=== PATIENT | female | born 1995 | race Hispanic/Latino ===

== ENCOUNTER 2018-06-13 01:36 | Emergency (ER) | payer BC, OTHER ==
[2018-06-13 02:16] LABS: Urine Blood NEGATIVE (NEG); Urine Glucose NEGATIVE (NEG); Urine Protein NEGATIVE (NEG); Urine Specific Gravity 1.015 (1.005-1.030)
[2018-06-13] MEDS ORDERED: NA CHLORIDE 0.9% 1,000 ML ONE (02:24)
[2018-06-13] MEDS ORDERED: ACETAMINOPHEN 500 MG TAB ONE (02:24)
[2018-06-13 02:32] LABS: Absolute Lymphocytes (CBC) 3.5 K/uL (0.7-4.9); Absolute Monocytes 0.6 K/uL (0.1-1.3); Absolute Neutrophil 5.5 K/uL (1.8-8.0); Basophils % 0.5 % (0-1.3); Eosinophils % 1.2 % (0-4.4); Hematocrit 38.1 % (36.0-45.0); Lymphocytes % 36.1 % (15.3-44.8); MPV 8.7 fL (7.6-11.3); Monocytes % 5.8 % (3.3-12.3); RBC Red Blood Cell Count 4.41 M/uL (3.86-4.86)
[2018-06-13 02:48] LABS: BUN Blood Urea Nitrogen 8 mg/dL (7-18); Bicarbonate 26 mmol/L (21-32); Glucose Level 86 mg/dL (74-106); Potassium 3.3 mmol/L (3.5-5.1); Sodium Level 139 mmol/L (136-145)
[2018-06-13] MEDS ORDERED: POTASSIUM CL SA 10 MEQ TAB PO ONE (03:11)
--- NOTE | 2018-06-13 03:19 | EDPHYS ---
Physician Documentation [facility] Name: Eboni Gillis Age: 23 yrs Sex: Female : 1995 Arrival Date: 06/13/2018 Time: 01:37 Bed 20 Private MD: ED Physician Armando Mitchell HPI: 06/13 02:36 This 23 yrs old Female presents to ER via Ambulatory with complaints of jr8 Abdominal Cramping - preg 8 wks. 02:36 The patient presents to the emergency department with abdominal pain, of the lower jr8 abdomen, described as crampy. The estimated gestational age is 8 weeks. course: care: private OB physician, Leakage of Fluid: none appreciated. Previous pregnancies: the patient has never been . Associated signs and symptoms: The patient has no apparent associated signs or symptoms. The patient has not experienced similar symptoms in the past. The patient has not recently seen a physician. Stated that she has had mild cramping the entire thus far. Today has been slightly more intense. Noticed that it hurt to urinate as well. Denies bleeding or spotting. Denies any other symptoms . 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 - Social history:: Smoking status: Patient/guardian denies using tobacco, Patient/guardian denies using alcohol, street drugs, IV drugs. - Ebola Screening: : No symptoms or risks identified at this time. ROS: 02:36 Eyes: Negative for injury, pain, redness, and discharge, ENT: Negative for injury, jr8 pain, and discharge, Neck: Negative for injury, pain, and swelling, Cardiovascular: Negative for chest pain, palpitations, and edema, Respiratory: Negative for shortness of breath, cough, wheezing, and pleuritic chest pain, Back: Negative for injury and pain, MS/Extremity: Negative for injury and deformity, Skin: Negative for injury, rash, and discoloration, Neuro: Negative for headache, weakness, numbness, tingling, and seizure. 02:36 Abdomen/GI: Positive for abdominal cramps, Negative for nausea, vomiting, and diarrhea, abdominal distension, anorexia, dysphagia, hematemesis, black/tarry stool, rectal pain, rectal bleeding, bowel incontinence, flatulence. 02:36 : Negative for pelvic pain, bladder incontinence, vaginal bleeding, vaginal jr8 discharge, vaginal itching. Exam: 02:36 Eyes: Pupils equal round and reactive to light, extra-ocular motions intact. Lids and jr8 lashes normal. Conjunctiva and sclera are non-icteric and not injected. Cornea within normal limits. Periorbital areas with no swelling, redness, or edema. ENT: Nares patent. No nasal discharge, no septal abnormalities noted. Tympanic membranes are normal and external auditory canals are clear. Oropharynx with no redness, swelling, or masses, exudates, or evidence of obstruction, uvula midline. Mucous membranes moist. Neck: Trachea midline, no thyromegaly or masses palpated, and no cervical lymphadenopathy. Supple, full range of motion without nuchal rigidity, or vertebral point tenderness. No Meningismus. Cardiovascular: Regular rate and rhythm with a normal S1 and S2. No gallops, murmurs, or rubs. Normal PMI, no JVD. No pulse deficits. Respiratory: Lungs have equal breath sounds bilaterally, clear to auscultation and percussion. No rales, rhonchi or wheezes noted. No increased work of breathing, no retractions or nasal flaring. Abdomen/GI: Soft, non-tender, with normal bowel sounds. No distension or tympany. No guarding or rebound. No evidence of tenderness throughout. Back: No spinal tenderness. No costovertebral tenderness. Full range of motion. Skin: Warm, dry with normal turgor. Normal color with no rashes, no lesions, and no evidence of cellulitis. MS/ Extremity: Pulses equal, no cyanosis. Neurovascular intact. Full, normal range of motion. Neuro: Awake and alert, GCS 15, oriented to person, place, time, and situation. Cranial nerves II-XII grossly intact. Motor strength 5/5 in all extremities. Sensory grossly intact. Cerebellar exam normal. Normal gait. Vital Signs: 01:46 BP 123 / 88; Pulse 94; Resp 18; Temp 99(O); Pulse Ox 100% on R/A; Weight 68.04 kg; mg2 Height 5 ft. 11 in. (180.34 cm); Pain 0/10; 02:51 BP 105 / 61; Pulse 81; Resp 16 S; Pulse Ox 100% on R/A; jd3 01:46 Body Mass Index 20.92 (68.04 kg, 180.34 cm) mg2 MDM: 02:06 Patient medically screened. [facility] 03:16 Data reviewed: vital signs, nurses notes, lab test result(s), and as a result, I will jr8 discharge patient. Data interpreted: Pulse oximetry: on room air is 100 %. Interpretation: normal. Counseling: I had a detailed discussion with the patient and/or guardian regarding: the historical points, exam findings, and any diagnostic results supporting the discharge/admit diagnosis, lab results, the need for outpatient follow up, an OB/Gyne specialist, to return to the emergency department if symptoms worsen or persist or if there are any questions or concerns that arise at home. Response to treatment: the patient's symptoms have markedly improved after treatment, patient is well hydrated. 06/13 01:57 Order name: Urine Dipstick--Ancillary (enter results); Complete Time: 02:18 2 06/13 01:57 Order name: Urine --Ancillary (enter results); Complete Time: 02:18 [facility] 06/13 02:12 Order name: CBC with Diff; Complete Time: 02:36 8 06/13 02:12 Order name: Basic Metabolic Panel; Complete Time: 02:59 8 06/13 02:12 Order name: IV; Complete Time: 02:22 [facility] Administered Medications: 02:22 Drug: NS 0.9% 1000 ml Route: IV; Rate: 1000 ml; Site: right forearm; jd3 03:04 Follow up: Response: No adverse reaction jd3 03:50 Follow up: Response: No adverse reaction; IV Status: Completed infusion jd3 02:22 Drug: Tylenol 1000 mg Route: PO; jd3 03:50 Follow up: Response: No adverse reaction jd3 03:04 Drug: Potassium Chloride 20 mEq Route: PO; jd3 03:50 Follow up: Response: No adverse reaction jd3 Disposition: 03:55 Co-signature as Attending Physician, Armando Mitchell MD. Disposition: 06/13/18 03:18 Discharged to Home. Impression: Primary inadequate contractions. - Condition is Stable. - Discharge Instructions: Abdominal Pain During . - Medication Reconciliation Form, Thank You Letter, Antibiotic Education, Prescription Opioid Use form. - Follow up: Private Physician; When: As needed; Reason: Recheck today's complaints, Continuance of care, Re-evaluation by your physician. - Problem is new. - Symptoms have improved. Signatures: Dispatcher [employer] EDMS Balaji Moe PA PA jr8 Armando Mitchell MD MD gs Davies, Jonathon, RN RN jd3 Constantino Mcdowell RN RN mg2 Corrections: (The following items were deleted from the chart) 02:01 01:47 Allergies: No Known Allergies; mg2 mg2 03:51 03:18 06/13/2018 03:18 Discharged to Home. Impression: Primary inadequate contractions. jd3 Condition is Stable. Forms are Medication Reconciliation Form, Thank You Letter, Antibiotic Education, Prescription Opioid Use. Follow up: Private Physician; When: As needed; Reason: Recheck today's complaints, Continuance of care, Re-evaluation by your physician. Problem is new. Symptoms have improved. jr8
--- NOTE | 2018-06-13 03:19 | ER ---
Nurse's Notes [facility] Name: Eboni Gillis Age: 23 yrs Sex: Female : 1995 Arrival Date: 06/13/2018 Time: 01:37 Bed 20 Private MD: Diagnosis: Primary inadequate contractions Presentation: 06/13 01:45 Presenting complaint: Patient states: burning urination and nausea today, abdominal mg2 cramping for 2 weeks. denies pv bleeding. Transition of care: patient was not received from another setting of care. Onset of symptoms was May 2018. Risk Assessment: Do you want to hurt yourself or someone else? Patient reports no desire to harm self or others. Initial Sepsis Screen: Does the patient meet any 2 criteria? No. Patient's initial sepsis screen is negative. Does the patient have a suspected source of infection? No. Patient's initial sepsis screen is negative. Care prior to arrival: None. 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 - Social history:: Smoking status: Patient/guardian denies using tobacco, Patient/guardian denies using alcohol, street drugs, IV drugs. - Ebola Screening: : No symptoms or risks identified at this time. Screenin:51 Abuse screen: Denies threats or abuse. Nutritional screening: No deficits noted. jd3 Tuberculosis screening: No symptoms or risk factors identified. Fall Risk Ambulatory Aid- None/Bed Rest/Nurse Assist (0 pts). Gait- Normal/Bed Rest/Wheelchair (0 pts) Mental Status- Oriented to own ability (0 pts). Total Guajardo Fall Scale indicates No Risk (0-24 pts). Assessment: 01:54 General: Appears in no apparent distress. uncomfortable, Behavior is calm, cooperative, jd3 appropriate for age. Pain: Complains of pain in suprapubic area Quality of pain is described as aching. Neuro: Level of Consciousness is awake, alert, obeys commands, Oriented to person, place, time, situation. Cardiovascular: Capillary refill < 3 seconds Patient's skin is warm and dry. Respiratory: Airway is patent Respiratory effort is even, unlabored, Respiratory pattern is regular, symmetrical. GI: Abdomen is round Bowel sounds present X 4 quads. Abd is soft and non tender X 4 quads. Reports constipation. : Reports pain with urination. EENT: No signs and/or symptoms were reported regarding the EENT system. Derm: Skin is intact, Skin is dry, Skin is normal, Skin temperature is warm. Musculoskeletal: Circulation, motion, and sensation intact. Range of motion: intact in all extremities. 02:51 Reassessment: Patient appears in no apparent distress at this time. Patient and/or jd3 family updated on plan of care and expected duration. Pain level reassessed. Patient is alert, oriented x 3, equal unlabored respirations, skin warm/dry/pink. 03:49 Reassessment: Patient appears in no apparent distress at this time. Patient and/or jd3 family updated on plan of care and expected duration. Pain level reassessed. Patient is alert, oriented x 3, equal unlabored respirations, skin warm/dry/pink. Vital Signs: 01:46 BP 123 / 88; Pulse 94; Resp 18; Temp 99(O); Pulse Ox 100% on R/A; Weight 68.04 kg; mg2 Height 5 ft. 11 in. (180.34 cm); Pain 0/10; 02:51 BP 105 / 61; Pulse 81; Resp 16 S; Pulse Ox 100% on R/A; jd3 01:46 Body Mass Index 20.92 (68.04 kg, 180.34 cm) mg2 ED Course: 01:37 Patient arrived in ED. am2 01:42 Constantino Mcdowell, CARLOS is Primary Nurse. mg2 01:46 Triage completed. mg2 01:50 Arm band placed on. jd3 01:51 Patient has correct armband on for positive identification. Bed in low position. Call jd3 light in reach. Side rails up X 1. Adult w/ patient. 01:54 Primary Nurse role handed off by Constantino Mcdowell, CARLOS jd3 01:54 Ulysses Levy RN is Primary Nurse. jd3 02:06 [facility] jr8 02:06 Armando Mitchell MD is Attending Physician. jr8 03:50 No provider procedures requiring assistance completed. IV discontinued, intact, jd3 bleeding controlled, No redness/swelling at site. Pressure dressing applied. Administered Medications: 02:22 Drug: NS 0.9% 1000 ml Route: IV; Rate: 1000 ml; Site: right forearm; jd3 03:04 Follow up: Response: No adverse reaction jd3 03:50 Follow up: Response: No adverse reaction; IV Status: Completed infusion jd3 02:22 Drug: Tylenol 1000 mg Route: PO; jd3 03:50 Follow up: Response: No adverse reaction jd3 03:04 Drug: Potassium Chloride 20 mEq Route: PO; jd3 03:50 Follow up: Response: No adverse reaction jd3 Outcome: 03:18 Discharge ordered by . jr8 03:50 Discharged to home ambulatory, with family. jd3 03:50 Condition: stable 03:50 Discharge instructions given to patient, family, Instructed on discharge instructions, follow up and referral plans. Demonstrated understanding of instructions, follow-up care. 03:51 Patient left the ED. jd3 Signatures: Balaji Moe PA PA jr8 Mica Francisco am2 Ulysses Levy RN RN jd3 Constantino Mcdowell RN RN mg2 Corrections: (The following items were deleted from the chart) 02:01 01:46 Temp 99F Oral; 68.04 kg; Height 5 ft. 11 in.; BMI: 20.9; mg2 mg2 02:01 01:47 Allergies: No Known Allergies; mg2 mg2
== END 2018-06-13 03:51 | disposition home or self-care (01) ==
LOC: ER 01:36
DX: O62.0 Primary inadequate contractions (principal); Z3A.08 8 weeks gestation of pregnancy; Z88.0 Allergy status to penicillin
CPT/HCPCS: 36415; 80048; 81003; 81025; 85025; 96360; 99283; J7030

== ENCOUNTER 2018-12-27 13:50 | Emergency (ER) | payer BC, SELFPAY ==
--- OUTSIDE RECORDS SUMMARY | 2018-12-27 13:53 | XMS REPORT ---
:1995 [facility] Dante Barker. [address] [place] [address] Care Team Providers Name Role Phone Unavailable Unavailable Unavailable Problems This patient has no known problems. Allergies, Adverse Reactions, Alerts This patient has no known allergies or adverse reactions. Medications This patient has no known medications.
[2018-12-27 14:33] LABS: Absolute Lymphocytes (CBC) 1.6 K/uL (0.7-4.9); Basophils % 0.7 % (0-1.3); Eosinophils % 0.7 % (0-4.4); Hematocrit 33.4 % (36.0-45.0); Lymphocytes % 21.6 % (15.3-44.8); MPV 9.8 fL (7.6-11.3); Monocytes % 4.9 % (3.3-12.3); RBC Red Blood Cell Count 3.78 M/uL (3.86-4.86)
[2018-12-27] MEDS ORDERED: MEPERIDINE HCL 25 MG/0.5 ML ONE (14:39)
[2018-12-27] MEDS ORDERED: ONDANSETRON 4 MG/2 ML VIAL ONE (14:40)
[2018-12-27 14:47] LABS: Urine Blood NEGATIVE (NEG); Urine Glucose NEGATIVE (NEG); Urine Protein 1+ (NEG); Urine Specific Gravity 1.025 (1.005-1.030)
[2018-12-27 14:51] LABS: Potassium 3.7 mmol/L (3.5-5.1)
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
== END 2018-12-27 16:17 | disposition home or self-care (01) ==
LOC: ER 13:50
DX: O26.893 Other specified pregnancy related conditions, third trimester (principal); S20.219A Contusion of unspecified front wall of thorax, initial encounter; V49.9XXA Car occupant (driver) (passenger) injured in unspecified traffic accident, initial encounter; Z3A.36 36 weeks gestation of pregnancy; Z88.0 Allergy status to penicillin; O16.3 Unspecified maternal hypertension, third trimester
CPT/HCPCS: 36415; 71045; 80048; 81003; 85025; 86850; 86900; 86901; J2175; J2405

== ENCOUNTER 2019-01-14 01:40 | Emergency (ER) | payer SELFPAY ==
[2019-01-14] MEDS ORDERED: NA CHLORIDE 0.9% 1,000 ML ONE (02:12)
[2019-01-14 02:40] LABS: Protime INR 0.9
[2019-01-14 02:42] LABS: Basophils % 0.3 % (0-1.3); Hematocrit 30.5 % (36.0-45.0); Lymphocytes % 22.9 % (15.3-44.8); RBC Red Blood Cell Count 3.56 M/uL (3.86-4.86)
[2019-01-14 03:04] LABS: ALT/SGPT 11 U/L (12-78); AST/SGOT 13 U/L (15-37); Albumin 2.7 g/dL (3.4-5.0); Alkaline Phosphatase 131 U/L (45-117); BUN Blood Urea Nitrogen 9 mg/dL (7-18); Bicarbonate 22 mmol/L (21-32); Bilirubin Direct < 0.1 mg/dL (0-0.2); Bilirubin Total 0.1 mg/dL (0.2-1.0); Glucose Level 113 mg/dL (74-106); Lipase 160 U/L (73-393); Magnesium 1.9 mg/dL (1.8-2.4); NT PRO-BNP 26 pg/mL (<125); Potassium 3.7 mmol/L (3.5-5.1); Protein, Total 6.7 g/dL (6.4-8.2); Sodium Level 141 mmol/L (136-145); Troponin (Emerg Dept Use Only) < 0.02 ng/mL (0.0-0.045)
[2019-01-14 03:27] LABS: Urine Glucose NEGATIVE (NEG); Urine Specific Gravity >1.030 (1.005-1.030)
[2019-01-14 03:28] LABS: Urine Blood NEGATIVE (NEG); Urine Protein 1+ (NEG)
[2019-01-14] MEDS ORDERED: LABETALOL HCL 100 MG TAB ONE ×2 (04:22→04:23)
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
--- NOTE | 2019-01-14 04:24 | ER ---
Nurse's Notes [facility] Name: Eboni Gillis Age: 23 yrs Sex: Female : 1995 Arrival Date: 01/14/2019 Time: 01:45 Bed 8 Private MD: Diagnosis: Headache; related conditions, unspecified, third trimester;Chest pain, unspecified-non cardiac Presentation: 01/14 01:57 Presenting complaint: Patient states: "The whole right side of my body hurts"; Patient lp1 states pain to right arm and right leg; Pain to right wrist that has been throughout , but pain, tingling to right leg that began a couple days ago; States chest pain intermittently with nausea, headache, shortness of breath; Patient states about 39 weeks . Transition of care: patient was not received from another setting of care. Onset of symptoms was January 14, 2019. Risk Assessment: Do you want to hurt yourself or someone else? Patient reports no desire to harm self or others. Initial Sepsis Screen: Does the patient meet any 2 criteria? No. Patient's initial sepsis screen is negative. Does the patient have a suspected source of infection? No. Patient's initial sepsis screen is negative. Care prior to arrival: None. 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 - Social history:: Smoking status: Patient/guardian denies using tobacco. - Ebola Screening: : No symptoms or risks identified at this time. - Family history:: not pertinent. Screenin:01 Abuse screen: Denies threats or abuse. Denies injuries from another. Nutritional lp1 screening: No deficits noted. Tuberculosis screening: No symptoms or risk factors identified. Fall Risk None identified. Assessment: 02:10 General: Appears in no apparent distress. uncomfortable, Behavior is calm, cooperative, tl2 appropriate for age. Pain: Complains of pain in right leg and right arm and right wrist and dorsal aspect of right forearm Pain does not radiate. Neuro: Level of Consciousness is awake, alert, obeys commands, Oriented to person, place, time, situation, Moves all extremities. Speech is normal, Facial symmetry appears normal, Pupils are PERRLA, Intact Denies weakness dizziness, numbness. Neuro: Reports headache. Cardiovascular: Reports chest pain, nausea, Denies diaphoresis, lightheadedness, Rhythm is sinus rhythm. Respiratory: Airway is patent Respiratory effort is even, unlabored, Respiratory pattern is regular, symmetrical. GI: No signs and/or symptoms were reported involving the gastrointestinal system. : No signs and/or symptoms were reported regarding the genitourinary system. Derm: Skin is pink, warm \\T\\ dry. 03:07 Reassessment: Patient appears in no apparent distress at this time. Patient and/or tl2 family updated on plan of care and expected duration. Pain level reassessed. Patient is alert, oriented x 3, equal unlabored respirations, skin warm/dry/pink. pt returned from CT, no questions or concerns at this time, awaiting lab results. 05:20 Reassessment: Patient appears in no apparent distress at this time. Patient and/or tl2 family updated on plan of care and expected duration. Pain level reassessed. Patient is alert, oriented x 3, equal unlabored respirations, skin warm/dry/pink. pt verbalized understanding of discharge instructions, need for follow up and prescription usage. Ambulatory out of ER with family Patient states feeling better. Vital Signs: 01:58 BP 149 / 91; Pulse 95; Resp 18; Temp 98(O); Pulse Ox 100% on R/A; Weight 94.35 kg; lp1 Height 5 ft. 0 in. (152.40 cm); Pain 5/10; 02:22 BP 140 / 83; Pulse 92; Resp 18; Pulse Ox 99% on R/A; tl2 03:07 BP 134 / 94; Pulse 92; Resp 18; Pulse Ox 97% on R/A; tl2 04:07 BP 131 / 85; Pulse 88; Resp 18; Pulse Ox 98% on R/A; tl2 04:52 BP 147 / 89; Pulse 80; Resp 18; Pulse Ox 98% on R/A; tl2 05:19 BP 140 / 94; Pulse 81; Resp 18; Pulse Ox 98% on R/A; tl2 01:58 Body Mass Index 40.62 (94.35 kg, 152.40 cm) lp1 Vitals: 02:19 Heart Tones 148. tl2 NIH Stroke Scale Scores: 04:26 NIHSS Score: 0 [facility] ED Course: 01:45 Patient arrived in ED. es 01:48 Bob Rosales MD is Attending Physician. dom 01:58 Triage completed. lp1 02:01 Arm band placed on left wrist. lp1 02:10 Patient has correct armband on for positive identification. Bed in low position. Call tl2 light in reach. Side rails up X 1. Adult w/ patient. 02:15 Inserted saline lock: 20 gauge in right antecubital area, using aseptic technique. tl2 Blood collected. placed by CARLOS Degroot. 02:15 Urine collected: clean catch specimen, clear. tl2 02:28 Sheryl Coker RN is Primary Nurse. tl2 02:33 EKG done, by ecg technician. reviewed by Bob Rosales MD. tl2 03:00 CT completed. Patient tolerated procedure well. 1 03:00 X-ray completed. Patient tolerated procedure well. 1 03:00 Patient moved back from radiology. 1 04:23 Kelley Wahl MD is Referral Physician. [facility] 04:33 XRAY Chest (1 view) In Process Unspecified. EDMS 05:20 No provider procedures requiring assistance completed. IV discontinued, intact, tl2 bleeding controlled, No redness/swelling at site. Pressure dressing applied. 07:20 CT Head Brain wo Cont: shield In Process Unspecified. EDMS Administered Medications: 02:28 Drug: NS 0.9% 500 ml Route: IV; Rate: bolus; Site: right antecubital; tl2 05:21 Follow up: IV Status: Completed infusion; IV Intake: 500ml tl2 04:21 Not Given (Duplicate Order): Methyldopa 250 mg PO once [facility] 04:51 Drug: Trandate 100 mg Route: PO; tl2 05:21 Follow up: Response: No adverse reaction; Medication administered at discharge. tl2 Intake: 05:21 IV: 500ml; Total: 500ml. tl2 Outcome: 04:23 Discharge ordered by . dom 05:20 Discharged to home ambulatory, with family. tl2 05:20 Condition: stable 05:20 Discharge instructions given to patient, family, Instructed on discharge instructions, follow up and referral plans. medication usage, Demonstrated understanding of instructions, follow-up care, medications, Prescriptions given X 2. 05:21 Patient left the ED. tl2 NIH Stroke Scale - NIH Stroke Score Date: 01/14/2019 Time: 04:26 Total Score = 0 1a. Level of Consciousness (LOC) - 0(Alert) 1b. Level of Consciousness (LOC) (Year \\T\\ Age) - 0(Both) 1c. LOC Commands (Open \\T\\ Closes Eyes/Data Management Specialist) - 0(Both) 2. Best Gaze (Lateral Gaze Paresis) - 0(Normal) 3. Visual Field Loss - 0(No visual loss) 4. Facial Palsy - 0(Normal) 5a. Left Arm: Motor (10-second hold) - 0(No drift) 5b. Right Arm: Motor (10-second hold) - 0(No drift) 6a. Left Leg: Motor (5-second hold - always test supine) - 0(No drift) 6b. Right Leg: Motor (5-second hold - always test supine) - 0(No drift) 7. Limb Ataxia (finger/nose \\T\\ heel/kaur - test with eyes open) - 0(Absent) 8. Sensory Loss (pinprick arms/legs/face) - 0(Normal) 9. Best Language: Aphasia (description/naming/reading) - 0(No aphasia) 10. Dysarthria (speech clarity - read or repeat words) - 0(Normal) 11. Extinction and Inattention (visual/tactile/auditory/spatial/personal) - 0(No abnormality) Initials: dom Signatures: Dispatcher [employer] Bob Richey MD MD cha Salyer, Luisa Ko 1 Ada Irby, RN RN lp1 Sheryl Coker RN RN tl2 Corrections: (The following items were deleted from the chart) 02:33 02:10 EKG done, by ecg technician. reviewed by Bob Rosales MD tl2 tl2
--- OUTSIDE RECORDS SUMMARY | 2019-01-14 12:46 | XMS REPORT | Summary of Care ---
:1995 Author Organization [facility] - Health Address [address] [place] [address] Care Team Providers Name Role Phone Wayne Mccarty MD Insurance [employer] Primary Care Provider Encounter Details Date Type Department Care Team Description 01/11/2019 Orders Only [facility] Doctor Unassigned, No [address] [facility] [address] [address] [place] [address] Allergies Active Allergy Reactions Severity Noted Date Comments Penicillins Unknown - See comments 11/28/2014 "made my throat tingle" documented as of this encounter (statuses as of 01/11/2019) Medications Medication Sig Dispensed Refills Start Date End Date Status norgestimate-ethinyl Take 1 tablet by 3 Package 2 05/18/2016 Active estradiol (ORTHO mouth daily. [id number]) 0.18/0.215/0.25 mg-35 mcg (28) tabletIndications: Irregular menstrual cycle documented as of this encounter (statuses as of 01/11/2019) Active Problems Problem Noted Date Nexplanon in place 05/18/2016 Irregular menstrual cycle 05/18/2016 Right ankle pain 10/28/2015 Well woman exam 07/16/2015 Depo-Provera contraceptive status 07/16/2015 Overweight 07/16/2015 Contraceptive management 07/16/2015 History of anxiety 07/16/2015 History of depression 07/16/2015 documented as of this encounter (statuses as of 01/11/2019) Immunizations Name Administration Dates Next Due Tdap 06/13/2011 documented as of this encounter Social History Tobacco Use Types Packs/Day Years Used Date Never Smoker Smokeless Tobacco: Never Used Alcohol Use Drinks/Week oz/Week Comments No 0 Standard drinks or equivalent 0.0 Sex Assigned at Date Recorded Not on file Job Start Date Occupation Industry Not on file Not on file Not on file Travel History Travel Start Travel End No recent travel history available. documented as of this encounter Last Filed Vital Signs Not on filedocumented in this encounter Plan of Treatment Health Maintenance Due Date Last Done Comments MENINGOCOCCAL B VACCINES (1 of 2 - 2007 Risk Bexsero 2-dose series) VARICELLA VACCINES (1 of 2 - 13+ 2010 2-dose series) HPV VACCINES (1 - Female 3-dose 2012 series) CHLAMYDIA SCREENING 07/14/2016 07/14/2015 PAP SMEAR 2018 INFLUENZA VACCINE 02/11/2019 DTaP,Tdap,and Td Vaccines (2 - Td) 06/13/2021 06/13/2011 MENINGOCOCCAL VACCINE Aged Out No longer eligible based on patient's age to complete this topic PNEUMOCOCCAL 0-64 YEARS COMBINED Aged Out No longer eligible based on SERIES patient's age to complete this topic documented as of this encounter Procedures Procedure Name Priority Date/Time Associated Diagnosis Comments NOTICE OF PRIVACY Routine 01/11/2019 8:58 AM CDT PRACTICES documented in this encounter Results Not on filedocumented in this encounter Insurance Payer Benefit Plan / Subscriber ID Effective Dates Phone Address Type Group [employer] MEDICAID OF xxxxxxxxx 2016-Harlan [phone] [address] [employer] [place] t [id number] [place] [id number] documented as of this encounter
--- OUTSIDE RECORDS SUMMARY | 2019-01-14 12:46 | XMS REPORT | Summary of Care ---
:1995 Author Organization [facility] Address [address] [place] [address] Care Team Providers Name Role Phone Ibeth Morse [facility] Primary Care Provider Reason for Visit Reason Comments Initial Visit Encounter Details Date Type Department Care Team Description 01/11/2019 [facility] Supervision of high-risk with insufficient care in third trimester (Primary Dx); Visit [place] Ibeth Shepherd [facility] Obesity in ; [address] History of depression; [facility] History of anxiety [phone] [address] [phone] [place] [address] Allergies Active Allergy Reactions Severity Noted Date Comments Penicillins Unknown - See comments 11/28/2014 "made my throat tingle" documented as of this encounter (statuses as of 01/11/2019) Medications Medication Sig Dispensed Refills Start Date End Date Status norgestimate-ethinyl Take 1 tablet by 3 Package 2 05/18/2016 Active estradiol (ORTHO mouth daily. [id number]) 0.18/0.215/0.25 mg-35 mcg (28) tabletIndications: Irregular menstrual cycle vit Take by mouth. 0 Active calc,iron,folic ( VITAMIN ORAL) documented as of this encounter (statuses as of 01/11/2019) Active Problems Problem Noted Date Supervision of high-risk with insufficient care 01/11/2019 Obesity in 01/11/2019 History of anxiety 07/16/2015 History of depression 07/16/2015 Estimated Date of Delivery Comments Yes 02/01/2019 Based on last menstrual period of 04/27/2018 (Approximate) documented as of this encounter (statuses as of 01/11/2019) Resolved Problems Problem Noted Date Resolved Date Nexplanon in place 05/18/2016 01/11/2019 Irregular menstrual cycle 05/18/2016 01/11/2019 Right ankle pain 10/28/2015 01/11/2019 Well woman exam 07/16/2015 01/11/2019 Depo-Provera contraceptive status 07/16/2015 01/11/2019 Overweight 07/16/2015 01/11/2019 Contraceptive management 07/16/2015 01/11/2019 documented as of this encounter (statuses as of 01/11/2019) Immunizations Name Administration Dates Next Due Tdap 06/13/2011 documented as of this encounter Social History Tobacco Use Types Packs/Day Years Used Date Never Smoker Smokeless Tobacco: Never Used Alcohol Use Drinks/Week oz/Week Comments No 0 Standard drinks or equivalent 0.0 Estimated Date of Delivery Comments Yes 02/01/2019 Based on last menstrual period of 04/27/2018 (Approximate) Sex Assigned at Date Recorded Not on file Job Start Date Occupation Industry Not on file Not on file Not on file Travel History Travel Start Travel End No recent travel history available. documented as of this encounter Last Filed Vital Signs Vital Sign Reading Time Taken Comments Blood Pressure 114/82 01/11/2019 9:23 AM CDT Pulse 99 01/11/2019 9:18 AM CDT Temperature 36.3 C (97.3 F) 01/11/2019 9:18 AM CDT Respiratory Rate 16 01/11/2019 9:18 AM CDT Oxygen Saturation - - Inhaled Oxygen Concentration - - Weight 94.4 kg (208 lb 2 oz) 01/11/2019 9:18 AM CDT Height 152.4 cm (5') 01/11/2019 9:18 AM CDT Body Mass Index 40.65 01/11/2019 9:18 AM CDT documented in this encounter Progress Notes Ibeth Morse, WHCNP - 01/11/2019 8:30 AM CDT Chief complaint: Chief Complaint Patient presents with Initial Visit HPI CC: Initial Visit Eboni Gillis is a 23 year old, , Black or female. Patient's last menstrual period was 04/27/2018 (approximate). She is 37w0d with an intrauterine . Her Estimated Date of Delivery: 02/01/19. She is being seen today for her first obstetrical visit. She has no complaints today. OB History Para Term AB Living 1 0 0 0 0 0 SAB TAB Ectopic Multiple Live Births 0 0 0 0 # Outcome Date GA Lbr Arsh/2nd Weight Sex Delivery Anes PTL Lv 1 Current Histories OB History Para Term AB Living 1 0 0 0 0 0 SAB TAB Ectopic Multiple Live Births 0 0 0 0 # Outcome Date GA Lbr Arsh/2nd Weight Sex Delivery Anes PTL Lv 1 Current Past Medical History: Diagnosis Date Anxiety resolved Depression resolved Irregular menstrual cycle 05/18/2016 Right ankle pain 10/28/2015 STD (sexually transmitted disease) 2017 chlamydia Family History Problem Relation Age of Onset Hypertension Mother Cancer Mother cervical Arthritis Mother Hypertension Maternal Grandmother Diabetes Maternal Grandmother No Significant Medical Problems Brother No Significant Medical Problems Maternal Aunt No Significant Medical Problems Maternal Uncle No Significant Medical Problems Maternal Grandfather No Significant Medical Problems Brother Asthma NoFHx defects NoFHx Breast Cancer NoFHx Colon Cancer NoFHx Ovarian Cancer NoFHx Uterine Cancer NoFHx Depression NoFHx Genetic NoFHx Heart NoFHx High cholesterol NoFHx Mental retardation NoFHx Neurological NoFHx Osteoporosis NoFHx Psychiatry NoFHx Other - see comments NoFHx Family Status Relation Name Status Mo Alive MGMo Alive Fa Other unknown history Bro Alive MAunt (Not Specified) MUnc (Not Specified) PAunt Other PUnc Other MGFa Alive PGMo Other PGFa Other Bro Alive NoFHx (Not Specified) Past Surgical History: Procedure Laterality Date ORAL SURGERY PROCEDURE wisdom teeth romoved 4 yrs ago Social History Socioeconomic History Marital status: Single Spouse name: Not on file Number of children: 0 Years of education: Not on file Highest education level: Not on file 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 Social Needs Financial resource strain: Not on file Food insecurity: Worry: Not on file Inability: Not on file Transportation needs: Medical: Not on file Non-medical: Not on file Tobacco Use Smoking status: Never Smoker Smokeless tobacco: Never Used Substance and Sexual Activity Alcohol use: No Alcohol/week: 0.0 oz Drug use: No Sexual activity: Yes Partners: Male control/protection: None Comment: last sexual intercourse 08/14/2018 Lifestyle Physical activity: Days per week: Not on file Minutes per session: Not on file Stress: Not on file Relationships Social connections: Talks on phone: Not on file Gets together: Not on file Attends alevism service: Not on file Active member of club or organization: Not on file Attends meetings of clubs or organizations: Not on file Relationship status: Not on file Intimate partner violence: Fear of current or ex partner: Not on file Emotionally abused: Not on file Physically abused: Not on file Forced sexual activity: Not on file Other Topics Concern Service Not Asked Blood Transfusions Not Asked Caffeine Concern No Occupational Exposure Not Asked Hobby Hazards Not Asked Sleep Concern Not Asked Stress Concern Not Asked Weight Concern Not Asked Special Diet Not Asked Back Care Not Asked Exercise Not Asked Bike Helmet Not Asked Seat Belt Not Asked Self-Exams Not Asked Social History Narrative Pt denies current or past physical, sexual or emotional abuse. Patient lives with grandmother. Lutheran preference: Restoration. One inside dog at home. Social History Substance and Sexual Activity Sexual Activity Yes Partners: Male control/protection: None Comment: last sexual intercourse 08/14/2018 Genetic Screen Autism / Mental Retardation: No Valentina Disease: No Congenital Heart Defect: No Cystic Fibrosis: No Down Syndrome: No Familial Dysautonomia: No Hemophilia or other Blood Disorders: No Rojelio Chorea: No Maternal Metabolic Disorder--specify (eg. Type 1 Diabetes, PKU): No Muscular Dystrophy: No Neural Tube Defect: No Recurrent Loss or a Stillbirth: No Sickle Cell Disease or Trait: No Eugene Sachs: No Teratological Substances (specify type & strength/dose) since LMP: No Thalassemia: No Other Inherited Genetic or Chromosomal Disorder (specify): No No Significant History of Genetic Disorders: No Significant History of Genetic Disorders Labs Labs are pending. and ROR requested for previous labs Radiology Radiology pending. Allergies Eboni is allergic to penicillins. Medications Eboni has a current medication list which includes the following prescription(s ): vit calc,iron,folic and norgestimate-ethinyl estradiol. Review of Systems Constitutional: Negative. HENT: Negative. Eyes: Negative. Respiratory: Negative. Breasts: Negative. Cardiovascular: Negative. Gastrointestinal: Negative. Genitourinary: Negative. Musculoskeletal: Negative. Skin: Negative. Neurological: Negative. Psychiatric/Behavioral: Negative. Endocrine: Endocrine negative BP 114/82 (BP Location: Right arm, Patient Position: Sitting, BP CUFF SIZE: Adult Large) | Pulse 99 | Temp 36.3 C (97.3 F) (Oral) | Resp 16 | Ht 5' ( 1.524 m) | Wt 208 lb 2 oz (94.4 kg) | LMP 04/27/2018 (Approximate) | BMI 40.65 kg/m Pregravid BMI: Could not be calculated Physical Exam Vitals reviewed. Constitutional: She is oriented to person, place, and time. She appears well- developed. Her body habitus is normal. Neck: No tenderness and no mass. No thyroid nodules and no thyromegaly palpated. No neck adenopathy. Cardiovascular: Regular rate and rhythm. No gallop, no friction rub and no murmur auscultated. No peripheral edema present. Pulmonary/Chest: Breath sounds clear to auscultation. Normal inspiratory effort. Abdominal: Abdomen is soft. No mass palpated. No tenderness present. There is no hepatosplenomegaly,splenomegaly or hepatomegaly. There is no rigidity. No hernia palpated or inspected. Neuro/Psychiatric: She has a normal mood and affect. She is oriented to person, place, and time. Skin: No lesion, no rash and no ulceration present. Lymphadenopathy: No neck adenopathy present. No axillary adenopathy present. No inguinal adenopathy present. Breast: Right breast exhibits no mass, no nipple discharge and no tenderness. Left breast exhibits no mass, no nipple discharge and no tenderness. Breasts are symmetrical. Normal left breast and normalright breast Rectal: Rectal exam with normal anal tone. No mass, no external hemorrhoid and no internal hemorrhoid palpated or inspected. External genitalia: Normal external genitalia appropriate for age. Normal hair distribution. No labial lesion. Urethral meatus: Normal urethral meatus size, location and no lesion. No prolapse present. Normal urethral meatus Urethra: Normal urethra. No urethral tenderness, no mass and no urethral scarring palpated. Bladder: Bladder has no fullness, no mass palpated and no tenderness. Normal bladder Vagina:Normal vagina. No lesion inspected. Normal estrogen effect. Normal support. No abnormal vaginal discharge found. Cervix: Normal cervix. No lesion. No tenderness and no discharge present. 1cm dilated, 50% effaced Uterus: Uterus is normal size, normal contour, normal position and non-tender. Normal uterus Adnexa: Right adnexa without tenderness, ovary enlargement or mass. Left adnexa without tenderness, ovary enlargement or mass. Normal left adnexa and normal right adnexa Anus/perineum: Normal perineum and normal anus. PHYSICAL: General Exam: HEENT: Normal Neurological: Normal Abdomen: Normal gravid Extremities: Normal Pelvic Exam: Vulva: Normal Vagina: Normal Cervix: Normal Membrane status: Intact Uterus: 39 Weeks Adnexa: Normal Rectum: Normal Assessment/Plan Return to clinic in 1 weeks. Denies zika virus risk, signs and symptoms such as fever,rash,joint pain, conjunctivitis (red eyes),muscle pain, headaches; outside [place] travel to areas affected by zika, and FOB exposure to zika. Educated on use of mosquito repellent. Supervision of high-risk with insufficient care in third trimester (primary encounter diagnosis) Comment: initial visit with labs and physical exam Plan: POCT TEST, POCT URINALYSIS W/O SPECIFIC GRAVITY, GROUP B STREPTOCOCCUS BY PCR, CBC WITH DIFF, GC & CHLAMYDIA AMPLIFIED ASSAY, HCV ANTIBODY, HEPATITIS B SURFACE ANTIGEN, HIV 1/2 AG-AB WITH REFLEX, POCT URINALYSIS W SPECIFIC GRAVITY, WORKUP, BLOOD BANK, RUBELLA SCREEN (JAMEE) IGG, GALV ONLY - SYPHILIS IGG/IGM, URINE CULTURE, VZV ANTIBODY SCREEN, CBC WITH DIFFERENTIA Obesity in Comment: see bmi Plan: limit weight gain and sensible diet. History of depression History of anxiety Comment: n mgmt today Plan: as needed mgmt This visit did not involve counseling and coordination that comprised more than 50% of the visit time. TERI Sanchez 01/11/2019 12:07 PM Brianda Flanagan RN - 01/11/2019 8:30 AM CDTPatient is 23 year old female here for current . Patient is . 1) Previous delivery methods Initial pregancy 2) Patient is not experiencing cramping 3) Patient is not experiencing bleeding. 4) LMP 04/27/2018 5) Last Pap was: n/a Results: N/a 6) Have you had a flu vaccine this season? No 7) PPD candidate? No 8) Patient has no complaints at this time. 9) Patient denies history of physical, emotional, or sexual abuse. Patient states she currently feels safe at home. NOB packet given and reviewed with patient. documented in this encounter Plan of Treatment Date Type Specialty Care Team Description 01/18/2019 Routine Visit [facility] [address] [place] [address] [phone] Name Type Priority Associated Diagnoses Date/Time GROUP B STREPTOCOCCUS BY LAB Routine Supervision of high-risk 01/11/2019 10 :44 AM PCR with CDT insufficient care in third trimester CBC WITH DIFF LAB Routine Supervision of high-risk 01/11/2019 10:43 AM with CDT insufficient care in third trimester GC & CHLAMYDIA AMPLIFIED LAB Routine Supervision of high-risk 01/11/2019 10 :44 AM ASSAY with CDT insufficient care in third trimester HCV ANTIBODY LAB Routine Supervision of high-risk 01/11/2019 10:43 AM with CDT insufficient care in third trimester HEPATITIS B SURFACE LAB Routine Supervision of high-risk 01/11/2019 10:43 AM ANTIGEN with CDT insufficient care in third trimester HIV 1/2 AG-AB WITH REFLEX LAB Routine Supervision of high-risk 01/11/2019 10:43 AM with CDT insufficient care in third trimester RUBELLA SCREEN (JAMEE) IGG LAB Routine Supervision of high-risk 01/11/2019 10:43 AM with CDT insufficient care in third trimester GALV ONLY - SYPHILIS LAB Routine Supervision of high-risk 01/11/2019 10:43 AM IGG/IGM with CDT insufficient care in third trimester URINE CULTURE LAB Routine Supervision of high-risk 01/11/2019 10:44 AM with CDT insufficient care in third trimester VZV ANTIBODY SCREEN LAB Routine Supervision of high-risk 01/11/2019 10:43 AM with CDT insufficient care in third trimester CBC WITH DIFFERENTIAL LAB Routine Supervision of high-risk 01/11/2019 10: 43 AM with CDT insufficient care in third trimester Name Type Priority Associated Diagnoses Order Schedule POCT URINALYSIS W LAB Routine Supervision of high-risk 20 Occurrences starting SPECIFIC GRAVITY with 01/11/2019 until insufficient 11/07/2019 care in third trimester WORKUP, BLOOD LAB Routine Supervision of high-risk Ordered: 2018 BANK with insufficient care in third trimester Health Maintenance Due Date Last Done Comments [...] Procedure Name Priority Date/Time Associated Diagnosis Comments POCT URINALYSIS W/O Routine 01/11/2019 9:21 Supervision of Results for this SPECIFIC GRAVITY AM CDT high-risk procedure are in with insufficient the results care in section. third trimester POCT TEST Routine 01/11/2019 9:20 Supervision of Results for this AM CDT high-risk procedure are in with insufficient the results care in section. third trimester documented in this encounter Results POCT URINALYSIS W/O SPECIFIC GRAVITY (01/11/2019 9:21 AM CDT) POCT PH U 5 5 - 8 mg/dl POCT U LEUK EST Trace Negative - Negative POCT U NIT Neg Negative - Negative POCT U PROT Trace Negative - Negative POCT U GLU Neg Negative - Negative POCT U KETONE None Negative - Negative POCT U BLD Neg Negative - Negative Specimen Urine - URINE, CLEAN CATCH POCT TEST (01/11/2019 9:20 AM CDT) POCT PREG Positive On board controls acceptable Yes with C Line POCT PREG LOT # POCT PREG TEST DATE Specimen Urine - URINE, CLEAN CATCH documented in this encounter Visit Diagnoses Diagnosis Supervision of high-risk with insufficient care in third trimester - Primary Obesity in Obesity complicating , childbirth, or the puerperium, unspecified as to episode of care or not applicable History of depression Personal history of other mental disorder History of anxiety Personal history of other mental disorder documented in this encounter Insurance Payer Benefit Plan / Subscriber ID Effective Phone Address Type Group Dates MEDICAID MEDICAID PENDING 2019-[address] [place] [address] documented as of this encounter Advance Directives Name Relationship Healthcare Agent Relationship Communication Trishlily Gillis Mother Primary healthcare agent
--- OUTSIDE RECORDS SUMMARY | 2019-01-14 12:46 | XMS REPORT ---
:1995 [facility] Address [address] [place] [address] [address]. [address] [place] [address] Care Team Providers Name Role Phone Unavailable Unavailable Unavailable Problems This patient has no known problems. Allergies, Adverse Reactions, Alerts This patient has no known allergies or adverse reactions. Medications This patient has no known medications.
--- OUTSIDE RECORDS SUMMARY | 2019-01-14 12:47 | XMS REPORT | Summary of Care ---
:1995 Author Organization [facility] Address [address] [place] [address] Care Team Providers Name Role Phone Ibeth Morse [facility] Primary Care Provider Reason for Visit Reason Comments Initial Visit Encounter Details Date Type Department Care Team Description [facility]/11[facility]2019 [facility] Supervision of high-risk with insufficient care in third trimester (Primary Dx); Visit [place] Ibeth Shepherd [facility] Obesity in ; [address] History of depression; [facility] History of anxiety [phone] [address] [phone] [place] [address] Allergies Active Allergy Reactions Severity Noted Date Comments Penicillins Unknown - See comments 11/28/2014 "made my throat tingle" documented as of this encounter (statuses as of 01/11/2019) Medications Medication Sig Dispensed Refills Start Date End Date Status norgestimate-ethinyl Take 1 tablet by 3 Package 2 05/18/2016 Active estradiol (ORTHO mouth daily. 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 Patient lives with grandmother. Baptism preference: Yazidism. One inside dog at home. Social History [...] 01/18/2019 Routine [facility] [address] [place] [address] [phone] Name Type Priority Associated Diagnoses Date/Time GROUP [...] Address Type Group Dates MEDICAID MEDICAID PENDING 2019-[address] [place] [address] documented as of this encounter Advance Directives Name Relationship Healthcare Agent Relationship Communication Trishlily Gillis Mother Primary healthcare agent
--- NOTE | 2019-01-14 13:38 | RAD REPORT ---
EXAM DESCRIPTION: CT - Head Brain Wo Cont - 01/14/2019 12:42 pm CLINICAL HISTORY: Headache COMPARISON: April 2014 TECHNIQUE: Axial 5 mm thick images of the head were obtained without IV contrast. All CT scans are performed using dose optimization technique as appropriate and may include automated exposure control or mA/KV adjustment according to patient size. FINDINGS: No intracranial hemorrhage, mass, edema or shift of mid-line structures. No acute infarcti on changes seen. No abnormal extra-axial fluid collections. Ventricles are normal. Mastoid air cells and visualized portions of the paranasal sinuses are clear. No acute bony findings. Due to a technical malfunction images were not available and no dictation could be generated at the t aneta of the study. A verbal report was telephoned when images became available for preliminary review. IMPRESSION: Negative non-contrast CT head examination.
--- NOTE | 2019-01-14 14:40 | RAD REPORT ---
EXAM DESCRIPTION: RAD - Chest Single View - 01/14/2019 12:42 pm CLINICAL HISTORY: Cough COMPARISON: December 27 TECHNIQUE: AP portable chest image was obtained 0252 hours. Abdominal shielding was utilized . FINDINGS: Lungs are clear. Heart and vasculature are normal. No measurable pleural effusion and no p neumothorax. No acute bony abnormality seen. No acute aortic finding. No significant change from prior imaging. Due to technical malfunction and limited image availability, final report was delayed. IMPRESSION: No acute cardiopulmonary process.
--- NOTE | 2019-01-15 07:45 | EKG ---
Test Date: 2019-01-14 Test Time: 02:29:39 Family Life Counselor: RENZO MEASUREMENT RESULTS: Intervals: Rate: 96 OH: 134 QRSD: 76 QT: 332 QTc: 419 [place]: P: 59 OH: 134 QRS: 47 T: 36 INTERPRETIVE STATEMENTS: Normal sinus rhythm Normal ECG No previous ECG available for comparison Electronically Signed On 01-15-19 07:43:46 CDT by Dave Carrillo
== END 2019-01-14 05:21 | disposition home or self-care (01) ==
LOC: ER 01:40
DX: O26.893 Other specified pregnancy related conditions, third trimester (principal); R51 Headache; R07.9 Chest pain, unspecified; O16.3 Unspecified maternal hypertension, third trimester; Z3A.39 39 weeks gestation of pregnancy
CPT/HCPCS: 36415; 70450; 71045; 80048; 80076; 81003; 83690; 83735; 83880; 84484; 85025; 85610; 87086; 87088; 93005; 96360; 96361; 99285; J7030

== ENCOUNTER 2020-03-04 00:56 | Emergency (ER) | payer OTHER ==
--- OUTSIDE RECORDS SUMMARY | 2020-03-04 00:58 | XMS REPORT | Continuity of Care Document ---
:1995 Author Organization [facility] Address [address] [place] [address] Care Team Providers Name Role Phone Chilango Teixeira MD Attending Clinician Visit, Nurse Attending Clinician Unavailable Anthony Bethea MD Attending Clinician Akinsipe WHCNP, C Attending Clinician Chilango Teixeira MD Admitting Clinician Anthony Bethea MD Admitting Clinician Problems This patient has no known problems. Allergies, Adverse Reactions, Alerts This patient has no known allergies or adverse reactions. Medications This patient has no known medications. Procedures This patient has no known procedures. Encounters Start End Encounter Admission Attending Care Care Encounter Source Date/Time Date/Time Type Type Clinicians Facility Department ID 2019-01-16 2019-01-19 [facility] NIMO Teixeira [id number] 18:12:00 14:30:00 Encounter Laurent CAGE [id number] [facility] [id number] 2019-01-16 2019-01-16 Nurse Visit [facility] [id number] 14:06:12 14:35:18 Visit MagdalenoBryant SEATING UPHOLSTERER [id number] Nurse [facility] [id number] MATERNAL [id number] & CHILD [address] [place] [address] 2019-01-15 2019-01-16 [facility] Lois Bethea [facility] [id number] 23:46:00 02:55:00 [facility] [id number] [place] [id number] [place] [id number] 2019-01-16 2019-01-16 Telephone [place] [id number] 00:00:00 00:00:00 Ibeth C SEATING [facility]PHOLSTERER [id number] [facility] [id number] MATERNAL [id number] & CHILD [address] [facility] 2019-01-15 2019-01-15 Routine [place] [facility] [id number] 16:42:55 18:07:11 Ibeth C SEATING [facility]PHOLSTERER [id number] Visit [facility] [id number] MATERNAL [id number] & CHILD [address] [facility] 2019-01-15 2019-01-15 Telephone [place] [facility] [id number] 00:00:00 00:00:00 Ibeth C SEATING UPHOLSTERER [id number] [facility] [id number] MATERNAL [id number] & CHILD 107 [facility] 2019-01-11 2019-01-11 Initial [place] [facility] [id number] 09:06:50 10:43:15 Ibeth C SEATING UPHOLSTERER [id number] Visit [facility] [id number] MATERNAL [id number] & CHILD 107 [facility] Results This patient has no known results.
--- NOTE | 2020-03-04 01:20 | ER ---
Nurse's Notes [facility] Name: Eboni Gillis Age: 24 yrs Sex: Female : 1995 Arrival Date: 03/04/2020 Time: 00:58 Bed 6 Private MD: Diagnosis: Cellulitis of left lower limb Presentation: 03/04 01:06 Chief complaint: Patient states: approx 45 mins ago she got out of her car to help bb someone and was wading in calf high water and now her right big toe is reddened and swollen with burning and itching. Coronavirus screen: At this time, the client does not indicate any symptoms associated with coronavirus-19. The client reports previous COVID testing was negative. Date of collection: February 24, 2020. Ebola Screen: No symptoms or risks identified at this time. Initial Sepsis Screen: Does the patient meet any 2 criteria? No. Patient's initial sepsis screen is negative. Does the patient have a suspected source of infection? No. Patient's initial sepsis screen is negative. Risk Assessment: Do you want to hurt yourself or someone else? Patient reports no desire to harm self or others. Onset of symptoms was March 04, 2020. 01:06 Method Of Arrival: Ambulatory bb 01:06 Acuity: KALINA 4 bb Triage Assessment: 01:25 Bite description: by unknown. bb 01:25 Bite description: animal information: vaccination(s) is not applicable. 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 - Social history:: Smoking status: Patient denies any tobacco usage or history of. Patient/guardian denies using alcohol, street drugs. Screenin:07 Abuse screen: Denies threats or abuse. Denies injuries from another. Nutritional rv screening: No deficits noted. Tuberculosis screening: No symptoms or risk factors identified. Fall Risk None identified. Assessment: 01:06 General: Appears comfortable, Behavior is calm, cooperative. Pain: Complains of pain in rv right first toe Pain currently is 5 out of 10 on a pain scale. Quality of pain is described as burning. Neuro: Level of Consciousness is awake, alert, obeys commands, Oriented to person, place, time, situation. Cardiovascular: Patient's skin is warm and dry. Respiratory: Airway is patent. Derm: Skin is intact, Skin is pink, warm \T\ dry. Musculoskeletal: Circulation, motion, and sensation intact. Swelling present in right first toe. Vital Signs: 01:06 BP 141 / 93; Pulse 88; Resp 16 S; Temp 98.7(O); Pulse Ox 100% on R/A; Weight 70.31 kg bb (R); Height 5 ft. 1 in. (154.94 cm) (R); Pain 5/10; 01:06 Body Mass Index 29.29 (70.31 kg, 154.94 cm) bb ED Course: 00:58 Patient arrived in ED. cl3 01:06 Helder Fontanez, RN is Primary Nurse. rv 01:07 No provider procedures requiring assistance completed. Patient did not have IV access rv during this emergency room visit. 01:08 Triage completed. bb 01:08 Arm band placed on Patient placed in an exam room, on a stretcher, on pulse oximetry. bb 01:10 Madi Cagle MD is Attending Physician. tw4 01:25 Patient has correct armband on for positive identification. Bed in low position. Call bb light in reach. Side rails up X 1. Pulse ox on. NIBP on. Administered Medications: 01:26 Drug: Cleocin 300 mg Route: PO; bb Outcome: 01:20 Discharge ordered by . tw4 01:26 Discharged to home ambulatory. bb 01:26 Condition: stable 01:26 Discharge instructions given to patient, Instructed on discharge instructions, follow up and referral plans. medication usage, Demonstrated understanding of instructions, follow-up care, medications, Prescriptions given X 1. 01:27 Patient left the ED. bb Signatures: Deirdre Serna RN RN bb Wadley, Terrence, MD MD tw4 Helder Fontanez, Kar Mccall RN cl3
--- NOTE | 2020-03-04 01:21 | EDPHYS ---
Physician Documentation [facility] Name: Eboni Gillis Age: 24 yrs Sex: Female : 1995 Arrival Date: 03/04/2020 Time: 00:58 Bed 6 Private MD: ED Physician Madi Cagle HPI: 03/04 06:14 This 24 yrs old Female presents to ER via Ambulatory with complaints of Foot tw4 Injury. 06:14 The patient presents with pain. The complaints affect the left foot. Context: The tw4 problem was sustained outdoors. Onset: The symptoms/episode began/occurred today. Modifying factors: The symptoms are alleviated by nothing, the symptoms are aggravated by nothing. Associated signs and symptoms: The patient has no apparent associated signs or symptoms. The patient has not experienced similar symptoms in the past. 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 - Social history:: Smoking status: Patient denies any tobacco usage or history of. Patient/guardian denies using alcohol, street drugs. ROS: 06:14 MS/extremity: Positive for pain. tw4 06:14 Constitutional: Negative for fever, chills, and weight loss, Eyes: Negative for injury, pain, redness, and discharge, Cardiovascular: Negative for chest pain, palpitations, and edema, Respiratory: Negative for shortness of breath, cough, wheezing, and pleuritic chest pain, Abdomen/GI: Negative for abdominal pain, nausea, vomiting, diarrhea, and constipation, Back: Negative for injury and pain, MS/Extremity: Negative for injury and deformity, Skin: Negative for injury, rash, and discoloration. Exam: 06:14 Constitutional: This is a well developed, well nourished patient who is awake, alert, tw4 and in no acute distress. Head/Face: Normocephalic, atraumatic. Eyes: Pupils equal round and reactive to light, extra-ocular motions intact. Lids and lashes normal. Conjunctiva and sclera are non-icteric and not injected. Cornea within normal limits. Periorbital areas with no swelling, redness, or edema. Cardiovascular: Regular rate and rhythm with a normal S1 and S2. No gallops, murmurs, or rubs. Normal PMI, no JVD. No pulse deficits. Respiratory: Lungs have equal breath sounds bilaterally, clear to auscultation and percussion. No rales, rhonchi or wheezes noted. No increased work of breathing, no retractions or nasal flaring. Abdomen/GI: Soft, non-tender, with normal bowel sounds. No distension or tympany. No guarding or rebound. No evidence of tenderness throughout. Skin: Warm, dry with normal turgor. Normal color with no rashes, no lesions, and no evidence of cellulitis. 06:14 Musculoskeletal/extremity: Extremities: noted in the : erythema, pain. Vital Signs: 01:06 BP 141 / 93; Pulse 88; Resp 16 S; Temp 98.7(O); Pulse Ox 100% on R/A; Weight 70.31 kg bb (R); Height 5 ft. 1 in. (154.94 cm) (R); Pain 5/10; 01:06 Body Mass Index 29.29 (70.31 kg, 154.94 cm) bb MDM: 01:10 Patient medically screened. tw4 06:19 Differential diagnosis: fracture, gout, cellulitis. Data reviewed: vital signs, nurses tw4 notes. Counseling: I had a detailed discussion with the patient and/or guardian regarding: the historical points, exam findings, and any diagnostic results supporting the discharge/admit diagnosis. Special discussion: I discussed with the patient/guardian in detail that at this point there is no indication for admission to the hospital. It is understood, however, that if the symptoms persist or worsen the patient needs to return immediately for re-evaluation. Administered Medications: 01:26 Drug: Cleocin 300 mg Route: PO; bb Disposition: 03/04/20 01:20 Discharged to Home. Impression: Cellulitis of left lower limb. - Condition is Stable. - Discharge Instructions: Cellulitis, Adult. - Prescriptions for Cleocin 300 mg Oral Capsule - take 1 capsule by ORAL route every 6 hours for 10 days; 40 capsule. - Medication Reconciliation Form, Thank You Letter, Antibiotic Education, Prescription Opioid Use form. - Follow up: Private Physician; When: Upon discharge from the Emergency Department; Reason: Recheck today's complaints, Continuance of care, Re-evaluation by your physician. - Problem is new. - Symptoms are unchanged. Signatures: Deirdre Serna RN RN Madi Wen MD MD tw4 Corrections: (The following items were deleted from the chart) 01:27 01:20 03/04/2020 01:20 Discharged to Home. Impression: Cellulitis of left lower limb. bb Condition is Stable. Forms are Medication Reconciliation Form, Thank You Letter, Antibiotic Education, Prescription Opioid Use. Follow up: Private Physician; When: Upon discharge from the Emergency Department; Reason: Recheck today's complaints, Continuance of care, Re-evaluation by your physician. Problem is new. Symptoms are unchanged. tw4
[2020-03-04 01:56] VITALS: BP 141/93; TEMP 98.7; O2SAT 100
== END 2020-03-04 01:27 | disposition home or self-care (01) ==
LOC: ER 00:56
DX: L03.116 Cellulitis of left lower limb (principal); I10 Essential (primary) hypertension; Z88.1 Allergy status to other antibiotic agents
CPT/HCPCS: 99283

== ENCOUNTER 2021-09-20 04:54 | Emergency (ER) | payer BC, SELFPAY ==
--- OUTSIDE RECORDS SUMMARY | 2021-09-20 04:59 | XMS REPORT | Continuity of Care Document ---
:1995 Author Organization [facility] t Address [address] [place] [address] Care Team Providers Name Role Phone Pcp, Does Not Have A Primary Care Physician Felipe JEAN Attending Clinician Ethan Green DO Attending Clinician Puneet JEAN, F Attending Clinician Visit, Nurse Attending Clinician Unavailable Lito WILLIAMSON C Attending Clinician Anthony Bethea MD Attending Clinician Doctor Unassigned, Name Attending Clinician Unavailable Puneet JEAN, F Admitting Clinician Anthony Bethea MD Admitting Clinician Payers Payer Name Policy Type Policy Number Effective Date Expiration Date [id number] 2020 OUT OF STATE 00:00:00 [facility] [id number] 2019 CHOICE MEDICAID 00:00:00 Advance Directives Directive Decision Effective Termination Comments Source Date Date Healthcare Agents on N/A [facility] FileNameRelationshipHealthcare [facility] Agent Medical RelationshipCommunicationSTrinity HealthotherHealth Care [phone] (Mobile) Problems Condition Condition Condition Status Onset Resolution Last Treating Co mments Source Name Details Category Date Date Treatment Clinician Date Disease Active Univers (spontaneo (spontaneo 8-08 [place] vaginal [place] 00 [facility] Single Single Disease Active 2019-0 Univers live live 8-08 it y of 00:00: [place] [facility] Branch Anemia, Anemia, Disease Active 2019-0 Univers 8-08 it y of 00:00: [place] 00 [facility] Gestationa Gestationa Disease Active 2019-0 U nivers l l 8-08 ity of hypertensi hypertensi 00:[place] [facility] Laceration Laceration Disease Active 2019-0 U nivers , , 8-08 ity of obstetrica obstetrica 00:[place] l, second l, second 00 [facility] degree degree Branch Disease Active 2019-0 Univers (spontaneo (spontaneo 808 it y of [place] vaginal [place] vaginal [place]: [place] delivery[place] delivery[place] 00 [facility] Anemia, Anemia, Disease Active 2019-0 Univers 8-08 it y of 00:00: [place] 00 [facility] Gestationa Gestationa Disease Active 2019-0 U nivers l l 8-08 ity of hypertensi hypertensi 00:[place]: [place] Gestationa Gestationa Disease Active 2019-0 U nivers l l 8-08 ity of hypertensi hypertensi 00:00: [place] [facility] Morbid Morbid Disease Active 2019-0 Univers obesity obesity 8-06 [place] of with body [place] body 00:[place] mass index mass index 00 Me dical of of Branch 40.0-49.9 40.0-49.9 39 weeks 39 weeks Disease Active 2019-0 Unive rs gestation gestation 8-06 ity of of of 00:00: [place] 00 [facility] Morbid Morbid Disease Active 2019-0 Univers obesity obesity 8-06 ity of with body with body 00:[place] mass index mass index 00 Me dical of of Branch 40.0-49.9 40.0-49.9 Positive Positive Disease Active 2019- Overview: Un jose armando GBS test GBS test 01-15 Address ity o f 00:00: intrapart [place] 00 [facility] Branch Cervical Cervical Disease Active 2019 Overview: Un jose armando Papanicola Papanicola 01-15 Formattin ity of ou smear ou smear 00:00: g of this [place] as negative negative 00 note Medica l within within might be Branch last 12 last 12 different months months from the original. NIL pap 07/03/18 Rubella Rubella Disease Active Overview: Univ ers non-immune non-immune 01-12 Address i ty of status, status, 00:00: pp [place] antepartum antepartum 00 Me dical Branch Susceptibl Susceptibl Disease Active Overview : Univers e e 01-12 Formattin ity of varicella varicella 00:00: g of this [place] 00 note Medical might be Branch different from the original. Address pp Supervisio Supervisio Disease Active Overview : Univers n of n of 01-11 See ity of high-risk high-risk 00:00: scanned [place] 00 records Med ical with with Branch insufficie insufficie nt nt care care Obesity in Obesity in Disease Active U nivers 01-11 ity of 00:00: [place] 00 Medical Branch Nexplanon Nexplanon Disease Active 2015-[address] in place 2 ity of 00:00: [place] [facility] Irregular Irregular Disease Active 2015-06 Uni vers menstrual menstrual 2-06 ity of cycle cycle 00:00: [place] [facility] Right Right Disease Active Univers ankle pain ankle pain 5-17 it y of 00:00: [place] [facility] Well woman Well woman Disease Active U nivers exam exam 2-03 ity of 00:00: [place] 00 Medical Branch Depo-Prove Depo-Prove Disease Active U nivers ra ra 2-03 ity of contracept contracept 00:[place] humberto status humberto status 00 Me dical Branch Overweight Overweight Disease Active U nivers 2-03 ity of 00:00: [place] 00 Medical Branch Contracept Contracept Disease Active U nivers humberto humberto 2-03 ity of management management 00:00: [place] 00 [place] History of History of Disease Active U nivers anxiety anxiety 2-03 ity of 00:00: [place] 00 Medical Branch History of History of Disease Active U nivers depression depression 2-03 it y of 00:00: [place] 00 Medical Branch Allergies, Adverse Reactions, Alerts Allergy Allergy Status Severity Reaction(s) Onset Inactive Treating Comm ents Source Name Type Date Date Clinician Penicill Katii Active Unknown - "made my U nivers ins ty to See comments 6-18 throat ity of adverse 00:00: tingle" [place] reaction 00 Medical s Branch PENICILL Drug Active Unknown-Cmnt Un jose armando INS Class 6-18 ity of 00:00: [place] 00 Medical Branch Social History Social Habit Start Date Stop Date Quantity Comments Source ASSERTION 2018-05-01 [facility] 00:00:00 [facility] Exposure to Not sure [facility] SARS-CoV-2 (event) Medica l [place] Alcohol intake 2019-03-06 2019-03-06 0 /d [facility] 00:00:00 00:00:00 [facility] Tobacco use and 2015-07-14 2015-07-14 Never used [facility] exposure 00:00:00 00:00:00 [facility] Sex Ass[birth year] At [birth year] [facility] 00:00:00 00:00:00 [facility] Smoking Status Start Date Stop Date Source Never smoker [facility] Medications Ordered Filled Start Stop Current Ordering Indication Dosage Frequency Signature Comments Components Source Medication Medication Date Date Medication? Clinician (SIG) Name Name acetaminoph 2020- No 1000mg 1,000 mg, Univers en 03-10 Oral, ity of (TYLENOL) 14:15: 13:06 ONCE, 1 [place] tablet 00 :00 dose, On Medical 1,000 mg [facility] 03/10/21 at 0915, EDOUARD ondansetron Yes [id number] 4mg Take 1 Univers 4 mg 03-10 tablet by ity of disintegrat 00:00: mouth [place] ing tablet 00 every 4 Medica l (four) Branch hours as needed for Nausea and Vomiting (N/V). HYDROcodone 2020- No [id number] 1{tbl} Take 1 U nivers -acetaminop 03-10 10-06 tablet by it y of hen (NORCO) 00:00: 04:59 [place] 7.5-325 mg 00 :00 every 8 Medica l per tablet (eight) Branch hours as needed for Pain for up to 7 days. Indication s: acute pain ondansetron 2020- No 4mg 4 mg, Slow Univers (ZOFRAN 12-16- IV Push, ity of (PF)) 13:45: 12:35 ONCE, 1 [place] injection 4 00 :00 dose, Tue Med ical mg 12/16/20 at Branch 0845, EDOUARD FENTanyl PF 2020- No 125ug 125 mcg, Univers (SUBLIMAZE 12-16 Slow IV ity o f (PF)) 13:45: 12:35 Push, [place] injection 00 :00 ONCE, 1 Medical 125 mcg dose, Tue Branch 12/16/20 at 0845, STAT ibuprofen Yes [id number] 600mg Take 1 U nivers 600 mg 7-06 tablet by ity of tablet 00:00: mouth [place] 00 every 8 Medical (eight) Branch hours as needed for Pain (scale 4-6). ondansetron Yes [id number] 4mg Take 1 Univers 4 mg 7-06 tablet by ity of disintegrat 00:00: mouth [place] ing tablet 00 every 4 Medica l (four) Branch hours as needed for Nausea and Vomiting (N/V). ibuprofen Yes [id number] 600mg Take 1 U nivers 600 mg 7-06 tablet by ity of tablet 00:00: mouth [place] 00 every 8 Medical (eight) Branch hours as needed for Pain (scale 4-6). ondansetron Yes [id number] 4mg Take 1 Univers 4 mg 7-06 tablet by ity of disintegrat 00:00: mouth [place] ing tablet 00 every 4 Medica l (four) Branch hours as needed for Nausea and Vomiting (N/V). HYDROcodone 2020- No [id number] 1{tbl} Take 1 U nivers -acetaminop 12-16 07-14 tablet by it y of hen (NORCO) 00:00: 04:59 [place] 7.5-325 mg 00 :00 every 8 Medica l per tablet (eight) Branch hours as needed for Pain for up to 7 days. Indication s: acute pain INVESTIGATI 2019- No 50mg 50 mg, Uni vers ONAL DRUG - 01-18 Oral, ity of hydrochloro 20:45: 13:59 DAILY, 14 [place] thiazide 50 00 :00 doses, Medica l mg or First dose Branch placebo on Jo capsule 01/18/19 at 1545, Last dose on Tue01/31/19 at 0900, Routine
Principal investigat or: MIKAEL TEIXEIRA ascorbic 2018-0 Yes 500mg 500 mg, Unive rs acid 01-18 Oral, BID, ity of (vitamin C) 13:00: First dose [place] (VITAMIN C) 00 on Jo Medica l tablet 500 01/18/19 at Bran ch mg 0800, Until Discontinu ed, Routine ferrous 2018-0 Yes 325mg 325 mg, Univer s sulfate 01-18 Oral, BID, ity of tablet 325 13:00: First dose [place] mg 00 on Jo Medical 01/18/19 at Branch 0800, Until Discontinu ed, Routine 2019- No Take by [facility] ers vit 01-18 mouth. ity of calc,iron,f 12:59: 00:00 [place] olic 00 :00 Medical ( Branch VITAMIN ORAL) varicella 2019- No .5mL 0.5 mL, [facility] ers virus 01-18 Subcutaneo ity of vaccine 12:56: 13:58 , [place] live 06 :00 ONCE-PRIOR Medical (VARIVAX TO Branch (PF)) DISCHARGE, injection 1 dose, 0.5 mL Starting Jo 01/18/19 at 0756, Until Discontinu ed, Routine, Give vaccine prior to discharge docusate 2019-0 Yes [id number] 240mg Take 1 Univers calcium 240 01-18 104 capsule by it y of mg capsule 00:00: mouth [place] 00 daily as Medical needed for Branch Constipati on. ferrous 2019-0 Yes [id number] 325mg Take 1 Univ ers sulfate 325 01-18 tablet by ity of mg (65 mg 00:00: mouth [place] iron) 00 daily. Medical tablet Branch ibuprofen 2019-0 Yes [id number] 600mg Take 1 Un jose armando 600 mg 01-18 tablet by ity of tablet 00:00: mouth [place] 00 every 6 Medical (six) Branch hours as needed for Pain (scale 1-3) or Pain (scale 4-6) (Pain). Take with food or milk. Iron Fum & 2019-0 Yes [id number] 1{capsu Take 1 Univers P-FA-Vit B 01-18 le} capsule by ity of & C No.9 00:00: mouth [place] (INTEGRA 00 daily. Medical PLUS) 125 Branch mg iron- 1 mg Cap acetaminoph 2019-0 Yes 650mg 650 mg, Un jose armando en 01-17 Oral, ity of (TYLENOL) 21:42: Q6HPRN, [place] tablet 650 29 Starting Medic al mg Tue01/17/19 Branch at 1642, Until Discontinu ed, Routine, Pain (scale 1-3) ibuprofen 2019-0 Yes 600mg 600 mg, Univ ers (IBU) 01-17 Oral, ity of tablet 600 21:42: Q6HPRN, [place] mg 29 Starting Medical Tue01/17/19 Branch at 1642, Until Discontinu ed, Routine, Pain (scale 4-6) diphenhydrA 2019-0 Yes 25mg 25 mg, Univ ers MINE 01-17 Oral, ity of (BENADRYL) 21:42: Q6HPRN, [place] tablet 25 29 Starting Medica l mg Tue01/17/19 Branch at 1642, Until Discontinu ed, Routine, Sleep, Itching ondansetron 2019-0 Yes 4mg 4 mg, Slow Univers (ZOFRAN 01-17 IV Push, ity of (PF)) 21:42: Q8HPRN, [place] injection 4 29 Starting Medi tonio mg Tue01/17/19 Branch at 1642, Until Discontinu ed, Routine, Nausea and Vomiting (N/V) simethicone 2019-0 Yes 160mg 160 mg, Un jose armando (GAS 01-17 Oral, ity of RELIEF) 21:42: PC+HSPRN, [place] chewable 29 Starting Medical tablet 160 Tue01/17/19 Bra nch mg at 164, Until Discontinu ed, Routine, Gas docusate 2019-0 Yes 240mg 240 mg, Unive rs calcium 01-17 Oral, ity of (SURFAK) 21:42: QDAILYPRN, [place] as capsule 240 29 Starting Medi tonio mg Tue01/17/19 Branch at 1642, Until Discontinu ed, Routine, Constipati on magnesium 2019-0 Yes 30mL 30 mL, Univer s hydroxide 01-17 Oral, ity of (MILK OF 21:42: QDAILYPRN, [place] as MAGNESIA) 29 Starting Medica l 400 mg/5 mL Tue01/17/19 Br anch suspension at 1642, 30 mL Until Discontinu ed, Routine, Constipati on benzocaine- Yes Topical, Un jose armando menthol 01-17 PRN, ity of (DERMOPLAST 21:42: Starting [place] ) 20-0.5 % 29 Tue01/17/19 Med ical topical at 1642, Branch spray Until Discontinu ed, Routine, Perineum discomfort LR 1000 mL 2019- No at 999 Univ ers + oxytocin 01-17 mL/hr, IV ity of 20 units IV 17:15: 17:45 Infusion, [place] Solution 00 :00 ONCE, 1 Medical dose, Tue Branch 01/17/19 at 1215, Routine acetaminoph 2018- No 650mg 650 mg, U nivers en 01-17 Oral, ity of (TYLENOL) 16:03: 21:42 Q6HPRN, [place] tablet 650 41 :35 Starting Medic al mg Tue01/17/19 Branch at 1103, Until Tue01/17/19 at 1642, Routine, Pain (scale 4-6) vancomycin 2019- No 20mg/kg 1,500 mg Univers (VANCOCIN) 01-17 (rounded ity of 1,500 mg in 11:30: 21:42 from 1,906 [place] NaCl 0.9% 00 :35 mg = 20 Medical (NS) 250 mL mg/kg Branch piggyback ?95.3 kg), IV Piggyback, Q8H ABX, First dose on Tue01/17/19 at 0630, Until Discontinu ed, 250 mL
Reas on for Anti-Infec tive: Empiric Non-Surgic al Prophylaxi s
Durat ion of therapy: 72 hours
S pecific indication : GBS Prophylaxi s vancomycin 2019- No 500mg 500 mg, IV Univers (VANCOCIN) 01-17 Piggyback, it y of 500 mg in 05:37: 08:25 ONCE, 1 [place] NaCl 0.9% 00 :00 dose, Tue Medic al (NS) 100 mL 01/17/19 at Bra [facility] piggyback 0045, 100 mL
Reas on for Anti-Infec tive: Documented Infection< br>Documen davin Infection Site: Pelvic
Duration of Therapy: Other (see Comments) LR 1000 mL 2018- No 2mU/min 2 Uni vers + oxytocin 01-17 sofi-unit it y of 20 units IV 05:27: 21:42 s/min (6 [place] Solution 34 :35 mL/hr), at Medic al 6 mL/hr, Branch IV Infusion, TITRATE, Starting Tue01/17/19 at 0027, Until Tue01/17/19 at 1642, EDOUARD, Oxytocin Induction / Augmentati on of Labor. vancomycin 2018- No 1000mg 1,000 mg, Univers 1 g in NS 01-17 IV ity of 200 mL RTU 02:45: 05:33 Piggyback, [place] IV 00 :08 Q12H ABX, Medical Piggyback First dose Bran ch 1,000 mg on Tue01/16/19 at 2145, Until Discontinu ed
Reas on for Anti-Infec tive: Empiric Non-Surgic al Prophylaxi s
Durat ion of therapy: 72 hours<br&g t;Specific indication : GBS Prophylaxi s D5W-LR IV 2019- No 1000mL at 125 Uni vers infusion 01-17 mL/hr, IV ity o f 1,000 mL 02:45: 21:42 Infusion, [place] as 00 :35 CONTINUOUS Medical , Starting Branch Tue01/16/19 at 2145, Until Tue01/17/19 at 1642, Routine sodium 2019- No 30mL 30 mL, Univers citrate-cit 01-17 Oral, ity of aakash acid 02:42: 04:11 PRE-PROCED [place] (BICITRA) 10 :00 URE ONCE, Medic al 500-334 1 dose, Branch mg/5 mL Starting solution 30 e 01/16/19 mL at 2142, Until Discontinu ed, Routine, Surgery/Pr ocedure lactated 2019- No 500mL at 999 Unive rs ringers IV 01-17 mL/hr, 500 it y of infusion 02:42: 21:42 mL, IV [place] 500 mL 10 :35 Infusion, Medical PRN - SEE Branch INSTRUCTIO NS, Starting Tue01/16/19 at 2142, Until Tue01/17/19 at 1642, Routine proMETHazin 2018- 2019- No 25mg 25 mg, Uni vers e 01-17 Intramuscu ity of (PHENERGAN) 00:45: 23:40 lar, ONCE, [place] injection 00 :00 1 dose, Medical 25 mg Tue01/16/19 Branch at 1945, Routine meperidine 2019- No 50mg 50 mg, Univ ers (DEMEROL) 01-17 Intramuscu ity of injection 00:45: 23:40 lar, ONCE, [place] 50 mg 00 :00 1 dose, Medical Tue01/16/19 Branch at 194, Routine Yes Take by Unive rs vit 8-06 mouth. ity of calc,iron,f 19:38: [place] [id number] Medical ( Branch VITAMIN ORAL) Yes Take by Unive rs vit 8-06 mouth. ity of calc,iron,f 08:44: [place] [address] Medical ( Branch VITAMIN ORAL) 2019 Yes Take by Unive rs vit 8-06 mouth. ity of calc,iron,f 08:44: [address] ( Branch VITAMIN ORAL) 2019- Yes Take by Unive rs vit 8-01 mouth. ity of calc,iron,f 14:45: [address] ( Branch VITAMIN ORAL) 2019- Yes Take by Unive rs vit 8-01 mouth. ity of calc,iron,f 14:45: [place] [id number] Medical ( Branch VITAMIN ORAL) 2019-0 Yes Take by Unive rs vit 8-01 mouth. ity of calc,iron,f 14:45: [place] [id number] Medical ( Branch VITAMIN ORAL) 2019-0 Yes Take by Unive rs vit 8-01 mouth. ity of calc,iron,f 14:45: [place] [id number] Medical ( Branch VITAMIN ORAL) norgestimat 2016- Yes [id number] 1{tbl} Take 1 Univers e-ethinyl 2-06 tablet by ity o f estradiol 00:00: mouth [place] (ORTHO 00 daily. Medical TRI-CYCLEN- Branch 28) 0.18/0.215/ 0.25 mg-35 mcg (28) tablet norgestimat 2015- Yes [id number] 1{tbl} Take 1 Univers e-ethinyl 2-06 tablet by ity o f estradiol 00:00: mouth [place] (ORTHO 00 daily. Medical TRI-CYCLEN- Branch 28) 0.18/0.215/ 0.25 mg-35 mcg (28) tablet norgestimat 2015- Yes [id number] 1{tbl} Take 1 Univers e-ethinyl 2-06 tablet by ity o f estradiol 00:00: mouth [place] (ORTHO 00 daily. Medical TRI-CYCLEN- Branch 28) 0.18/0.215/ 0.25 mg-35 mcg (28) tablet norgestimat 2015-06 Yes [id number] 1{tbl} Take 1 Univers e-ethinyl 2-06 tablet by ity o f estradiol 00:00: mouth [place] (ORTHO 00 daily. Medical TRI-CYCLEN- Branch 28) 0.18/0.215/ 0.25 mg-35 mcg (28) tablet norgestimat 2015-06 Yes [id number] 1{tbl} Take 1 Univers e-ethinyl 2-06 tablet by ity o f estradiol 00:00: mouth [place] (ORTHO 00 daily. Medical TRI-CYCLEN- Branch 28) 0.18/0.215/ 0.25 mg-35 mcg (28) tablet norgestimat 2015- Yes [id number] 1{tbl} Take 1 Univers e-ethinyl 2-06 tablet by ity o f estradiol 00:00: mouth [place] (ORTHO 00 daily. Medical TRI-CYCLEN- Branch 28) 0.18/0.215/ 0.25 mg-35 mcg (28) tablet norgestimat 2015- Yes [id number] 1{tbl} Take 1 Univers e-ethinyl 2-06 tablet by ity o f estradiol 00:00: mouth [place] (ORTHO 00 daily. Medical TRI-CYCLEN- Branch 28) 0.18/0.215/ 0.25 mg-35 mcg (28) tablet norgestimat 2015-06 Yes [id number] 1{tbl} Take 1 Univers e-ethinyl 2-06 tablet by ity o f estradiol 00:00: mouth [place] (ORTHO 00 daily. Medical TRI-CYCLEN- Branch 28) 0.18/0.215/ 0.25 mg-35 mcg (28) tablet norgestimat 2015-06 2019- No [id number] 1{tbl} Take 1 Univers e-ethinyl 07-19 tablet by ity of estradiol 00:00: 00:00 mouth [place] (ORTHO 00 :00 daily. Medical TRI-CYCLEN- Branch 28) 0.18/0.215/ 0.25 mg-35 mcg (28) tablet No known No Univers medications ity of [facility] Immunizations Ordered Filled Immunization Date Status Comments [facility] e Immunization Name Name Varicella 2019-03-06 Completed University of (varivax)(chicken 00:00:00 [place] M edical pox) Branch Varicella 2019-03-06 Completed University of (varivax)(chicken 00:00:00 [place] M edical pox) Branch Varicella 2019-03-06 Completed University of (varivax)(chicken 00:00:00 [place] M edical pox) Branch Varicella 2019-01-19 Completed University of (varivax)(chicken 00:00:00 [place] M edical pox) Branch Varicella 2019-01-19 Completed University of (varivax)(chicken 00:00:00 [place] M edical pox) Branch Varicella 2019-01-19 Completed University of (varivax)(chicken 00:00:00 [place] M edical pox) Branch Varicella 2019-01-19 Completed University of (varivax)(chicken 00:00:00 [place] M edical pox) Branch Tdap 2011-06-13 Completed University of 00:00:00 [facility] Tdap 2011-06-13 Completed University of 00:00:00 [facility] Tdap 2011-06-13 Completed University of 00:00:00 [facility] Tdap 2011-06-13 Completed University of 00:00:00 [facility] TDAP 2011-06-13 Completed University of 00:00:00 [facility] TDAP 2011-06-13 Completed University of 00:00:00 [facility] TDAP 2011-06-13 Completed University of 00:00:00 [facility] Tdap 2011-06-13 Completed University of 00:00:00 [facility] Tdap 2011-06-13 Completed University of 00:00:00 [facility] Tdap 2011-06-13 Completed University of 00:00:00 [place] [facility] Tdap 2011-06-13 Completed University of 00:00:00 [place] [facility] Tdap 2011-06-13 Completed University of 00:00:00 [facility] Vital Signs Vital Name Observation Time Observation Value Comments Source Systolic blood 2021-03-10 12:34:00 133 mm[Hg] Univer sity of pressure [facility] Diastolic blood 2021-03-10 12:34:00 93 mm[Hg] Unive rsity of pressure [facility] Heart rate 2021-03-10 12:34:00 80 /min Universi ty of [facility] Body temperature 2021-03-10 12:34:00 36.83 Liat Univ ersity of [place] [facility] Branch Respiratory rate 2021-03-10 12:34:00 16 /min Univ ersity of [place] [facility] Body weight 2021-03-10 12:34:00 81.647 kg Universi ty of [place] [facility] BMI 2021-03-10 12:34:00 35.15 kg/m2 Universi ty of [facility] Oxygen saturation in 2021-03-10 12:34:00 99 /min University of Arterial blood by [facility] Pulse oximetry Branch Systolic blood 2020-12-16 14:16:00 134 mm[Hg] Univer sity of pressure [facility] Diastolic blood 2020-12-16 14:16:00 86 mm[Hg] Unive rsity of pressure [facility] Heart rate 2020-12-16 14:16:00 78 /min Universi ty of [facility] Respiratory rate 2020-12-16 14:16:00 16 /min Univ ersity of [facility] Oxygen saturation in 2020-12-16 14:16:00 99 /min University of Arterial blood by [place] [email or web address] tonio Pulse oximetry Branch Body temperature 2020-12-16 13:00:00 36.94 Liat Univ ersity of [place] [facility] Body height 2020-12-16 11:44:00 152.4 cm Universi ty of [place] [facility] Body weight 2020-12-16 11:44:00 81.647 kg Universi ty of [place] [facility] BMI 2020-12-16 11:44:00 35.15 kg/m2 Universi ty of [facility] Systolic blood 2019-01-19 13:00:00 139 mm[Hg] Univer sity of pressure [place] [facility] Diastolic blood 2019-01-19 13:00:00 83 mm[Hg] Unive rsity of pressure [place] [facility] Heart rate 2019-01-19 13:00:00 73 /min Universi ty of [place] [facility] Body temperature 2019-01-19 13:00:00 36.89 Liat Univ ersity of [place] [facility] Respiratory rate 2019-01-19 13:00:00 20 /min Univ ersity of [place] [facility] Oxygen saturation in 2019-01-19 13:00:00 99 /min University of Arterial blood by [place] [email or web address] tonio Pulse oximetry Branch Body height 2019-01-16 23:19:00 152.4 cm Universi ty of [place] [facility] Body weight 2019-01-16 23:19:00 95.255 kg Universi ty of [place] [facility] BMI 2019-01-16 23:19:00 41.01 kg/m2 Universi ty of [place] [facility] Systolic blood 2019-01-19 13:00:00 139 mm[Hg] Univer sity of pressure [place] [facility] Diastolic blood 2019-01-19 13:00:00 83 mm[Hg] Unive rsity of pressure [place] [facility] Heart rate 2019-01-19 13:00:00 73 /min Universi ty of [place] [facility] Body temperature 2019-01-19 13:00:00 36.89 Liat Univ ersity of [place] [facility] Respiratory rate 2019-01-19 13:00:00 20 /min Univ ersity of [place] [facility] Oxygen saturation in 2019-01-19 13:00:00 99 /min University of Arterial blood by [employer] tonio Pulse oximetry Branch Body height 2019-01-16 23:19:00 152.4 cm Universi ty of [place] [facility] Body weight 2019-01-16 23:19:00 95.255 kg Universi ty of [place] [facility] BMI 2019-01-16 23:19:00 41.01 kg/m2 Universi ty of [place] [facility] Systolic blood 2019-01-16 19:26:00 132 mm[Hg] Univer sity of pressure [place] [facility] Diastolic blood 2019-01-16 19:26:00 84 mm[Hg] Unive rsity of pressure [place] [facility] Heart rate 2019-01-16 19:26:00 94 /min Universi ty of [place] [facility] Body temperature 2019-01-16 19:26:00 36.39 Liat Univ ersity of [place] [facility] Respiratory rate 2019-01-16 19:26:00 16 /min Univ ersity of [facility] Body height 2019-01-16 19:26:00 152.4 cm Universi ty of [place] [facility] Body weight 2019-01-16 19:26:00 95.397 kg Universi ty of [place] [facility] BMI 2019-01-16 19:26:00 41.07 kg/m2 Universi ty of [place] [facility] Systolic blood 2019-01-16 19:26:00 132 mm[Hg] Univer sity of pressure [facility] Diastolic blood 2019-01-16 19:26:00 84 mm[Hg] Unive rsity of [facility] Branch Heart rate 2019-01-16 19:26:00 94 /min Universi ty of [facility] Body temperature 2019-01-16 19:26:00 36.39 Liat [facility] Respiratory rate 2019-01-16 19:26:00 16 /min [facility] Body height 2019-01-16 19:26:00 152.4 cm [facility] Body weight 2019-01-16 19:26:00 95.397 kg [facility] BMI 2019-01-16 19:26:00 41.07 kg/m2 [facility] Heart rate 2019-01-16 07:06:00 89 /min [facility] Oxygen saturation in 2019-01-16 07:06:00 100 /min University Arterial blood by [facility] Pulse oximetry Branch Systolic blood 2019-01-16 06:30:00 115 mm[Hg] [facility]iver [facility] Diastolic blood 2019-01-16 06:30:00 67 mm[Hg] Unive rsity of [facility] Body temperature 2019-01-16 05:25:00 36.94 Liat [facility] Respiratory rate 2019-01-16 05:25:00 17 /min [facility] Body height 2019-01-16 05:25:00 152.4 cm [facility] Body weight 2019-01-16 05:25:00 96.163 kg [facility] BMI 2019-01-16 05:25:00 41.40 kg/m2 [facility] [place] Heart rate 2019-01-16 07:06:00 89 /min [facility] Oxygen saturation in 2019-01-16 07:06:00 100 /min University Arterial blood by [facility] Pulse oximetry Branch Systolic blood 2019-01-16 06:30:00 115 mm[Hg] Univer [facility]ity [facility] Diastolic blood 2019-01-16 06:30:00 67 mm[Hg] Unive rsity [facility] Body temperature 2019-01-16 05:25:00 36.94 Liat [facility] Respiratory rate 2019-01-16 05:25:00 17 /min [facility] Body height 2019-01-16 05:25:00 152.4 cm [facility] Body weight 2019-01-16 05:25:00 96.163 kg [facility] BMI 2019-01-16 05:25:00 41.40 kg/m2 [facility] Systolic blood 2019-01-15 22:44:00 120 mm[Hg] [facility] Diastolic blood 2019-01-15 22:44:00 78 mm[Hg] [facility] Heart rate 2019-01-15 22:15:00 117 /min [facility] [place] Body temperature 2019-01-15 22:15:00 36.72 Liat [facility] Respiratory rate 2019-01-15 22:15:00 16 /min [facility] Body height 2019-01-15 22:15:00 152.4 cm [facility] Body weight 2019-01-15 22:15:00 96.333 kg [facility] BMI 2019-01-15 22:15:00 41.48 kg/m2 [facility] Systolic blood 2019-01-15 22:44:00 120 mm[Hg] [facility] Diastolic blood 2019-01-15 22:44:00 78 mm[Hg] [facility] [place] Heart rate 2019-01-15 22:15:00 117 /min [facility] Body temperature 2019-01-15 22:15:00 36.72 Liat [facility] Respiratory rate 2019-01-15 22:15:00 16 /min [facility] Body height 2019-01-15 22:15:00 152.4 cm [facility] Body weight 2019-01-15 22:15:00 96.333 kg [facility] BMI 2019-01-15 22:15:00 41.48 kg/m2 [facility] Systolic blood 2019-01-11 14:23:00 114 mm[Hg] [facility] Diastolic blood 2019-01-11 14:23:00 82 mm[Hg] [facility] Heart rate 2019-01-11 14:18:00 99 /min [facility] Body temperature 2019-01-11 14:18:00 36.28 Liat [facility] Respiratory rate 2019-01-11 14:18:00 16 /min [facility] Body height 2019-01-11 14:18:00 152.4 cm [facility] Body weight 2019-01-11 14:18:00 94.405 kg [facility] BMI 2019-01-11 14:18:00 40.65 kg/m2 [facility] Systolic blood 2019-01-11 14:23:00 114 mm[Hg] [facility] Diastolic blood 2019-01-11 14:23:00 82 mm[Hg] [facility] Heart rate 2019-01-11 14:18:00 99 /min [facility] Body temperature 2019-01-11 14:18:00 36.28 Liat [facility] Respiratory rate 2019-01-11 14:18:00 16 /min [facility] Body height 2019-01-11 14:18:00 152.4 cm [facility] Body weight 2019-01-11 14:18:00 94.405 kg [facility] BMI 2019-01-11 14:18:00 40.65 kg/m2 [facility] Procedures Procedure Date / Time Performing Clinician Source Performed CT CERVICAL SPINE WO 2021-03-10 12:59:05 Bebeto Wang [facility] CONTRAST [facility] CT HEAD WO CONTRAST 2021-03-10 12:59:05 Bebeto Wang [facility] CT HEAD WO CONTRAST 2020-12-16 13:11:21 Bebeto Wang [facility] CT LUMBAR SPINE WO 2020-12-16 13:11:21 Bebeto Wang [facility] POCT TEST 2020-12-16 12:32:00 Bebeto Wang [facility] CBC WITH DIFFERENTIAL 2019-01-18 09:24:00 Mica Butler [facility] VENOUS CORD GAS 2019-01-17 16:20[facility] ([facility] AMINO 2019-01-17 04:11:00 Girma [facility] TRANSFER) Medical Branch CREATININE 2019-01-17 04:11[facility] 2019-01-17 [facility] Medical Branch LACTATE DEHYDROGENASE 2019-01-17 04:11[facility]-01-17 [facility] WITH DIFFERENTIAL 2019-01-17 04:11[facility] 2019-01-17 04:11:00 [facility] PROTEIN CREAT RATIO 2019-01-17 04:11:00 Girma [facility] URINE RANDOM [facility] Branch RUBELLA SCREEN IGG 2019-01-17 02:57:00 Eliana [facility] HEPATITIS B SURFACE 2019-01-17 02:57:00 Girma [facility] ANTIGEN [facility] GALV ONLY - SYPHILIS 2019-01-17 02:57[facility] TYPE AND SCREEN 2019-01-17 02:44[facility] ADC ONLY - FERN TEST 2019-01-16 06:07:00 Lois Bethea [facility] ASSIGNMENT OF BENEFITS 2019-01-16 04:49:39 Doctor Unassigned, No [facility] NOTICE OF PRIVACY 2019-01-16 04:48:13 Doctor Unassigned, No [facility] POCT URINALYSIS 2019-01-15 22:18:00 Ibeth Morse [facility] POCT URINALYSIS W/O 2019-01-11 14:21:00 Ibeth Morse Uni versity [facility] POCT TEST 2019-01-11 14:20:00 Ibeth Morse Uni [facility] NOTICE OF PRIVACY 2019-01-11 13:58:01 Doctor Unassigned, No [facility] Encounters Start End Encounter Admission Attending Care Care Encounter Source Date/Time Date/Time Type Type Clinicians Facility Department ID 2021-04-14 Emergency [facility] [id number] Univers 01:49:53 [facility] 2021-04-13 Emergency [facility] [id number] Univers 06:09:12 [facility] 2021-03-10 2021-03-10 [facility] [id number] Univers 07:33:00 08:50:00 Bebeto Cosby [id number] i ty of [place] 4.2.7.2.686 [facility] [id number] [address] 2020-12-16 2020-12-16 [facility] [id number] Univers 06:35:00 09:34:00 Bebeto Cosby 350.1.13.10 i ty of [place] 4.2.7.2.686 [facility] [id number] [address] 2020-09-02 2020-09-02 [facility] [id number] Univers 00:00:00 00:00:00 Outreach Brian [facility] 350.1.13.10 i ty of Ethan [facility] 4.2.7.2.686 [facility] [id number] Dc dical [address] [place] 2019-01-16 2019-01-19 [facility] NIMO Teixeira [id number] [facility] 18:12:00 14:30:00 Encounter Mikael CAGE 350.1.13.10 ity [facility] 4.2.7.2.686 Nader as [id number] [address] 2019-01-16 2019-01-19 [facility] NIMO Teixeira [id number] 18:12:00 14:30:00 Encounter Mikael CAGE 350.1.13.10 [facility] 42.7.2.686 [id number] [facility] 2019-01-16 2019-01-16 Nurse Visit, Maurice Nurse [facility] 1.2 .[id number] [facility] 14:06:12 14:35:18 Visit Ibeth Morse [employer]OUND [employer] APPROACH TECHNICIAN 350.1.13. 10 ity [facility] 4.2.7.2.686 Nader as MATERNAL [id number] Med ical & CHILD [address] [place] [address] 2019-01-16 2019-01-16 Nurse Visit, [facility] [id number] 14:06:12 14:35:18 Visit Maurice GROUND CONTROL APPROACH TECHNICIAN 350.1.13.10 Nurse [facility] 4.2.7.2.686 MATERNAL [id number] & CHILD [address] [place] [address] 2019-01-15 2019-01-16 [facility] [id number] [facility] 23:46:00 02:55:00 Encounter Anthony Cosby 350.1.13.10 ity [facility] 4.2.7.2.686 [place] [id number] [address] 2019-01-15 2019-01-16 [facility] Bethea Lois [facility] [id number] 23:46:00 02:55:00 Encounter Anthony Cosby 350.1.13.10 [place] 4.2.7.2.686 [place] [id number] [facility] 2019-01-16 2019-01-16 Telephone MALATHI Morse 1.2.840.114 [id number] Univers 00:00:00 00:00:00 Ibeth C GROUND CONTROL APPROACH TECHNICIAN 350.1.13.10 ity of REGIONAL 4.2.7.2.686 Nader as MATERNAL [id number] [facility] ical & CHILD 107 [facility] 2019-01-16 2019-01-16 Telephone Colt[place], COMB 1.2.840.114 [id number] 00:00:00 00:00:00 Ibeth C GROUND CONTROL APPROACH TECHNICIAN 350.1.13.10 REGIONAL 4.2.7.2.686 MATERNAL [id number] & CHILD 107 [facility] 2019-01-15 2019-01-15 Routine [facility], [facility] [id number] [facility] 16:42:55 18:07:11 Ibeth C GROUND CONTROL APPROACH TECHNICIAN 350.1.13.10 ity of Visit REGIONAL 4.2.7.2.686 Nader as MATERNAL [id number] [facility] ical & CHILD [address] [place] [address] 2019-01-15 2019-01-15 Routine Coltpe, [facility] [id number] 16:42:55 18:07:11 Ibeth C GROUND CONTROL APPROACH TECHNICIAN 350.1.13.10 Visit REGIONAL 4.2.7.2.686 MATERNAL [id number] & CHILD 107 [facility] 2019-01-15 2019-01-15 Telephone [facility], [facility] 1.2.840.114 [id number] [facility] 00:00:00 00:00:00 Ibeth C GROUND CONTROL APPROACH TECHNICIAN 350.1.13.10 ity of REGIONAL 4.2.7.2.686 Nader as MATERNAL [id number] [facility] ical & CHILD [address] [place] [address] 2019-01-15 2019-01-15 Telephone [facility], COMB 1.2.840.114 [id number] 00:00:00 00:00:00 Ibeth C GROUND CONTROL APPROACH TECHNICIAN 350.1.13.10 REGIONAL 4.2.7.2.686 MATERNAL [id number] & CHILD 107 [facility] 2019-01-11 2019-01-11 [facility] [id number] [facility] 09:06:50 10:43:15 Ibeth C GROUND CONTROL APPROACH TECHNICIAN 350.1.13.10 ity of Visit [facility] 4.2.7.2.686 Nader as MATERNAL [id number] Med ical & CHILD 107 [facility] 2019-01-11 2019-01-11 Initial Akinjuma, [facility] [id number] 09:06:50 10:43:15 Ibeth C GROUND CONTROL APPROACH TECHNICIAN 350.1.13.10 Visit [facility] 4.2.7.2.686 MATERNAL [id number] & CHILD 107 [facility] 2019-01-11 2019-01-11 Orders Doctor NIMO 1.2.840.114 [id number] Univers 00:00:00 00:00:00 Only Unassigned, FAUZIA 350.1.13.10 ity of [place] [facility] 4.2.7.2.686 Nader as [id number] [address] Results Test Description Test Time Test Comments Results Result [facility] e Comments CT HEAD WO No acute University of CONTRAST 6 intracranial [place] [facility] 13:51:[address] [place] [address] examination of the lumbar spine. Preliminary Report Dictated by Resident: Mony Weston MD., have reviewed this study and agree with theabove report.CT HEAD WO CONTRASTCT LUMBAR SPINE WO CONTRAST HISTORY: Head trauma, mod-severe fell down and hit back, pain to left lowerback and headache. COMPARISON: CT head without contrast 09/16/2015. TECHNIQUE: Contiguous axial imaging to the base of skull was obtained with2.5 mm slices without intravenous contrast. 5 mm axial, coronal, andsagittal reformats were obtained. ?Contiguous axial imaging of the lumbarspine was performed with 2.5 mm slices. Coronal and sagittal reformats wereobtained. FINDINGS: Head: The ventricles and cerebral sulci are normal in caliber and configuration.No hydrocephalus, midline shift or pathological extra-axial fluidcollection is present. The basal cisterns are unremarkable. There is no acute intracranial hemorrhage or significant mass effect. Noparenchymal attenuation abnormality. The downing-white matter differentiationis preserved. Mucoperiosteal thickening of the ethmoid air cells and sphenoid sinusesbilaterally. The calvarium and central skull base are unremarkable. Lumbar Spine: The normal lumbar lordosis is maintained. The vertebral bodies are normalin height and in normal alignment. No facet fracture or subluxation ispresent. [facility], Radiant Results Inft User - 12/16/2020 8:[address] HEAD WO CONTRASTCT LUMBAR SPINE WO CONTRASTHISTORY: Head trauma, mod-severe fell down and hit back, pain to left lowerback and headache.COMPARISON: CT head without contrast 09/16/2015.TECHNIQUE: Contiguous axial imaging to the base of skull was obtained with2.5 mm slices without intravenous contrast. 5 mm axial, coronal, andsagittal reformats were obtained. Contiguous axial imaging of the lumbarspine was performed with 2.5 mm slices. Coronal and sagittal reformats wereobtained.FINDINGS :Head:The ventricles and cerebral sulci are normal in caliber and configuration.No hydrocephalus, midline shift or pathological extra-axial fluidcollection is present. The basal cisterns are unremarkable.There is no acute intracranial hemorrhage or significant mass effect. Noparenchymal attenuation abnormality. The downing-white matter differentiationis preserved.Mucoperiost eal thickening of the ethmoid air cells and sphenoid sinusesbilaterally. The calvarium and central skull base are unremarkable.Lumbar Spine:The normal lumbar lordosis is maintained. The vertebral bodies are normalin height and in normal alignment. No facet fracture or subluxation ispresent. IMPRESSIONNo acute intracranial abnormality.Unremarka ble CT examination of the lumbar spine.Preliminary Report Dictated by Resident: Mony Wood MD., have reviewed this study and agree with theabove report. CT LUMBAR SPINE No acute Universit y of [place] CONTRAST 6 intracranial [place] [facility] 13:51:[address] abnormality[address] examination of the lumbar spine. Preliminary Report Dictated by Resident: Mony Weston MD., have reviewed this study and agree with theabove report.CT HEAD WO CONTRASTCT LUMBAR SPINE WO CONTRAST HISTORY: Head trauma, mod-severe fell down and hit back, pain to left lowerback and headache. COMPARISON: CT head without contrast 09/16/2015. TECHNIQUE: Contiguous axial imaging to the base of skull was obtained with2.5 mm slices without intravenous contrast. 5 mm axial, coronal, andsagittal reformats were obtained. ?Contiguous axial imaging of the lumbarspine was performed with 2.5 mm slices. Coronal and sagittal reformats wereobtained. FINDINGS: Head: The ventricles and cerebral sulci are normal in caliber and configuration.No hydrocephalus, midline shift or pathological extra-axial fluidcollection is present. The basal cisterns are unremarkable. There is no acute intracranial hemorrhage or significant mass effect. Noparenchymal attenuation abnormality. The downing-white matter differentiationis preserved. Mucoperiosteal thickening of the ethmoid air cells and sphenoid sinusesbilaterally. The calvarium and central skull base are unremarkable. Lumbar Spine: The normal lumbar lordosis is maintained. The vertebral bodies are normalin height and in normal alignment. No facet fracture or subluxation ispresent. [facility], Radiant Results Inft User - 12/16/2020 8:[address] HEAD WO CONTRASTCT LUMBAR SPINE WO CONTRASTHISTORY: Head trauma, mod-severe fell down and hit back, pain to left lowerback and headache.COMPARISON: CT head without contrast 09/16/2015.TECHNIQUE: Contiguous axial imaging to the base of skull was obtained with2.5 mm slices without intravenous contrast. 5 mm axial, coronal, andsagittal reformats were obtained. Contiguous axial imaging of the lumbarspine was performed with 2.5 mm slices. Coronal and sagittal reformats wereobtained.FINDINGS :Head:The ventricles and cerebral sulci are normal in caliber and configuration.No hydrocephalus, midline shift or pathological extra-axial fluidcollection is present. The basal cisterns are unremarkable.There is no acute intracranial hemorrhage or significant mass effect. Noparenchymal attenuation abnormality. The downing-white matter differentiationis preserved.Mucoperiost eal thickening of the ethmoid air cells and sphenoid sinusesbilaterally. The calvarium and central skull base are unremarkable.Lumbar Spine:The normal lumbar lordosis is maintained. The vertebral bodies are normalin height and in normal alignment. No facet fracture or subluxation ispresent. IMPRESSIONNo acute intracranial abnormality.Unremarka ble CT examination of the lumbar spine.Preliminary Report Dictated by Resident: Mony Wood MD., have reviewed this study and agree with theabove report. POCT TEST 2020-12-16 12:32:00 Test Item Value Reference Range Interpretation Comme nts POCT PREG (test code = 1605) negative On board controls acceptable with C Line (test code = 3574) present POCT PREG LOT # (test code = 3575) [id number] POCT PREG TEST DATE (test code = 3576) 06/12/2022 Lab Interpretation (test code = 75642-0) Normal [facility] [id number] 15:41:00 Test Item Value Reference Range Interpretation Comments Rubella screen IgG Positive Negative (test code = 8603477118) EVERETT (test code = EVEERTT) Positive - Indicates the patient was exposed to Rubella through infection or vaccination.Negative - Indicates the patient could be susceptible to Rubella infection.Equivocal - A second specimen should be sent. [facility] WITH [id number] 09:55:00 Test Item Value Reference Range Interpretation Comments WBC (test code = See_Comment H [Automated 3490-2) message] The sy stem which generated this result transmitted reference range : 4.30 - 11.10 10*3/?L. The reference range was not used to interpret this result as normal/abnormal . RBC (test code = See_Comment L [Automated 669-8) message] The sy stem which generated this result transmitted reference range : 3.93 - 5.25 10*6/?L. The reference range was not used to interpret this result as normal/abnormal . HGB (test code = 7.9 g/dL 11.6-15 L 718-7) HCT (test code = 25.0 % 35.7-45.2 L 4544-3) MCV (test code = 88.0 fL 80.6-95.5 787-2) MCH (test code = 27.8 pg 25.9-32.8 785-6) MCHC (test code = 31.6 g/dL 31.6-35.1 786-4) RDW-SD (test code = 42.6 fL 39-49.9 27834-0) RDW-CV (test code = 13.3 % 12-15.5 788-0) PLT (test code = See_Comment [Automated 777-3) message] The sy stem which generated this result transmitted reference range : 166 - 358 10*3/ ?L. The reference r siria was not used to interpret this result as normal/abnormal . MPV (test code = 11.0 fL 9.5-12.9 98295-9) NRBC/100 WBC (test See_Comment [Automat ed code = 7860138817) message] The system which generated this result transmitted reference range : 0.0 - 10.0 /100 WBCs. The refer ence range was not u sed to interpret th is result as normal/abnormal . NRBC x10^3 (test code <0.01 See_Comment [Auto mated = 2451114463) message] The s ystem which generated this result transmitted reference range : 10*3/?L. The reference range was not used to interpret this result as normal/abnormal . GRAN MAT (NEUT) % 73.4 % (test code = 770-8) IMM GRAN % (test code 0.60 % = 9622727256) LYMPH % (test code = 18.7 % 736-9) MONO % (test code = 6.1 % 5905-5) EOS % (test code = 1.0 % 713-8) BASO % (test code = 0.2 % 706-2) GRAN MAT x10^3(ANC) 9.99 10*3/uL 1.88-7.09 H (test code = 6376623817) IMM GRAN x10^3 (test 0.08 10*3/uL 0-0.06 H code = 3045381046) LYMPH x10^3 (test code 2.54 10*3/uL 1.32-3.29 = 731-0) MONO x10^3 (test code 0.83 10*3/uL 0.33-0.92 = 742-7) EOS x10^3 (test code = 0.13 10*3/uL 0.03-0.39 711-2) BASO x10^3 (test code 0.03 10*3/uL 0.01-0.07 = 704-7) Lab Interpretation Abnormal (test code = 98926-8) [facility] CORD [id number] 16:38:00 Test Item Value Reference Range Interpretation Comments VENOUS BASE EXCESS, mEq/L CORD (test code = 1310711426) VENOUS PH, CORD (test 7.25-7.45 code = 3437733283) VENOUS PC02, CORD See_Comment [Automate d message] The (test code = system which ge nerated 4655572074) this result tra nsmitted reference range : 27 - 49 mmHg. The refer ence range was not used to interpret this result as normal/abnormal . VENOUS PO2, CORD (test See_Comment [Aut omated message] The code = 6668488402) system [employer] [facility] generated this result tra nsmitted reference range : 17 - 41 mmHg. The refer ence range was not used to interpret this result as normal/abnormal . VENOUS BICARBONATE, See_Comment [Automa davin message] The CORD (test code = system [facility] ch generated 8336079650) this result tra nsmitted reference range : 12 - 29 mEq/L. The refe rence range was not used to interpret this result as normal/abnormal . [facility]ARTERIAL CORD [id number] 16:35:00 Test Item Value Reference Range Interpretation Comments BASE EXCESS, CORD (test mEq/L code = 8094637733) AC PH, CORD (BEAKER) 7.18-7.38 L (test code = 2606188757) PC02, CORD (test code = See_Comment [Au tomated message] 9909165627) The system [employer] h generated this result transmitted ref erence range: 32 - 66 mmHg. The reference r siria was not used to interpret this result as normal/abnor mal. PO2, CORD (test code = See_Comment [Aut omated message] 5626059470) The system [employer] generated this result transmitted ref erence range: 10 - 30 mmHg. The reference r siria was not used to interpret this result as normal/abnor mal. BICARBONATE, CORD (test See_Comment L [Au tomated message] code = 2250892214) The syste m which generated this result transmitted ref erence range: 17 - 27 mEq/L. The reference r siria was not used to interpret this result as normal/abnor mal. Lab Interpretation (test Abnormal code = 22682-2) [facility] ONLY - SYPHILIS [id number] 14:10:00 Test Item Value Reference Range Interpretation Comments Syphilis IgG/IgM (test Non-reactive Non-reactive code = 56218-2) EVERETT (test code = EVERETT) Non-reactive - No serologic evidence of T. pallidum infection. Cannot exclude incubating or early syphilis. Submit a second specimen in 2-4 weeks if syphilis is clinically suspected.Equivocal - Further testing to follow.Reactive - Further testing to follow. Lab Interpretation (test Normal code = 58053-5) [facility] HospitalProtein CREAT Ratio Urine [id number] 05:48:00 Test Item Value Reference Range Interpretation Comments T. PROT U (test code = 2888-6) 11 mg/dL CREAT U (test code = 6357976626) 116.3 mg/dL Protein/Creatinine Ratio Urine 0.0-2.0 (test code = 5766379608) [facility] HospitalUrinalysis2019-08-07 05:25:00 Test Item Value Reference Range Interpretation Comments APPEARANCE (test code = Clear Clear 1679434034) COLOR (test code = Yellow Yellow 3067005018) PH (test code = 4.8-8.0 6984435909) SP GRAVITY (test code = 1.003-1.030 9182602958) GLU U QUAL (test code = Normal Normal 9300526374) BLOOD (test code = Negative Negative 4232396254) KETONES (test code = 5 mg/dL Negative A 3959605777) PROTEIN (test code = Negative Negative 2887-8) UROBILIN (test code = Normal Normal 6897254735) BILIRUBIN (test code = Negative Negative 8123559140) NITRITE (test code = Negative Negative 3318681544) LEUK TONY (test code = Negative Negative 1035939910) RBC/HPF (test code = See_Comment H [Autom ated message] 5333843581) The system [employer] generated this result transmitted ref erence range: 0 - 3 HP F. The reference range was not used to int erpret this result as normal/abnormal . WBC/HPF (test code = See_Comment [Autom ated message] 9946149100) The system [employer] generated this result transmitted ref erence range: 0 - 5 HP F. The reference range was not used to int erpret this result as normal/abnormal . BACTERIA (test code = Negative Negative 5268105220) MUCOUS (test code = Slight Negative LPF A 2212705205) SQ EPITH (test code = See_Comment [Auto mated message] 1558730718) The system [employer] generated this result transmitted ref erence range: <=2 HPF. The reference range was not used to int erpret this result as normal/abnormal . HYAL CAST (test code = See_Comment [Aut omated message] 3072451757) The system [employer] generated this result transmitted ref erence range: <=2 LPF. The reference range was not used to int erpret this result as normal/abnormal . Lab Interpretation (test Abnormal code = 85336-2) [facility] HospitalUric Acid [id number] 05:00:00 Test Item Value Reference Range Interpretation Comments URIC ACID (test code = 4048535809) 4.8 mg/dL 2.9-6 Lab Interpretation (test code = Normal 99299-1) [facility] [id number] 05:00:00 Test Item Value Reference Range Interpretation Comments CREATININE (test code 0.51 mg/dL 0.5-1.04 = 4398230861) eGFR Calculation mL/min/1.73m2 (Non-) (test code = 9086320757) eGFR Calculation mL/min/1.73m2 () (test code = 8456108372) EVERETT (test code = EVERETT) Association of Glomerular Filtration Rate (GFR) and Staging of Kidney Disease*+ ---------+ --------+ +| GFR (mL/min/1.73 m2)?| With Kidney Damage?|?Without Kidney Damage+ -------+ ------+ ---------+|?>90?|?Stage one?|? Normal?+ --------+ -------+ +|?60-89?|?St age two?|? Decreased GFR? + -+ + ---+|?30-59?|?Stage three?|? Stage three? + -+ + ---+|?15-29?|?Stage four? |? Stage four?+ ------+ -----+ --------+|?<15 (or dialysis)?|?Stage five? |? Stage five?+ ------+ -----+ --------+*Each stage assumes the associated GFR level has been in effect for at least three months.?Stages 1 to 5, with or without kidney disease, indicate chronic kidney disease.Notes: Determination of stages one and two (with eGFR >59mL/min/1.73 m2) requires estimation of kidney damage for at least three months as defined by structural or functional abnormalities of the kidney, manifested by either:Pathological abnormalities or Markers of kidney damage (including abnormalities in the composition of the blood or urine or abnormalities in imaging tests). [facility] HospitalSGOT (Asparate Amino Transfer)2019-01-17 05:00:00 Test Item Value Reference Range Interpretation Comments AST(SGOT) (test code = 8806760998) 20 U/L 13-40 Lab Interpretation (test code = Normal 47713-9) [facility] HospitalAlanine Amino Transferase (SGPT)2019-01-17 05:00:00 Test Item Value Reference Range Interpretation Comments ALT(SGPT) (test code = 9396579640) 16 U/L 9-51 Lab Interpretation (test code = Normal 49383-2) [facility] HospitalLactate [id number] 05:00:00 Test Item Value Reference Range Interpretation Comments LDH (test code = 5592551494) 527 U/L 300-600 Lab Interpretation (test code = Normal 26605-5) [facility] HospitalCB WITH [id number] 04:46:00 Test Item Value Reference Range Interpretation Comments WBC (test code = See_Comment [Automated 3390-2) message] The sy stem which generated this result transmitted reference range : 4.30 - 11.10 10*3/?L. The reference range was not used to interpret this result as normal/abnormal . RBC (test code = See_Comment L [Automated 469-8) message] The sy stem which generated this result transmitted reference range : 3.93 - 5.25 10*6/?L. The reference range was not used to interpret this result as normal/abnormal . HGB (test code = 10.5 g/dL 11.6-15 L 718-7) HCT (test code = 33.5 % 35.7-45.2 L 4544-3) MCV (test code = 88.6 fL 80.6-95.5 787-2) MCH (test code = 27.8 pg 25.9-32.8 785-6) MCHC (test code = 31.3 g/dL 31.6-35.1 L 786-4) RDW-SD (test code = 42.5 fL 39-49.9 38196-8) RDW-CV (test code = 13.2 % 12-15.5 788-0) PLT (test code = See_Comment [Automated 777-3) message] The sy stem which generated this result transmitted reference range : 166 - 358 10*3/ ?L. The reference r siria was not used to interpret this result as normal/abnormal . MPV (test code = 11.9 fL 9.5-12.9 09016-6) NRBC/100 WBC (test See_Comment [Automat ed code = 1325457180) message] The system which generated this result transmitted reference range : 0.0 - 10.0 /100 WBCs. The refer ence range was not u sed to interpret th is result as normal/abnormal . NRBC x10^3 (test code <0.01 See_Comment [Auto mated = 1519073790) message] The s ystem which generated this result transmitted reference range : 10*3/?L. The reference range was not used to interpret this result as normal/abnormal . GRAN MAT (NEUT) % 75.6 % (test code = 770-8) IMM GRAN % (test code 0.70 % = 9478720729) LYMPH % (test code = 17.1 % 736-9) MONO % (test code = 6.0 % 5905-5) EOS % (test code = 0.3 % 713-8) BASO % (test code = 0.3 % 706-2) GRAN MAT x10^3(ANC) 7.92 10*3/uL 1.88-7.09 H (test code = 9814427808) IMM GRAN x10^3 (test 0.07 10*3/uL 0-0.06 H code = 2301276239) LYMPH x10^3 (test code 1.79 10*3/uL 1.32-3.29 = 731-0) MONO x10^3 (test code 0.63 10*3/uL 0.33-0.92 = 742-7) EOS x10^3 (test code = 0.03 10*3/uL 0.03-0.39 711-2) BASO x10^3 (test code 0.03 10*3/uL 0.01-0.07 = 704-7) Lab Interpretation Abnormal (test code = 78115-8) [facility] HospitalHepatitis B Surface [id number] 04:37:00 Test Item Value Reference Range Interpretation Comments HBsAg Semi-Quantitative (test code = 5195-3) [facility] HospitalType and Screen - ONCE [id number] 03:35:01 Test Item Value Reference Range Interpretation Comments ABO & RH (test code O POSITIVE Performe d at [facility] = 20) Laboratory Serv [facility]3 [address] [facility] s [address]Ipfr Free: [phone] A No. [id number] IAT (test code = Negative Performed a t [facility] 1185) Laboratory Serv [facility]3 [address] [facility] s [id number] Free: [phone] A No. [id number] [facility] C[facility] OR L[facility] ONLY - WET [id number] 06:32:00 Test Item Value Reference Range Interpretation Comments Wet Prep (test code = No Epithelial cells 7409886994) [facility] ONLY - FERN [id number] 06:30:00 Test Item Value Reference Range Interpretation Comments Fern Test (test code = 2399932858) Negative [facility] HospitalPOCT URINALYSIS W SPECIFIC [id number] 22:18:00 Test Item Value Reference Range Interpretation Comments POCT U SP GRAV (test code = 3255) . 1.005-1.025 POCT PH U (test code = 3254) . 5-8 POCT U LEUK EST (test code = 3263) . Negative - Negative POCT U NIT (test code = 3262) . Negative - Negative POCT U PROT (test code = 3259) Trace Negative - Negative POCT U GLU (test code = 3256) Neg Negative - Negative POCT U KETONE (test code = 3258) . Negative - Negative POCT U UROBILI (test code = 3260) . 0.2-1 POCT U BILI (test code = 3261) . Negative - Negative POCT U BLD (test code = 3257) . Negative - Negative POCT U COLOR (test code = 3266) POCT U APPEAR (test code = 3267) [facility] URINALYSIS W/O SPECIFIC [id number] 14:21:00 Test Item Value Reference Range Interpretation Comments POCT PH U (test code = 3254) 5 mg/dl 5-8 POCT U LEUK EST (test code = Trace Negative - Negative 3263) POCT U NIT (test code = 3262) Neg Negative - Negative POCT U PROT (test code = 3259) Trace Negative - Negative POCT U GLU (test code = 3256) Neg Negative - Negative POCT U KETONE (test code = 3258) None Negative - Negative POCT U BLD (test code = 3257) Neg Negative - Negative [facility] URINALYSIS W/O SPECIFIC [id number] 14:21:00 Test Item Value Reference Range Interpretation Comments POCT PH U (test code = 3254) 5 mg/dl 5-8 POCT U LEUK EST (test code = Trace Negative - Negative 3263) POCT U NIT (test code = 3262) Neg Negative - Negative POCT U PROT (test code = 3259) Trace Negative - Negative POCT U GLU (test code = 3256) Neg Negative - Negative POCT U KETONE (test code = 3258) None Negative - Negative POCT U BLD (test code = 3257) Neg Negative - Negative [facility] HospitalPONC [id number] 14:20:00 Test Item Value Reference Range Interpretation Comments POCT PREG (test code = 1605) Positive On board controls acceptable with C Yes Line (test code = 3574) POCT PREG LOT # (test code = 3575) POCT PREG TEST DATE (test code = 3576) [facility] HospitalPONC [id number] 14:20:00 Test Item Value Reference Range Interpretation Comments POCT PREG (test code = 1605) Positive On board controls acceptable with C Yes Line (test code = 3574) POCT PREG LOT # (test code = 3575) POCT PREG TEST DATE (test code = 3576) [facility]
[2021-09-20] MEDS ORDERED: dexAMETHasone 10 MG/ML VIAL ONE (05:50)
[2021-09-20] MEDS ORDERED: DIPHENHYDRAMINE 50 MG/ML VIAL ONE (05:50)
[2021-09-20] MEDS ORDERED: METOCLOPRAMIDE 10 MG/2mL INJ ONE (05:50)
[2021-09-20] MEDS ORDERED: KETOROLAC 30 MG/ML INJ ONE (05:51)
--- NOTE | 2021-09-20 06:35 | ER ---
Nurse's Notes [facility] Name: Eboni Gillis Age: 26 yrs Sex: Female : 1995 Arrival Date: 09/20/2021 Time: 04:59 Bed 16 Private MD: Diagnosis: Headache Presentation: 09/20 05:21 Chief complaint: Patient states: Headache and nausea x3 days; reports similar symptoms lp1 in the past; No relief with OTC Tylenol and Ibuprofen. Coronavirus screen: At this time, the client does not indicate any symptoms associated with coronavirus-19. Ebola Screen: No symptoms or risks identified at this time. Initial Sepsis Screen: Does the patient meet any 2 criteria? No. Patient's initial sepsis screen is negative. Does the patient have a suspected source of infection? No. Patient's initial sepsis screen is negative. Risk Assessment: Do you want to hurt yourself or someone else? Patient reports no desire to harm self or others. Onset of symptoms was September 20, 2021. 05:21 Method Of Arrival: Ambulatory lp1 05:21 Acuity: KALINA 3 lp1 Triage Assessment: 05:41 Headache History: The patient has had previous headaches and this one is different than ag7 previous episodes, and this one is more severe than previous episodes. General: Appears in no apparent distress. Behavior is calm, cooperative. 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 - Social history:: Smoking status: Patient denies any tobacco usage or history of. Screenin:40 Abuse screen: Denies threats or abuse. Nutritional screening: No deficits noted. ag7 Tuberculosis screening: No symptoms or risk factors identified. Fall Risk No fall in past 12 months (0 pts). No secondary diagnosis (0 pts). No IV (0 pts). Ambulatory Aid- None/Bed Rest/Nurse Assist (0 pts). Gait- Normal/Bed Rest/Wheelchair (0 pts) Mental Status- Oriented to own ability (0 pts). Total Guajardo Fall Scale indicates No Risk (0-24 pts). Assessment: 05:25 General: Appears in no apparent distress. Behavior is calm, cooperative, appropriate ag7 for age. Pain: Complains of pain in top of head and forehead Pain does not radiate. Pain currently is 10 out of 10 on a pain scale. Quality of pain is described as pressure, Pain began suddenly, Is continuous, Alleviated by nothing. Pain: Aggravated by light Also complains of nausea. 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 Cardiovascular: Heart tones S1 S2 present Capillary refill < 3 seconds in bilateral fingers Patient's skin is warm and dry. Respiratory: Airway is patent Trachea midline Respiratory effort is even, unlabored, Respiratory pattern is regular, symmetrical, Breath sounds are clear bilaterally. Vital Signs: 05:21 BP 144 / 87; Pulse 85; Resp 18; Temp 98.5(O); Pulse Ox 99% on R/A; Weight 81.65 kg (R); lp1 Height 5 ft. 0 in. (152.40 cm); Pain 10/10; 06:15 BP 120 / 85; Pulse 74; Pulse Ox 98% ; Pain 0/10; ag7 06:36 Pain 0/10; ag7 05:21 Body Mass Index 35.15 (81.65 kg, 152.40 cm) lp1 ED Course: 04:59 Patient arrived in ED. kz 05:13 Ruiz Perez DO is Attending Physician. ms3 05:23 Triage completed. lp1 05:23 Arm band placed on. lp1 05:31 Yelena Villar, CARLOS is Primary Nurse. ag7 05:40 Patient has correct armband on for positive identification. Bed in low position. Call ag7 light in reach. 05:42 No provider procedures requiring assistance completed. ag7 06:33 Chaz Pretty MD is Referral Physician. ms3 06:48 IV discontinued, intact, bleeding controlled, No redness/swelling at site. Pressure ag7 dressing applied. Administered Medications: 06:05 Drug: Reglan (metoCLOPramide) 10 mg Route: IVP; Site: left antecubital; ag7 06:37 Follow up: Response: No adverse reaction ag7 06:05 Drug: Benadryl (diphenhydrAMINE) 25 mg Route: IVP; Site: left antecubital; ag7 06:37 Follow up: Response: No adverse reaction ag7 06:05 Drug: Decadron - Dexamethasone 10 mg Route: IVP; Site: left antecubital; ag7 06:37 Follow up: Response: No adverse reaction; Pain is decreased ag7 06:05 Drug: Ketorolac 10 mg Route: IVP; Site: left antecubital; ag7 06:36 Follow up: Pain 0/10 Adult; Response: No adverse reaction; Pain is decreased ag7 Outcome: 06:34 Discharge ordered by . ms3 06:48 Discharged to home ambulatory. ag7 06:48 Condition: stable 06:48 Discharge instructions given to patient, Instructed on discharge instructions, follow up and referral plans. Demonstrated understanding of instructions, follow-up care. 06:48 Patient left the ED. ag7 Signatures: Ada Irby RN RN lp1 Ruiz Perez DO DO ms3 Ketty Hyatt Angela, RN RN ag7
--- NOTE | 2021-09-20 06:35 | EDPHYS ---
Physician Documentation [facility] Name: Eboni Gillis Age: 26 yrs Sex: Female : 1995 Arrival Date: 09/20/2021 Time: 04:59 Bed 16 Private MD: ED Physician Ruiz Perez HPI: 09/20 05:52 This 26 yrs old Female presents to ER via Ambulatory with complaints of ms3 Headache > 24hrs Old, Nausea. 05:52 The patient complains of pain to the forehead. The patient describes the headache as ms3 aching, constant. Onset: The symptoms/episode began/occurred 3 day(s) ago. Associated signs and symptoms: Pertinent positives: nausea, Pertinent negatives: Photophobia vomiting. Severity of symptoms: At its worst the pain was severe, in the emergency department the pain is unchanged. Headache History: The patient has had previous headaches and this one is similar to previous episodes. The symptoms are alleviated by nothing. the symptoms are aggravated by nothing. 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 - Social history:: Smoking status: Patient denies any tobacco usage or history of. ROS: 05:52 Constitutional: Negative for fever, and chills. ENT: Negative for injury, pain, and ms3 discharge, Neck: Negative for injury, pain, and swelling, Cardiovascular: Negative for chest pain, and palpitations. Respiratory: Negative for shortness of breath, cough, wheezing, and pleuritic chest pain, Abdomen/GI: Negative for abdominal pain, nausea, vomiting, diarrhea, and constipation, MS/Extremity: Negative for injury and deformity, Skin: Negative for injury, rash, and discoloration. 05:52 Neuro: Positive for headache. 05:52 All other systems are negative. Exam: 05:52 Constitutional: This is a well developed, well nourished patient who is awake, alert, ms3 and in no acute distress. Head/Face: Normocephalic, atraumatic. Eyes: Pupils equal round and reactive to light, extra-ocular motions intact. Lids and lashes normal. Conjunctiva and sclera are non-icteric and not injected. Periorbital areas with no swelling, redness, or edema. Neck: Trachea midline, no cervical lymphadenopathy. Supple, full range of motion without nuchal rigidity, or vertebral point tenderness. No Meningismus. Chest/axilla: Normal chest wall appearance and motion. Nontender with no deformity. Cardiovascular: Regular rate and rhythm with a normal S1 and S2. No gallops, murmurs, or rubs. Normal PMI, no JVD. No pulse deficits. Respiratory: Lungs have equal breath sounds bilaterally, clear to auscultation and percussion. No rales, rhonchi or wheezes noted. No increased work of breathing, no retractions or nasal flaring. Abdomen/GI: Soft, non-tender, with normal bowel sounds. No distension or tympany. No guarding or rebound. No evidence of tenderness throughout. Skin: Warm, dry with normal turgor. Normal color with no rashes, no lesions, and no evidence of cellulitis. Neuro: Awake and alert, GCS 15, oriented to person, place, time, and situation. Cranial nerves II-XII grossly intact. Motor strength 5/5 in all extremities. Sensory grossly intact. Cerebellar exam normal. Normal gait. Psych: Awake, alert, with orientation to person, place and time. Behavior, mood, and affect are within normal limits. Vital Signs: 05:21 BP 144 / 87; Pulse 85; Resp 18; Temp 98.5(O); Pulse Ox 99% on R/A; Weight 81.65 kg (R); lp1 Height 5 ft. 0 in. (152.40 cm); Pain 10/10; 06:15 BP 120 / 85; Pulse 74; Pulse Ox 98% ; Pain 0/10; ag7 06:36 Pain 0/10; ag7 05:21 Body Mass Index 35.15 (81.65 kg, 152.40 cm) lp1 MDM: 05:38 Patient medically screened. ms3 05:52 Differential diagnosis: migraine, sinusitis. ms3 06:34 Data reviewed: vital signs, nurses notes. Counseling: I had a detailed discussion with ms3 the patient and/or guardian regarding: the historical points, exam findings, and any diagnostic results supporting the discharge/admit diagnosis, the presence of at least one elevated blood pressure reading (>120/80) during this emergency department visit, the need for outpatient follow up, to return to the emergency department if symptoms worsen or persist or if there are any questions or concerns that arise at home. ED course: Discussed physical exam findings with patient. Patient to follow-up with Dr. Pretty in 2 to 3 days. Patient understands and agrees with plan. All questions were answered. Return precautions discussed include worsening symptoms, or any other concerns. On reevaluation patient's headache is resolved, patient is alert and oriented x4, in no apparent distress, nontoxic-appearing, neurologically intact.. Administered Medications: 06:05 Drug: Reglan (metoCLOPramide) 10 mg Route: IVP; Site: left antecubital; ag7 06:37 Follow up: Response: No adverse reaction ag7 06:05 Drug: Benadryl (diphenhydrAMINE) 25 mg Route: IVP; Site: left antecubital; ag7 06:37 Follow up: Response: No adverse reaction ag7 06:05 Drug: Decadron - Dexamethasone 10 mg Route: IVP; Site: left antecubital; ag7 06:37 Follow up: Response: No adverse reaction; Pain is decreased ag7 06:05 Drug: Ketorolac 10 mg Route: IVP; Site: left antecubital; ag7 06:36 Follow up: Pain 0/10 Adult; Response: No adverse reaction; Pain is decreased ag7 Disposition Summary: 09/20/21 06:34 Discharge Ordered Location: Home ms3 Problem: new ms3 Symptoms: are resolved ms3 Condition: Stable ms3 Diagnosis - Headache ms3 Followup: ms3 - With: Chaz Pretty MD - When: 2 - 3 days - Reason: Recheck today's complaints Discharge Instructions: - Discharge Summary Sheet ms3 - General Headache Without Cause ms3 - Form - Return To Work ag7 Forms: - Medication Reconciliation Form ms3 - Thank You Letter ms3 - Antibiotic Education ms3 - Prescription Opioid Use ms3 Signatures: Ada Irby RN RN lp1 Ruiz Perez DO DO ms3 Yelena Villar RN RN ag7
[2021-09-20 08:30] VITALS: BP 120/85; O2SAT 98
[2021-09-20 08:31] VITALS: TEMP 98.5
== END 2021-09-20 06:48 | disposition home or self-care (01) ==
LOC: ER 04:54
DX: R51.9 Headache, unspecified (principal); R11.0 Nausea; I10 Essential (primary) hypertension; Z88.1 Allergy status to other antibiotic agents
CPT/HCPCS: 96375; 96374; 99283; J2765; J1200; J1100

== ENCOUNTER 2024-01-16 19:28 | Emergency (ER) | payer BC ==
--- OUTSIDE RECORDS SUMMARY | 2024-01-16 19:34 | XMS REPORT | Continuity of Care Document ---
Author Name Unknown Address [address] [facility] [address] [place] [address] [facility] thconnect Address [address] [facility] [place] [address] Care Team Providers Care [address] Vendor Name Role Phone PCP, PATIENT DOES NOT HAVE A Primary Care Physic bharath Unavailable STELLA SUERO Attending Clinician Unavailable ANABELA MASSEY Attending Clinician Unavailab Anabela Alcantar DO Attending Clinician [phone] [id number] Attending Clinician Unavailable LAB47 Attending Clinician Unavailable KAYLEE MILNER Attending Clinician Unavailable SANDRA FLORES Attending Clinician Unavailable LEANDRO MORRELL Attending Clinician Unavailab CHRIS Patel Attending Clinician Unavailable MITALI OSEGUERA Attending Clinician UnavailMARISSA Angulo Attending Clinician Unavailable LAB90 Attending Clinician Unavailable TAO GARCIA Attending Clinician Unavailable FLORENTINO BRANTLEY Attending Clinician Unavailable IRENE WANG Attending Clinician Unavailable Irene Wang MD Attending Clinician [phone] UNKNOWN, ATTENDING Attending Clinician Unavailab Brian Pickett DO Attending Clinician [phone] Mikael Teixeira MD Attending Clinician [phone] Visit, [facility] Nurse Attending Clinician Ibeth Witt Attending Clinician + Lois Bethea MD Attending Clinician [phone] Doctor Unassigned, [place] Attending Clinician U eloisaANABELA Alex Admitting Clinician Unavailab IRENE Whitlock Admitting Clinician Unavailable Mikael Teixeira MD Admitting Clinician [phone] Lois Bethea MD Admitting Clinician [phone] Payers Payer Name Policy Type Policy Number Effective Date Expirati on Date Source [employer] [place] - OUT OF STATE [id number] 2020 00:00:00 [employer] MEDICAID [id number] 2019 00:00:00 [facility]-BCBS CAPITATED[facility] 9 [id number] 2022 00:00:00 ST OFF OF RISK [facility] [id number] 00:00:00 Problems Condition Name Condition Details Condition Category Status Onset Date Resolution Date Last Treatment Date Treating Clinician Comments Source Iron deficiency anemia secondary to inadequate dietary iron intake Iron deficiency anemia secondary to inadequate dietary iron intake Disease Active 08-09 00:00: 00 Luana Sejuanold - Externa l Seasonal allergic rhinitis due to pollen Seasonal allergic rhinitis due to pollen Disease Active 08-09 00:00: 00 Luana Seybold - Externa l Other headache syndrome Other headache syndrome Disease Active 08-09 00:00: 00 Luana Seybold - Externa l Thyromegal y Thyromegal y Disease Active 08-09 00:00: 00 Luana Seybold - Externa l (spontaneo us vaginal delivery) (spontaneo us vaginal delivery) Disease Active 01-18 00:00: 00 [facility] Single live Single live Disease Active 01-18 00:00: 00 [facility] Anemia, Anemia, Disease Active 01-18 00:00: 00 [facility] Gestationa l hypertensi on Gestationa l hypertensi on Disease Active 01-18 00:00: 00 [facility] Laceration , obstetrica l, second degree Laceration , obstetrica l, second degree Disease Active 01-18 00:00: 00 [facility] (spontaneo us vaginal delivery) (spontaneo us vaginal delivery) Disease Active 01-18 00:00: 00 [facility] Anemia, Anemia, Disease Active 01-18 00:00: 00 [facility] Gestationa l hypertensi on Gestationa l hypertensi on Disease Active 01-18 00:00: 00 [facility] Gestationa l hypertensi on Gestationa l hypertensi on Disease Active 01-18 00:00: 00 [facility] Morbid obesity with body mass index of 40.0-49.9 Morbid obesity with body mass index of 40.0-49.9 Disease Active 01-16 00:00: 00 [facility] 39 weeks gestation of 39 weeks gestation of Disease Active 01-16 00:00: 00 [facility] Morbid obesity with body mass index of 40.0-49.9 Morbid obesity with body mass index of 40.0-49.9 Disease Active 01-16 00:00: 00 [facility] Positive GBS test Positive GBS test Disease Active 01-15 00:00: 00 Overview: Address intrapart [facility] Cervical Papanicola ou smear negative within last 12 months Cervical Papanicola ou smear negative within last 12 months Disease Active 01-15 00:00: 00 Overview: Formattin g of this note might be different from the original. NIL pap 07/03/18 [facility] Rubella non-immune status, antepartum Rubella non-immune status, antepartum Disease Active 01-12 00:00: 00 Overview: Address [facility] Susceptibl e varicella Susceptibl e varicella Disease Active 01-12 00:00: 00 Overview: Formattin g of this note might be different from the original. Address [facility] Supervisio n of high-risk with insufficie nt care Supervisio n of high-risk with insufficie nt care Disease Active 01-11 00:00: 00 Overview: See scanned records [facility] Obesity in Obesity in Disease Active 01-11 00:00: 00 [facility] Nexplanon in place Nexplanon in place Disease Active 2015-06 00:00: 00 [facility] Irregular menstrual cycle Irregular menstrual cycle Disease Active 2015-06 00:00: 00 [facility] Right ankle pain Right ankle pain Disease Active 10-27 00:00: 00 [facility] Well woman exam Well woman exam Disease Active 07-16 00:00: 00 [facility] Depo-Prove ra contracept humberto status Depo-Prove ra contracept humberto status Disease Active 07-16 00:00: 00 [facility] Overweight Overweight Disease Active 07-16 00:00: 00 [facility] Contracept humberto management Contracept humberto management Disease Active 07-16 00:00: 00 [facility] History of anxiety History of anxiety Disease Active 07-16 00:00: 00 [facility] History of depression History of depression Disease Active 07-16 00:00: 00 [facility] Allergies, Adverse Reactions, Alerts Allergy Name Allergy Type Status Severity Reaction(s) Onset Date Inactive Date Treating Clinician Comments Source Amoxicil steven Propensi ty to adverse reaction s Active 08-09 00:00: 00 Luana Stillold - Externa l Penicill ins Propensi ty to adverse reaction s Active Unknown - See comments 11-28 00:00: 00 "made my throat tingle" [facility] PENICILL INS Drug Class Active Unknown-Cmnt 11-28 00:00: 00 [facility] Penicill ins Propensi ty to adverse reaction s Active Unknown - See comments 11-28 00:00: 00 "made my throat tingle" [facility] Penicill ins Propensi ty to adverse reaction s Active 11-28 00:00: 00 Other reaction( s): Unknown - See comments" made my throat tingle" Luana Fagan Externa l Social History Social Habit Start Date Stop Date Quantity Comments Source Gender identity 2020-10-15 16:16:19 Identifies as female gender (finding) Luana Huffman - External ASSERTION 2018-05-01 00:00:00 [facility] History SDOH Alcohol Binge Luana Huffman - External History SDOH Alcohol Frequency Luana almonte - External History SDOH Alcohol Std Drinks Luana berg - External Exposure to SARS-CoV-2 (event) Not sure [facility] Alcoholic beverage intake 2023-11-15 00:00:00 2023-11-15 00:00:00 0 /d [facility] Alcohol intake 2023-01-10 00:00:00 2023-01-10 00:00:00 Current drinker of alcohol (finding) Luana Huffman - External Alcohol Comment 2022-08-09 00:00:00 2022-08-09 00:00:00 socially Luana Fagan External Education - What is the highest level of school you have completed or the highest degree you have received? 2022-08-09 00:00:00 2022-08-09 00:00:00 Associate degree: academic program Luana Fagan External History of Social function 2020-01-16 00:00:00 2020-01-16 00:00:00 [facility] Tobacco use and exposure 2015-07-14 00:00:00 2015-07-14 00:00:00 Smokeless tobacco non-user [facility] Sex assigned at 1995 00:00:00 1995 00:00:00 [facility] Smoking Status Start Date Stop Date Source Never smoked tobacco [facility] Medications Ordered Medication Name Filled Medication Name Start Date Stop Date Current Medication? Ordering Clinician Indication Dosage Frequency Signature (SIG) Comments Components Source ibuprofen (IBU) tablet 600 mg 11-15 00:15: 00 11-15 00:37 :00 No 600mg 600 mg, Oral, ONCE, 1 dose, On Tue11/15/23 at 1915, [facility] Promethazin e-DM 6.25-15 MG/5ML oral Syrup - 00:00: 00 09-28 00:00 :00 No [id number] 5mL Q.25D Take 5 mL by mouth 4 times daily as needed for cough. Luana davis FLUTICASONE PROPIONATE, NASAL, 50 MCG/ACT nasal Suspension 08-21 00:00: 00 09-28 00:00 :00 No [id number] 50ug Use 1 spray (50 mcg total) in each nostril daily. Luana davis Pseudoeph-B romphen-DM 30-2-10 MG/5ML oral Syrup 06-28 00:00: 00 Yes [id number] 10mL Q.25D Take 10 mL by mouth 4 times daily as needed. Luana davis Azithromyci n 250 MG oral Tablet 06-28 00:00: 00 07-04 05:59 :00 No [id number] Take 2 tablets by mouth on day 1 then 1 tablet by mouth daily for 4 days thereafter .. Luana davis Medroxyprog esterone (DEPO-PROVE RA) [150 mg/mL] - Once Every 3 Months 8-14 05:00: 00 09-28 18:39 :54 No [id number] 150mg Luana davis Magnesium 500 MG oral Tablet 12-07 00:00: 00 01-10 00:00 :00 No One QHS Luana davis Meloxicam (Mobic) 7.5 MG oral Tablet 12-07 00:00: 00 01-10 00:00 :00 No One QD prn Chad davis Sumatriptan Succinate (Imitrex) 50 MG oral Tablet 12-07 00:00: 00 01-10 00:00 :00 No 50mg Take 1 tablet (50 mg total) by mouth every 2 hours as needed for migraine One Q 2 hours up to 2 pills per 24 hours Luana davis Ondansetron HCl (Zofran) 4 MG oral Tablet 12-07 00:00: 00 01-10 00:00 :00 No 4mg Q.[id number] 3D Take 1 tablet (4 mg total) by mouth every 8 hours as needed for nausea Luana davis naproxen 500 mg tablet 12-03 00:00: 00 12-14 04:59 :00 No [id number] 500mg Take 1 tablet by mouth in the morning and 1 tablet in the evening. Take with meals. Do all this for 10 days. [facility] acetaminoph en (TYLENOL) tablet 1,000 mg 03-10 14:15: 00 03-10 13:06 :00 No 1000mg 1,000 mg, Oral, ONCE, 1 dose, On Tue03/10/21 at 0915, [facility] ondansetron 4 mg disintegrat ing tablet 03-10 00:00: 00 Yes [id number] 4mg Take 1 tablet by mouth every 4 (four) hours as needed for Nausea and Vomiting (N/V). [facility] HYDROcodone -acetaminop hen (NORCO) 7.5-325 mg per tablet 03-10 00:00: 00 03-18 04:59 :00 No [id number] 1{tbl} Take 1 tablet by mouth every 8 (eight) hours as needed for Pain for up to 7 days. Indication s: acute pain [facility] ondansetron (ZOFRAN (PF)) injection 4 mg 12-16 13:45: 00 12-16 12:35 :00 No 4mg 4 mg, Slow IV Push, ONCE, 1 dose, Tue12/16/20 at 0845, [facility] FENTanyl PF (SUBLIMAZE (PF)) injection 125 mcg 12-16 13:45: 00 12-16 12:35 :00 No 125ug 125 mcg, Slow IV Push, ONCE, 1 dose, [facility] 12/16/20 at 0845, STAT [facility] ibuprofen 600 mg tablet 12-16 00:00: 00 Yes [id number] 600mg Take 1 tablet by mouth every 8 (eight) hours as needed for Pain (scale 4-6). [facility] ondansetron 4 mg disintegrat ing tablet 12-16 00:00: 00 Yes [id number] 4mg Take 1 tablet by mouth every 4 (four) hours as needed for Nausea and Vomiting (N/V). [facility] HYDROcodone -acetaminop hen (NORCO) 7.5-325 mg per tablet 12-16 00:00: 00 12-24 04:59 :00 No [id number] 1{tbl} Take 1 tablet by mouth every 8 (eight) hours as needed for Pain for up to 7 days. Indication s: acute pain [facility] INVESTIGATI ONAL DRUG - hydrochloro thiazide 50 mg or placebo capsule 01-18 20:45: 00 02-01 13:59 :00 No 50mg 50 mg, Oral, DAILY, 14 doses, First dose on Tue01/18/19 at 1545, Last dose on Tue01/31/19 at 0900, Routine
Principal investigat or: MIKAEL TEIXEIRA [facility] ascorbic acid (vitamin C) (VITAMIN C) tablet 500 mg 01-18 13:00: 00 Yes 500mg 500 mg, Oral, BID, First dose on Tue01/18/19 at 0800, Until Discontinu ed, Routine [facility] ferrous sulfate tablet 325 mg 01-18 13:00: 00 Yes 325mg 325 mg, Oral, BID, First dose on Tue01/18/19 at 0800, Until Discontinu ed, Routine [facility] vit calc,iron,f olic ( VITAMIN ORAL) 01-18 12:59: 00 01-18 00:00 :00 No Take by mouth. [facility] varicella virus vaccine live (VARIVAX (PF)) injection 0.5 mL 01-18 12:56: 06 01-19 13:58 :00 No .5mL 0.5 mL, Subcutaneo us, ONCE-PRIOR TO DISCHARGE, 1 dose, Starting Jo 01/18/19 at 0756, Until Discontinu ed, Routine, Give vaccine prior to discharge [facility] docusate calcium 240 mg capsule 01-18 00:00: 00 Yes [id number] 104 240mg Take 1 capsule by mouth once daily as needed for Constipati on. [facility] ferrous sulfate 325 mg (65 mg iron) tablet 01-18 00:00: 00 Yes [id number] 325mg Take 1 tablet by mouth daily. [facility] ibuprofen 600 mg tablet 01-18 00:00: 00 Yes [id number] 600mg Take 1 tablet by mouth every 6 (six) hours as needed for Pain (scale 1-3) or Pain (scale 4-6) (Pain). Take with food or milk. [facility] Iron Fum & P-FA-Vit B & C No.9 (INTEGRA PLUS) 125 mg iron- 1 mg Cap 01-18 00:00: 00 Yes [id number] 1{capsu le} Take 1 capsule by mouth daily. [facility] acetaminoph en (TYLENOL) tablet 650 mg 01-17 21:42: 29 Yes 650mg 650 mg, Oral, Q6HPRN, Starting Tue01/17/19 at 1642, Until Discontinu ed, Routine, Pain (scale 1-3) [facility] ibuprofen (IBU) tablet 600 mg 01-17 21:42: 29 Yes 600mg 600 mg, Oral, Q6HPRN, Starting Tue01/17/19 at 1642, Until Discontinu ed, Routine, Pain (scale 4-6) [facility] diphenhydrA MINE (BENADRYL) tablet 25 mg 01-17 21:42: 29 Yes 25mg 25 mg, Oral, Q6HPRN, Starting Tue01/17/19 at 1642, Until Discontinu ed, Routine, Sleep, Itching [facility] ondansetron (ZOFRAN (PF)) injection 4 mg 01-17 21:42: 29 Yes 4mg 4 mg, Slow IV Push, Q8HPRN, Starting Tue01/17/19 at 1642, Until Discontinu ed, Routine, Nausea and Vomiting (N/V) [facility] simethicone (GAS RELIEF) chewable tablet 160 mg 01-17 21:42: 29 Yes 160mg 160 mg, Oral, PC+HSPRN, Starting Tue01/17/19 at 1642, Until Discontinu ed, Routine, Gas [facility] docusate calcium (SURFAK) capsule 240 mg 01-17 21:42: 29 Yes 240mg 240 mg, Oral, QDAILYPRN, Starting Tue01/17/19 at 1642, Until Discontinu ed, Routine, Constipati on [facility] magnesium hydroxide (MILK OF MAGNESIA) 400 mg/5 mL suspension 30 mL 01-17 21:42: 29 Yes 30mL 30 mL, Oral, QDAILYPRN, Starting Tue01/17/19 at 1642, Until Discontinu ed, Routine, Constipati on [facility] benzocaine- menthol (DERMOPLAST ) 20-0.5 % topical spray 01-17 21:42: 29 Yes Topical, PRN, Starting Tue01/17/19 at 1642, Until Discontinu ed, Routine, Perineum discomfort [facility] LR 1000 mL + oxytocin 20 units IV Solution 01-17 17:15: 00 01-17 17:45 :00 No at 999 mL/hr, IV Infusion, ONCE, 1 dose, Tue01/17/19 at 1215, Routine [facility] acetaminoph en (TYLENOL) tablet 650 mg 01-17 16:03: 41 01-17 21:42 :35 No 650mg 650 mg, Oral, Q6HPRN, Starting Tue01/17/19 at 1103, Until Tue01/17/19 at 1642, Routine, Pain (scale 4-6) [facility] vancomycin (VANCOCIN) 1,500 mg in NaCl 0.9% (NS) 250 mL piggyback 01-17 11:30: 00 01-17 21:42 :35 No 20mg/kg 1,500 mg (rounded from 1,906 mg = 20 mg/kg ?95.3 kg), IV Piggyback, Q8H ABX, First dose on Tue01/17/19 at 0630, Until Discontinu ed, 250 mL
Reas on for Anti-Infec tive: Empiric Non-Surgic al Prophylaxi s
Durat ion of therapy: 72 hours
S pecific indication : GBS Prophylaxi s [facility] vancomycin (VANCOCIN) 500 mg in NaCl 0.9% (NS) 100 mL piggyback 01-17 05:37: 00 01-17 08:25 :00 No 500mg 500 mg, IV Piggyback, ONCE, 1 dose, Tue01/17/19 at 0045, 100 mL
Reas on for Anti-Infec tive: Documented Infection< br>Documen davin Infection Site: Pelvic
Duration of Therapy: Other (see Comments) [facility] LR 1000 mL + oxytocin 20 units IV Solution 01-17 05:27: 34 01-17 21:42 :35 No 2mU/min 2 sofi-unit s/min (6 mL/hr), at 6 mL/hr, IV Infusion, TITRATE, Starting Tue01/17/19 at 0027, Until Tue01/17/19 at 1642, EDOUARD, Oxytocin Induction / Augmentati on of Labor. [facility] vancomycin 1 g in NS 200 mL RTU IV Piggyback 1,000 mg 01-17 02:45: 00 01-17 05:33 :08 No 1000mg 1,000 mg, IV Piggyback, Q12H ABX, First dose on Tue01/16/19 at 2145, Until Discontinu ed
Reas on for Anti-Infec tive: Empiric Non-Surgic al Prophylaxi s
Durat ion of therapy: 72 hours
S pecific indication : GBS Prophylaxi s [facility] D5W-LR IV infusion 1,000 mL 01-17 02:45: 00 01-17 21:42 :35 No 1000mL at 125 mL/hr, IV Infusion, CONTINUOUS , Starting Tue01/16/19 at 2144, Until Tue01/17/19 at 164, Routine [facility] sodium citrate-cit aakash acid (BICITRA) 500-334 mg/5 mL solution 30 mL 01-17 02:42: 10 01-17 04:11 :00 No 30mL 30 mL, Oral, PRE-PROCED URE ONCE, 1 dose, Starting Tue01/16/19 at 2141, Until Discontinu ed, Routine, Surgery/Pr ocedure [facility] lactated ringers IV infusion 500 mL 01-17 02:42: 10 01-17 21:42 :35 No 500mL at 999 mL/hr, 500 mL, IV Infusion, PRN - SEE INSTRUCTIO NS, Starting Tue01/16/19 at 2141, Until Tue01/17/19 at 164, Routine [facility] proMETHazin e (PHENERGAN) injection 25 mg 01-17 00:45: 00 01-16 23:40 :00 No 25mg 25 mg, Intramuscu lar, ONCE, 1 dose, Tue01/16/19 at 194, Routine [facility] meperidine (DEMEROL) injection 50 mg 01-17 00:45: 00 01-16 23:40 :00 No 50mg 50 mg, Intramuscu lar, ONCE, 1 dose, Tue01/16/19 at 1945, Routine [facility] vit calc,iron,f olic ( VITAMIN ORAL) 01-16 19:38: 06 Yes Take by mouth. [facility] vit calc,iron,f olic ( VITAMIN ORAL) 01-16 08:44: 35 Yes Take by mouth. [facility] vit calc,iron,f olic ( VITAMIN ORAL) 01-11 14:45: 41 Yes Take by mouth. [facility] norgestimat e-ethinyl estradiol (ORTHO TRI-CYCLEN- 28) 0.18/0.215/ 0.25 mg-35 mcg (28) tablet 2015-0606 00:00: 00 01-18 00:00 :00 No [id number] 1{tbl} Take 1 tablet by mouth daily. [facility] No known medications No Un jose armando [facility] Immunizations Ordered Immunization Name Filled Immunization Name Date Status Comments Source Varicella Vaccine 2019-03-06 00:00:00 Completed Luana Seybold - External Varicella Vaccine 2019-03-06 00:00:00 Completed Luana Seybold - External Varicella Vaccine 2019-03-06 00:00:00 Completed Luana Seybold - External Varicella (varivax)(chicken pox) 2019-03-06 00:00:00 Completed [facility] Varicella (varivax)(chicken pox) 2019-03-06 00:00:00 Completed [facility] Varicella (varivax)(chicken pox) 2019-03-06 00:00:00 Completed [facility] Varicella (varivax)(chicken pox) 2019-03-06 00:00:00 Completed [facility] Varicella Vaccine 2019-01-19 00:00:00 Completed Luana Seybold - External Varicella Vaccine 2019-01-19 00:00:00 Completed Luana Seybold - External Varicella Vaccine 2019-01-19 00:00:00 Completed Luana Seybold - External Varicella (varivax)(chicken pox) 2019-01-19 00:00:00 Completed [facility] Varicella (varivax)(chicken pox) 2019-01-19 00:00:00 Completed [facility] Varicella (varivax)(chicken pox) 2019-01-19 00:00:00 Completed [facility] Varicella (varivax)(chicken pox) 2019-01-19 00:00:00 Completed [facility] Varicella (varivax)(chicken pox) 2019-01-19 00:00:00 Completed [facility] Tdap- (Boostrix, Adacel) 2011-06-13 00:00:00 Completed Luana Seybold - External Tdap- (Boostrix, Adacel) 2011-06-13 00:00:00 Completed Luana Seybold - External Tdap- (Boostrix, Adacel) 2011-06-13 00:00:00 Completed Luana Stillold - External Tdap 2011-06-13 00:00:00 Completed [facility] Tdap 2011-06-13 00:00:00 Completed [facility] Tdap 2011-06-13 00:00:00 Completed [facility] Tdap 2011-06-13 00:00:00 Completed [facility] TDAP 2011-06-13 00:00:00 Completed [facility] TDAP 2011-06-13 00:00:00 Completed [facility] TDAP 2011-06-13 00:00:00 Completed [facility] TDAP 2011-06-13 00:00:00 Completed [facility] Tdap 2011-06-13 00:00:00 Completed [facility] Tdap 2011-06-13 00:00:00 Completed [facility] Tdap 2011-06-13 00:00:00 Completed [facility] Tdap 2011-06-13 00:00:00 Completed [facility] Tdap 2011-06-13 00:00:00 Completed [facility] Varicella Vaccine 2010-07-16 00:00:00 Completed Luana Huffman - External HEPATITIS A- PEDI/ADOL 2010-07-16 00:00:00 Completed Luana Stillold - External Varicella Vaccine 2010-07-16 00:00:00 Completed Luana Huffman - External HEPATITIS A- PEDI/ADOL 2010-07-16 00:00:00 Completed Luana Huffman - External Varicella Vaccine 2010-07-16 00:00:00 Completed Luana Fournierybold - External HEPATITIS A- PEDI/ADOL 2010-07-16 00:00:00 Completed Luana Huffman - External Tdap- (Boostrix, Adacel) 2009-11-25 00:00:00 Completed Luana Fournierybold - External HEPATITIS A- PEDI/ADOL 2009-11-25 00:00:00 Completed Luana Huffman - External Meningococcal Vaccine Polysaccharide 2009-11-25 00:00:00 Completed Luana Huffman - External Tdap- (Boostrix, Adacel) 2009-11-25 00:00:00 Completed Luana Stillold - External HEPATITIS A- PEDI/ADOL 2009-11-25 00:00:00 Completed Luana Huffman - External Meningococcal Vaccine Polysaccharide 2009-11-25 00:00:00 Completed Luana Huffman - External Tdap- (Boostrix, Adacel) 2009-11-25 00:00:00 Completed Luana Stillold - External HEPATITIS A- PEDI/ADOL 2009-11-25 00:00:00 Completed Luana Stillold - External Meningococcal Vaccine Polysaccharide 2009-11-25 00:00:00 Completed Luana Stillold - External HPV 4 (Human Papillomavirus) 2006-11-08 00:00:00 Completed Luana Stillold - External HPV 4 (Human Papillomavirus) 2006-11-08 00:00:00 Completed Luana Fournierybold - External HPV 4 (Human Papillomavirus) 2006-11-08 00:00:00 Completed Luana Stillold - External HPV 4 (Human Papillomavirus) 2006-09-01 00:00:00 Completed Luana Stillold - External HPV 4 (Human Papillomavirus) 2006-09-01 00:00:00 Completed Luana Fournierybold - External HPV 4 (Human Papillomavirus) 2006-09-01 00:00:00 Completed Luana Fournierybold - External Varicella Vaccine 2001-11-14 00:00:00 Completed Luana Huffman - External DTaP Unspecified 2001-11-14 00:00:00 Completed Luana Huffman - External MMR- Measles, Mumps, Rubella 2001-11-14 00:00:00 Completed Luana Huffman - External IPV- Inactivated Polio Vaccine 2001-11-14 00:00:00 Completed Luana Seybold - External Varicella Vaccine 2001-11-14 00:00:00 Completed Luana Fournierybold - External DTaP Unspecified 2001-11-14 00:00:00 Completed Luana Stillold - External MMR- Measles, Mumps, Rubella 2001-11-14 00:00:00 Completed Luana Seybold - External IPV- Inactivated Polio Vaccine 2001-11-14 00:00:00 Completed Luana Seybold - External Varicella Vaccine 2001-11-14 00:00:00 Completed Luana Seybold - External DTaP Unspecified 2001-11-14 00:00:00 Completed Luana Seybold - External MMR- Measles, Mumps, Rubella 2001-11-14 00:00:00 Completed Luana Seybold - External IPV- Inactivated Polio Vaccine 2001-11-14 00:00:00 Completed Luana Seybold - External DTaP Unspecified 1998-08-19 00:00:00 Completed Luana Seybold - External HIB- Haemophilus Influenzae Type B 1998-08-19 00:00:00 Completed Luana Seybold - External DTaP Unspecified 1998-08-19 00:00:00 Completed Luana Seybold - External HIB- Haemophilus Influenzae Type B 1998-08-19 00:00:00 Completed Luana Seybold - External DTaP Unspecified 1998-08-19 00:00:00 Completed Luana Seybold - External HIB- Haemophilus Influenzae Type B 1998-08-19 00:00:00 Completed Luana Seybold - External OPV- Oral Polio Vaccine 1998-06-24 00:00:00 Completed Luana Seybold - External MMR- Measles, Mumps, Rubella 1998-06-24 00:00:00 Completed Luana Seybold - External OPV- Oral Polio Vaccine 1998-06-24 00:00:00 Completed Luana Seybold - External MMR- Measles, Mumps, Rubella 1998-06-24 00:00:00 Completed Luana Seybold - External OPV- Oral Polio Vaccine 1998-06-24 00:00:00 Completed Luana Seybold - External MMR- Measles, Mumps, Rubella 1998-06-24 00:00:00 Completed Luana Seybold - External DTaP Unspecified 1998-01-08 00:00:00 Completed Luana Seybold - External Hepatitis B, Adolescent Or Pediatric 1998-01-08 00:00:00 Completed Luana Seybold - External Hib, unspecified formulation 1998-01-08 00:00:00 Completed Luana Seybold - External DTaP Unspecified 1998-01-08 00:00:00 Completed Luana Seybold - External Hepatitis B, Adolescent Or Pediatric 1998-01-08 00:00:00 Completed Luana Seybold - External Hib, unspecified formulation 1998-01-08 00:00:00 Completed Luana Seybold - External DTaP Unspecified 1998-01-08 00:00:00 Completed Luana Seybold - External Hepatitis B, Adolescent Or Pediatric 1998-01-08 00:00:00 Completed Luana Seybold - External Hib, unspecified formulation 1998-01-08 00:00:00 Completed Luana Seybold - External OPV- Oral Polio Vaccine 1997 00:00:00 Completed Luana Seybold - External DTaP Unspecified 1997 00:00:00 Completed Luana Seybold - External Hib, unspecified formulation 1997 00:00:00 Completed Luana Seybold - External OPV- Oral Polio Vaccine 1997 00:00:00 Completed Luana Seybold - External DTaP Unspecified 1997 00:00:00 Completed Luana Seybold - External Hib, unspecified formulation 1997 00:00:00 Completed Luana Seybold - External OPV- Oral Polio Vaccine 1997 00:00:00 Completed Luana Seybold - External DTaP Unspecified 1997 00:00:00 Completed Luana Seybold - External Hib, unspecified formulation 1997 00:00:00 Completed Luana Seybold - External DTaP Unspecified 1997 00:00:00 Completed Luana Seybold - External Hepatitis B, Adolescent Or Pediatric 1997 00:00:00 Completed Luana Seybold - External Hib, unspecified formulation 1997 00:00:00 Completed Luana Seybold - External IPV- Inactivated Polio Vaccine 1997 00:00:00 Completed Luana Seybold - External DTaP Unspecified 1997 00:00:00 Completed Luana Seybold - External Hepatitis B, Adolescent Or Pediatric 1997 00:00:00 Completed Luana Seybold - External Hib, unspecified formulation 1997 00:00:00 Completed Luana Seybold - External IPV- Inactivated Polio Vaccine 1997 00:00:00 Completed Luana Seybold - External DTaP Unspecified 1997 00:00:00 Completed Luana Seybold - External Hepatitis B, Adolescent Or Pediatric 1997 00:00:00 Completed Luana Seybold - External Hib, unspecified formulation 1997 00:00:00 Completed Luana Seybold - External IPV- Inactivated Polio Vaccine 1997 00:00:00 Completed Luana Seybold - External Hepatitis B, Adolescent Or Pediatric 1997 00:00:00 Completed Luana Seybold - External Hepatitis B, Adolescent Or Pediatric 1997 00:00:00 Completed Luana Seybold - External Hepatitis B, Adolescent Or Pediatric 1997 00:00:00 Completed Luana Seybold - External DTaP Unspecified Unknown Completed Jose sey Seybold - External DTaP Unspecified Unknown Completed Jose sey Seybold - External DTaP Unspecified Unknown Completed Jose sey Seybold - External DTaP Unspecified Unknown Completed Jose sey Seybold - External DTaP Unspecified Unknown Completed Jose fourniery Seybold - External HEPATITIS A- PEDI/ADOL Unknown Completed Luana Seybold - External HEPATITIS A- PEDI/ADOL Unknown Completed Luana Seybold - External Hepatitis B, Adolescent Or Pediatric Unknown Completed Luana Seybold - External Hepatitis B, Adolescent Or Pediatric Unknown Completed Luana Seybold - External Hepatitis B, Adolescent Or Pediatric Unknown Completed Luana Seybold - External Hib, unspecified formulation Unknown Completed Luana Seybold - External Hib, unspecified formulation Unknown Completed Luana Seybold - External Hib, unspecified formulation Unknown Completed Luana Seybold - External HIB- Haemophilus Influenzae Type B Unknown Completed Luana Meneses bold - External HPV 4 (Human Papillomavirus) Unknown Completed Luana Fournierybo ld - External HPV 4 (Human Papillomavirus) Unknown Completed Luana Seybo ld - External Meningococcal Vaccine Polysaccharide Unknown Completed Luana Fournierybol d - External MMR- Measles, Mumps, Rubella Unknown Completed Luana Seybold - External MMR- Measles, Mumps, Rubella Unknown Completed Luana Seybold - External IPV- Inactivated Polio Vaccine Unknown Completed Luana Seybold - External IPV- Inactivated Polio Vaccine Unknown Completed Luana Seybold - External OPV- Oral Polio Vaccine Unknown Completed Luana Seybold - External OPV- Oral Polio Vaccine Unknown Completed Luana Seybold - External Tdap- (Boostrix, Adacel) Unknown Completed Luana Seybold - External Tdap- (Boostrix, Adacel) Unknown Completed Luana Seybold - External Varicella Vaccine Unknown Completed Hayder lsey Seybold - External Varicella Vaccine Unknown Completed Ke lsey Seybold - External Varicella Vaccine Unknown Completed Ke lsey Seybold - External Varicella Vaccine Unknown Completed Ke lsey Seybold - External DTaP Unspecified Unknown Completed Jose sey Seybold - External DTaP Unspecified Unknown Completed Jose sey Seybold - External DTaP Unspecified Unknown Completed Jose sey Seybold - External DTaP Unspecified Unknown Completed Jose sey Seybold - External DTaP Unspecified Unknown Completed Jose sey Seybold - External HEPATITIS A- PEDI/ADOL Unknown Completed Luana Seybold - External HEPATITIS A- PEDI/ADOL Unknown Completed Luana Seybold - External Hepatitis B, Adolescent Or Pediatric Unknown Completed Luana Seybold - External Hepatitis B, Adolescent Or Pediatric Unknown Completed Luana Seybold - External Hepatitis B, Adolescent Or Pediatric Unknown Completed Luana Seybold - External Hib, unspecified formulation Unknown Completed Luana Seybold - External Hib, unspecified formulation Unknown Completed Luana Seybold - External Hib, unspecified formulation Unknown Completed Luana Seybold - External HIB- Haemophilus Influenzae Type B Unknown Completed Luana Fourniery bold - External HPV 4 (Human Papillomavirus) Unknown Completed Luana Fournierybo ld - External HPV 4 (Human Papillomavirus) Unknown Completed Luana Fournierybo ld - External Meningococcal Vaccine Polysaccharide Unknown Completed Luana Fournierybol d - External MMR- Measles, Mumps, Rubella Unknown Completed Luana Seybold - External MMR- Measles, Mumps, Rubella Unknown Completed Luana Seybold - External IPV- Inactivated Polio Vaccine Unknown Completed Luana Seybold - External IPV- Inactivated Polio Vaccine Unknown Completed Luana Seybold - External OPV- Oral Polio Vaccine Unknown Completed Luana Seybold - External OPV- Oral Polio Vaccine Unknown Completed Luana Seybold - External Tdap- (Boostrix, Adacel) Unknown Completed Luana Seybold - External Tdap- (Boostrix, Adacel) Unknown Completed Luana Seybold - External Varicella Vaccine Unknown Completed Hayder lsey Seybold - External Varicella Vaccine Unknown Completed Ke lsey Seybold - External Varicella Vaccine Unknown Completed Ke lsey Seybold - External Varicella Vaccine Unknown Completed Ke lsey Seybold - External DTaP Unspecified Unknown Completed Jose sey Seybold - External DTaP Unspecified Unknown Completed Jose sey Seybold - External DTaP Unspecified Unknown Completed Jose sey Seybold - External DTaP Unspecified Unknown Completed Jose sey Seybold - External DTaP Unspecified Unknown Completed Jose meneses Seybold - External HEPATITIS A- PEDI/ADOL Unknown Completed Luana Seybold - External HEPATITIS A- PEDI/ADOL Unknown Completed Luana Seybold - External Hepatitis B, Adolescent Or Pediatric Unknown Completed Luana Seybold - External Hepatitis B, Adolescent Or Pediatric Unknown Completed Luana Seybold - External Hepatitis B, Adolescent Or Pediatric Unknown Completed Luana Seybold - External Hib, unspecified formulation Unknown Completed Luana Seybold - External Hib, unspecified formulation Unknown Completed Luana Seybold - External Hib, unspecified formulation Unknown Completed Luana Seybold - External HIB- Haemophilus Influenzae Type B Unknown Completed Luana Meneses bold - External HPV 4 (Human Papillomavirus) Unknown Completed Luana Stillo ld - External HPV 4 (Human Papillomavirus) Unknown Completed Luana Stillo ld - External Meningococcal Vaccine Polysaccharide Unknown Completed Luana Fournierybol d - External MMR- Measles, Mumps, Rubella Unknown Completed Luana Seybold - External MMR- Measles, Mumps, Rubella Unknown Completed Luana Seybold - External IPV- Inactivated Polio Vaccine Unknown Completed Luana Seybold - External IPV- Inactivated Polio Vaccine Unknown Completed Luana Seybold - External OPV- Oral Polio Vaccine Unknown Completed Luana Seybold - External OPV- Oral Polio Vaccine Unknown Completed Luana Seybold - External Tdap- (Boostrix, Adacel) Unknown Completed Luana Seybold - External Tdap- (Boostrix, Adacel) Unknown Completed Luana Seybold - External Varicella Vaccine Unknown Completed Hayder lsey Seybold - External Varicella Vaccine Unknown Completed Hayder lsey Seybold - External Varicella Vaccine Unknown Completed Hayder lsey Seybold - External Varicella Vaccine Unknown Completed Hayder lsey Seybold - External TDAP Unknown Completed [facility] Varicella (varivax)(chicken pox) Unknown Completed [facility] Varicella (varivax)(chicken pox) Unknown Completed [facility] Vital Signs Vital Name Observation Time Observation Value Comments S ource Systolic blood pressure 2023-11-16 01:33:20 131 mm[Hg] [facility] Diastolic blood pressure 2023-11-16 01:33:20 82 mm[Hg] [facility] Heart rate 2023-11-16 01:33:20 81 /min [facility] Body temperature 2023-11-16 01:33:20 36.72 Liat [facility] Respiratory rate 2023-11-16 01:33:20 16 /min [facility] Oxygen saturation in Arterial blood by Pulse oximetry 2023-11-16 01:33:20 100 /min [facility] Body height 2023-11-15 23:56:00 152.4 cm [facility] Body weight 2023-11-15 23:56:00 91.627 kg [facility] BMI 2023-11-15 23:56:00 39.45 kg/m2 [facility] Systolic blood pressure 2023-09-29 18:34:00 110 mm[Hg] Luana Seybo ld - External Diastolic blood pressure 2023-09-29 18:34:00 78 mm[Hg] Luana Seybo ld - External Heart rate 2023-09-29 18:34:00 76 /min Kelse y Seybold - External Body temperature 2023-09-29 18:34:00 36.89 Liat Luana Seybold - External Respiratory rate 2023-09-29 18:34:00 17 /min Luana Seybold - External Body height 2023-09-29 18:34:00 154.9 cm Kelly ey Seybold - External Body weight 2023-09-29 18:34:00 93.441 kg Kelly ey Seybold - External BMI 2023-09-29 18:34:00 38.92 kg/m2 Kelly ey Seybold - External BMI 2023-01-10 19:17:00 35.71 kg/m2 Kelly ey Seybold - External Oxygen saturation in Arterial blood by Pulse oximetry 2023-01-10 19:17:00 97 /min Luana Seybo ld - External Systolic blood pressure 2023-01-10 19:17:00 120 mm[Hg] Luana Seybo ld - External Diastolic blood pressure 2023-01-10 19:17:00 83 mm[Hg] Luana Seybo ld - External Heart rate 2023-01-10 19:17:00 85 /min Kelse y Seybold - External Respiratory rate 2023-01-10 19:17:00 16 /min Luana Seybold - External Body height 2023-01-10 19:17:00 154.9 cm Kelly ey Seybold - External Body weight 2023-01-10 19:17:00 85.73 kg Kelly ey Seybold - External Systolic blood pressure 2022-12-07 19:04:00 129 mm[Hg] Luana Seybo ld - External Diastolic blood pressure 2022-12-07 19:04:00 80 mm[Hg] Luana Seybo ld - External Heart rate 2022-12-07 19:04:00 85 /min Kelse y Seybold - External Body temperature 2022-12-07 19:04:00 36.56 Liat Luana Seybold - External Respiratory rate 2022-12-07 19:04:00 16 /min Luana Seybold - External Body height 2022-12-07 19:04:00 154.9 cm Kelly ey Seybold - External Body weight 2022-12-07 19:04:00 84.823 kg Kelly ey Seybold - External BMI 2022-12-07 19:04:00 35.33 kg/m2 Kelly ey Seybold - External Systolic blood pressure 2022-12-04 00:17:00 120 mm[Hg] [facility] Diastolic blood pressure 2022-12-04 00:17:00 89 mm[Hg] [facility] Heart rate 2022-12-04 00:17:00 76 /min [facility] Body temperature 2022-12-04 00:17:00 36.89 Liat [facility] Respiratory rate 2022-12-04 00:17:00 18 /min [facility] Body height 2022-12-04 00:17:00 154.9 cm [facility] Body weight 2022-12-04 00:17:00 84.823 kg [facility] BMI 2022-12-04 00:17:00 [facility] in Arterial blood by Pulse oximetry 2022-12-04 00:17:00 99 /min [facility] Systolic blood pressure 2022-08-09 19:34:00 132 mm[Hg] Luana Seybo ld - External Diastolic blood pressure 2022-08-09 19:34:00 68 mm[Hg] Luana Fournierybo ld - External Heart rate 2022-08-09 19:34:00 83 /min David y Seybold - External Body temperature 2022-08-09 19:34:00 36.5 Liat Luana Seybold - External Respiratory rate 2022-08-09 19:34:00 14 /min Luana Fournierybold - External Body height 2022-08-09 19:34:00 152.4 cm Kelly ey Seybold - External Body weight 2022-08-09 19:34:00 86.637 kg Kelly ey Seybold - External BMI 2022-08-09 19:34:00 37.30 kg/m2 Kelly devora Seybold - External Oxygen saturation in Arterial blood by Pulse oximetry 2022-08-09 19:34:00 99 /min Luana Stillo ld - External Systolic blood pressure 2021-03-10 12:34:00 133 mm[Hg] [facility] Diastolic blood pressure 2021-03-10 12:34:00 93 mm[Hg] [facility] Heart rate 2021-03-10 12:34:00 80 /[facility] 2021-03-10 12:34:00 36.83 Liat [facility] Respiratory rate 2021-03-10 12:34:00 16 /min [facility] Body weight 2021-03-10 12:34:00 81.647 kg [facility] BMI 2021-03-10 12:34:00 35.15 kg/m2 [facility] Oxygen saturation in Arterial blood by Pulse oximetry 2021-03-10 12:34:00 99 /min [facility] Systolic blood pressure 2020-12-16 14:16:00 134 mm[Hg] [facility] Diastolic blood pressure 2020-12-16 14:16:00 86 mm[Hg] [facility] Heart rate 2020-12-16 14:16:00 78 /min Unive [facility] Respiratory rate 2020-12-16 14:16:00 16 /min [facility] Oxygen saturation in Arterial blood by Pulse oximetry 2020-12-16 14:16:00 99 /min [facility] Body temperature 2020-12-16 13:00:00 36.94 Liat [facility] Body height 2020-12-16 11:44:00 152.4 cm [facility] Body weight 2020-12-16 11:44:00 81.647 kg [facility] BMI 2020-12-16 11:44:00 35.15 kg/m2 [facility] Systolic blood pressure 2019-01-19 13:00:00 139 mm[Hg] [facility] Diastolic blood pressure 2019-01-19 13:00:00 83 mm[Hg] [facility] Heart rate 2019-01-19 13:00:00 73 /min Unive [facility] Body temperature 2019-01-19 13:00:00 36.89 Liat [facility] Respiratory rate 2019-01-19 13:00:00 20 /min [facility] Oxygen saturation in Arterial blood by Pulse oximetry 2019-01-19 13:00:00 99 /min [facility] Body height 2019-01-16 23:19:00 152.4 cm [facility] Body weight 2019-01-16 23:19:00 95.255 kg [facility] BMI 2019-01-16 23:19:00 41.01 kg/m2 [facility] Systolic blood pressure 2019-01-19 13:00:00 139 mm[Hg] [facility] Diastolic blood pressure 2019-01-19 13:00:00 83 mm[Hg] [facility] Heart rate 2019-01-19 13:00:00 73 /min Unive [facility] Body temperature 2019-01-19 13:00:00 36.89 Liat [facility] Respiratory rate 2019-01-19 13:00:00 20 /min [facility] Oxygen saturation in Arterial blood by Pulse oximetry 2019-01-19 13:00:00 99 /min [place] [facility] Body height 2019-01-16 23:19:00 152.4 cm [facility] Body weight 2019-01-16 23:19:00 95.255 kg [facility] BMI 2019-01-16 23:19:00 41.01 kg/m2 [facility] Systolic blood pressure 2019-01-16 19:26:00 132 mm[Hg] [facility] Diastolic blood pressure 2019-01-16 19:26:00 84 mm[Hg] [facility] Heart rate 2019-01-16 19:26:00 94 /min [facility] Body temperature 2019-01-16 19:26:00 36.39 Liat [facility] Respiratory rate 2019-01-16 19:26:00 16 /min [facility] Body height 2019-01-16 19:26:00 152.4 cm [facility] Body weight 2019-01-16 19:26:00 95.397 kg [facility] BMI 2019-01-16 19:26:00 41.07 kg/m2 [facility] Systolic blood pressure 2019-01-16 19:26:00 132 mm[Hg] [facility] Diastolic blood pressure 2019-01-16 19:26:00 84 mm[Hg] [facility] Heart rate 2019-01-16 19:26:00 94 /min [facility] Body temperature 2019-01-16 19:26:00 36.39 Liat [facility] Respiratory rate 2019-01-16 19:26:00 16 /min [facility] Body height 2019-01-16 19:26:00 152.4 cm [facility] Body weight 2019-01-16 19:26:00 95.397 kg [facility] BMI 2019-01-16 19:26:00 41.07 kg/m2 [facility] Heart rate 2019-01-16 07:06:00 89 /min [facility] Oxygen saturation in Arterial blood by Pulse oximetry 2019-01-16 07:06:00 100 /min [facility] Systolic blood pressure 2019-01-16 06:30:00 115 mm[Hg] [facility] Diastolic blood pressure 2019-01-16 06:30:00 67 mm[Hg] [facility] Body temperature 2019-01-16 05:25:00 36.94 Liat [facility] Respiratory rate 2019-01-16 05:25:00 17 /min [facility] Body height 2019-01-16 05:25:00 152.4 cm [facility] Body weight 2019-01-16 05:25:00 96.163 kg [facility] BMI 2019-01-16 05:25:00 41.40 kg/m2 [facility] Heart rate 2019-01-16 07:06:00 89 /min [facility] Oxygen saturation in Arterial blood by Pulse oximetry 2019-01-16 07:06:00 100 /min [facility] Systolic blood pressure 2019-01-16 06:30:00 115 mm[Hg] [facility] Diastolic blood pressure 2019-01-16 06:30:00 67 mm[Hg] [facility] Body temperature 2019-01-16 05:25:00 36.94 Liat [facility] Respiratory rate 2019-01-16 05:25:00 17 /min [facility] Body height 2019-01-16 05:25:00 152.4 cm [facility] Body weight 2019-01-16 05:25:00 96.163 kg [facility] BMI 2019-01-16 05:25:00 41.40 kg/m2 [facility] Systolic blood pressure 2019-01-15 22:44:00 120 mm[Hg] [facility] Diastolic blood pressure 2019-01-15 22:44:00 78 mm[Hg] [facility] Heart rate 2019-01-15 22:15:00 117 /min [facility] Body temperature 2019-01-15 22:15:00 36.72 Liat [facility] Respiratory rate 2019-01-15 22:15:00 16 /min [facility] Body height 2019-01-15 22:15:00 [facility].4 [facility] 2019-01-15 22:15:00 96.333 kg [facility] BMI 2019-01-15 22:15:00 41.48 kg/m2 [facility] Systolic blood pressure 2019-01-15 22:44:00 120 mm[Hg] [facility] Diastolic blood pressure 2019-01-15 22:44:00 78 mm[Hg] [facility] Heart rate 2019-01-15 22:15:00 117 /min [facility] Body temperature 2019-01-15 22:15:00 36.72 Liat [facility] Respiratory rate 2019-01-15 22:15:00 16 /min [facility] Body height 2019-01-15 22:15:00 152.4 cm [facility] Body weight 2019-01-15 22:15:00 96.333 kg [facility] BMI 2019-01-15 22:15:00 41.48 kg/m2 [facility] Systolic blood pressure 2019-01-11 14:23:00 114 mm[Hg] [facility] Diastolic blood pressure 2019-01-11 14:23:00 82 mm[Hg] [facility] Heart rate 2019-01-11 14:18:00 99 /min [facility] Body temperature 2019-01-11 14:18:00 36.28 Liat [facility] Respiratory rate 2019-01-11 14:18:00 16 /min [facility] Body height 2019-01-11 14:18:00 152.4 cm [facility] Body weight 2019-01-11 14:18:00 94.405 kg [facility] BMI 2019-01-11 14:18:00 40.65 kg/m2 [facility] Systolic blood pressure 2019-01-11 14:23:00 114 mm[Hg] [facility] Diastolic blood pressure 2019-01-11 14:23:00 82 mm[Hg] [facility] Heart rate 2019-01-11 14:18:00 99 /min [facility] Body temperature 2019-01-11 14:18:00 36.28 Liat [facility] Respiratory rate 2019-01-11 14:18:00 16 /min [facility] Body height 2019-01-11 14:18:00 152.4 cm [facility] Body weight 2019-01-11 14:18:00 94.405 kg [facility] BMI 2019-01-11 14:18:00 40.65 kg/m2 [facility] Procedures Procedure Date / Time Performed Performing Clinician Source XR SHOULDER 2+ VW RIGHT 2023-11-16 00:52:02 Anabela Massey [facility] URINE TEST-BACK OFFICE TEST 2023-01-10 19:30:00 Tao Garcia - External ASSIGNMENT OF BENEFITS 2022-12-04 03:02:04 Docto r Unassigned, [place] [facility] XR HAND 3+ VW RIGHT 2022-12-04 01:51:18 Olga Wang [facility] NOTICE OF PRIVACY PRACTICES 2022-12-04 00:25:07 Doctor Unassigned, [place] [facility] CONSENT/REFUSAL FOR DIAGNOSIS AND TREATMENT 2022-12-04 00:24:50 Doctor Unassigned, [place] [facility] CT CERVICAL SPINE WO CONTRAST 2021-03-10 12:59:05 Irene Wang [facility] CT HEAD WO CONTRAST 2021-03-10 12:59:05 Olga Wang [facility] CT HEAD WO CONTRAST 2020-12-16 13:11:21 Olga Wang [facility] CT LUMBAR SPINE WO CONTRAST 2020-12-16 13:11:21 Irene Wang [facility] POCT TEST 2020-12-16 12:32:00 Olga Wang [facility] CBC WITH DIFFERENTIAL 2019-01-18 09:24:00 Mica Butler [facility] VENOUS CORD GAS 2019-01-17 16:20:00 Ania Rayo [facility] SGOT (ASPARTATE AMINO TRANSFER) 2019-01-17 04:11[facility]00 [facility] 2019-01-17 04:11:[address] [facility] ALANINE AMINO TRANSFERASE(SGPT 2019-01-17 04:11:00 Girma [facility] LACTATE DEHYDROGENASE 2019-01-17 04:11[facility] 2019-01-17 04:11:[address] [facility] CBC WITH DIFFERENTIAL 2019-01-17 [facility]11[facility] 2019-01-17 04:11:[address] [facility] PROTEIN CREAT RATIO URINE RANDOM 2019-01-17 04:11:00 Girma [facility] RUBELLA SCREEN IGG 2019-01-17 02:57:00 [facility] SURFACE ANTIGEN 2019-01-17 02:57:00 Girma [facility] GALV ONLY - SYPHILIS IGG/IGM 2019-01-17 02:57:00 Girma [facility] TYPE AND SCREEN 2019-01-17 02:44:00 Girma Ania [facility] ADC ONLY - FERN TEST 2019-01-16 06:07:00 Lois Bethea [facility] ASSIGNMENT OF BENEFITS 2019-01-16 04:49:39 Docto r Unassigned, [place] [facility] NOTICE OF PRIVACY PRACTICES 2019-01-16 04:48:13 Doctor Unassigned, [place] [facility] POCT URINALYSIS 2019-01-15 22:18:00 Ibeth Morse [facility] POCT URINALYSIS W/O SPECIFIC GRAVITY 2019-01-11 14:21:00 Ibeth Morse [facility] POCT TEST 2019-01-11 14:20:00 Martin Morse [facility] NOTICE OF PRIVACY PRACTICES 2019-01-11 13:58:01 Doctor Unassigned, [place] [facility] Encounters Start Date/Time End Date/Time Encounter Type Admission Type Attending [facility] Care Facility Care Department Encounter ID Source 2021-04-14 01:49:53 Emergency [facility] [id number] [facility] 2021-04-13 06:09:12 Emergency [facility] [id number] [facility] 2024-02-02 10:15:00 2024-02-02 10:15:00 Outpatient LUANA MEDINA [id number] [facility] 2024-01-09 12:30:00 2024-01-09 12:30:00 Outpatient LUANA MEDINA [id number] [facility] 2024-01-06 12:30:00 2024-01-06 12:30:00 Outpatient LUANA MEDINA [id number] [facility] 2023-11-17 10:00:00 2023-11-17 10:00:00 Outpatient STELLA SUERO [id number] [facility] 2023-11-15 18:57:00 2023-11-15 20:40:00 Emergency X ANABELA MASSEY [facility] ERT [id number] [facility] 2023-11-15 18:57:00 2023-11-15 20:40:00 Emergency Anabela Massey [facility] 1.2.840.114 350.1.13.10 4.2.7.2.686 [id number] [facility] 2023-11-09 15:45:00 2023-11-09 15:45:00 Outpatient LUANA MEDINA [id number] [facility] 2023-09-29 14:45:00 2023-09-29 14:45:00 Outpatient TRED47 LUANA MEDINA [id number] [facility] 2023-09-29 14:15:00 2023-09-29 14:15:00 Outpatient LAB47 LUANA MEDINA [id number] [facility] 2023-09-29 13:45:00 2023-09-29 13:45:00 Outpatient KAYLEE MILNER [id number] [facility] 2023-08-22 11:45:00 2023-08-22 11:45:00 Outpatient SANDRA FLORES [id number] [facility] 2023-08-22 00:00:00 2023-08-22 00:00:00 Outpatient SANDRA FLORES LUANA [facility] [id number] [facility] 2023-07-15 16:00:00 2023-07-15 16:00:00 Outpatient LEANDRO MORRELL LUANA [facility]INA [id number] [facility] 2023-07-05 14:00:00 2023-07-05 14:00:00 Outpatient HUNDLCHRIS LUANA MEDINA [id number] [facility] 2023-06-28 14:00:00 2023-06-28 14:00:00 Outpatient SHIMARLYUSANDRA [facility] [id number] [facility] 2023-[facility]-07 15:30:00 2023-06-07 15:30:00 Outpatient OUMAR, MITALI [facility] [id number] [facility] 2023-06-03 16:00:00 2023-06-03 16:00:00 Outpatient OUMAR, MITALI MEDINA [id number] [facility] 2023-06-02 15:45:00 2023-06-02 15:45:00 Outpatient OUMAR, MITALI [facility] [id number] [facility] 2023-06-02 00:00:00 2023-06-02 00:00:00 Outpatient PREZAS, MARISSA LUANA [facility] [id number] [facility] 2023-05-20 16:00:00 2023-05-20 16:00:00 Outpatient LEANDRO MORRELL LUANA MEDINA [id number] [facility] 2023-05-16 16:00:00 2023-05-16 16:00:00 Outpatient OUMAR, MITALI MEDINA [id number] [facility] 2023-05-16 13:30:00 2023-05-16 13:30:00 Outpatient OUMAR, MITALI MEDINA [id number] [facility] 2023-03-18 16:15:00 2023-03-18 16:15:00 Outpatient OUMAR, MITALI [facility] [id number] [facility] 2023-03-18 13:50:00 2023-03-18 13:50:00 Outpatient LAB90 LUANA LUANA [id number] [facility] 2023-03-18 13:15:00 2023-03-18 13:15:00 Outpatient MITALI OSEGUERA LUANA [id number] [facility] 2023-03-04 14:10:00 2023-03-04 14:10:00 Outpatient LAB90 LUANA LUANA [id number] [facility] 2023-02-22 15:30:00 2023-02-22 15:30:00 Outpatient LEANDRO MORRELL LUANA MEDINA [id number] [facility] 2023-02-01 00:00:00 2023-02-01 00:00:00 Outpatient GARCIA, TAO LUANA MEDINA [id number] [facility] 2023-01-24 14:00:00 2023-01-24 14:00:00 Outpatient INJ, FLORENTINO LUANA MEDINA [id number] [facility] 2023-01-10 14:15:00 2023-01-10 14:15:00 Outpatient GARCIA, TAO LUANA MEDINA [id number] [facility] 2022-12-07 14:00:00 2022-12-07 14:00:00 Outpatient LEANDRO MORRELL LUANA MEDINA [id number] [facility] 2022-12-03 19:20:00 2022-12-03 22:20:00 Emergency X IRENE WANG [facility] ERT [id number] [facility] 2022-12-03 19:20:00 2022-12-03 22:20:00 Emergency Irene Wang [facility] 1.2.840.114 350.1.13.10 4.2.7.2.686 [id number] [facility] 2022-10-04 00:00:00 2022-10-04 00:00:00 Outpatient JACKIEMARISSA LUANA MEDINA [id number] [facility] 2022-09-22 15:30:00 2022-09-22 15:30:00 Outpatient GARCIATAO MARX LUANA [id number] [facility] 2022-08-17 00:00:00 2022-08-17 00:00:00 Outpatient MARISSA MEJIA LUANA [id number] [facility] 2022-08-16 11:10:00 2022-08-16 11:10:00 Outpatient LAB90 LUANA LUANA [id number] [facility] 2022-08-16 00:00:00 2022-08-16 00:00:00 Outpatient MARISSA MEJIA LUANA [id number] [facility] 2022-08-09 13:30:00 2022-08-09 13:30:00 Outpatient MARISSA MEJIA LUANA LUANA [id number] [facility] 2022-08-05 11:00:00 2022-08-05 11:00:00 Outpatient R UNKNOWN, ATTENDING [facility] [id number] [facility] 2021-03-10 07:33:00 2021-03-10 08:50:00 [facility] 1.2840.114 350.1.13.10 4.2.7.2.686 [id number] [facility] 2020-12-16 06:35:00 2020-12-16 09:34:00 Emergency Felipe [facility] 1.2840.114 350.1.13.10 4.2.7.2.686 [id number] [facility] 2020-09-02 00:00:00 2020-09-02 00:00:00 Patient Outreach Brian Green [facility] 1.2.840.114 350.1.13.10 4.2.7.2.686 [id number] [facility] 2019-01-16 18:12:00 2019-01-19 14:30:00 Hospital Encounter Mikael Teixeira [facility] 1.2.840.114 350.1.13.10 4.2.7.2.686 [id number] 2019-01-16 18:12:00 2019-01-19 14:30:00 Hospital Encounter Mikael Teixeira [facility] 1.2.840.114 350.1.13.10 4.2.7.2.686 [id number] [facility] 2019-01-16 14:06:12 2019-01-16 14:35:18 Nurse Visit Visit, Mauricequirino Nurse [facility] EVAPORATOR HELPER [facility] CHILD [facility] 1.2.840.114 350.1.13.10 4.2.7.2.686 [id number] 2019-01-16 14:06:12 2019-01-16 14:35:18 Nurse Visit Visit, Maurice Nurse Ibeth Morse [facility] 1.2.840.114 350.1.13.10 4.2.7.2.686 [id number] [facility] 2019-01-15 23:46:00 2019-01-16 02:55:00 Hospital Encounter Lois Bethea [facility] 1.2.840.114 350.1.13.10 4.2.7.2.686 [id number] 2019-01-15 23:46:00 2019-01-16 02:55:00 Hospital Encounter Lois Bethea [facility] 1.2.840.114 350.1.13.10 4.2.7.2.686 [id number] [facility] 2019-01-16 00:00:00 2019-01-16 00:00:00 Telephone Ibeth Morse [facility] EVAPORATOR HELPER [facility] CHILD [facility] 1.2.840.114 350.1.13.10 4.2.7.2.686 [id number] [facility] 2019-01-16 00:00:00 2019-01-16 00:00:00 Telephone Ibeth Morse [facility] EVAPORATOR HELPER [facility] & CHILD [facility] 1.2.840.114 350.1.13.10 4.2.7.2.686 [id number] 2019-01-15 16:42:55 2019-01-15 18:07:11 Routine Visit Ibeth Morse [facility] EVAPORATOR HELPER [facility] 1.2.840.114 350.1.13.10 4.2.7.2.686 [id number] [facility] 2019-01-15 16:42:55 2019-01-15 18:07:11 Routine Visit Ibeth Morse [facility] EVAPORATOR HELPER [facility] 1.2.840.114 350.1.13.10 4.2.7.2.686 [id number] 2019-01-15 00:00:00 2019-01-15 00:00:00 Telephone Ibeth Morse [facility] EVAPORATOR HELPER [facility] 1.2.840.114 350.1.13.10 4.2.7.2.686 [id number] [facility] 2019-01-15 00:00:00 2019-01-15 00:00:00 Telephone Ibeth Morse [facility] EVAPORATOR HELPER [facility] 1.2.840.114 350.1.13.10 4.2.7.2.686 [id number] 2019-01-11 09:06:50 2019-01-11 10:43:15 Initial Visit Ibeth Morse [facility] EVAPORATOR HELPER [facility] 1.2.840.114 350.1.13.10 4.2.7.2.686 [id number] [facility] 2019-01-11 09:06:50 2019-01-11 10:43:15 Initial Visit Ibeth Morse [facility] EVAPORATOR HELPER [facility] 1.2.840.114 350.1.13.10 4.2.7.2.686 [id number] 2019-01-11 00:00:00 2019-01-11 00:00:00 Orders Only Doctor Unassigned, [place] [facility] 1.2.840.114 350.1.13.10 4.2.7.2.686 [id number] [facility] Results Test Description Test Time Test Comments Results Resul t Comments Source XR SHOULDER 2+ VW RIGHT 2023-11-16 01:10:08 XR SHOULDER 2+ VW RIGHT HISTORY: ?right shoulder pain COMPARISON: ?none available. Findings:Osseous structures are intact. ?Joint spaces are preserved. [facility] Luana Stillold - ExternalCT HEAD WO [id number] 13:51:26No acute intracranial abnormality. Unremarkable CT examination of the lumbar spine. Preliminary Report Dictated by Resident: Mony Weston MD., have reviewed this study andagree with theabove report.CT HEAD WO CONTRASTCT LUMBAR [...] and configuration.No hydrocephalus, midline shift or pathological extra- axial fluidcollection is present. The basal cisterns are unremarkable. There is no acute intracranial hemorrhage or significant mass effect.Noparenchymal attenuation abnormality. The downing-white matter differentiationis preserved. Mucoperiosteal thickening of the ethmoid air cells and sphenoid sinusesbilaterally. The calvarium and centralskull base are unremarkable. Lumbar Spine: The normal lumbar lordosis is maintained. The vertebral bodies are normalin height and in normal alignment. No facet fracture or subluxation ispresent. [facility], Radiant Results Inft User - 12/16/2020 8:[address] HEAD WO CONTRASTCT LUMBAR SPINE WO CONTRASTHISTORY: Head trauma, mod-severe fell down and hit back, pain to left lowerback and headache.COMPARISON: CT head without contrast 09/16/2015.TAMIE HNIQUE: Contiguous axial imaging to the base of skull was obtained with2.5 mm slices without intravenous contrast. 5 mm axial, coronal, andsagittal reformats were obtained. Contiguous axial imaging of the lumbarspine was performed with 2.5 mm slices. Coronal and sagittal reformats wereobtained.FINDINGS:Head:The ventricles and cerebral sulci are normal in caliber and configuration.No hydrocephalus, midline shift or pathological extra-axial fluidcollection is present. The basal cisterns are unremarkable.There is no acute intracranial hemorrhage or significant mass effect. Noparenchymal attenuation abnormality. The downing-white matter differentiationis preserved.Mucoperiosteal thickening of the ethmoid air cells and sphenoid sinusesbilaterally. The calvarium and central skull base are unremarkable.Lumbar Spine:The normal lumbar lordosis is maintained. The vertebral bodies are normalin heightand in normal alignment. No facet fracture or subluxation ispresent. IMPRESSIONNo acute intracranial abnormality.Unremarkable CT examination of the lumbar spine.Preliminary Report Dictated by Resident: Mony Wood MD., have reviewed this study and agree with theabove report.[facility] CenterCT L[facility] SPINE WO [id number] 13:51:26No acute intracranial abnormality. Unremarkable CT examination of the lumbar spine. Preliminary Report Dictated by Resident: Mony Weston MD., have reviewed this study andagree with theabove report.CT HEAD WO CONTRASTCT LUMBAR [...] no acute intracranial hemorrhage or significant mass effect.Noparenchymal attenuation abnormality. The downing-white matter differentiationis preserved. Mucoperiosteal thickening of the ethmoid air cells and sphenoid sinusesbilaterally. The calvarium and central skull base are unremarkable. Lumbar Spine: The normal lumbar lordosis is maintained. The vertebral bodies are normalin height and in normal alignment. No facet fracture or subluxation ispresent. [facility], Radiant Results Inft User - 12/16/2020 8:52 [...] 2.5 mm slices. Coronal and sagittal reformats wereobtained.FINDINGS:Head:The ventricles and cerebral sulci are normal in caliber and configuration.No hydrocephalus, midline shift or pathological extra-axial fluidcollection is present. The basal cisterns are unremarkable.There is no acute intracranial hemorrhage or significant mass effect. Noparenchymal attenuation abnormality. The downing-white matter differentiationis preserved.Mucoperiosteal thickening of the ethmoid air cells and sphenoid sinusesbilaterally. The calvarium and central skull base are unremarkable.Lumbar Spine:The normal lumbar lordosis is maintained. The vertebral bodies are normalin heightand in normal alignment. No facet fracture or subluxation ispresent. IMPRESSIONNo acute intracranial abnormality.Unremarkable CT examination of the lumbar spine.Preliminary Report Dictated by Resident: Mony Wood MD., have reviewed this study and agree with theabove report.[facility] POCT [id number] 12:32:00* Test Item Value Reference Range Interpretation Comme nts POCT PREG (test code = 1605) negative On board controls acceptable with C Line (test code = 3574) present POCT PREG LOT # (test code = 3575) [id number] POCT PREG TEST DATE ( test code = 3576) 06/12/2022 Lab Interpretation (test cod e = 35891-6) Normal [facility] Center[facility]LL[facility] SCREEN [id number] 15:41:00* Test Item Value Reference Range Interpretation Comme [facility] Rubella screen IgG (test code = 4557738348) Positive Negative EVERETT (test code = EVERETT) Positive - Indicat es the patient was exposed to Rubella through infection or vaccination.Negative - Indicates the patient could be susceptible to Rubella infection.Equivocal - A second specimen should be sent. [facility] CenterCBC WITH [id number] 09:55:00* Test Item Value Reference Range Interpretation Comme nts WBC (test code = 6690-2) See_Comment H [Automated messa ge] The system which generated this result transmitted reference range: 4.30 - 11.10 10*3/?L. The reference range was not used to interpret this result as normal/abnormal. RBC (test code = 789-8) See_Comment L [Automated messa ge] The system which generated this result transmitted reference range: 3.93 - 5.25 10*6/?L. The reference range was not used to interpret this result as normal/abnormal. HGB (test code = 718-7) 7.9 g/dL 11.6-15 L HCT (test code = 4544-3) 25.0 % 35.7-45.2 L MCV (test code = 787-2) 88.0 fL 80.6-95.5 MCH (test code = 785-6) 27.8 pg 25.9-32.8 MCHC (test code = 786-4) 31.6 g/dL 31.6-35.1 RDW-SD (test code = 14798-4) 42.6 fL 39-49.9 RDW-CV (test code = 788-0) 13.3 % 12-15.5 PLT (test code = 777-3) See_Comment [Automated messa ge] The system which generated this result transmitted reference range: 166 - 358 10*3/?L. The reference range was not used to interpret this result as normal/abnormal. MPV (test code = 21819-2) 11.0 fL 9.5-12.9 NRBC/100 WBC (test code = 2011615409) See_Comment [Automated [employer] ssage] The system which generated this result transmitted reference range: 0.0 - 10.0 /100 WBCs. The reference range was not used to interpret this result as normal/abnormal. NRBC x10^3 (test code = 9752364207) <0.01 See_Comment [Automated messa ge] The system which generated this result transmitted reference range: 10*3/?L. The reference range was not used to interpret this result as normal/abnormal. GRAN MAT (NEUT) % (test code = 770-8) 73.4 % IMM GRAN % (test code = 3063965600) 0.60 % LYMPH % (test code = 736-9) 18.7 % MONO % (test code = 5905-5) 6.1 % EOS % (test code = 713-8) 1.0 % BASO % (test code = 706-2) 0.2 % GRAN MAT x10^3(ANC) (test code = 3483919083) 9.99 10*3/uL 1.88-7.09 H IMM GRAN x10^3 (test code = 0961545698) 0.08 10*3/uL 0-0.06 H LYMPH x10^3 (test code = 731-0) 2.54 10*3/uL 1.32-3.29 MONO x10^3 (test code = 742-7) 0.83 10*3/uL 0.33-0.92 EOS x10^3 (test code = 711-2) 0.13 10*3/uL 0.03-0.39 BASO x10^3 (test code = 704-7) 0.03 10*3/uL 0.01-0.07 Lab Interpretation (test code = 65041-8) Abnormal [facility] CORD [id number] 16:38:00* Test Item Value Reference Range Interpretation Comme nts VENOUS BASE EXCESS, CORD (test code = 2479845585) mEq/L VENOUS PH, CORD (test code = 0331845755) 7.25-7.45 VENOUS PC02, CORD (test code = 1451956901) See_Comment [Automated messa ge] The system which generated this result transmitted reference range: 27 - 49 mmHg. The reference range was not used to interpret this result as normal/abnormal. VENOUS PO2, CORD (test code = 4401687631) See_Comment [Automated me ssage] The system which generated this result transmitted reference range: 17 - 41 mmHg. The reference range was not used to interpret this result as normal/abnormal. VENOUS BICARBONATE, CORD (test code = 7174837154) See_Comment [Automated messa ge] The system which generated this result transmitted reference range: 12 - 29 mEq/L. The reference range was not used to interpret this result as normal/abnormal. [facility] CenterARTERIAL CORD [id number] 16:35:00* Test Item Value Reference Range Interpretation Comme nts BASE EXCESS, CORD (test code = 6450138679) mEq/L AC PH, CORD (BEAKER) (test code = 4485279842) 7.18-7.38 L PC02, CORD (test code = 7805534285) See_Comment [Automated messa ge] The system which generated this result transmitted reference range: 32 - 66 mmHg. The reference range was not used to interpret this result as normal/abnormal. PO2, CORD (test code = 6042650065) See_Comment [Automated messa ge] The system which generated this result transmitted reference range: 10 - 30 mmHg. The reference range was not used to interpret this result as normal/abnormal. BICARBONATE, CORD (test code = 1999217512) See_Comment L [Automated me ssage] The system which generated this result transmitted reference range: 17 - 27 mEq/L. The reference range was not used to interpret this result as normal/abnormal. Lab Interpretation (test code = 84057-5) Abnormal [facility] CenterGAL ONLY - SYPHILIS [id number] 14:10:00* Test Item Value Reference Range Interpretation Comme nts Syphilis IgG/IgM (test code = 97760-7) Non-reactive Non-reactive EVERETT (test code = EVERETT) Non-reactive - No serologic evidence of T. pallidum infection. Cannot exclude incubating or early syphilis. Submit a second specimen in 2-4 weeks if syphilis is clinically suspected.Equivocal - Further testing to follow.Reactive - Further testing to follow. Lab Interpretation (test code = 82644-6) Normal [facility] CenterProtein CREAT Ratio Urine [id number] 05:48:00* Test Item Value Reference Range Interpretation Comme nts T. PROT U (test code = 2888-6) 11 mg/dL CREAT U (test code = 9320069444) 116.3 mg/dL Protein/Creatinine Ratio Uri ne (test code = 6688066455) 0.0-2.0 [facility] CenterUrinalysis2019-08-07 05:25:00* Test Item Value Reference Range Interpretation Comme nts APPEARANCE (test code = 5490771325) Clear Clear COLOR (test code = 4059034645) Yellow Yellow PH (test code = 5261635505) 4.8-8.0 SP GRAVITY (test code = 5130064632) 1.003-1.030 GLU U QUAL (test code = 4792518759) Normal Normal BLOOD (test code = 6743601620) Negative Negative KETONES (test code = 8759295676) 5 mg/dL Negative A PROTEIN (test code = 2887-8) Negative Negative UROBILIN (test code = 3890881700) Normal Normal BILIRUBIN (test code = 7444892326) Negative Negative NITRITE (test code = 1096478664) Negative Negative LEUK TONY (test code = 6205983818) Negative Negative RBC/HPF (test code = 4805649975) See_Comment H [Automated [employer] ge] The system which generated this result transmitted reference range: 0 - 3 HPF. The reference range was not used to interpret this result as normal/abnormal. WBC/HPF (test code = 3543722221) See_Comment [Automated [employer] ge] The system which generated this result transmitted reference range: 0 - 5 HPF. The reference range was not used to interpret this result as normal/abnormal. BACTERIA (test code = 5183561236) Negative Negative MUCOUS (test code = 6449540799) Slight Negative LPF A SQ EPITH (test code = 6289205389) See_Comment [Automated [employer] Ecohaus] The system which generated this result transmitted reference range: <=2 HPF. The reference range was not used to interpret this result as normal/abnormal. HYAL CAST (test code = 7586204044) See_Comment [Automated [employer] Ecohaus] The system which generated this result transmitted reference range: <=2 LPF. The reference range was not used to interpret this result as normal/abnormal. Lab Interpretation (test code = 36093-6) Abnormal [facility] CenterUric Acid [id number] 05:00:00* Test Item Value Reference Range Interpretation Comme nts URIC ACID (test code = 1553453350) 4.8 mg/dL 2.9-6 Lab Interpretation (test cod e = 86396-1) Normal [facility] [id number] 05:00:00* Test Item Value Reference Range Interpretation Comme nts CREATININE (test code = 2694151395) 0.51 mg/dL 0.5-1.04 eGFR Calculation (Non-) (test code = 8978040034) mL/min/1.73m2 eGFR Calculation () (test code = 2686903046) mL/min/1.73m2 EVERETT (test code = EVERETT) Association of [...] or urine or abnormalities in imaging tests). [facility] CenterSGOT (Asparate Amino Transfer)2019-01-17 05:00:00* Test Item Value Reference Range Interpretation Comme nts AST(SGOT) (test code = 1902484605) 20 U/L 13-40 Lab Interpretation (test cod e = 04288-0) Normal [facility] CenterAlanine Amino Transferase (SGPT)2019-01-17 05:00:00* Test Item Value Reference Range Interpretation Comme nts ALT(SGPT) (test code = 7539267770) 16 U/L 9-51 Lab Interpretation (test cod e = 05615-6) Normal [facility] [id number] 05:00:00* Test Item Value Reference Range Interpretation Comme nts LDH (test code = 5853197083) 527 U/L 300-600 Lab Interpretation (test cod e = 24330-8) Normal [facility] WITH [id number] 04:46:00* Test Item Value Reference Range Interpretation Comme nts WBC (test code = 6690-2) See_Comment [Automated [employer]] The system which generated this result transmitted reference range: 4.30 - 11.10 10*3/?L. The reference range was not used to interpret this result as normal/abnormal. RBC (test code = 789-8) See_Comment L [Automated [employer]] The system which generated this result transmitted reference range: 3.93 - 5.25 10*6/?L. The reference range was not used to interpret this result as normal/abnormal. HGB (test code = 718-7) 10.5 g/dL 11.6-15 L HCT (test code = 4544-3) 33.5 % 35.7-45.2 L MCV (test code = 787-2) 88.6 fL 80.6-95.5 MCH (test code = 785-6) 27.8 pg 25.9-32.8 MCHC (test code = 786-4) 31.3 g/dL 31.6-35.1 L RDW-SD (test code = 20014-4) 42.5 fL 39-49.9 RDW-CV (test code = 788-0) 13.2 % 12-15.5 PLT (test code = 777-3) See_Comment [Automated messa ge] The system which generated this result transmitted reference range: 166 - 358 10*3/?L. The reference range was not used to interpret this result as normal/abnormal. MPV (test code = 09310-4) 11.9 fL 9.5-12.9 NRBC/100 WBC (test code = 4644451810) See_Comment [Automated [employer] ssage] The system which generated this result transmitted reference range: 0.0 - 10.0 /100 WBCs. The reference range was not used to interpret this result as normal/abnormal. NRBC x10^3 (test code = 5688841646) <0.01 See_Comment [Automated messa ge] The system which generated this result transmitted reference range: 10*3/?L. The reference range was not used to interpret this result as normal/abnormal. GRAN MAT (NEUT) % (test code = 770-8) 75.6 % IMM GRAN % (test code = 3114188387) 0.70 % LYMPH % (test code = 736-9) 17.1 % MONO % (test code = 5905-5) 6.0 % EOS % (test code = 713-8) 0.3 % BASO % (test code = 706-2) 0.3 % GRAN MAT x10^3(ANC) (test code = 9069084624) 7.92 10*3/uL 1.88-7.09 H IMM GRAN x10^3 (test code = 9130408124) 0.07 10*3/uL 0-0.06 H LYMPH x10^3 (test code = 731-0) 1.79 10*3/uL 1.32-3.29 MONO x10^3 (test code = 742-7) 0.63 10*3/uL 0.33-0.92 EOS x10^3 (test code = 711-2) 0.03 10*3/uL 0.03-0.39 BASO x10^3 (test code = 704-7) 0.03 10*3/uL 0.01-0.07 Lab Interpretation (test code = 47679-8) Abnormal [facility] CenterHepatitis B Surface [id number] 04:37:00 * Test Item Value Reference Range Interpretation Comme nts HBsAg Semi-Quantitative (aimee t code = 5195-3) [facility] CenterType and Screen - ONCE [id number] 03:35:01 * Test Item Value Reference Range Interpretation Comme nts ABO & RH (test code = 20) O POSITIVE Performed at [facility] Laboratory Services - [facility] Blood [place] [address]Toll Free: [phone] No. [id number] IAT (test code = 1185) Negative Performed at [facility] Laboratory Services - [facility] Blood [place] [id number] Free: [phone] No. [id number] [facility] CLC OR L[facility] ONLY - WET [id number] 06:32:00* Test Item Value Reference Range Interpretation Comme nts Wet Prep (test code = 4649751034) No Epithelial cells [facility] ONLY - FERN [id number] 06:30:00* Test Item Value Reference Range Interpretation Comme nts Fern Test (test code = 1301699569) Negative [facility] W SPECIFIC [id number] 22:18:00* Test Item Value Reference Range Interpretation Comme nts POCT U SP GRAV (test code = 3255) . 1.005-1.025 POCT PH U (test code = 3254) . 5-8 POCT U LEUK EST (test code = 3263) . Negative - N egative POCT U NIT (test code = 3262) . Negative - Negati ve POCT U PROT (test code = 3259) Trace Negative - Negat humberto POCT U GLU (test code = 3256) Neg Negative - Negati ve POCT U KETONE (test code = 3258) . Negative - Neg ative POCT U UROBILI (test code = 3260) . 0.2-1 POCT U BILI (test code = 3261) . Negative - Negat humberto POCT U BLD (test code = 3257) . Negative - Negati ve POCT U COLOR (test code = 3266) POCT U APPEAR (test code = 3267) [facility] URINALYSIS W/O SPECIFIC [id number] 14:21:00* Test Item Value Reference Range Interpretation Comme nts POCT PH U (test code = 3254) 5 mg/dl 5-8 POCT U LEUK EST (test code = 3263) Trace Negative - Negative POCT U NIT (test code = 3262) Neg Negative - Negati ve POCT U PROT (test code = 3259) Trace Negative - Negat humberto POCT U GLU (test code = 3256) Neg Negative - Negati ve POCT U KETONE (test code = 3258) None Negative - Neg ative POCT U BLD (test code = 3257) Neg Negative - Negati ve [facility] Center[facility]ONH URINAL[facility] W/O SPECIFIC [id number] 14:21:00* Test Item Value Reference Range Interpretation Comme nts POCT PH U (test code = 3254) 5 mg/dl 5-8 POCT U LEUK EST (test code = 3263) Trace Negative - Negative POCT U NIT (test code = 3262) Neg Negative - Negati ve POCT U PROT (test code = 3259) Trace Negative - Negat humberto POCT U GLU (test code = 3256) Neg Negative - Negati ve POCT U KETONE (test code = 3258) None Negative - Neg ative POCT U BLD (test code = 3257) Neg Negative - Negati ve [facility] CenterPOCT [id number] 14:20:00* Test Item Value Reference Range Interpretation Comme nts POCT PREG (test code = 1605) Positive On board controls acceptable with C Line (test code = 3574) Yes POCT PREG LOT # (test code = 3575) POCT PREG TEST DATE ( test code = 3576) [facility] CenterPONH [id number] 14:20:00* Test Item Value Reference Range Interpretation Comme nts POCT PREG (test code = 1605) Positive On board controls acceptable with C Line (test code = 3574) Yes POCT PREG LOT # (test code = 3575) POCT PREG TEST DATE ( test code = 3576) [facility] Notes Date/Time Note Provider Source 2023-11-15 20:38:00 Pt given printed and verbal discharge instructions regarding RICE, & shoulder problems. Discussed ibuprofen and to take with food to avoid GI distress. Pt verbalized understanding of instructions, pt awake alert oriented, resp reg unlabored, skin w/d, color appropriate for race, moves all ext well,pt encouraged to follow up with pcp. Advised to seek medical attention for new/prolonged/worsening of symptoms. No adverse reaction to meds given in ER noted upon discharge. Awake, alert oriented, resp reg unlabored, skin w/d, pt leaving amb with steady gait, in no apparent distress. 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 Janee Hu RN [facility] 2023-11-15 18:41:00 [facility] Emergency Department Note Patient Name: Eobni Gillis Date of : 1995 28 year old female [id number] Primary Care Physician: PATIENT DOES NOT HAVE A PCP Patient Escorted by: Mode of Arrival: Personal means [1] EMS Treatment Prior to ED Arrival: Travel and Exposure Screening: Symptoms Does patient have any of these symptoms?: (not recorded) Exposure Screening Has patient had contact with someone with a communicable disease in the last month?: (not recorded) Diseases exposed to:: (not recorded) Is Patient ?: (not recorded) Exposure Date: (not recorded) Chief Complaint: Chief Complaint Patient presents with Shoulder Pain right History of Present Illness: The patient presents from home for evaluation for right shoulder pain that started just prior to arrival when she dropped a basketball pole on her shoulder. She denies hitting her head. No loss of consciousness. She is right-handed. No medications taken for pain prior to arrival. She reports her pain is worse when she tries to move her right shoulder. She reports she has numbness to her right arm and the pain seems to radiate to the back of her right shoulder. No headache or neck pain. Here for evaluation. Past Medical History/Immunizations: Past Medical History: Diagnosis Date Anemia, 01/18/2019 Anxiety resolved Depression resolved Gestational hypertension 01/18/2019 Irregular menstrual cycle 05/18/2016 Right ankle pain 10/28/2015 STD (sexually transmitted disease) 2017 chlamydia Allergies: Allergies Allergen Reactions Penicillins Unknown - See comments "made my throat tingle" Past Social History: Tobacco Use Never smoked or used smokeless tobacco. Alcohol Use No. Drug Use No. Sexual Activity Sexually active; Partners: Male; Control/Protection: None. Comments: last sexual intercourse 06/2017 Past Surgical History: Past Surgical History: Procedure Laterality Date ORAL SURGERY PROCEDURE wisdom teeth romoved 4 yrs ago Review of Systems: Review of Systems Constitutional: Negative for chills and fever. Respiratory: Negative for cough and shortness of breath. Cardiovascular: Negative for chest pain. Gastrointestinal: Negative for abdominal pain and vomiting. Genitourinary: Negative for dysuria. Musculoskeletal: Positive for arthralgias. Negative for neck pain and neck stiffness. Skin: Negative for wound. Neurological: Negative for dizziness. Psychiatric/Behavioral: Negative for agitation. Endocrine: Negative for goiter. Physical Exam: ED Triage Vitals [11/15/23 1856] Weight 91.6 kg (202 lb) Actual or estimated Estimated by patient/family report Height 1.524 m (5') BP 138/86 Pulse 86 Resp 15 Temp 36.6 ?C (97.9 ?F) Temp source Oral SpO2 100 % Measured on Room air Physical Exam Vitals and nursing note reviewed. Constitutional: Appearance: Normal appearance. HENT: Head: Normocephalic and atraumatic. Cardiovascular: Rate and Rhythm: Normal rate. Pulses: Normal pulses. Pulmonary: Effort: Pulmonary effort is normal. No respiratory distress. Abdominal: General: There is no distension. Musculoskeletal: Cervical back: Neck supple. Comments: No deformity or swelling noted about the right shoulder. She has mild tenderness to the lateral aspect of the right clavicle as well as pain to the superior aspect of the right shoulder. She has decreased range of motion of the right shoulder due to pain. +2 radial pulse right side. Full range of motion of her right wrist and elbow. Skin: General: Skin is warm and dry. Neurological: Mental Status: She is alert. Radiology: XR SHOULDER 2+ VW RIGHT Final Result XR SHOULDER 2+ VW RIGHT HISTORY: right shoulder pain COMPARISON: none available. Findings: Osseous structures are intact. Joint spaces are preserved. IMPRESSION No radiographic evidence of acute osseous or articular abnormality. Lab Results: Lab Results - No data to display EKG: If EKG completed, see Procedure Note. Orders and Treatments: Orders Placed This Encounter Procedures XR SHOULDER 2+ VW RIGHT Orders Placed This Encounter Medications ibuprofen (IBU) tablet 600 mg First Provider Eval: ED Events Date/Time Event User Comments 11/15/231899 Medical Screening Begins ANABELA MASSEY DO -- 11/15/231899 First Provider Evaluation ANABELA MASSEY DO -- ED COURSE Diagnosis/Impression as of 11/15/232016 Acute pain of right shoulder Procedures: Procedures MDM: Medical Decision Making The patient presents from home for evaluation of right shoulder pain that started this prior to arrival when she dropped a basketball pole on her shoulder. She denies hitting her head. No loss of consciousness. She is right-handed. No medications taken prior to arrival. She reports her pain is worse with movement of her right shoulder. Vital signs are stable in the ER. She has decreased range of motion of her right shoulder due to pain. There is no deformity or swelling noted to the right shoulder. She has tenderness to the superior portion of her right shoulder as well as the lateral asked of her right clavicle. +2 radial pulse right side. Will give the patient pain medication here in the ER and obtain an x-ray. Anticipate discharge home later. 2016 - the patient is doing well here in the EC. Xray shows no acute osseous injuries. She remains stable here in the EC and is ok for dc home with pcp f/u. Problems Addressed: Acute pain of right shoulder: acute illness or injury Amount and/or Complexity of Data Reviewed Radiology: ordered and independent interpretation performed. Decision-making details documented in ED Course. Risk OTC drugs. Prescription drug management. Flowsheet Documentation: Scoring Tools: No data recorded Disposition/Condition: ED Disposition ED Disposition Disch - Home Condition Stable Comment -- Discharge Medications: Patient's Medications START taking these medications No medications on file CONTINUE taking these medications which have NOT CHANGED IBUPROFEN 600 MG TABLET Take 1 tablet by mouth every 8 (eight) hours as needed for Pain (scale 4-6). ONDANSETRON 4 MG DISINTEGRATING TABLET Take 1 tablet by mouth every 4 (four) hours as needed for Nausea and Vomiting (N/V). ONDANSETRON 4 MG DISINTEGRATING TABLET Take 1 tablet by mouth every 4 (four) hours as needed for Nausea and Vomiting (N/V). START taking Modified Medications as Prescribed No medications on file STOP taking these medications No medications on file Follow-up: Electronically signed by: Anabela Massey DO 11/15/232016 [facility] 2023-09-29 13:41:10 Chief Complaint Patient presents with Blood Pressure On & off high blood pressure since high school "148/97" at work on Tuesday --- nausea and vomiting, lightheadedness Re-checked "140/105" took BP medication No other complaints voiced T Kathy Rai [facility] 2023-01-10 14:21:09 Formatting of this n ote is different from the original. Chief Complaint Patient presents with Well Woman Exam Pt states she gets some abdominal pain sometimes feels like cramps, would like to discuss getting on birthcontrol Eboni Gillis is here today for her Well Woman Exam. Patient's last menstrual period was 12/20/2022 (exact date). The patient's last pap smear was unknown and her last mammogram was never. Luh Scott CMA I [facility]
--- NOTE | 2024-01-16 19:51 | EDPHYS ---
Physician Documentation [facility] Name: Eboni Gillis Age: 28 yrs Sex: Female : 1995 Arrival Date: 01/16/2024 Time: 19:28 Bed DX3 Private MD: ED Physician Brittnee Montanez HPI: 01/15 19:47 This 28 yrs old Female presents to ER via Unassigned with complaints of Finger gb1 Injury. 19:47 Left second finger injury, after her skin was pulled out and she has a small laceration gb1 to the bottom of her second finger. There was no crush injury and she has normal range of motion of the finger joint on that finger. No nailbed injury.. Historical: - Allergies: 20:05 Amoxicillin; vc1 - Home Meds: 20:05 None [Active]; vc1 - PMHx: 20:05 Hypertension; vc1 - PSHx: 20:05 None; vc1 - Immunization history:: Adult Immunizations up to date. - Infectious Disease History:: Denies. - Social history:: Smoking status: Patient denies any tobacco usage or history of. Exam: 19:47 Constitutional: This is a well developed, well nourished patient who is awake, alert, gb1 and in no acute distress. Head/Face: Normocephalic, atraumatic. Chest/axilla: Normal chest wall appearance and motion. Nontender with no deformity. No lesions are appreciated. Cardiovascular: Regular rate and rhythm with a normal S1 and S2. No gallops, murmurs, or rubs. Normal PMI, no JVD. No pulse deficits. Respiratory: Lungs have equal breath sounds bilaterally, clear to auscultation and percussion. No rales, rhonchi or wheezes noted. No increased work of breathing, no retractions or nasal flaring. MS/ Extremity: Pulses equal, no cyanosis. Neurovascular intact. Full, normal range of motion. Patient has a small laceration on the ventral aspect of the proximal second digit. There is no nailbed injury there is no active bleeding. She has no exposed tender or subcutaneous fat. The wound was examined in a bloodless field. Vital Signs: 19:56 BP 129 / 79; Pulse 81; Resp 14; Temp 97.6; Pulse Ox 99% ; Weight 86.18 kg; Height 5 ft. vc1 0 in. ; 19:56 Body Mass Index 37.11 (86.18 kg, 152.4 cm) vc1 MDM: 19:47 Patient medically screened. gb1 19:47 Differential diagnosis: I doubt finger dislocation or fracture. There is a very small gb1 superficial laceration that will likely not require suture repair. I recommended Band-Aid to her with topical bacitracin for closure by secondary intention. At this time no concern for tetanus exposure. Administered Medications: No medications were administered Disposition Summary: 01/16/24 19:50 Discharge Ordered Notes: Location: Home gb1 Condition: Stable gb1 Diagnosis - Laceration without foreign body of unspecified finger without damage to nail gb1 Followup: gb1 - With: Private Physician - When: 5 - 6 days - Reason: Wound Recheck Discharge Instructions: - Discharge Summary Sheet gb1 - Nonsutured Laceration Care gb1 Forms: - Work release form vc1 - Medication Reconciliation Form gb1 - Antibiotic Education gb1 - Prescription Opioid Use gb1 - Patient Portal Instructions gb1 - Leadership Thank You Letter gb1 Signatures: Hilary Grace, RN RN vc1 Brittnee Montanez MD MD gb1
--- NOTE | 2024-01-16 20:10 | ER ---
Nurse's Notes [facility] Name: Eboni Gillis Age: 28 yrs Sex: Female : 1995 Arrival Date: 01/16/2024 Time: 19:28 Bed DX3 Private MD: Diagnosis: Laceration without foreign body of unspecified finger without damage to nail Presentation: 01/15 19:51 Chief complaint: Chief complaint: Patient states: smashed fat of left index finger in vc1 food slide. 19:56 Coronavirus screen: Client denies travel out of the [place] in the last 14 days. Ebola vc1 Screen: Patient negative for fever greater than or equal to 101.5 degrees Fahrenheit, and additional compatible Ebola Virus Disease symptoms Patient denies exposure to infectious person. Patient denies travel to an Ebola-affected area in the 21 days before illness onset. No symptoms or risks identified at this time. Initial Sepsis Screen: Does the patient meet any 2 criteria? No. Patient's initial sepsis screen is negative. Does the patient have a suspected source of infection? No. Patient's initial sepsis screen is negative. Risk Assessment: Do you want to hurt yourself or someone else? Patient reports no desire to harm self or others. Onset of symptoms was January 16, 2024. 19:56 Method Of Arrival: Ambulatory vc1 19:56 Acuity: KALINA 5 vc1 Triage Assessment: 20:06 General: Appears in no apparent distress. comfortable, well groomed, well developed, vc1 well nourished, Behavior is calm, cooperative, appropriate for age. Pain: Complains of pain in palmar aspect of proximal phalanx of left index finger Pain does not radiate. Pain currently is 3 out of 10 on a pain scale. EENT: No deficits noted. No signs and/or symptoms were reported regarding the EENT system. Neuro: Level of Consciousness is awake, alert, obeys commands, Oriented to person, place, time, situation, Appropriate for age. Cardiovascular: No deficits noted. Respiratory: Airway is patent Respiratory effort is even, unlabored, Respiratory pattern is regular, symmetrical. GI: No deficits noted. No signs and/or symptoms were reported involving the gastrointestinal system. : No deficits noted. No signs and/or symptoms were reported regarding the genitourinary system. Derm: Wound noted palmar aspect of proximal phalanx of left index finger. Musculoskeletal: No deficits noted. No signs and/or symptoms reported regarding the musculoskeletal system. Injury Description: Laceration sustained to palmar aspect of proximal phalanx of left index finger is contaminated, does not need sutures. Historical: - Allergies: 20:05 Amoxicillin; vc1 - Home Meds: 20:05 None [Active]; vc1 - PMHx: 20:05 Hypertension; vc1 - PSHx: 20:05 None; vc1 - Immunization history:: Adult Immunizations up to date. - Infectious Disease History:: Denies. - Social history:: Smoking status: Patient denies any tobacco usage or history of. Screenin:06 [facility] ED Fall Risk Assessment (Adult) History of falling in the last 3 months, vc1 including since admission No falls in past 3 months (0 pts) Confusion or Disorientation No (0 pts) Intoxicated or Sedated No (0 pts) Impaired Gait No (0 pts) Mobility Assist Device Used No (0 pt) Altered Elimination No (0 pt) Score/Fall Risk Level 0 - 2 = Low Risk Oriented to surroundings, Maintained a safe environment, Educated pt \T\ family on fall prevention, incl call for assistance when getting out of bed. Abuse screen: Denies threats or abuse. Nutritional screening: No deficits noted. Tuberculosis screening: No symptoms or risk factors identified. Vital Signs: 19:56 BP 129 / 79; Pulse 81; Resp 14; Temp 97.6; Pulse Ox 99% ; Weight 86.18 kg; Height 5 ft. vc1 0 in. ; 19:56 Body Mass Index 37.11 (86.18 kg, 152.4 cm) vc1 ED Course: 19:34 Patient arrived in ED. gm2 19:47 Brittnee Montanez MD is Attending Physician. gb1 19:56 Hilary Grace, CARLOS is Primary Nurse. vc1 20:05 Triage completed. vc1 20:09 Arm band placed on right wrist. vc1 20:09 seen in diagnostic chair. Provided Education on: wound care. vc1 20:09 No provider procedures requiring assistance completed. Patient did not have IV access vc1 during this emergency room visit. Administered Medications: No medications were administered Medication: 20:09 VIS not applicable for this client. vc1 Outcome: 19:50 Discharge ordered by . gb1 20:09 Discharged to home ambulatory, vc1 20:09 Condition: good 20:09 Discharge instructions given to patient, Instructed on discharge instructions, follow up and referral plans. Demonstrated understanding of instructions, follow-up care, 20:10 Patient left the ED. vc1 Signatures: Hilary Grace RN RN vc1 Brittnee Montanez MD MD gb1 Miriam Rodriguez gm2 Corrections: (The following items were deleted from the chart) 20:05 19:51 Chief complaint: vc1 vc1
[2024-01-17 00:35] VITALS: BP 129/79; TEMP 97.6; O2SAT 99
== END 2024-01-16 20:10 | disposition home or self-care (01) ==
LOC: ER 19:28
DX: S61.211A Laceration without foreign body of left index finger without damage to nail, initial encounter (principal)
CPT/HCPCS: 99282

== ENCOUNTER 2024-02-17 04:18 | Emergency (ER) | payer BC ==
--- OUTSIDE RECORDS SUMMARY | 2024-02-17 04:23 | XMS REPORT | Continuity of Care Document ---
Author Name Unknown Address [address] [facility] [address] [place] [address] [facility] thconnect Address [address] [facility] [address] [place] [address] Care Team Providers Care Horizontal Resaw Operator Name Role Phone PCP, PATIENT DOES NOT HAVE A Primary Care Physic bharath Unavailable STELLA SUERO Attending Clinician Unavailable ANABELA MASSEY Attending Clinician Unavailab Anabela Alcantar DO Attending Clinician [phone] [id number] Attending Clinician Unavailable LAB47 Attending Clinician Unavailable KAYLEE MILNER Attending Clinician Unavailable SANDRA FLORES Attending Clinician Unavailable LEANDRO MORRELL Attending Clinician Unavailab CHRIS Patel Attending Clinician Unavailable MITALI OSEGUERA Attending Clinician UnavailMARISSA Angulo Attending Clinician Unavailable LAB90 Attending Clinician Unavailable TAO GARCIA Attending Clinician Unavailable FLORENTINO BRANTLEY Attending Clinician Unavailable IRENE WANG Attending Clinician Unavailable Irene Wang MD Attending Clinician [phone] UNKNOWN, ATTENDING Attending Clinician Unavailab Brian Pickett DO Attending Clinician [phone] Mikael Teixeira MD Attending Clinician [phone] Visit, [facility] Nurse Attending Clinician Jhony Morse WHCORA, Ibeth Shepherd Attending Clinician + Lois Bethea MD Attending Clinician [phone] Doctor Unassigned, Cleary Attending Clinician U ANABELA Mcclendon Admitting Clinician UnavailIRENE Collier Admitting Clinician Unavailable Mikael Teixeira MD Admitting Clinician [phone] Lois Bethea MD Admitting Clinician [phone] Payers Payer Name Policy Type Policy Number Effective Date Expirati on Date Source [employer] [place] - OUT [place] [id number] 2020 00:00:00 [employer] MEDICAID [id number] 2019 00:00:00 [facility]BC[facility] CAPITATED) 9 [id number] 2022 00:00:00 ST OFF OF RISK [facility] [id number] 00:00:00 Problems Condition Name Condition Details Condition Category Status Onset Date Resolution Date Last Treatment Date Treating Clinician Comments Source Iron deficiency anemia secondary to inadequate dietary iron intake Iron deficiency anemia secondary to inadequate dietary iron intake Disease Active 08-09 00:00: 00 Luana Seybold - Externa l Seasonal allergic rhinitis due [...] vaginal delivery) Disease Active 01-18 00:00: 00 [facility] acute hospital Single live Single live Disease Active 01-18 00:00: 00 [facility] acute hospital Anemia, Anemia, Disease Active 01-18 00:00: 00 [facility] acute hospital Gestationa l hypertensi on Gestationa l hypertensi on Disease Active 01-18 00:00: 00 General acute hospital Laceration , obstetrica l, second degree Laceration , obstetrica l, second degree Disease Active 01-18 00:00: 00 General acute hospital (spontaneo us vaginal delivery) (spontaneo us vaginal delivery) Disease Active 01-18 00:00: 00 General acute hospital Anemia, Anemia, Disease Active 01-18 00:00: 00 General acute hospital Gestationa l hypertensi on Gestationa l hypertensi on Disease Active 01-18 00:00: 00 General acute hospital Gestationa l hypertensi on Gestationa l hypertensi on Disease Active 01-18 00:00: 00 General acute hospital Morbid obesity with body mass index of 40.0-49.9 Morbid obesity with body mass index of 40.0-49.9 Disease Active 01-16 00:00: 00 General acute hospital 39 weeks gestation of 39 weeks gestation of Disease Active 01-16 00:00: 00 General acute hospital Morbid obesity with body mass index of 40.0-49.9 Morbid obesity with body mass index of 40.0-49.9 Disease Active 01-16 00:00: 00 General acute hospital Positive GBS test Positive GBS test Disease Active 01-15 00:00: 00 Overview: Address [facility]rapart [facility] Cervical Papanicola ou smear negative within last 12 months Cervical Papanicola ou smear negative within last 12 months Disease Active 01-15 00:00: 00 Overview: Formattin g of this note might be different from the original. NIL pap 07/03/18 General acute hospital Rubella non-immune status, antepartum Rubella non-immune status, antepartum Disease Active 01-12 00:00: 00 Overview: Address [facility] Susceptibl e varicella Susceptibl e varicella Disease Active 01-12 00:00: 00 Overview: Formattin g of this note might be different from the original. Address [facility] Supervisio n of high-risk with insufficie nt care Supervisio n of high-risk with insufficie nt care Disease Active 01-11 00:00: 00 Overview: See scanned records General acute hospital Obesity in Obesity in Disease Active 01-11 00:00: 00 General acute hospital Nexplanon in place Nexplanon in place Disease Active 2015-06 00:00: 00 General acute hospital Irregular menstrual cycle Irregular menstrual cycle Disease Active 2015-06 00:00: 00 General acute hospital Right ankle pain Right ankle pain Disease Active 10-27 00:00: 00 General acute hospital Well woman exam Well woman exam Disease Active 07-16 00:00: 00 General acute hospital Depo-Prove ra contracept humberto status Depo-Prove ra contracept humberto status Disease Active 07-16 00:00: 00 General acute hospital Overweight Overweight Disease Active 07-16 00:00: 00 General acute hospital Contracept humberto management Contracept humberto management Disease Active 07-16 00:00: 00 General acute hospital History of anxiety History of anxiety Disease Active 07-16 00:00: 00 General acute hospital History of depression History of depression Disease Active 07-16 00:00: 00 General acute hospital Allergies, Adverse Reactions, Alerts Allergy Name Allergy Type Status Severity Reaction(s) Onset Date Inactive Date Treating Clinician Comments Source Amoxicil steven Propensi ty to adverse reaction s Active 08-09 00:00: 00 Luana Huffman - Externa l Penicill ins Propensi ty to adverse reaction s Active Unknown - See comments 11-28 00:00: 00 "made my throat tingle" General acute hospital PENICILL INS Drug Class Active Unknown-Cmnt 11-28 00:00: 00 General acute hospital Penicill ins Propensi ty to adverse reaction s Active Unknown - See comments 11-28 00:00: 00 "made my throat tingle" General acute hospital Penicill ins Propensi ty to adverse reaction s Active 11-28 00:00: 00 Other reaction( s): Unknown - See comments" made my throat tingle" Luana Fagan Externa l Social History Social Habit Start Date Stop Date Quantity Comments Source Gender identity 2020-10-15 16:16:19 Identifies as female gender (finding) Luana Huffman - External ASSERTION 2018-05-01 00:00:00 [facility] History SDOH Alcohol Binge Luana Huffman - External History SDOH Alcohol Frequency Luana almonte - External History SDOH Alcohol Std Drinks Luana berg - External Exposure to SARS-CoV-2 (event) Not sure [facility] intake 2023-11-15 00:00:00 2023-11-15 00:00:00 0 /d [facility] Alcohol intake 2023-01-10 00:00:00 2023-01-10 00:00:00 Current drinker of alcohol (finding) Luana Huffman - External Alcohol Comment 2022-08-09 00:00:00 2022-08-09 00:00:00 socially Luana Fagan External Education - What is the highest level of school you have completed or the highest degree you have received? 2022-08-09 00:00:00 2022-08-09 00:00:00 Associate degree: academic program Luana Cordoba History of Social function 2020-01-16 00:00:00 2020-01-16 00:00:00 [facility] Tobacco use and exposure 2015-07-14 00:00:00 2015-07-14 00:00:00 Smokeless tobacco non-user [facility] Sex assigned at 1995 00:00:00 1995 00:00:00 [facility] Smoking Status Start Date Stop Date Source Never smoked tobacco General acute hospital Medications Ordered Medication Name Filled Medication Name Start Date Stop Date Current Medication? Ordering Clinician Indication Dosage Frequency Signature (SIG) Comments Components Source ibuprofen (IBU) tablet 600 mg 11-15 00:15: 00 11-15 00:37 :00 No 600mg 600 mg, Oral, ONCE, 1 dose, On Tue11/15/23 at 1915, [facility] Promethazin e-DM 6.25-15 MG/5ML oral Syrup - 00:00: 00 09-28 00:00 :00 No [id number] 5mL Q.25D Take 5 mL by mouth 4 times daily as needed for cough. Luana davis FLUTICASONE PROPIONATE, NASAL, 50 MCG/ACT nasal Suspension 08-21 00:00: 00 09-28 00:00 :00 No [id number] 50ug Use 1 spray (50 mcg total) in each nostril daily. Luana davis Pseudoeph-B romphen-DM 30-2-10 MG/5ML oral Syrup 06-28 00:00: 00 Yes [id number] 10mL Q.25D Take 10 mL by mouth 4 times daily as needed. Luana davis Azithromyci n 250 MG oral Tablet 06-28 00:00: 00 07-04 05:59 :00 No [id number] Take 2 tablets by mouth on day 1 then 1 tablet by mouth daily for 4 days thereafter .. Luana davis Medroxyprog esterone (DEPO-PROVE RA) [150 mg/mL] - Once Every 3 Months 8-14 05:00: 00 09-28 18:39 :54 No [id number] 150mg Luana davis Magnesium 500 MG oral [...] 00:00: 00 01-10 00:00 :00 No 4mg [id number] 3D Take 1 tablet (4 mg total) by mouth every 8 hours as needed for nausea Luana davis naproxen 500 mg tablet 12-03 00:00: 00 12-14 04:59 :00 No [id number] 500mg Take 1 tablet by mouth in the morning and 1 tablet in the evening. Take with meals. Do all this for 10 days. General acute hospital acetaminoph en (TYLENOL) tablet 1,000 mg 03-10 14:15: 00 03-10 13:06 :00 No 1000mg 1,000 mg, Oral, ONCE, 1 dose, On Tue03/10/21 at 0915, [facility] ondansetron 4 mg disintegrat ing tablet 03-10 00:00: 00 Yes [id number] 4mg Take 1 tablet by mouth every 4 (four) hours as needed for Nausea and Vomiting (N/V). General acute hospital HYDROcodone -acetaminop hen (NORCO) 7.5-325 mg per tablet 03-10 00:00: 00 03-18 04:59 :00 No [id number] 1{tbl} Take 1 tablet by mouth every 8 (eight) hours as needed for Pain for up to 7 days. Indication s: acute pain General acute hospital ondansetron (ZOFRAN (PF)) injection 4 mg 12-16 13:45: 00 12-16 12:35 :00 No 4mg 4 mg, Slow IV Push, ONCE, 1 dose, Tue12/16/20 at 0845, [facility] FENTanyl PF (SUBLIMAZE (PF)) injection 125 mcg 12-16 13:45: 00 12-16 12:35 :00 No 125ug 125 mcg, Slow IV Push, ONCE, 1 dose, Tue12/16/20 at 0845, STAT General acute hospital ibuprofen 600 mg tablet 12-16 00:00: 00 Yes [id number] 600mg Take 1 tablet by mouth every 8 (eight) hours as needed for Pain (scale 4-6). General acute hospital ondansetron 4 mg disintegrat ing tablet 12-16 00:00: 00 Yes [id number] 4mg Take 1 tablet by mouth every 4 (four) hours as needed for Nausea and Vomiting (N/V). General acute hospital HYDROcodone -acetaminop hen (NORCO) 7.5-325 mg per tablet 12-16 00:00: 00 12-24 04:59 :00 No [id number] 1{tbl} Take 1 tablet by mouth every 8 (eight) hours as needed for Pain for up to 7 days. Indication s: acute pain General acute hospital INVESTIGATI ONAL DRUG - hydrochloro thiazide 50 mg or placebo capsule 01-18 20:45: 00 02-01 13:59 :00 No 50mg 50 mg, Oral, DAILY, 14 doses, First dose on Tue01/18/19 at 1545, Last dose on Tue01/31/19 at 0900, Routine
Principal investigat or: MIKAEL TEIXEIRA General acute hospital ascorbic acid (vitamin C) (VITAMIN C) tablet 500 mg 01-18 13:00: 00 Yes 500mg 500 mg, Oral, BID, First dose on Tue01/18/19 at 0800, Until Discontinu ed, Routine [facility] acute hospital ferrous sulfate tablet 325 mg 01-18 13:00: 00 Yes 325mg 325 mg, Oral, BID, First dose on Tue01/18/19 at 0800, Until Discontinu ed, Routine [facility] acute hospital vit calc,iron,f olic ( VITAMIN ORAL) 01-18 12:59: 00 01-18 00:00 :00 No Take by mouth. General acute hospital varicella virus vaccine live (VARIVAX (PF)) injection 0.5 mL 01-18 12:56: 06 01-19 13:58 :00 No .5mL 0.5 mL, Subcutaneo us, ONCE-PRIOR TO DISCHARGE, 1 dose, Starting Jo 01/18/19 at 0756, Until Discontinu ed, Routine, Give vaccine prior to discharge [facility] acute hospital docusate calcium 240 mg capsule 01-18 00:00: 00 Yes [id number] 104 240mg Take 1 capsule by mouth once daily as needed for Constipati on. General acute hospital ferrous sulfate 325 mg (65 mg iron) tablet 01-18 00:00: 00 Yes [id number] 325mg Take 1 tablet by mouth daily. [facility] acute hospital ibuprofen 600 mg tablet 01-18 00:00: 00 Yes [id number] 600mg Take 1 tablet by mouth every 6 (six) hours as needed for Pain (scale 1-3) or Pain (scale 4-6) (Pain). Take with food or milk. General acute hospital Iron Fum & P-FA-Vit B & C No.9 (INTEGRA PLUS) 125 mg iron- 1 mg Cap 01-18 00:00: 00 Yes [id number] 1{capsu le} Take 1 capsule by mouth daily. General acute hospital acetaminoph en (TYLENOL) tablet 650 mg 01-17 21:42: 29 Yes 650mg 650 mg, Oral, Q6HPRN, Starting Tue01/17/19 at 1642, Until Discontinu ed, Routine, Pain (scale 1-3) General acute hospital ibuprofen (IBU) tablet 600 mg 01-17 21:42: 29 Yes 600mg 600 mg, Oral, Q6HPRN, Starting Tue01/17/19 at 1642, Until Discontinu ed, Routine, Pain (scale 4-6) [facility] acute hospital diphenhydrA MINE (BENADRYL) tablet 25 mg 01-17 21:42: 29 Yes 25mg 25 mg, Oral, Q6HPRN, Starting Tue01/17/19 at 1642, Until Discontinu ed, Routine, Sleep, Itching General acute hospital ondansetron (ZOFRAN (PF)) injection 4 mg 01-17 21:42: 29 Yes 4mg 4 mg, Slow IV Push, Q8HPRN, Starting Tue01/17/19 at 1642, Until Discontinu ed, Routine, Nausea and Vomiting (N/V) General acute hospital simethicone (GAS RELIEF) chewable tablet 160 mg 01-17 21:42: 29 Yes 160mg 160 mg, Oral, PC+HSPRN, Starting Tue01/17/19 at 1642, Until Discontinu ed, Routine, Gas General acute hospital docusate calcium (SURFAK) capsule 240 mg 01-17 21:42: 29 Yes 240mg 240 mg, Oral, QDAILYPRN, Starting Tue01/17/19 at 1642, Until Discontinu ed, Routine, Constipati on General acute hospital magnesium hydroxide (MILK OF MAGNESIA) 400 mg/5 mL suspension 30 mL 01-17 21:42: 29 Yes 30mL 30 mL, Oral, QDAILYPRN, Starting Tue01/17/19 at 1642, Until Discontinu ed, Routine, Constipati on General acute hospital benzocaine- menthol (DERMOPLAST ) 20-0.5 % topical spray 01-17 21:42: 29 Yes Topical, PRN, Starting Tue01/17/19 at 1642, Until Discontinu ed, Routine, Perineum discomfort General acute hospital LR 1000 mL + oxytocin 20 units IV Solution 01-17 17:15: 00 01-17 17:45 :00 No at 999 mL/hr, IV Infusion, ONCE, 1 dose, Tue01/17/19 at 1215, Routine General acute hospital acetaminoph en (TYLENOL) tablet 650 mg 01-17 16:03: 41 01-17 21:42 :35 No 650mg 650 mg, Oral, Q6HPRN, Starting Tue01/17/19 at 1103, Until Tue01/17/19 at 1642, Routine, Pain (scale 4-6) General acute hospital vancomycin (VANCOCIN) 1,500 mg in NaCl 0.9% [...]
S pecific indication : GBS Prophylaxi s General acute hospital vancomycin (VANCOCIN) 500 mg in NaCl 0.9% (NS) 100 mL piggyback 01-17 05:37: 00 01-17 08:25 :00 No 500mg 500 mg, IV Piggyback, ONCE, 1 dose, Tue01/17/19 at 0045, 100 mL
Reas on for Anti-Infec tive: Documented Infection< br>Documen davin Infection Site: Pelvic
Duration of Therapy: Other (see Comments) [facility] acute hospital LR 1000 mL + oxytocin 20 units IV Solution 01-17 05:27: 34 01-17 21:42 :35 No 2mU/min 2 sofi-unit s/min (6 mL/hr), at 6 mL/hr, IV Infusion, TITRATE, Starting Tue01/17/19 at 0027, Until Tue01/17/19 at 1642, EDOUARD, Oxytocin Induction / Augmentati on of Labor. General acute hospital vancomycin 1 g in NS 200 mL RTU IV Piggyback 1,000 mg 01-17 02:45: 00 01-17 05:33 :08 No 1000mg 1,000 mg, IV Piggyback, Q12H ABX, First dose on Tue01/16/19 at 2145, Until Discontinu ed
Reas on for Anti-Infec tive: Empiric Non-Surgic al Prophylaxi s
Durat ion of therapy: 72 hours
S pecific indication : GBS Prophylaxi s General acute hospital D5W-LR IV infusion 1,000 mL 01-17 02:45: 00 01-17 21:42 :35 No 1000mL at 125 mL/hr, IV Infusion, CONTINUOUS , Starting Tue01/16/19 at 2144, Until Tue01/17/19 at 164, Routine General acute hospital sodium citrate-cit aakash acid (BICITRA) 500-334 mg/5 mL solution 30 mL 01-17 02:42: 10 01-17 04:11 :00 No 30mL 30 mL, Oral, PRE-PROCED URE ONCE, 1 dose, Starting Tue01/16/19 at 2141, Until Discontinu ed, Routine, Surgery/Pr ocedure General acute hospital lactated ringers IV infusion 500 mL 01-17 02:42: 10 01-17 21:42 :35 No 500mL at 999 mL/hr, 500 mL, IV Infusion, PRN - SEE INSTRUCTIO NS, Starting Tue01/16/19 at 2141, Until Tue01/17/19 at 164, Routine General acute hospital proMETHazin e (PHENERGAN) injection 25 mg 01-17 00:45: 00 01-16 23:40 :00 No 25mg 25 mg, Intramuscu lar, ONCE, 1 dose, Tue01/16/19 at 194, Routine General acute hospital meperidine (DEMEROL) injection 50 mg 01-17 00:45: 00 01-16 23:40 :00 No 50mg 50 mg, Intramuscu lar, ONCE, 1 dose, Tue01/16/19 at 1945, Routine General acute hospital vit calc,iron,f olic ( VITAMIN ORAL) 01-16 19:38: 06 Yes Take by mouth. General acute hospital vit calc,iron,f olic ( VITAMIN ORAL) 01-16 08:44: 35 Yes Take by mouth. General acute hospital vit calc,iron,f olic ( VITAMIN ORAL) 01-11 14:45: 41 Yes Take by mouth. General acute hospital norgestimat e-ethinyl estradiol (ORTHO TRI-CYCLEN- 28) 0.18/0.215/ 0.25 mg-35 mcg (28) tablet 2015-06-06 00:00: 00 01-18 00:00 :00 No [id number] 1{tbl} Take 1 tablet by mouth daily. [facility] No known medications No Un jose armando [facility] Immunizations Ordered Immunization Name Filled Immunization Name Date Status Comments Source Varicella Vaccine 2019-03-06 00:00:00 Completed Luana Seybold - External Varicella Vaccine 2019-03-06 00:00:00 Completed Luana Seybold - External Varicella Vaccine 2019-03-06 00:00:00 Completed Luana Seybold - External Varicella (varivax)(chicken pox) 2019-03-06 00:00:00 Completed [facility] Varicella (varivax)(chicken pox) 2019-03-06 00:00:00 Completed [facility] Varicella (varivax)(chicken pox) 2019-03-06 00:00:00 Completed [facility] Varicella (varivax)(chicken pox) 2019-03-06 00:00:00 Completed [facility] Varicella Vaccine 2019-01-19 00:00:00 Completed Luana Seybold - External Varicella Vaccine 2019-01-19 00:00:00 Completed Luana Seybold - External Varicella Vaccine 2019-01-19 00:00:00 Completed Luana Seybold - External Varicella (varivax)(chicken pox) 2019-01-19 00:00:00 Completed [facility] Varicella (varivax)(chicken pox) 2019-01-19 00:00:00 Completed [facility] Varicella (varivax)(chicken pox) 2019-01-19 00:00:00 Completed [facility] Varicella (varivax)(chicken pox) 2019-01-19 00:00:00 Completed [facility] Varicella (varivax)(chicken pox) 2019-01-19 00:00:00 Completed [facility] Tdap- (Boostrix, Adacel) 2011-06-13 00:00:00 Completed Luana Seybold - External Tdap- (Boostrix, Adacel) 2011-06-13 00:00:00 Completed Luana Seybold - External Tdap- (Boostrix, Adacel) 2011-06-13 00:00:00 Completed Luana Stillold - External Tdap 2011-06-13 00:00:00 Completed [facility] Tdap 2011-06-13 00:00:00 Completed [facility] Tdap 2011-06-13 00:00:00 Completed [facility] Tdap 2011-06-13 00:00:00 Completed [facility] TDAP 2011-06-13 00:00:00 Completed [facility] TDAP 2011-06-13 00:00:00 Completed [facility] TDAP 2011-06-13 00:00:00 Completed [facility] TDAP 2011-06-13 00:00:00 Completed [facility] Tdap 2011-06-13 00:00:00 Completed [facility] Tdap 2011-06-13 00:00:00 Completed [facility] Tdap 2011-06-13 00:00:00 Completed [facility] Tdap 2011-06-13 00:00:00 Completed [facility] Tdap 2011-06-13 00:00:00 Completed [facility] Varicella Vaccine 2010-07-16 00:00:00 Completed Luana Huffman - External HEPATITIS A- PEDI/ADOL 2010-07-16 00:00:00 Completed Luana Fournierybold - External Varicella Vaccine 2010-07-16 00:00:00 Completed Luana Stillold - External HEPATITIS A- PEDI/ADOL 2010-07-16 00:00:00 Completed Luana Stlilold - External Varicella Vaccine 2010-07-16 00:00:00 Completed [...] 2009-11-25 00:00:00 Completed Luana Huffman - External HPV 4 (Human Papillomavirus) 2006-11-08 00:00:00 Completed Luana Huffman - External HPV 4 (Human Papillomavirus) 2006-11-08 00:00:00 Completed Luana Stillold - External HPV 4 (Human Papillomavirus) 2006-11-08 00:00:00 Completed Luana Huffman - External HPV 4 (Human Papillomavirus) 2006-09-01 00:00:00 Completed Luana Huffman - External HPV 4 (Human Papillomavirus) 2006-09-01 00:00:00 Completed Luana Huffman - External HPV 4 (Human Papillomavirus) 2006-09-01 00:00:00 Completed Luana Fournierybold - External Varicella Vaccine 2001-11-14 00:00:00 Completed Luana Huffman - External DTaP Unspecified 2001-11-14 00:00:00 Completed Luana Huffman - External MMR- Measles, Mumps, Rubella 2001-11-14 00:00:00 Completed Luana Huffman - External IPV- Inactivated Polio Vaccine 2001-11-14 00:00:00 Completed Luana Seybold - External Varicella Vaccine 2001-11-14 00:00:00 Completed Luana Stillold - External DTaP Unspecified 2001-11-14 00:00:00 Completed [...] HPV 4 (Human Papillomavirus) Unknown Completed Luana ybo ld - External HPV 4 (Human Papillomavirus) Unknown Completed Luana ybo ld - External Meningococcal Vaccine Polysaccharide Unknown [...] Unknown Completed Luana Seybo ld - External HPV 4 (Human Papillomavirus) [...] lsey Seybold - External TDAP Unknown Completed [facility] Varicella (varivax)(chicken pox) Unknown Completed [facility] Varicella (varivax)(chicken pox) Unknown Completed [facility] Vital Signs Vital Name Observation Time Observation Value Comments S ource Systolic blood pressure 2023-11-16 01:33:20 131 mm[Hg] [facility] Diastolic blood pressure 2023-11-16 01:33:20 82 mm[Hg] [facility] Heart rate 2023-11-16 01:33:20 81 /min [facility] Body temperature 2023-11-16 01:33:20 36.72 Liat [facility] Respiratory rate 2023-11-16 01:33:20 16 /min [facility] Oxygen saturation in Arterial blood by Pulse oximetry 2023-11-16 01:33:20 100 /min [facility] Body height 2023-11-15 23:56:00 152.4 cm [facility] Body weight 2023-11-15 23:56:00 91.627 kg [facility] BMI 2023-11-15 23:56:00 39.45 kg/m2 [facility] Systolic blood pressure 2023-09-29 18:34:00 110 [...] Systolic blood pressure 2022-12-04 00:17:00 120 mm[Hg] [facility] Diastolic blood pressure 2022-12-04 00:17:00 89 mm[Hg] [facility] Heart rate 2022-12-04 00:17:00 76 /min [facility] Body temperature 2022-12-04 00:17:00 36.89 Liat [facility] Respiratory rate 2022-12-04 00:17:00 18 /min [facility] Body height 2022-12-04 00:17:00 154.9 cm [facility] Body weight 2022-12-04 00:17:00 84.823 kg [facility] BMI 2022-12-04 00:17:00 35.33 kg/m2 [facility] Oxygen saturation in Arterial blood by Pulse oximetry 2022-12-04 00:17:00 99 /min [facility] Systolic blood pressure 2022-08-09 19:34:00 132 mm[Hg] Luana Fournierybo ld - External Diastolic blood pressure 2022-08-09 [...] Systolic blood pressure 2021-03-10 12:34:00 133 mm[Hg] [facility] Diastolic blood pressure 2021-03-10 12:34:00 93 mm[Hg] [facility] Heart rate 2021-03-10 12:34:00 80 /[facility] 2021-03-10 12:34:00 36.83 Liat [facility] Respiratory rate 2021-03-10 12:34:00 16 /min [facility] Body weight 2021-03-10 12:34:00 81.647 kg [facility] BMI 2021-03-10 12:34:00 35.15 kg/m2 [facility] Oxygen saturation in Arterial blood by Pulse oximetry 2021-03-10 12:34:00 99 /min [facility] Systolic blood pressure 2020-12-16 14:16:00 134 mm[Hg] [facility] Diastolic blood pressure 2020-12-16 14:16:00 86 mm[Hg] [facility] Heart rate 2020-12-16 14:16:00 78 /min [facility] Respiratory rate 2020-12-16 14:16:00 16 /min [facility] Oxygen saturation in Arterial blood by Pulse oximetry 2020-12-16 14:16:00 99 /min [facility] Body temperature 2020-12-16 13:00:00 36.94 Liat [facility] Body height 2020-12-16 11:44:00 152.4 cm [facility] Body weight 2020-12-16 11:44:00 81.647 kg [facility] BMI 2020-12-16 11:44:00 35.15 kg/m2 [facility] Systolic blood pressure 2019-01-19 13:00:00 139 mm[Hg] [facility] Diastolic blood pressure 2019-01-19 13:00:00 83 mm[Hg] [facility] Heart rate 2019-01-19 13:00:00 73 /min [facility] Body temperature 2019-01-19 13:00:00 36.89 Liat [facility] Respiratory rate 2019-01-19 13:00:00 20 /min [facility] Oxygen saturation in Arterial blood by Pulse oximetry 2019-01-19 13:00:00 99 /min [facility] Body height 2019-01-16 23:19:00 152.4 cm [facility] Body weight 2019-01-16 23:19:00 95.255 kg [facility] BMI 2019-01-16 23:19:00 41.01 kg/m2 [facility] Systolic blood pressure 2019-01-19 13:00:00 139 mm[Hg] [facility] Diastolic blood pressure 2019-01-19 13:00:00 83 mm[Hg] [facility] Heart rate 2019-01-19 13:00:00 73 /min [facility] Body temperature 2019-01-19 13:00:00 36.89 Liat [facility] Respiratory rate 2019-01-19 13:00:00 20 /min [facility] Oxygen saturation in Arterial blood by Pulse oximetry 2019-01-19 13:00:00 99 /min [place] [facility] Body height 2019-01-16 23:19:00 152.4 cm [facility] Body weight 2019-01-16 23:19:00 95.255 kg [facility] BMI 2019-01-16 23:19:00 41.01 kg/m2 [facility] Systolic blood pressure 2019-01-16 19:26:00 132 mm[Hg] [facility] Diastolic blood pressure 2019-01-16 19:26:00 84 mm[Hg] [facility] Heart rate 2019-01-16 19:26:00 94 /min [facility] Body temperature 2019-01-16 19:26:00 36.39 Liat [facility] Respiratory rate 2019-01-16 19:26:00 16 /min [facility] Body height 2019-01-16 19:26:00 152.4 cm [facility] Body weight 2019-01-16 19:26:00 95.397 kg [facility] BMI 2019-01-16 19:26:00 41.07 kg/m2 [facility] Systolic blood pressure 2019-01-16 19:26:00 132 mm[Hg] [facility] o [facility] Diastolic blood pressure 2019-01-16 19:26:00 84 mm[Hg] [facility] Heart rate 2019-01-16 19:26:00 94 /min [facility] Body temperature 2019-01-16 19:26:00 36.39 Liat [facility] Respiratory rate 2019-01-16 19:26:00 16 /min [facility] Body height 2019-01-16 19:26:00 152.4 cm [facility] Body weight 2019-01-16 19:26:00 95.397 kg [facility] BMI 2019-01-16 19:26:00 41.07 kg/m2 [facility] Heart rate 2019-01-16 07:06:00 89 /min [facility] Oxygen saturation in Arterial blood by Pulse oximetry 2019-01-16 07:06:00 100 /min [facility] Systolic blood pressure 2019-01-16 06:30:00 115 mm[Hg] [facility] Diastolic blood pressure 2019-01-16 06:30:00 67 mm[Hg] [facility] Body temperature 2019-01-16 05:25:00 36.94 Liat [facility] Respiratory rate 2019-01-16 05:25:00 17 /min [facility] Body height 2019-01-16 05:25:00 152.4 cm [facility] Body weight 2019-01-16 05:25:00 96.163 kg [facility] BMI 2019-01-16 05:25:00 41.40 kg/m2 [facility] Heart rate 2019-01-16 07:06:00 89 /min [facility] Oxygen saturation in Arterial blood by Pulse oximetry 2019-01-16 07:06:00 100 /min [facility] Systolic blood pressure 2019-01-16 06:30:00 115 mm[Hg] [facility] Diastolic blood pressure 2019-01-16 06:30:00 67 mm[Hg] [facility] Body temperature 2019-01-16 05:25:00 36.94 Liat [facility] Respiratory rate 2019-01-16 05:25:00 17 /min [facility] Body height 2019-01-16 05:25:00 152.4 cm [facility] Body weight 2019-01-16 05:25:00 96.163 kg [facility] BMI 2019-01-16 05:25:00 41.40 kg/m2 [facility] Systolic blood pressure 2019-01-15 22:44:00 120 mm[Hg] [facility] Diastolic blood pressure 2019-01-15 22:44:00 78 mm[Hg] [facility] Heart rate 2019-01-15 22:15:00 117 /min [facility] Body temperature 2019-01-15 22:15:00 36.72 Liat [facility] Respiratory rate 2019-01-15 22:15:00 16 /min [facility] Body height 2019-01-15 22:15:00 152.4 cm [facility] 2019-01-15 22:15:00 96.333 kg [facility] BMI 2019-01-15 22:15:00 41.48 kg/m2 [facility] Systolic blood pressure 2019-01-15 22:44:00 120 mm[Hg] [facility] Diastolic blood pressure 2019-01-15 22:44:00 78 mm[Hg] [facility] Heart rate 2019-01-15 22:15:00 117 /min [facility] Body temperature 2019-01-15 22:15:00 36.72 Liat [facility] Respiratory rate 2019-01-15 22:15:00 16 /min [facility] Body height 2019-01-15 22:15:00 152.4 cm [facility] Body weight 2019-01-15 22:15:00 96.333 kg [facility] BMI 2019-01-15 22:15:00 41.48 kg/m2 [facility] Systolic blood pressure 2019-01-11 14:23:00 114 mm[Hg] [facility] Diastolic blood pressure 2019-01-11 14:23:00 82 mm[Hg] [facility] Heart rate 2019-01-11 14:18:00 99 /min [facility] Body temperature 2019-01-11 14:18:00 36.28 Liat [facility] Respiratory rate 2019-01-11 14:18:00 16 /min [facility] Body height 2019-01-11 14:18:00 152.4 cm [facility] Body weight 2019-01-11 14:18:00 94.405 kg [facility] BMI 2019-01-11 14:18:00 40.65 kg/m2 [facility] Systolic blood pressure 2019-01-11 14:23:00 114 mm[Hg] [facility] Diastolic blood pressure 2019-01-11 14:23:00 82 mm[Hg] [facility] Heart rate 2019-01-11 14:18:00 99 /min [facility] Body temperature 2019-01-11 14:18:00 36.28 Liat [facility] Respiratory rate 2019-01-11 14:18:00 16 /min [facility] Body height 2019-01-11 14:18:00 152.4 cm [facility] Body weight 2019-01-11 14:18:00 94.405 kg [facility] BMI 2019-01-11 14:18:00 40.65 kg/m2 [facility] Procedures Procedure Date / Time Performed Performing Clinician Source XR SHOULDER 2+ VW RIGHT 2023-11-16 00:52:02 Anabela Massey [facility] URINE TEST-BACK OFFICE TEST 2023-01-10 19:30:00 Tao Garcia - External ASSIGNMENT OF BENEFITS 2022-12-04 03:02:04 Docto r Unassigned, Cleary [facility] XR HAND 3+ VW RIGHT 2022-12-04 01:51:18 Olga Wang [facility] NOTICE OF PRIVACY PRACTICES 2022-12-04 00:25:07 Doctor Unassigned, Cleary [facility] CONSENT/REFUSAL FOR DIAGNOSIS AND TREATMENT 2022-12-04 00:24:50 Doctor Unassigned, Cleary [facility] CT CERVICAL SPINE WO CONTRAST 2021-03-10 12:59:05 Irene Wang [facility] CT HEAD WO CONTRAST 2021-03-10 12:59:05 Ogla Wang [facility] CT HEAD WO CONTRAST 2020-12-16 13:11:21 Olga Wang [facility] CT LUMBAR SPINE WO CONTRAST 2020-12-16 13:11:21 Irene Wang [facility] POCT TEST 2020-12-16 12:32:00 Olga Wang [facility] CBC WITH DIFFERENTIAL 2019-01-18 09:24:00 Mica Butler [facility] VENOUS CORD GAS 2019-01-17 16:20:00 Ania Rayo [facility] SGOT (ASPARTATE AMINO TRANSFER) 2019-01-17 04:11:00 Rayo, [facility] CREATININE 2019-01-17 04:11:00 Girma [facility] ALANINE AMINO TRANSFERASE(SGPT 2019-01-17 04:11:00 Girma [facility] LACTATE DEHYDROGENASE 2019-01-17 04:11:00 Girma [facility] URIC ACID 2019-01-17 04:11:00 Girma [facility] CBC WITH DIFFERENTIAL 2019-01-17 04:11:00 [facility] 2019-01-17 04:11:00 Girma [facility] PROTEIN CREAT RATIO URINE RANDOM 2019-01-17 04:11:00 Girma [facility] RUBELLA SCREEN IGG 2019-01-17 02:57:00 [facility] ANTIGEN 2019-01-17 02:57:00 Girma [facility] GALV ONLY - SYPHILIS IGG/IGM 2019-01-17 02:57:00 Girma [facility] TYPE AND SCREEN 2019-01-17 02:44:00 [facility] ADC ONLY - FERN TEST 2019-01-16 06:07:00 Lois Bethea [facility] ASSIGNMENT OF BENEFITS 2019-01-16 04:49:39 Docto r Unassigned, Cleary [facility] NOTICE OF PRIVACY PRACTICES 2019-01-16 04:48:13 Doctor Unassigned, [place]ary [facility] POCT URINALYSIS 2019-01-15 22:18:00 Ibeth Morse [facility] POCT URINALYSIS W/O SPECIFIC GRAVITY 2019-01-11 14:21:00 Ibeth Morse [facility] POCT TEST 2019-01-11 14:20:00 Martin Morse [facility] NOTICE OF PRIVACY PRACTICES 2019-01-11 13:58:01 Doctor Unassigned, [place]ary [facility] Encounters Start Date/Time End Date/Time Encounter Type Admission Type Attending [facility] Care Facility Care Department Encounter ID Source 2021-04-14 01:49:53 Emergency [facility] [id number] General acute hospital 2021-04-13 06:09:12 Emergency [facility] [id number] General acute hospital 2024-02-02 10:15:00 2024-02-02 10:15:00 Outpatient LUANA CRAFT [id number] [facility] 2024-01-09 12:30:00 2024-01-09 12:30:00 Outpatient LUANA CRAFT [id number] [facility] 2024-01-06 12:30:00 2024-01-06 12:30:00 Outpatient LUANA CRAFT [id number] [facility] 2023-11-17 10:00:00 2023-11-17 10:00:00 Outpatient STELLA SUERO [id number] [facility] 2023-11-15 18:57:00 2023-11-15 20:40:00 Emergency X ANABELA MASSEY [facility] ERT [id number] General acute hospital 2023-11-15 18:57:00 2023-11-15 20:40:00 Emergency Anabela Massey [facility] 1.2.840.114 350.1.13.10 4.2.7.2.686 [id number] General acute hospital 2023-11-09 15:45:00 2023-11-09 15:45:00 Outpatient LUANA CRAFT [id number] [facility] 2023-09-29 14:45:00 2023-09-29 14:45:00 Outpatient TRED47 LUANA CRAFT [id number] [facility] 2023-09-29 14:15:00 2023-09-29 14:15:00 Outpatient LAB47 LUANA CRAFT [id number] [facility] 2023-09-29 13:45:00 2023-09-29 13:45:00 [facility] MIL[facility] [id number] [facility] 11:45:00 2023-08-22 11:45:00 Outpatient SANDRA FLORESSEY [id number] [facility] 2023-08-22 00:00:00 2023-08-22 00:00:00 Outpatient SELVINU, SANDRA LUANA CRAFT [id number] [facility] 2023-07-15 16:00:00 2023-07-15 16:00:00 Outpatient LEANDRO MORRELL [facility] [id number] [facility]23-07-05 14:00:00 2023-07-05 14:00:00 Outpatient HUNDLCHRIS LUANA CRAFT [id number] [facility] 2023-06-28 14:00:00 2023-06-28 14:00:00 Outpatient SHIMARLYU, SANDRA LUANA CRAFT [id number] [facility] 2023-06-07 15:30:00 2023-06-07 15:30:00 Outpatient OUMAR, MITALI [facility]RA[facility] [id number] [facility] 2023-06-03 16:00:00 2023-06-03 16:00:00 Outpatient OUMAR, MITALI CRAFT [id number] [facility] 2023-06-02 15:45:00 2023-06-02 15:45:00 Outpatient OUMAR, MITALI CRAFT [id number] [facility] 2023-06-02 00:00:00 2023-06-02 00:00:00 Outpatient PREZASMARISSA LUANA CRAFT [id number] [facility] 2023-05-20 16:00:00 2023-05-20 16:00:00 Outpatient LEANDRO MORRELL LUANA CRAFT [id number] [facility] 2023-05-16 16:00:00 2023-05-16 16:00:00 Outpatient OUMAR, MITALI CRAFT [id number] [facility] 2023-05-16 13:30:00 2023-05-16 13:30:00 Outpatient OUMAR, MITALI CRAFT [id number] [facility] 2023-03-18 16:15:00 2023-03-18 16:15:00 Outpatient OUMAR, MITALI CRAFT [id number] [facility] 2023-03-18 13:50:00 2023-03-18 13:50:00 Outpatient LAB90 LUANA LUANA [id number] [facility] 2023-03-18 13:15:00 2023-03-18 13:15:00 Outpatient MITALI OSEGUERA LUANA LUANA [id number] [facility] 2023-03-04 14:10:00 2023-03-04 14:10:00 Outpatient LAB90 LUANA LUANA [id number] [facility] 2023-02-22 15:30:00 2023-02-22 15:30:00 Outpatient LEANDRO MORRELL LUANA CRAFT [id number] [facility] 2023-02-01 00:00:00 2023-02-01 00:00:00 Outpatient TAO GARCIA LUANA CRAFT [id number] [facility] 2023-01-24 14:00:00 2023-01-24 14:00:00 Outpatient INJ, FLORENTINO LUANA CRAFT [id number] [facility] 2023-01-10 14:15:00 2023-01-10 14:15:00 Outpatient GARCIA, TAO LUANA CRAFT [id number] [facility] 2022-12-07 14:00:00 2022-12-07 14:00:00 Outpatient LEANDRO MORRELL LUANA CRAFT [id number] [facility] 2022-12-03 19:20:00 2022-12-03 22:20:00 Emergency X IRENE WANG [facility] ERT [id number] General acute hospital 2022-12-03 19:20:00 2022-12-03 22:20:00 Emergency Irene Wang [facility] 1.2.840.114 350.1.13.10 4.2.7.2.686 [id number] General acute hospital 2022-10-04 00:00:00 2022-10-04 00:00:00 Outpatient JACKIEMARISSA LUANA CRAFT [id number] [facility] 2022-09-22 15:30:00 2022-09-22 15:30:00 Outpatient GARCIATAO MARX LUANA LUANA [id number] [facility] 2022-08-17 00:00:00 2022-08-17 00:00:00 Outpatient MARISSA MEJIA LUANA [id number] [facility] 2022-08-16 11:10:00 2022-08-16 11:10:00 Outpatient LAB90 LUANA CRAFT [id number] [facility] 2022-08-16 00:00:00 2022-08-16 00:00:00 Outpatient MARISSA MEJIA LUANA CRAFT [id number] [facility] 2022-08-09 13:30:00 2022-08-09 13:30:00 Outpatient MARISSA MEJIA LUANA CRAFT [id number] [facility] 2022-08-05 11:00:00 2022-08-05 11:00:00 Outpatient R UNKNOWN, ATTENDING [facility] [id number] General acute hospital 2021-03-10 07:33:00 2021-03-10 08:50:00 [facility] 1.2840.114 350.1.13.10 4.2.7.2.686 [id number] General acute hospital 2020-12-16 06:35:00 2020-12-16 09:34:00 [facility] 1.2.840.114 350.1.13.10 4.2.7.2.686 [id number] General acute hospital 2020-09-02 00:00:00 2020-09-02 00:00:00 Patient Outreach Brian Green [facility] 1.2.840.114 350.1.13.10 4.2.7.2.686 [id number] General acute hospital 2019-01-16 18:12:00 2019-01-19 14:30:00 Hospital Encounter Mikael Teixeira [facility] 1.2.840.114 350.1.13.10 4.2.7.2.686 [id number] 2019-01-16 18:12:00 2019-01-19 14:30:00 Hospital Encounter Mikael Teixeira [facility] 1.2.840.114 350.1.13.10 4.2.7.2.686 [id number] General acute hospital 2019-01-16 14:06:12 2019-01-16 14:35:18 [facility] AERONAUTICAL ENGINEERING TECHNOLOGIST [facility] 1.2.840.114 350.1.13.10 4.2.7.2.686 [id number] 2019-01-16 14:06:12 2019-01-16 14:35:18 Nurse Visit Visit, Amandamynor Nurse Ibeth Morse [facility] 1.2.840.114 350.1.13.10 4.2.7.2.686 [id number] General acute hospital 2019-01-15 23:46:00 2019-01-16 02:55:00 Hospital Encounter Lois Bethea [facility] 1.2.840.114 350.1.13.10 4.2.7.2.686 [id number] 2019-01-15 23:46:00 2019-01-16 02:55:00 Hospital Encounter Lois Bethea [facility] 1.2.840.114 350.1.13.10 4.2.7.2.686 [id number] General acute hospital 2019-01-16 00:00:00 2019-01-16 00:00:00 Telephone Ibeth Morse [facility] AERONAUTICAL ENGINEERING TECHNOLOGIST [facility] 1.2.840.114 350.1.13.10 4.2.7.2.686 [id number] General acute hospital 2019-01-16 00:00:00 2019-01-16 00:00:00 Telephone Ibeth Morse [facility] AERONAUTICAL ENGINEERING TECHNOLOGIST [facility] 1.2.840.114 350.1.13.10 4.2.7.2.686 [id number] 2019-01-15 16:42:55 2019-01-15 18:07:11 Routine Visit Ibeth Morse [facility] AERONAUTICAL ENGINEERING TECHNOLOGIST [facility] 1.2.840.114 350.1.13.10 4.2.7.2.686 [id number] General acute hospital 2019-01-15 16:42:55 2019-01-15 18:07:11 Routine Visit Ibeth Morse [facility] AERONAUTICAL ENGINEERING TECHNOLOGIST [facility] 1.2.840.114 350.1.13.10 4.2.7.2.686 [id number] 2019-01-15 00:00:00 2019-01-15 00:00:00 Telephone Ibeth Morse [facility] AERONAUTICAL ENGINEERING TECHNOLOGIST [facility] 1.2.840.114 350.1.13.10 4.2.7.2.686 [id number] General acute hospital 2019-01-15 00:00:00 2019-01-15 00:00:00 Telephone Ibeth Morse [facility] AERONAUTICAL ENGINEERING TECHNOLOGIST [facility] 1.2.840.114 350.1.13.10 4.2.7.2.686 [id number] 2019-01-11 09:06:50 2019-01-11 10:43:15 Initial Visit Ibeth Morse [facility] AERONAUTICAL ENGINEERING TECHNOLOGIST [facility] 1.2.840.114 350.1.13.10 4.2.7.2.686 [id number] General acute hospital 2019-01-11 09:06:50 2019-01-11 10:43:15 Initial Visit Ibeth Morse [facility] AERONAUTICAL ENGINEERING TECHNOLOGIST [facility] 1.2.840.114 350.1.13.10 4.2.7.2.686 [id number] 2019-01-11 00:00:00 2019-01-11 00:00:00 Orders Only Doctor Unassigned, Cleary [facility] 1.2.840.114 350.1.13.10 4.2.7.2.686 [id number] General acute hospital Results Test Description Test Time Test Comments Results Resul t Comments Source XR SHOULDER 2+ VW RIGHT 2023-11-16 01:10:08 XR SHOULDER 2+ VW RIGHT HISTORY: ?right shoulder pain COMPARISON: ?none available. Findings:Osseous structures are intact. ?Joint spaces are preserved. [facility] Luana Huffman - ExternalCT HEAD WO [id number] 13:51:26No acute intracranial abnormality. Unremarkable CT examination of the lumbar spine. Preliminary Report Dictated by Resident: Remigio Bowser I, Mony Mcgee MD., have reviewed this study andagree with [...] reviewed this study and agree with theabove report.[facility] WO [id number] 13:51:26No acute intracranial abnormality. Unremarkable CT examination [...] alignment. No facet fracture or subluxation ispresent. [facility], Radiant Results Inft User - 12/16/2020 [...] reviewed this study and agree with theabove report.[facility] POCT [id number] 12:32:00* Test Item Value Reference Range Interpretation Comme nts POCT PREG (test code = 1605) negative On board controls acceptable with C Line (test code = 3574) present POCT PREG LOT # (test code = 3575) [id number] POCT PREG TEST DATE ( test code = 3576) 06/12/2022 Lab Interpretation (test cod e = 92840-3) Normal [facility] S[facility] [id number] 15:41:00* Test Item Value Reference Range Interpretation Comme [facility] Rubella screen IgG (test code = 5942225830) Positive Negative EVERETT (test code = EVERETT) Positive - Indicat es the patient was exposed to Rubella through infection or vaccination.Negative - Indicates the patient could be susceptible to Rubella infection.Equivocal - A second specimen should be sent. [facility] WITH [id number] 09:55:00* Test Item Value Reference Range Interpretation [...] 31.6 g/dL 31.6-35.1 RDW-SD (test code = 85181-5) 42.6 fL 39-49.9 RDW-CV (test code = 788-0) 13.3 % 12-15.5 PLT (test code = 777-3) See_Comment [Automated messa ge] The system which generated this result transmitted reference range: 166 - 358 10*3/?L. The reference range was not used to interpret this result as normal/abnormal. MPV (test code = 71298-6) 11.0 fL 9.5-12.9 NRBC/100 WBC (test code = 8079899249) See_Comment [Automated PivotLink ssage] The system which generated this result transmitted reference range: 0.0 - 10.0 /100 WBCs. The reference range was not used to interpret this result as normal/abnormal. NRBC x10^3 (test code = 9257810481) <0.01 See_Comment [Automated messa ge] The system which generated this result transmitted reference range: 10*3/?L. The reference range was not used to interpret this result as normal/abnormal. GRAN MAT (NEUT) % (test code = 770-8) 73.4 % IMM GRAN % (test code = 1550800883) 0.60 % LYMPH % (test code = 736-9) 18.7 % MONO % (test code = 5905-5) 6.1 % EOS % (test code = 713-8) 1.0 % BASO % (test code = 706-2) 0.2 % GRAN MAT x10^3(ANC) (test code = 0106512751) 9.99 10*3/uL 1.88-7.09 H IMM GRAN x10^3 (test code = 2671537161) 0.08 10*3/uL 0-0.06 H LYMPH x10^3 (test code = 731-0) 2.54 10*3/uL 1.32-3.29 MONO x10^3 (test code = 742-7) 0.83 10*3/uL 0.33-0.92 EOS x10^3 (test code = 711-2) 0.13 10*3/uL 0.03-0.39 BASO x10^3 (test code = 704-7) 0.03 10*3/uL 0.01-0.07 Lab Interpretation (test code = 53485-9) Abnormal [facility] CORD [id number] 16:38:00* Test Item Value Reference Range Interpretation Comme nts VENOUS BASE EXCESS, CORD (test code = 6857437172) mEq/L VENOUS PH, CORD (test code = 2217363402) 7.25-7.45 VENOUS PC02, CORD (test code = 9239876627) See_Comment [Automated messa ge] The system which generated this result transmitted reference range: 27 - 49 mmHg. The reference range was not used to interpret this result as normal/abnormal. VENOUS PO2, CORD (test code = 8326624870) See_Comment [Automated me ssage] The system which generated this result transmitted reference range: 17 - 41 mmHg. The reference range was not used to interpret this result as normal/abnormal. VENOUS BICARBONATE, CORD (test code = 2834525133) See_Comment [Automated messa ge] The system which generated this result transmitted reference range: 12 - 29 mEq/L. The reference range was not used to interpret this result as normal/abnormal. [facility] [id number] 16:35:00* Test Item Value Reference Range Interpretation Comme nts BASE EXCESS, CORD (test code = 9076014395) mEq/L AC PH, CORD (BEAKER) (test code = 7661248253) 7.18-7.38 L PC02, CORD (test code = 4153031874) See_Comment [Automated messa ge] The system which generated this result transmitted reference range: 32 - 66 mmHg. The reference range was not used to interpret this result as normal/abnormal. PO2, CORD (test code = 7526959225) See_Comment [Automated messa ge] The system which generated this result transmitted reference range: 10 - 30 mmHg. The reference range was not used to interpret this result as normal/abnormal. BICARBONATE, CORD (test code = 8416739800) See_Comment L [Automated me ssage] The system which generated this result transmitted reference range: 17 - 27 mEq/L. The reference range was not used to interpret this result as normal/abnormal. Lab Interpretation (test code = 01667-6) Abnormal [facility] SystemGAL ONLY - SYPHILIS [id number] 14:10:00* Test Item Value Reference Range Interpretation Comme nts Syphilis IgG/IgM (test code = 88609-3) Non-reactive Non-reactive EVERETT (test code = EVERETT) Non-reactive - No serologic evidence of T. pallidum infection. Cannot exclude incubating or early syphilis. Submit a second specimen in 2-4 weeks if syphilis is clinically suspected.Equivocal - Further testing to follow.Reactive - Further testing to follow. Lab Interpretation (test code = 58883-6) Normal [facility] SystemProtein CREAT Ratio Urine [id number] 05:48:00* Test Item Value Reference Range Interpretation Comme nts T. PROT U (test code = 2888-6) 11 mg/dL CREAT U (test code = 5890926686) 116.3 mg/dL Protein/Creatinine Ratio Uri ne (test code = 4958785384) 0.0-2.0 [facility] SystemUrinalysis2019-08-07 05:25:00* Test Item Value Reference Range Interpretation Comme nts APPEARANCE (test code = 8451032891) Clear Clear COLOR (test code = 6013006146) Yellow Yellow PH (test code = 7990921288) 4.8-8.0 SP GRAVITY (test code = 3160354553) 1.003-1.030 GLU U QUAL (test code = 2625125946) Normal Normal BLOOD (test code = 7516142613) Negative Negative KETONES (test code = 9130223140) 5 mg/dL Negative A PROTEIN (test code = 2887-8) Negative Negative UROBILIN (test code = 4552076888) Normal Normal BILIRUBIN (test code = 8020727410) Negative Negative NITRITE (test code = 1944166634) Negative Negative LEUK TONY (test code = 8072278987) Negative Negative RBC/HPF (test code = 1561522557) See_Comment H [Automated [employer]sa ge] The system which generated this result transmitted reference range: 0 - 3 HPF. The reference range was not used to interpret this result as normal/abnormal. WBC/HPF (test code = 6069918607) See_Comment [Automated [employer] Productsa ge] The system which generated this result transmitted reference range: 0 - 5 HPF. The reference range was not used to interpret this result as normal/abnormal. BACTERIA (test code = 3438926028) Negative Negative MUCOUS (test code = 9374404434) Slight Negative LPF A SQ EPITH (test code = 6833600251) See_Comment [Automated [employer]] The system which generated this result transmitted reference range: <=2 HPF. The reference range was not used to interpret this result as normal/abnormal. HYAL CAST (test code = 2305796109) See_Comment [Automated [employer] Productsa [employer]] The system which generated this result transmitted reference range: <=2 LPF. The reference range was not used to interpret this result as normal/abnormal. Lab Interpretation (test code = 03870-3) Abnormal [facility] SystemUric Acid [id number] 05:00:00* Test Item Value Reference Range Interpretation Comme nts URIC ACID (test code = 7181552102) 4.8 mg/dL 2.9-6 Lab Interpretation (test cod e = 52697-7) Normal [facility] [id number] 05:00:00* Test Item Value Reference Range Interpretation Comme nts CREATININE (test code = 7892261052) 0.51 mg/dL 0.5-1.04 eGFR Calculation (Non-) (test code = 0378188792) mL/min/1.73m2 eGFR Calculation () (test code = 7960679884) mL/min/1.73m2 EVERETT (test code = EVERETT) Association [...] or urine or abnormalities in imaging tests). [facility] SystemSGOT (Asparate Amino Transfer)2019-01-17 05:00:00* Test Item Value Reference Range Interpretation Comme nts AST(SGOT) (test code = 3031048962) 20 U/L 13-40 Lab Interpretation (test cod e = 55588-6) Normal [facility] SystemAlanine Amino Transferase (SGPT)2019-01-17 05:00:00* Test Item Value Reference Range Interpretation Comme nts ALT(SGPT) (test code = 3156130364) 16 U/L 9-51 Lab Interpretation (test cod e = 34722-3) Normal [facility] SystemLactate Mbdktlurpulbb7547-94-63 05:00:00* Test Item Value Reference Range Interpretation Comme nts LDH (test code = 4974180075) 527 U/L 300-600 Lab Interpretation (test cod e = 96094-3) Normal [facility] SystemCB WITH [id number] 04:46:00* Test Item Value Reference Range Interpretation Comme nts WBC (test code = 6690-2) See_Comment [Automated [employer] ge] The system which generated this result transmitted reference range: 4.30 - 11.10 10*3/?L. The reference range was not used to interpret this result as normal/abnormal. RBC (test code = 789-8) See_Comment L [Automated [employer] Productsa ge] The system which generated this result [...] g/dL 31.6-35.1 L RDW-SD (test code = 63796-2) 42.5 fL 39-49.9 RDW-CV (test code = 788-0) 13.2 % 12-15.5 PLT (test code = 777-3) See_Comment [Automated messa ge] The system which generated this result transmitted reference range: 166 - 358 10*3/?L. The reference range was not used to interpret this result as normal/abnormal. MPV (test code = 05857-7) 11.9 fL 9.5-12.9 NRBC/100 WBC (test code = 2258999566) See_Comment [Automated [employer] ssage] The system which generated this result transmitted reference range: 0.0 - 10.0 /100 WBCs. The reference range was not used to interpret this result as normal/abnormal. NRBC x10^3 (test code = 2174324313) <0.01 See_Comment [Automated messa ge] The system which generated this result transmitted reference range: 10*3/?L. The reference range was not used to interpret this result as normal/abnormal. GRAN MAT (NEUT) % (test code = 770-8) 75.6 % IMM GRAN % (test code = 5810051776) 0.70 % LYMPH % (test code = 736-9) 17.1 % MONO % (test code = 5905-5) 6.0 % EOS % (test code = 713-8) 0.3 % BASO % (test code = 706-2) 0.3 % GRAN MAT x10^3(ANC) (test code = 2692390839) 7.92 10*3/uL 1.88-7.09 H IMM GRAN x10^3 (test code = 6959365314) 0.07 10*3/uL 0-0.06 H LYMPH x10^3 (test code = 731-0) 1.79 10*3/uL 1.32-3.29 MONO x10^3 (test code = 742-7) 0.63 10*3/uL 0.33-0.92 EOS x10^3 (test code = 711-2) 0.03 10*3/uL 0.03-0.39 BASO x10^3 (test code = 704-7) 0.03 10*3/uL 0.01-0.07 Lab Interpretation (test code = 80560-9) Abnormal [facility] SystemHepatitis B Surface [id number] 04:37:00 * Test Item Value Reference Range Interpretation Comme nts HBsAg Semi-Quantitative (aimee t code = 5195-3) [facility] SystemType and Screen - ONCE [id number] 03:35:01 * Test Item Value Reference Range Interpretation Comme nts ABO & RH (test code = 20) O POSITIVE Performed at [facility] Laboratory Services - [facility] Blood [place] [id number] Free: [phone] No. [id number] IAT (test code = 1185) Negative Performed at [facility] Laboratory Services - [facility] Blood [place] [id number] Free: [phone] No. [id number] [facility] CLC OR L[facility] ONLY - WET [id number] 06:32:00* Test Item Value Reference Range Interpretation Comme nts Wet Prep (test code = 4636955426) No Epithelial cells [facility] ONLY - FERN [id number] 06:30:00* Test Item Value Reference Range Interpretation Comme nts Fern Test (test code = 4786035700) Negative [facility] SystemPOCT URINALYSIS W SPECIFIC [id number] 22:18:00* Test Item Value Reference Range Interpretation [...] POCT U APPEAR (test code = 3267) [facility] URINALYSIS W/O SPECIFIC [id number] 14:21:00* Test Item Value Reference Range Interpretation [...] = 3257) Neg Negative - Negati ve [facility] SystemPOPR URINALYSIS W/O SPECIFIC [id number] 14:21:00* Test Item Value Reference Range Interpretation [...] = 3257) Neg Negative - Negati ve [facility] SystemPOCT [id number] 14:20:00* Test Item Value Reference Range Interpretation Comme nts POCT PREG (test code = 1605) Positive On board controls acceptable with C Line (test code = 3574) Yes POCT PREG LOT # (test code = 3575) POCT PREG TEST DATE ( test code = 3576) [facility] SystemPOPR [id number] 14:20:00* Test Item Value Reference Range Interpretation Comme nts POCT PREG (test code = 1605) Positive On board controls acceptable with C Line (test code = 3574) Yes POCT PREG LOT # (test code = 3575) POCT PREG TEST DATE ( test code = 3576) [facility] Notes Date/Time Note Provider Source 2023-11-15 20:38:00 [...] steady gait, in no apparent distress. 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 Janee Hu RN [facility] 2023-11-15 18:41:00 [facility] Emergency Department Note Patient Name: aKrina Gillis Date of : 1995 28 year old female [id number] Primary Care Physician: PATIENT DOES NOT HAVE [...] Electronically signed by: Anabela Massey DO 11/15/232016 [facility] 2023-09-29 13:41:10 Chief Complaint Patient presents with Blood Pressure On & off high blood pressure since high school "148/97" at work on Tuesday --- nausea and vomiting, lightheadedness Re-checked "140/105" took BP medication No other complaints voiced T Kathy Rai [facility] 2023-01-10 14:21:09 Formatting of this n ote is different from the original. Chief Complaint Patient presents with Well Woman Exam Pt states she gets some abdominal pain sometimes feels like cramps, would like to discuss getting on birthcontrol Karina Dodsonrett is here today for her Well Woman Exam. Patient's last menstrual period was 12/20/2022 (exact date). The patient's last pap smear was unknown and her last mammogram was never. Luh Scott CMA I [facility]
--- NOTE | 2024-02-17 04:42 | ER ---
Nurse's Notes [facility] Nav Name: Eboni Gillis Age: 28 yrs Sex: Female : 1995 Arrival Date: 02/17/2024 Time: 04:18 Bed 16 Private MD: Diagnosis: Other mucopurulent conjunctivitis, bilateral;Bilateral tear duct infection, acute upper respiratory infection Presentation: 02/16 04:26 Chief complaint: Patient states: red, itchy eyes that began yesterday. Woke up this morning with both eyes matted. Coronavirus screen: Client denies travel out of the [place] in the last 14 days. Ebola Screen: Patient denies exposure to infectious person. Patient denies travel to an Ebola-affected area in the 21 days before illness onset. Mechanism of Injury: No Mechanism of Injury. The patient denies any loss of vision. Initial Sepsis Screen: Does the patient meet any 2 criteria? No. Patient's initial sepsis screen is negative. Does the patient have a suspected source of infection? No. Patient's initial sepsis screen is negative. Risk Assessment: Do you want to hurt yourself or someone else? Patient reports no desire to harm self or others. Onset of symptoms was February 16, 2024. 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 - Infectious Disease History:: Denies. - Social history:: Smoking status: Patient denies any tobacco usage or history of. - Family history:: not pertinent. Screenin:29 [facility] ED Fall Risk Assessment (Adult) History of falling in the last 3 months, rg5 including since admission No falls in past 3 months (0 pts) Confusion or Disorientation No (0 pts) Intoxicated or Sedated No (0 pts) Impaired Gait No (0 pts) Mobility Assist Device Used No (0 pt) Altered Elimination No (0 pt) Score/Fall Risk Level 0 - 2 = Low Risk Oriented to surroundings, Maintained a safe environment, Educated pt \T\ family on fall prevention, incl call for assistance when getting out of bed, Hourly rounding (assess needs \T\ fall precautionary measures) done. Abuse screen: Denies threats or abuse. Nutritional screening: No deficits noted. Tuberculosis screening: No symptoms or risk factors identified. Assessment: 04:15 EENT: Eyes Sclera/Cornea are reddened in outer aspect of conjuctiva of right eye, inner rg5 aspect of conjuctiva of right eye, outer aspect of conjuctiva of left eye and inner aspect of conjunctiva of left eye. 04:29 General: Appears in no apparent distress. comfortable, Behavior is calm, cooperative, rg5 appropriate for age. Pain: Complains of pain in right eye and left eye Pain currently is 5 out of 10 on a pain scale. Quality of pain is described as aching, Pain began 1 day ago. Neuro: Level of Consciousness is awake, alert, obeys commands, Oriented to person, place, time. Cardiovascular: Denies chest pain. Respiratory: Airway is patent Trachea midline Respiratory effort is even, unlabored, Respiratory pattern is regular, symmetrical. GI: No signs and/or symptoms were reported involving the gastrointestinal system. Abdomen is round non-distended, Abd is soft and non tender. : No signs and/or symptoms were reported regarding the genitourinary system. EENT: Reports LEFT EYE SWELLING \T\ YELLOW DRAINAGE ON BOTH EYES. Derm: Skin is intact, Skin is dry, Skin is normal, Skin temperature is warm. Musculoskeletal: Range of motion: intact in all extremities. Vital Signs: 04:26 BP 139 / 99; Pulse 82; Resp 15; Temp 98.6(O); Pulse Ox 98% on R/A; Weight 89.81 kg; ss Height 5 ft. 0 in. ; Pain 0/10; 04:34 BP 139 / 99; Pulse 82; Resp 16; Temp 98.6; Pulse Ox 98% on R/A; rg5 04:26 Body Mass Index 38.67 (89.81 kg, 152.4 cm) ss 04:26 Pain Scale: Adult ss Visual Acuity: 04:35 Left Eye Visual acuity 20/20, ; Right Eye Visual acuity 20/20, ; Both Eyes Visual rg5 acuity 20/20; With Lenses; Rhame Coma Score: 05:11 Eye Response: spontaneous(4). Motor Response: obeys commands(6). Verbal Response: sp4 oriented(5). Total: 15. ED Course: 04:21 Patient arrived in ED. jj6 04:22 Andrey Nath RN is Primary Nurse. rg5 04:22 Sukhwinder Medel MD is Attending Physician. sp4 04:28 Triage completed. ss 04:28 Arm band placed on right wrist. ss 04:29 Patient has correct armband on for positive identification. Bed in low position. Call rg5 light in reach. Side rails up X 1. 04:29 No provider procedures requiring assistance completed. Patient did not have IV access rg5 during this emergency room visit. 05:18 Provided Education on: HAND WASHING. rg5 Administered Medications: 04:42 Drug: Tetracaine Ophthalmic Drops 0.5 % 2 drops Ophthalmic once; 2 drops bilateral eyes rg5 Route: Ophthalmic; Site: both eyes; 04:57 Drug: Rocephin (cefTRIAXone) IM 1 grams IM once Route: IM; Site: left gluteus; rg5 05:09 Follow up: Response: No adverse reaction rg5 Medication: 04:29 VIS not applicable for this client. rg5 Outcome: 04:42 Discharge ordered by . sp4 05:18 Discharged to home ambulatory, rg5 05:18 Condition: stable 05:18 Discharge instructions given to patient, Instructed on discharge instructions, follow up and referral plans. Demonstrated understanding of instructions, follow-up care, medications, Prescriptions given X 2, 05:20 Patient left the ED. rg5 Signatures: Ivania Frances RN RN Ashlie Vidal jj6 Sukhwinder Medel MD MD sp4 Andrey Nath RN RN rg5
--- NOTE | 2024-02-17 04:42 | EDPHYS ---
Physician Documentation [facility] Name: Eboni Gillis Age: 28 yrs Sex: Female : 1995 Arrival Date: 02/17/2024 Time: 04:18 Bed 16 Private MD: ED Physician Sukhwinder Medel HPI: 02/16 04:22 This 28 yrs old Female presents to ER via Unassigned with complaints of Eye sp4 Pain, Eye Swelling, Drainage From Eye. 05:11 28 -year-old female presents with complaint of acute bilateral eye swelling drainage sp4 purulence and discharge. Patient states she woke up this morning with bilateral eye crusting and drainage.. 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 - Infectious Disease History:: Denies. - Social history:: Smoking status: Patient denies any tobacco usage or history of. - Family history:: not pertinent. ROS: 05:11 Constitutional: Negative for fever, chills, and weight loss, bilateral eye drainage, sp4 positive bilateral eye redness, positive bilateral eye crusting, bilateral eye discomfort Eyes: Negative for injury, pain, redness, and discharge, ENT: Positive for bilateral drainage 05:11 All other systems are negative, Exam: 05:11 Visual Acuity: I have reviewed the nursing documentation. Visual acuity is within sp4 normal limits. 05:11 Constitutional: This is a well developed, well nourished patient who is awake, alert, and in no acute distress. Head/Face: Normocephalic, atraumatic. Eyes: Is aPupils equal round and reactive to light, extra-ocular motions intact. Bilateral eye crusting, bilateral eye purulent discharge, bilateral tear duct infection, bilateral conjunctival erythema ENT: Nares patent. No nasal discharge, no septal abnormalities noted. Tympanic membranes are normal and external auditory canals are clear. Oropharynx with no redness, swelling, or masses, exudates, or evidence of obstruction, uvula midline. Mucous membranes moist. Neck: Trachea midline, no thyromegaly or masses palpated, and no cervical lymphadenopathy. Supple, full range of motion without nuchal rigidity, or vertebral point tenderness. Chest/axilla: Normal chest wall appearance and motion. Nontender with no deformity. No lesions are appreciated. Cardiovascular: Regular rate and rhythm with a normal S1 and S2. No gallops, murmurs, or rubs. Normal PMI, no JVD. No pulse deficits. Respiratory: Lungs have equal breath sounds bilaterally, clear to auscultation and percussion. No rales, rhonchi or wheezes noted. No increased work of breathing, no retractions or nasal flaring. Abdomen/GI: Soft, with normal bowel sounds. No distension or tympany. No guarding or rebound. No evidence of tenderness throughout. Back: No spinal tenderness. No costovertebral tenderness. Skin: Warm, dry with normal turgor. Normal color with no rashes, no lesions, and no evidence of cellulitis. MS/ Extremity: Pulses equal, no cyanosis. Neurovascular intact. Full, normal range of motion. Neuro: Awake and alert, GCS 15, oriented to person, place, time, and situation. Cranial nerves II-XII grossly intact. Motor strength 5/5 in all extremities. Sensory grossly intact. Psych: Awake, alert, with orientation to person, place and time. Behavior, mood, and affect are within normal limits Vital Signs: 04:26 BP 139 / 99; Pulse 82; Resp 15; Temp 98.6(O); Pulse Ox 98% on R/A; Weight 89.81 kg; ss Height 5 ft. 0 in. ; Pain 0/10; 04:34 BP 139 / 99; Pulse 82; Resp 16; Temp 98.6; Pulse Ox 98% on R/A; rg5 04:26 Body Mass Index 38.67 (89.81 kg, 152.4 cm) ss 04:26 Pain Scale: Adult ss Leburn Coma Score: 05:11 Eye Response: spontaneous(4). Motor Response: obeys commands(6). Verbal Response: sp4 oriented(5). Total: 15. Visual Acuity: 04:35 Left Eye Visual acuity 20/20, ; Right Eye Visual acuity 20/20, ; Both Eyes Visual rg5 acuity 20/20; With Lenses; MDM: 04:42 Patient medically screened. sp4 05:11 Differential diagnosis: Corneal abrasion of Corneal ulcer of Foreign body in Acute sp4 iritis of Ultraviolet keratitis in. Data reviewed: vital signs, nurses notes, old medical records. ED course: Patient stable for discharge with prescription for tobramycin eyedrops and cephalexin twice a day for 10 days.. Administered Medications: 04:42 Drug: Tetracaine Ophthalmic Drops 0.5 % 2 drops Ophthalmic once; 2 drops bilateral eyes rg5 Route: Ophthalmic; Site: both eyes; 04:57 Drug: Rocephin (cefTRIAXone) IM 1 grams IM once Route: IM; Site: left gluteus; rg5 05:09 Follow up: Response: No adverse reaction rg5 Disposition Summary: 02/17/24 04:42 Discharge Ordered Notes: Location: Home sp4 Problem: new sp4 Symptoms: have improved sp4 Condition: Stable sp4 Diagnosis - Other mucopurulent conjunctivitis, bilateral sp4 - Bilateral tear duct infection, acute upper respiratory infection sp4 Followup: sp4 - With: Private Physician - When: 7 - 10 days - Reason: Recheck today's complaints Discharge Instructions: - Discharge Summary Sheet sp4 - Bacterial Conjunctivitis, Adult, Bhih-ws-[id number] sp4 Forms: - Patient Portal Instructions sp4 Prescriptions: - tobramycin 0.3 % Ophthalmic drops - instill 2 drop OPHTHALMIC route every 4 hours for 5 days 2 drops to both eyes sp4 every 4 hours for 5 days dispense with 1 refill; 5 milliliter; Refills: 0, Product Selection Permitted - Cephalexin 500 mg Oral Capsule - take 1 capsule ORAL route every 12 hours for 10 days; 20 capsule; Refills: 0, sp4 Product Selection Permitted Signatures: Ivania Frances RN RN Sukhwinder Medel MD MD sp4 Andrey Nath RN RN rg5
[2024-02-17] MEDS ORDERED: CEFTRIAXONE 1000 MG/VIAL ONE (04:44)
[2024-02-17] MEDS ORDERED: LIDOCAINE 1% MPF 2 ML AMPULE ONE (04:45)
[2024-02-17] MEDS ORDERED: TETRACAINE HCL 0.5% 4ML OPTH ONE (04:45)
[2024-02-17 05:27] VITALS: BP 139/99; TEMP 98.6; O2SAT 98
== END 2024-02-17 05:20 | disposition home or self-care (01) ==
LOC: ER 04:18
DX: H10.023 Other mucopurulent conjunctivitis, bilateral (principal); J06.9 Acute upper respiratory infection, unspecified
CPT/HCPCS: J0696

== ENCOUNTER 2024-05-14 20:01 | Emergency (ER) | payer BC ==
--- OUTSIDE RECORDS SUMMARY | 2024-05-14 20:06 | XMS REPORT | Continuity of Care Document ---
Author Name Unknown Address [address] [facility] [address] [place] [address] [facility] thconnect Address [address] [facility] 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 Role Phone PCP, PATIENT DOES NOT HAVE A Primary Care Physic bharath Unavailable JESUS PAUL Attending Clinician Unavailable SHONDA BHAGAT Attending Clinician Unavailable RADHA CORBIN Attending Clinician UnavailDWAINE Melo Attending Clinician Unavailab STELLA Woo Attending Clinician Unavailable ANABELA MASSEY Attending Clinician Unavailab Anabela Alcantar DO Attending Clinician [phone] TRED47 Attending Clinician Unavailable LAB47 Attending Clinician Unavailable KAYLEE MILNER Attending Clinician Unavailable SANDRA FLORES Attending Clinician Unavailable LEANDRO MORRELL Attending Clinician Unavailab CHRIS Patel Attending Clinician Unavailable MITALI OSEGUERA Attending Clinician UnavailMARISSA Angulo Attending Clinician Unavailable LAB90 Attending Clinician Unavailable TAO GARCIA Attending Clinician Unavailable FLORENTINO BRANTLEY Attending Clinician Unavailable IRENE WANG Attending Clinician Unavailable Irene Wang MD Attending Clinician [phone] UNKNOWN, ATTENDING Attending Clinician Unavailab gerhard Green DO Brian Long Attending Clinician [phone] Puneet JEAN, Mikael Kee Attending Clinician [phone] Visit, [facility] Nurse Attending Clinician Jhony Gregorygabyad WILLIAMSON Ibeth C Attending Clinician + [place] JEAN, Lois Cruz Attending Clinician [phone] Doctor Unassigned, Bella Villa Attending Clinician U ANABELA Mcclendon Admitting Clinician UnavailIRENE Collier Admitting Clinician Unavailable Puneet JEAN, Mikael Kee Admitting Clinician [phone] Lois Bethea MD Admitting Clinician [phone] Payers Payer Name Policy Type Policy Number Effective Date Expirati on Date Source [facility] - OUT OF STATE [id number] 2020 00:00:00 [employer] MEDICAID [id number] 2019 00:00:00 [facility]ERS-BC[facility] CAPITATED) 9 [id number] 2022 00:00:00 ST OFF OF RISK [facility] [id number] 00:00:00 Problems Condition Name Condition Details Condition [...] pollen Disease Active 08-09 00:00: 00 Luana Sejuanold - Externa l Other headache syndrome Other headache syndrome Disease Active 08-09 00:00: 00 Luana Seybold - Externa l Thyromegal y Thyromegal y Disease Active 08-09 00:00: 00 Luana Seybold - Externa l (spontaneo us vaginal delivery) (spontaneo us vaginal delivery) Disease Active 01-18 00:00: 00 [facility] Single live Single live Disease Active 01-18 00:00: 00 [facility] Anemia, Anemia, Disease Active 01-18 00:00: 00 [facility] Gestationa l hypertensi on Gestationa l hypertensi on Disease Active 01-18 00:00: 00 [facility] Laceration , obstetrica l, second degree Laceration , obstetrica l, second degree Disease Active 01-18 00:00: 00 [facility] (spontaneo us vaginal delivery) (spontaneo us vaginal delivery) Disease Active 01-18 00:00: 00 [facility] Anemia, Anemia, Disease Active 01-18 00:00: 00 [facility] Gestationa l hypertensi on Gestationa l hypertensi on Disease Active 01-18 00:00: 00 [facility] Gestationa l hypertensi on Gestationa l hypertensi on Disease Active 01-18 00:00: 00 [facility] Morbid obesity with body mass index of 40.0-49.9 Morbid obesity with body mass index of 40.0-49.9 Disease Active 01-16 00:00: 00 [facility] 39 weeks gestation of 39 weeks gestation of Disease Active 01-16 00:00: 00 [facility] Morbid obesity with body mass index of 40.0-49.9 Morbid obesity with body mass index of 40.0-49.9 Disease Active 01-16 00:00: 00 [facility] Positive GBS test Positive GBS test Disease Active 01-15 00:00: 00 Overview: Address intrapart um [facility] Cervical Papanicola ou smear negative within last 12 months Cervical Papanicola ou smear negative within last 12 months Disease Active 01-15 00:00: 00 Overview: Formattin g of this note might be different from the original. NIL pap 07/03/18 [facility] Rubella non-immune status, antepartum Rubella non-immune status, antepartum Disease Active 01-12 00:00: 00 Overview: Address pp [facility] Susceptibl e varicella Susceptibl e varicella Disease Active 01-12 00:00: 00 Overview: Formattin g of this note might be different from the original. Address pp [facility] Supervisio n of high-risk with insufficie nt care Supervisio n of high-risk with insufficie nt care Disease Active 01-11 00:00: 00 Overview: See scanned records [facility] Obesity in Obesity in Disease Active 01-11 00:00: 00 [facility] Nexplanon in place Nexplanon in place Disease Active 2015-06 00:00: 00 [facility] Irregular menstrual cycle Irregular menstrual cycle Disease Active 2015-06 00:00: 00 [facility] Right ankle pain Right ankle pain Disease Active 10-27 00:00: 00 [facility] Well woman exam Well woman exam Disease Active 07-16 00:00: 00 [facility] Depo-Prove ra contracept humberto status Depo-Prove ra contracept humberto status Disease Active 07-16 00:00: 00 [facility] Overweight Overweight Disease Active 07-16 00:00: 00 [facility] Contracept humberto management Contracept humberto management Disease Active 07-16 00:00: 00 [facility] History of anxiety History of anxiety Disease Active 07-16 00:00: 00 [facility] History of depression History of depression Disease Active 07-16 00:00: 00 [facility] Allergies, Adverse Reactions, Alerts Allergy Name Allergy Type Status Severity Reaction(s) Onset Date Inactive Date Treating Clinician Comments Source Amoxicil steven Propensi ty to adverse reaction s Active 08-09 00:00: 00 Luana Huffman - Externa l Penicill ins Propensi ty to adverse reaction s Active Unknown - See comments 11-28 00:00: 00 "made my throat tingle" [facility] PENICILL INS Drug Class Active Unknown-Cmnt 11-28 00:00: 00 [facility] Penicill ins Propensi ty to adverse reaction s Active Unknown - See comments 11-28 00:00: 00 "made my throat tingle" [facility] Penicill ins Propensi ty to adverse reaction s Active 11-28 00:00: 00 Other reaction( s): Unknown - See comments" made my throat tingle" Luana Huffman - Externa l Social History Social Habit Start Date Stop Date Quantity Comments Source Gender identity 2020-10-15 16:16:19 Identifies as female gender (finding) Luana Huffman - External ASSERTION 2018-05-01 00:00:00 [facility] History SDOH Alcohol Binge Luana Huffman - External History SDOH Alcohol Frequency Luana almonte - External History SDOH Alcohol Std Drinks Luana berg - External Exposure to SARS-CoV-2 (event) Not sure [facility] intake 2023-11-15 00:00:00 2023-11-15 00:00:00 0 /d [facility] Alcohol intake 2023-01-10 00:00:00 2023-01-10 [...] of Social function 2020-01-16 00:00:00 2020-01-16 00:00:00 [facility] Tobacco use and exposure 2015-07-14 00:00:00 2015-07-14 00:00:00 Smokeless tobacco non-user [facility] Sex assigned at 1995 00:00:00 1995 00:00:00 [facility] Smoking Status Start Date Stop Date Source Never smoked tobacco [facility] Medications Ordered Medication Name Filled Medication Name Start Date Stop Date Current Medication? Ordering Clinician Indication Dosage Frequency Signature (SIG) Comments Components Source ibuprofen (IBU) tablet 600 mg 11-15 00:15: 00 11-15 00:37 :00 No 600mg 600 mg, Oral, ONCE, 1 dose, On Tue11/15/23 at 1915, EDOUARD [facility] Promethazin e-DM 6.25-15 MG/5ML oral Syrup 08-21 00:00: 00 09-28 00:00 :00 No [id number] 5mL Q.25D Take 5 mL by mouth 4 times daily as needed for cough. Luana davis FLUTICASONE PROPIONATE, NASAL, 50 MCG/ACT nasal Suspension 08-21 00:00: 00 09-28 00:00 :00 No [id number] 50ug Use 1 spray (50 mcg total) in each nostril daily. Luana davis Pseudoeph-B romphen-DM 30-2-10 MG/5ML oral Syrup 06-28 00:00: 00 Yes [id number] 10mL Q.25D Take 10 mL by mouth 4 times daily as needed. Luana davis Azithromyci n 250 MG oral Tablet 06-28 00:00: 00 07-04 05:59 :00 No [id number] Take 2 tablets by mouth on day 1 then 1 tablet by mouth daily for 4 days thereafter .. Luana davis Medroxyprog esterone (DEPO-PROVE RA) [150 mg/mL] - Once Every 3 Months 14 05:00: 00 09-28 18:39 :54 No [id number] 150mg Luana davis Magnesium 500 MG oral [...] 00:00: 00 01-10 00:00 :00 No 4mg [id number] 3D Take 1 tablet (4 mg total) by mouth every 8 hours as needed for nausea Luana davis naproxen 500 mg tablet 12-03 00:00: 00 12-14 04:59 :00 No [id number] 500mg Take 1 tablet by mouth in the morning and 1 tablet in the evening. Take with meals. Do all this for 10 days. [facility] acetaminoph en (TYLENOL) tablet 1,000 mg 03-10 14:15: 00 03-10 13:06 :00 No 1000mg 1,000 mg, Oral, ONCE, 1 dose, On Tue03/10/21 at 0915, [facility] ondansetron 4 mg disintegrat ing tablet 03-10 00:00: 00 Yes [id number] 4mg Take 1 tablet by mouth every 4 (four) hours as needed for Nausea and Vomiting (N/V). [facility] HYDROcodone -acetaminop hen (NORCO) 7.5-325 mg per tablet 03-10 00:00: 00 03-18 04:59 :00 No [id number] 1{tbl} Take 1 tablet by mouth every 8 (eight) hours as needed for Pain for up to 7 days. Indication s: acute pain [facility] ondansetron (ZOFRAN (PF)) injection 4 mg 12-16 13:45: 00 12-16 12:35 :00 No 4mg 4 mg, Slow IV Push, ONCE, 1 dose, Tue12/16/20 at 0845, EDOUARD [facility] FENTanyl PF (SUBLIMAZE (PF)) injection 125 mcg 12-16 13:45: 00 12-16 12:35 :00 No 125ug 125 mcg, Slow IV Push, ONCE, 1 dose, 12/16/20 at 0845, STAT [facility] ibuprofen 600 mg tablet 12-16 00:00: 00 Yes [id number] 600mg Take 1 tablet by mouth every 8 (eight) hours as needed for Pain (scale 4-6). [facility] ondansetron 4 mg disintegrat ing tablet 12-16 00:00: 00 Yes [id number] 4mg Take 1 tablet by mouth every 4 (four) hours as needed for Nausea and Vomiting (N/V). [facility] HYDROcodone -acetaminop hen (NORCO) 7.5-325 mg per tablet 12-16 00:00: 00 12-24 04:59 :00 No [id number] 1{tbl} Take 1 tablet by mouth every 8 (eight) hours as needed for Pain for up to 7 days. Indication s: acute pain [facility] INVESTIGATI ONAL DRUG - hydrochloro thiazide 50 mg or placebo capsule 01-18 20:45: 00 02-01 13:59 :00 No 50mg 50 mg, Oral, DAILY, 14 doses, First dose on Tue01/18/19 at 1545, Last dose on Tue01/31/19 at 0900, Routine
Principal investigat or: MIKAEL TEIXEIRA [facility] ascorbic acid (vitamin C) (VITAMIN C) tablet 500 mg 01-18 13:00: 00 Yes 500mg 500 mg, Oral, BID, First dose on Tue01/18/19 at 0800, Until Discontinu ed, Routine [facility] ferrous sulfate tablet 325 mg 01-18 13:00: 00 Yes 325mg 325 mg, Oral, BID, First dose on Tue01/18/19 at 0800, Until Discontinu ed, Routine [facility] vit calc,iron,f olic ( VITAMIN ORAL) 01-18 12:59: 00 01-18 00:00 :00 No Take by mouth. [facility] varicella virus vaccine live (VARIVAX (PF)) injection 0.5 mL 01-18 12:56: 06 01-19 13:58 :00 No .5mL 0.5 mL, Subcutaneo us, ONCE-PRIOR TO DISCHARGE, 1 dose, Starting Jo 01/18/19 at 0756, Until Discontinu ed, Routine, Give vaccine prior to discharge [facility] docusate calcium 240 mg capsule 01-18 00:00: 00 Yes [id number] 104 240mg Take 1 capsule by mouth once daily as needed for Constipati on. [facility] ferrous sulfate 325 mg (65 mg iron) tablet 01-18 00:00: 00 Yes [id number] 325mg Take 1 tablet by mouth daily. [facility] ibuprofen 600 mg tablet 01-18 00:00: 00 Yes [id number] 600mg Take 1 tablet by mouth every 6 (six) hours as needed for Pain (scale 1-3) or Pain (scale 4-6) (Pain). Take with food or milk. [facility] Iron Fum & P-FA-Vit B & C No.9 (INTEGRA PLUS) 125 mg iron- 1 mg Cap 01-18 00:00: 00 Yes [id number] 1{capsu le} Take 1 capsule by mouth daily. [facility] acetaminoph en (TYLENOL) tablet 650 mg 01-17 21:42: 29 Yes 650mg 650 mg, Oral, Q6HPRN, Starting Tue01/17/19 at 1642, Until Discontinu ed, Routine, Pain (scale 1-3) [facility] ibuprofen (IBU) tablet 600 mg 01-17 21:42: 29 Yes 600mg 600 mg, Oral, Q6HPRN, Starting Tue01/17/19 at 1642, Until Discontinu ed, Routine, Pain (scale 4-6) [facility] diphenhydrA MINE (BENADRYL) tablet 25 mg 01-17 21:42: 29 Yes 25mg 25 mg, Oral, Q6HPRN, Starting Tue01/17/19 at 1642, Until Discontinu ed, Routine, Sleep, Itching [facility] ondansetron (ZOFRAN (PF)) injection 4 mg 01-17 21:42: 29 Yes 4mg 4 mg, Slow IV Push, Q8HPRN, Starting Tue01/17/19 at 1642, Until Discontinu ed, Routine, Nausea and Vomiting (N/V) [facility] simethicone (GAS RELIEF) chewable tablet 160 mg 01-17 21:42: 29 Yes 160mg 160 mg, Oral, PC+HSPRN, Starting Tue01/17/19 at 1642, Until Discontinu ed, Routine, Gas [facility] docusate calcium (SURFAK) capsule 240 mg 01-17 21:42: 29 Yes 240mg 240 mg, Oral, QDAILYPRN, Starting Tue01/17/19 at 1642, Until Discontinu ed, Routine, Constipati on [facility] magnesium hydroxide (MILK OF MAGNESIA) 400 mg/5 mL suspension 30 mL 01-17 21:42: 29 Yes 30mL 30 mL, Oral, QDAILYPRN, Starting Tue01/17/19 at 1642, Until Discontinu ed, Routine, Constipati on [facility] benzocaine- menthol (DERMOPLAST ) 20-0.5 % topical spray 01-17 21:42: 29 Yes Topical, PRN, Starting Tue01/17/19 at 1642, Until Discontinu ed, Routine, Perineum discomfort [facility] LR 1000 mL + oxytocin 20 units IV Solution 01-17 17:15: 00 01-17 17:45 :00 No at 999 mL/hr, IV Infusion, ONCE, 1 dose, Tue01/17/19 at 1215, Routine [facility] acetaminoph en (TYLENOL) tablet 650 mg 01-17 16:03: 41 01-17 21:42 :35 No 650mg 650 mg, Oral, Q6HPRN, Starting Tue01/17/19 at 1103, Until Tue01/17/19 at 1642, Routine, Pain (scale 4-6) [facility] vancomycin (VANCOCIN) 1,500 mg in NaCl 0.9% [...]
S pecific indication : GBS Prophylaxi s [facility] vancomycin (VANCOCIN) 500 mg in NaCl 0.9% (NS) 100 mL piggyback 01-17 05:37: 00 01-17 08:25 :00 No 500mg 500 mg, IV Piggyback, ONCE, 1 dose, Tue01/17/19 at 0045, 100 mL
Reas on for Anti-Infec tive: Documented Infection< br>Documen davin Infection Site: Pelvic
Duration of Therapy: Other (see Comments) [facility] LR 1000 mL + oxytocin 20 units IV Solution 01-17 05:27: 34 01-17 21:42 :35 No 2mU/min 2 sofi-unit s/min (6 mL/hr), at 6 mL/hr, IV Infusion, TITRATE, Starting Tue01/17/19 at 0027, Until Tue01/17/19 at 1642, EDOUARD, Oxytocin Induction / Augmentati on of Labor. [facility] vancomycin 1 g in NS 200 mL RTU IV Piggyback 1,000 mg 01-17 02:45: 00 01-17 05:33 :08 No 1000mg 1,000 mg, IV Piggyback, Q12H ABX, First dose on Tue01/16/19 at 2145, Until Discontinu ed
Reas on for Anti-Infec tive: Empiric Non-Surgic al Prophylaxi s
Durat ion of therapy: 72 hours
S pecific indication : GBS Prophylaxi s [facility] D5W-LR IV infusion 1,000 mL 01-17 02:45: 00 01-17 21:42 :35 No 1000mL at 125 mL/hr, IV Infusion, CONTINUOUS , Starting Tue01/16/19 at 2145, Until Tue01/17/19 at 1642, Routine [facility] sodium citrate-cit aakash acid (BICITRA) 500-334 mg/5 mL solution 30 mL 01-17 02:42: 10 01-17 04:11 :00 No 30mL 30 mL, Oral, PRE-PROCED URE ONCE, 1 dose, Starting Tue01/16/19 at 214, Until Discontinu ed, Routine, Surgery/Pr ocedure [facility] lactated ringers IV infusion 500 mL 01-17 02:42: 10 01-17 21:42 :35 No 500mL at 999 mL/hr, 500 mL, IV Infusion, PRN - SEE INSTRUCTIO NS, Starting Tue01/16/19 at 2142, Until Tue01/17/19 at 1642, Routine [facility] proMETHazin e (PHENERGAN) injection 25 mg 01-17 00:45: 00 01-16 23:40 :00 No 25mg 25 mg, Intramuscu lar, ONCE, 1 dose, Tue01/16/19 at 1945, Routine [facility] meperidine (DEMEROL) injection 50 mg 01-17 00:45: 00 01-16 23:40 :00 No 50mg 50 mg, Intramuscu lar, ONCE, 1 dose, Tue01/16/19 at 1945, Routine [facility] vit calc,iron,f olic ( VITAMIN ORAL) 01-16 19:38: 06 Yes Take by mouth. [facility] vit calc,iron,f olic ( VITAMIN ORAL) 01-16 08:44: 35 Yes Take by mouth. [facility] vit calc,iron,f olic ( VITAMIN ORAL) 01-11 14:45: 41 Yes Take by mouth. [facility] norgestimat e-ethinyl estradiol (ORTHO TRI-CYCLEN- 28) 0.18/0.215/ 0.25 mg-35 mcg (28) tablet 2015-06 00:00: 00 01-18 00:00 :00 No [id number] 1{tbl} Take 1 tablet by mouth daily. [facility] No known medications No Un jose armando [facility] Immunizations Ordered Immunization Name Filled Immunization Name Date Status Comments Source Varicella Vaccine 2019-03-06 00:00:00 Completed Luana Seybold - External Varicella Vaccine 2019-03-06 00:00:00 Completed Luana Seybold - External Varicella Vaccine 2019-03-06 00:00:00 Completed Luana Seybold - External Varicella (varivax)(chicken pox) 2019-03-06 00:00:00 Completed [facility] Varicella (varivax)(chicken pox) 2019-03-06 00:00:00 Completed [facility] Varicella (varivax)(chicken pox) 2019-03-06 00:00:00 Completed [facility] Varicella (varivax)(chicken pox) 2019-03-06 00:00:00 Completed [facility] Varicella Vaccine 2019-01-19 00:00:00 Completed Luana Seybold - External Varicella Vaccine 2019-01-19 00:00:00 Completed Luana Seybold - External Varicella Vaccine 2019-01-19 00:00:00 Completed Luana Seybold - External Varicella (varivax)(chicken pox) 2019-01-19 00:00:00 Completed [facility] Varicella (varivax)(chicken pox) 2019-01-19 00:00:00 Completed [facility] Varicella (varivax)(chicken pox) 2019-01-19 00:00:00 Completed [facility] Varicella (varivax)(chicken pox) 2019-01-19 00:00:00 Completed [facility] Varicella (varivax)(chicken pox) 2019-01-19 00:00:00 Completed [facility] Tdap- (Boostrix, Adacel) 2011-06-13 00:00:00 Completed Luana Fournierybold - External Tdap- (Boostrix, Adacel) 2011-06-13 00:00:00 Completed Luana Seybold - External Tdap- (Boostrix, Adacel) 2011-06-13 00:00:00 Completed Luana Seybold - External Tdap 2011-06-13 00:00:00 Completed [facility] Tdap 2011-06-13 00:00:00 Completed [facility] Tdap 2011-06-13 00:00:00 Completed [facility] Tdap 2011-06-13 00:00:00 Completed [facility] TDAP 2011-06-13 00:00:00 Completed [facility] TDAP 2011-06-13 00:00:00 Completed [facility] TDAP 2011-06-13 00:00:00 Completed [facility] TDAP 2011-06-13 00:00:00 Completed [facility] Tdap 2011-06-13 00:00:00 Completed [facility] Tdap 2011-06-13 00:00:00 Completed [facility] Tdap 2011-06-13 00:00:00 Completed [facility] Tdap 2011-06-13 00:00:00 Completed [facility] Varicella Vaccine 2010-07-16 00:00:00 Completed Luana Fournierybold - External HEPATITIS A- PEDI/ADOL 2010-07-16 00:00:00 Completed Luana Stillold - External Varicella Vaccine 2010-07-16 00:00:00 Completed Luana Fournierybold - External HEPATITIS A- PEDI/ADOL 2010-07-16 00:00:00 Completed Luana Seybold - External Varicella Vaccine 2010-07-16 00:00:00 Completed Luana Seybold - External HEPATITIS A- PEDI/ADOL 2010-07-16 00:00:00 Completed Luana Fournierybold - External Tdap- (Boostrix, Adacel) 2009-11-25 00:00:00 Completed Luana Fournierybold - External HEPATITIS A- PEDI/ADOL 2009-11-25 00:00:00 Completed Luana Huffman - External Meningococcal Vaccine Polysaccharide 2009-11-25 00:00:00 Completed Luana Seybold - External Tdap- (Boostrix, Adacel) 2009-11-25 00:00:00 Completed Luana Fournierybold - External HEPATITIS A- PEDI/ADOL 2009-11-25 00:00:00 Completed Luana Seybold - External Meningococcal Vaccine Polysaccharide 2009-11-25 00:00:00 Completed Luana Seybold - External Tdap- (Boostrix, Adacel) 2009-11-25 00:00:00 Completed Luana Seybold - External HEPATITIS A- PEDI/ADOL 2009-11-25 00:00:00 Completed Luana Seybold - External Meningococcal Vaccine Polysaccharide 2009-11-25 00:00:00 Completed Luana Fournierybold - External HPV 4 (Human Papillomavirus) 2006-11-08 00:00:00 Completed Luana Seybold - External HPV 4 (Human Papillomavirus) 2006-11-08 00:00:00 Completed Luana Fournierybold - External HPV 4 (Human Papillomavirus) 2006-11-08 00:00:00 Completed Luana Fournierybold - External HPV 4 (Human Papillomavirus) 2006-09-01 00:00:00 Completed Luana Seybold - External HPV 4 (Human Papillomavirus) 2006-09-01 00:00:00 Completed Luana Seybold - External HPV 4 (Human Papillomavirus) 2006-09-01 [...] Measles, Mumps, Rubella 2001-11-14 00:00:00 Completed Luana Fournierybold - External IPV- Inactivated Polio Vaccine 2001-11-14 [...] Haemophilus Influenzae Type B 1998-08-19 00:00:00 Completed Lunaa Seybold - External DTaP Unspecified 1998-08-19 00:00:00 [...] Adolescent Or Pediatric 1997 00:00:00 Completed Luana Fournierybold - External Hib, unspecified formulation 1997 00:00:00 Completed Luana Fournierybold - External IPV- Inactivated Polio Vaccine 1997 00:00:00 Completed Luana Fournierybold - External Hepatitis B, Adolescent Or Pediatric 1995 00:00:00 Completed Luana Fournierybold - External Hepatitis B, Adolescent Or Pediatric 1995 00:00:00 Completed Luana Fournierybold - External Hepatitis B, Adolescent Or Pediatric 1995 00:00:00 Completed Luana Fournierybold - External DTaP Unspecified Unknown Completed Jose fourniery Seybold - External HEPATITIS A- PEDI/ADOL Unknown Completed Luana Fournierybold - External Hepatitis B, Adolescent Or Pediatric Unknown Completed Luana Fournierybold - External Hib, unspecified formulation Unknown Completed Luana Fournierybold - External HIB- Haemophilus Influenzae Type B Unknown Completed Luana almonte - External HPV 4 (Human Papillomavirus) Unknown Completed Luana Cassandra ld - External Meningococcal Vaccine Polysaccharide Unknown Completed Luana Stillol d - External MMR- Measles, Mumps, Rubella Unknown Completed Luana Fournierybold - External IPV- Inactivated Polio Vaccine Unknown Completed Luana Fournierybold - External OPV- Oral Polio Vaccine Unknown [facility] Tdap- (Boostrix, Adacel) Unknown Completed Luana Fournierybold - External Varicella Vaccine Unknown Completed Hayder lsey Seybold - External Varicella Vaccine Unknown Completed Hayder lsey Seybold - External DTaP Unspecified Unknown Completed Jose meneses Seybold - External HEPATITIS A- PEDI/ADOL Unknown Completed Luana Fournierybold - External Hepatitis B, Adolescent Or Pediatric Unknown Completed Luana Stillold - External Hib, unspecified formulation Unknown Completed Luana Fournierybold - External HIB- Haemophilus Influenzae Type B Unknown Completed Luana almonte - External HPV 4 (Human Papillomavirus) Unknown Completed Luana Fournierjuano ld - External Meningococcal Vaccine Polysaccharide Unknown Completed Luana Stillol d - External MMR- Measles, Mumps, Rubella Unknown Completed Luana Fournierybold - External IPV- Inactivated Polio Vaccine Unknown Completed Luana Seybold - External OPV- Oral Polio Vaccine Unknown Completed Luana Fournierybold - External Tdap- (Boostrix, Adacel) Unknown Completed Luana Huffman - External Varicella Vaccine Unknown Completed Hayder ochoa Seybold - External Varicella Vaccine Unknown Completed Hayder ochoa Seybold - External DTaP Unspecified Unknown Completed Jose Huffman - External HEPATITIS A- PEDI/ADOL Unknown Completed Luana Huffman - External Hepatitis B, Adolescent Or Pediatric Unknown Completed Luana Huffman - External Hib, unspecified formulation Unknown Completed Luana Huffman - External HIB- Haemophilus Influenzae Type B Unknown Completed Luana almonte - External HPV 4 (Human Papillomavirus) Unknown Completed Luana Trujillo ld - External Meningococcal Vaccine Polysaccharide Unknown Completed Luana Simms d - External MMR- Measles, Mumps, Rubella Unknown Completed Luana Huffman External IPV- Inactivated Polio Vaccine Unknown Completed Luana Huffman - External OPV- Oral Polio Vaccine Unknown Completed Luana Huffman - External Tdap- (Boostrix, Adacel) Unknown Completed Luana Huffman - External Varicella Vaccine Unknown Completed Hayder Stillold - External Varicella Vaccine Unknown Completed Hayder Stillold - External TDAP Unknown Completed [facility] Varicella (varivax)(chicken pox) Unknown Completed [facility] Vital Signs Vital Name Observation Time Observation Value Comments S ource Systolic blood pressure 2023-11-16 01:33:20 131 mm[Hg] [facility] Diastolic blood pressure 2023-11-16 01:33:20 82 mm[Hg] [facility] Heart rate 2023-11-16 01:33:20 81 /min [facility] Body temperature 2023-11-16 01:33:20 36.72 Liat [facility] Respiratory rate 2023-11-16 01:33:20 16 /min [facility] Oxygen saturation in Arterial blood by Pulse oximetry 2023-11-16 01:33:20 100 /min [facility] Body height 2023-11-15 23:56:00 152.4 cm [facility] Body weight 2023-11-15 23:56:00 91.627 kg [facility] acute hospital BMI 2023-11-15 23:56:00 39.45 kg/m2 [facility] acute hospital Systolic blood pressure 2023-09-29 18:34:00 110 mm[Hg] [...] 38.92 kg/m2 Kelly ey Seybold - External Heart rate 2023-01-10 19:17:00 85 /min Kelse y Seybold - External Respiratory rate 2023-01-10 19:17:00 16 /min Luana Seybold - External Body height 2023-01-10 19:17:00 154.9 cm Kelly ey Seybold - External Body weight 2023-01-10 19:17:00 85.73 kg Kelly ey Seybold - External BMI 2023-01-10 19:17:00 35.71 kg/m2 Kelly ey Seybold - External Oxygen saturation in Arterial blood by Pulse oximetry 2023-01-10 19:17:00 97 /min Luana Seybo ld - External Systolic blood pressure 2023-01-10 19:17:00 120 mm[Hg] Luana Seybo ld - External Diastolic blood pressure 2023-01-10 19:17:00 83 mm[Hg] Luana Seybo ld - External Systolic blood pressure 2022-12-07 19:04:00 [...] Systolic blood pressure 2022-12-04 00:17:00 120 mm[Hg] [facility] Diastolic blood pressure 2022-12-04 00:17:00 89 mm[Hg] [facility] Heart rate 2022-12-04 00:17:00 76 /min [facility] Body temperature 2022-12-04 00:17:00 36.89 Liat [facility] Respiratory rate 2022-12-04 00:17:00 18 /min [facility] Body height 2022-12-04 00:17:00 154.9 cm [facility] acute [facility] Body weight 2022-12-04 00:17:00 84.823 kg [facility] acute hospital BMI 2022-12-04 00:17:00 35.33 kg/m2 [facility] acute hospital Oxygen saturation in Arterial blood by Pulse oximetry 2022-12-04 00:17:00 99 /min [facility] Systolic blood pressure 2022-08-09 19:34:00 132 mm[Hg] Luana Seybo ld - External Diastolic blood pressure 2022-08-09 19:34:00 68 mm[Hg] Luana Seybo ld - External Heart rate 2022-08-09 19:34:00 83 /min Kelse y Seybold - External Body temperature 2022-08-09 19:34:00 36.5 Liat Luana Seybold - External Respiratory rate 2022-08-09 19:34:00 14 /min Luana Seybold - External Body height 2022-08-09 19:34:00 152.4 cm Kelly ey Seybold - External Body weight 2022-08-09 19:34:00 86.637 kg Kelly ey Seybold - External BMI 2022-08-09 19:34:00 37.30 kg/m2 Kelly Huffman - External Oxygen saturation in Arterial blood by Pulse oximetry 2022-08-09 19:34:00 99 /min Luana Trujillo ld - External Systolic blood pressure 2021-03-10 12:34:00 133 mm[Hg] [facility] Diastolic blood pressure 2021-03-10 12:34:00 93 mm[Hg] [facility] Heart rate 2021-03-10 12:34:00 80 /min [facility] Body temperature 2021-03-10 12:34:00 36.83 Liat [facility] Respiratory rate 2021-03-10 12:34:00 16 /min [facility] Body weight 2021-03-10 12:34:00 81.647 kg General acute hospital BMI 2021-03-10 12:34:00 35.15 kg/m2 [facility] acute hospital Oxygen saturation in Arterial blood by Pulse oximetry 2021-03-10 12:34:00 99 /min [facility] Systolic blood pressure 2020-12-16 14:16:00 134 mm[Hg] [facility] Diastolic blood pressure 2020-12-16 14:16:00 86 mm[Hg] [facility] Heart rate 2020-12-16 14:16:00 78 /min [facility] Respiratory rate 2020-12-16 14:16:00 16 /min [facility] Oxygen saturation in Arterial blood by Pulse oximetry 2020-12-16 14:16:00 99 /min [facility] Body temperature 2020-12-16 13:00:00 36.94 Liat [facility] Body height 2020-12-16 11:44:00 152.4 cm [facility] acute hospital Body weight 2020-12-16 11:44:00 81.647 kg [facility] acute hospital BMI 2020-12-16 11:44:00 35.15 kg/m2 [facility] acute [facility] Systolic blood pressure 2019-01-19 13:00:00 139 mm[Hg] [facility] Diastolic blood pressure 2019-01-19 13:00:00 83 mm[Hg] [facility] Heart rate 2019-01-19 13:00:00 73 /min [facility] Body temperature 2019-01-19 13:00:00 36.89 Liat [facility] Respiratory rate 2019-01-19 13:00:00 20 /min [facility] Oxygen saturation in Arterial blood by Pulse oximetry 2019-01-19 13:00:00 99 /min [facility] Body height 2019-01-16 23:19:00 152.4 cm [facility] Body weight 2019-01-16 23:19:00 95.255 kg General acute hospital BMI 2019-01-16 23:19:00 41.01 kg/m2 [facility] acute hospital Systolic blood pressure 2019-01-19 13:00:00 139 mm[Hg] [facility] Diastolic blood pressure 2019-01-19 13:00:00 83 mm[Hg] [facility] Heart rate 2019-01-19 13:00:00 73 /min [facility] Body temperature 2019-01-19 13:00:00 36.89 Liat [facility] Respiratory rate 2019-01-19 13:00:00 20 /min [facility] Oxygen saturation in Arterial blood by Pulse oximetry 2019-01-19 13:00:00 99 /min [facility] Body height 2019-01-16 23:19:00 152.4 cm [facility] acute [facility] Body weight 2019-01-16 23:19:00 95.255 kg [facility] acute hospital BMI 2019-01-16 23:19:00 41.01 kg/m2 [facility] acute [facility] Systolic blood pressure 2019-01-16 19:26:00 132 mm[Hg] [facility] Diastolic blood pressure 2019-01-16 19:26:00 84 mm[Hg] [facility] Heart rate 2019-01-16 19:26:00 94 /min [facility] Body temperature 2019-01-16 19:26:00 36.39 Liat [facility] Respiratory rate 2019-01-16 19:26:00 16 /min [facility] Body height 2019-01-16 19:26:00 152.4 cm [facility] Body weight 2019-01-16 19:26:00 95.397 kg [facility] BMI 2019-01-16 19:26:00 41.07 kg/m2 [facility] Systolic blood pressure 2019-01-16 19:26:00 132 mm[Hg] [facility] Diastolic blood pressure 2019-01-16 19:26:00 84 mm[Hg] [facility] Heart rate 2019-01-16 19:26:00 94 /min [facility] Body temperature 2019-01-16 19:26:00 36.39 Liat [facility] Respiratory rate 2019-01-16 19:26:00 16 /min [facility] Body height 2019-01-16 19:26:00 152.4 cm [facility] acute [facility] Body weight 2019-01-16 19:26:00 95.397 kg General acute hospital BMI 2019-01-16 19:26:00 41.07 kg/m2 [facility] acute hospital Heart rate 2019-01-16 07:06:00 89 /min [facility] Oxygen saturation in Arterial blood by Pulse oximetry 2019-01-16 07:06:00 100 /min [facility] Systolic blood pressure 2019-01-16 06:30:00 115 mm[Hg] [facility] Diastolic blood pressure 2019-01-16 06:30:00 67 mm[Hg] [facility] Body temperature 2019-01-16 05:25:00 36.94 Liat [facility] Respiratory rate 2019-01-16 05:25:00 17 /min [facility] Body height 2019-01-16 05:25:00 152.4 cm [facility] acute hospital Body weight 2019-01-16 05:25:00 96.163 kg General acute hospital BMI 2019-01-16 05:25:00 41.40 kg/m2 [facility] Heart rate 2019-01-16 07:06:00 89 /min [facility] Oxygen saturation in Arterial blood by Pulse oximetry 2019-01-16 07:06:00 100 /min [facility] Systolic blood pressure 2019-01-16 06:30:00 115 mm[Hg] [facility] Diastolic blood pressure 2019-01-16 06:30:00 67 mm[Hg] [facility] Body temperature 2019-01-16 05:25:00 36.94 Liat [facility] Respiratory rate 2019-01-16 05:25:00 17 /min [facility] Body height 2019-01-16 05:25:00 152.4 cm [facility] acute [facility] Body weight 2019-01-16 05:25:00 96.163 kg General acute hospital BMI 2019-01-16 05:25:00 41.40 kg/m2 [facility] acute hospital Systolic blood pressure 2019-01-15 22:44:00 120 mm[Hg] [facility] Diastolic blood pressure 2019-01-15 22:44:00 78 mm[Hg] [facility] Heart rate 2019-01-15 22:15:00 117 /min [facility] Body temperature 2019-01-15 22:15:00 36.72 Liat [facility] Respiratory rate 2019-01-15 22:15:00 16 /min [facility] Body height 2019-01-15 22:15:00 152.4 cm [facility] acute [facility] Body weight 2019-01-15 22:15:00 96.333 kg General acute hospital BMI 2019-01-15 22:15:00 41.48 kg/m2 [facility] acute hospital Systolic blood pressure 2019-01-15 22:44:00 120 mm[Hg] [facility] Diastolic blood pressure 2019-01-15 22:44:00 78 mm[Hg] [facility] Heart rate 2019-01-15 22:15:00 117 /min [facility] Body temperature 2019-01-15 22:15:00 36.72 Liat [facility] Respiratory rate 2019-01-15 22:15:00 16 /min [facility] Body height 2019-01-15 22:15:00 152.4 cm [facility] acute hospital Body weight 2019-01-15 22:15:00 96.333 kg General acute hospital BMI 2019-01-15 22:15:00 41.48 kg/m2 [facility] acute hospital Systolic blood pressure 2019-01-11 14:23:00 114 mm[Hg] [facility] Diastolic blood pressure 2019-01-11 14:23:00 82 mm[Hg] [facility] Heart rate 2019-01-11 14:18:00 99 /min [facility] Body temperature 2019-01-11 14:18:00 36.28 Liat [facility] Respiratory rate 2019-01-11 14:18:00 16 /min [facility] Body height 2019-01-11 14:18:00 152.4 cm [facility] acute hospital Body weight 2019-01-11 14:18:00 94.405 kg General acute hospital BMI 2019-01-11 14:18:00 40.65 kg/m2 [facility] acute hospital Systolic blood pressure 2019-01-11 14:23:00 114 mm[Hg] [facility] Diastolic blood pressure 2019-01-11 14:23:00 82 mm[Hg] [facility] Heart rate 2019-01-11 14:18:00 99 /min [facility] Body temperature 2019-01-11 14:18:00 36.28 Liat [facility] Respiratory rate 2019-01-11 14:18:00 16 /min [facility] Body height 2019-01-11 14:18:00 152.4 cm [facility] acute hospital Body weight 2019-01-11 14:18:00 94.405 kg General acute hospital BMI 2019-01-11 14:18:00 40.65 kg/m2 [facility] acute hospital Procedures Procedure Date / Time Performed Performing Clinician Source XR SHOULDER 2+ VW RIGHT 2023-11-16 00:52:02 Anabela Massey [facility] URINE TEST-BACK OFFICE TEST 2023-01-10 19:30:00 Tao Garcia - External ASSIGNMENT OF BENEFITS 2022-12-04 03:02:04 Docto r Unassigned, [place] [facility] XR HAND 3+ VW RIGHT 2022-12-04 01:51:18 Olga Wang [facility] NOTICE OF PRIVACY PRACTICES 2022-12-04 00:25:07 Doctor Unassigned, [place] [facility] CONSENT/REFUSAL FOR DIAGNOSIS AND TREATMENT 2022-12-04 00:24:50 Doctor Unassigned, [place] [facility] CT CERVICAL SPINE WO CONTRAST 2021-03-10 12:59:05 Irene Wang [facility] CT HEAD WO CONTRAST 2021-03-10 12:59:05 Olga Wang [facility] CT HEAD WO CONTRAST 2020-12-16 13:11:21 Olga Wang [facility] CT LUMBAR SPINE WO CONTRAST 2020-12-16 13:11:21 Irene Wang [facility] POCT TEST 2020-12-16 12:32:00 Olga Wang [facility] CBC WITH DIFFERENTIAL 2019-01-18 09:24:00 Mica Butler [facility] VENOUS CORD GAS 2019-01-17 16:20:00 Ania Rayo [facility] SGOT (ASPARTATE AMINO TRANSFER) 2019-01-17 04:11:00 Girma [facility] CREATININE 2019-01-17 04:11:00 Girma [facility] ALANINE AMINO TRANSFERASE(SGPT 2019-01-17 04:11:00 Girma [facility] LACTATE DEHYDROGENASE 2019-01-17 04:11:00 [facility] 2019-01-17 04:11:00 Girma [facility] CBC WITH DIFFERENTIAL 2019-01-17 04:11:00 Alicia Rayo [facility] URINALYSIS 2019-01-17 04:11:00 Girma [facility] PROTEIN CREAT RATIO URINE RANDOM 2019-01-17 04:11:00 Girma [facility] RUBELLA SCREEN IGG 2019-01-17 02:57:00 Eliana Marroquin [facility] HEPATITIS B SURFACE ANTIGEN 2019-01-17 02:57:00 Ania Rayo [facility] GALV ONLY - SYPHILIS IGG/IGM 2019-01-17 02:57:00 Ania Rayo [facility] TYPE AND SCREEN 2019-01-17 02:44:00 Ania Rayo [facility] ADC ONLY - FERN TEST 2019-01-16 06:07:00 Lois Bethea [facility] ASSIGNMENT OF BENEFITS 2019-01-16 04:49:39 Docto r Unassigned, [place] [facility] NOTICE OF PRIVACY PRACTICES 2019-01-16 04:48:13 Doctor Unassigned, [place] [facility] POCT URINALYSIS 2019-01-15 22:18:00 Ibeth Morse [facility] POCT URINALYSIS W/O SPECIFIC GRAVITY 2019-01-11 14:21:00 Ibeth Morse [facility] POCT TEST 2019-01-11 14:20:00 Martin Morse [facility] NOTICE OF PRIVACY PRACTICES 2019-01-11 13:58:01 Doctor Unassigned, [place] [facility] Encounters Start Date/Time End Date/Time Encounter Type Admission Type Attending Clinicians Care Facility Care Department Encounter ID Source 2021-04-14 01:49:[address] [facility] [id number] [facility] 2021-04-13 06:09:[address] [facility] [id number] [facility] 2024-05-14 00:00:00 2024-05-14 00:00:00 Outpatient JESUS PAUL [id number] Luana morena 2024-04-06 14:15:00 2024-04-06 14:15:00 Outpatient SHONDA BHAGAT [id number] Luana Huffman 2024-03-05 13:00:00 2024-03-05 13:00:00 Outpatient RADHA CORBIN [id number] Luana Huffman 2024-02-29 16:00:00 2024-02-29 16:00:00 Outpatient DWAINE WHITLEY [id number] [facility] 2024-02-02 10:15:00 2024-02-02 10:15:00 Outpatient LUANA LUANA [id number] Luana Huffman 2024-01-09 12:30:00 2024-01-09 12:30:00 Outpatient LUANA LUANA [id number] Luana Huffman 2024-01-06 12:30:00 2024-01-06 12:30:00 Outpatient LUANA MEDINA [id number] [facility] 2023-11-17 10:00:00 2023-11-17 10:00:00 Outpatient NIMOSTELLA [id number] [facility] 2023-11-15 18:57:00 2023-11-15 20:40:00 Emergency X ANABELA MASSEY [facility] [id number] [facility] 2023-11-15 18:57:00 2023-11-15 20:40:00 Emergency Anabela Massey [facility] 1.2.840.114 350.1.13.10 [id number] [id number] [facility] 2023-11-09 15:45:00 2023-11-09 15:45:00 Outpatient LUANA MEDINA [id number] Luana [facility] 2023-09-29 14:45:00 2023-09-29 14:45:00 Outpatient TRED47 LUANA MEDINA [id number] Luana [facility] 2023-09-29 14:15:00 2023-09-29 14:15:00 Outpatient LAB47 LUANA MEDINA [id number] [facility] 2023-09-29 13:45:00 2023-09-29 13:45:00 Outpatient KAYLEE MILNER [id number] [facility] 2023-08-22 11:45:00 2023-08-22 11:45:00 Outpatient SANDRA FLORES [id number] [facility] 2023-08-22 00:00:00 2023-08-22 00:00:00 Outpatient SANDRA FLORES [id number] [facility] 2023-07-15 16:00:00 2023-07-15 16:00:00 Outpatient LEANDRO MORRELL [facility] [id number] [facility]23-[facility]-05 14:00:00 2023-07-05 14:00:00 Outpatient HUNDCHRIS Davis [facility] [id number] [facility] 2023-06-28 14:00:00 2023-06-28 14:00:00 Outpatient SANDRA FLORES [facility] [id number] [facility] 2023-06-07 15:30:00 2023-06-07 15:30:00 Outpatient OUMAR, MITALI [facility] [id number] [facility] 2023-06-03 16:00:00 2023-06-03 16:00:00 Outpatient OUMAR, MITALI MEDINA [id number] [facility] 2023-06-02 15:45:00 2023-06-02 15:45:00 Outpatient OUMAR, JASMINE [facility] [id number] [facility] 2023-06-02 00:00:00 2023-06-02 00:00:00 Outpatient PREZAMARISSA Brandon [facility] [id number] [facility] 2023-05-20 16:00:00 2023-05-20 16:00:00 Outpatient LEANDRO MORRELL [facility] [id number] [facility] 2023-05-16 16:00:00 2023-05-16 16:00:00 Outpatient OUMAR, MITALI MEDINA [id number] [facility] 2023-05-16 13:30:00 2023-05-16 13:30:00 Outpatient OUMAR, MITALI MEDINA [id number] [facility] 2023-03-18 16:15:00 2023-03-18 16:15:00 Outpatient OUMAR, MITALI MEDINA [id number] [facility] 2023-03-18 13:50:00 2023-03-18 13:50:00 Outpatient LAB90 LUANA MEDINA [id number] [facility] 2023-03-18 13:15:00 2023-03-18 13:15:00 Outpatient OUMARMITALI LUANA [facility] [id number] Luana [facility] 2023-03-04 14:10:00 2023-03-04 14:10:00 Outpatient LAB90 LUANA MEDINA [id number] Luana [facility] 2023-02-22 15:30:00 2023-02-22 15:30:00 Outpatient LEANDRO MORRELL [facility] [id number] [facility] 2023-02-01 00:00:00 2023-02-01 00:00:00 Outpatient GARCIA, TAO MEDINA [id number] Luana [facility] 2023-01-24 14:00:00 2023-01-24 14:00:00 Outpatient INJ, FLORENTINO [facility] [id number] [facility] 2023-01-10 14:15:00 2023-01-10 14:15:00 Outpatient GARCIA, TAO MEDINA [id number] [facility] 2022-12-07 14:00:00 2022-12-07 14:00:00 Outpatient LEANDRO MORRELL [facility] [id number] [facility] 2022-12-03 19:20:00 2022-12-03 22:20:00 Emergency X IRENE WANG [facility] [id number] [facility] 2022-12-03 19:20:00 2022-12-03 22:20:00 Emergency Irene Wang [facility] 1.2.840.114 350.1.13.10 4.2.7.2.686 [id number] [facility] 2022-10-04 00:00:00 2022-10-04 00:00:00 Outpatient [facility]ISSA [facility]JIA [id number] [facility] 2022-09-22 15:30:00 2022-09-22 15:30:00 Outpatient TAO GARCIA [id number] Luana [facility] 2022-08-17 00:00:00 2022-08-17 00:00:00 Outpatient MARISSA MEJIA [id number] Luana Huffman 2022-08-16 11:10:00 2022-08-16 11:10:00 Outpatient LAB90 LUANA MEDINA [id number] Luana Huffman 2022-08-16 00:00:00 2022-08-16 00:00:00 Outpatient MARISSA MEJIA [id number] Luana Huffman 2022-08-09 13:30:00 2022-08-09 13:30:00 Outpatient MARISSA MEJIA [id number] Luana Huffman 2022-08-05 11:00:00 2022-08-05 11:00:00 Outpatient R UNKNOWN, ATT[facility] [id number] [facility] 2021-03-10 07:33:00 2021-03-10 08:50:00 [facility] 1.2.840.114 350.1.13.10 4.2.7.2.686 [id number] [facility] 2020-12-16 06:35:00 2020-12-16 09:34:00 [facility] 1.2.840.114 350.1.13.10 4.2.7.2.686 [id number] [facility] 2020-09-02 00:00:00 2020-09-02 00:00:00 Patient Outreach Brian Green [facility] 1.2.840.114 350.1.13.10 4.2.7.2.686 [id number] [facility] 2019-01-16 18:12:00 2019-01-19 14:30:00 Hospital Encounter Mikael Teixeira [facility] 1.2.840.114 350.1.13.10 4.2.7.2.686 [id number] 2019-01-16 18:12:00 2019-01-19 14:30:00 Hospital Encounter Mikael Teixeira [facility] 1.2.840.114 350.1.13.10 4.2.7.2.686 [id number] [facility] 2019-01-16 14:06:12 2019-01-16 14:35:18 Nurse Visit Visit, Maurice Nurse [facility] 1.2.840.114 350.1.13.10 4.2.7.2.686 [id number] 2019-01-16 14:06:12 2019-01-16 14:35:18 Nurse Visit Visit, Maurice Nurse Ibeth Morse [facility] 1.2.840.114 350.1.13.10 4.2.7.2.686 [id number] [facility] 2019-01-15 23:46:00 2019-01-16 02:55:00 Hospital Encounter Lois Bethea [facility] 1.2.840.114 350.1.13.10 4.2.7.2.686 [id number] 2019-01-15 23:46:00 2019-01-16 02:55:00 Hospital Encounter Lois Bethea [facility] 1.2.840.114 350.1.13.10 4.2.7.2.686 [id number] [facility] 2019-01-16 00:00:00 2019-01-16 00:00:00 Telephone Ibeth Morse [facility] 1.2.840.114 350.1.13.10 4.2.7.2.686 [id number] [facility] 2019-01-16 00:00:00 2019-01-16 00:00:00 Telephone Ibeth Morse [facility] 1.2.840.114 350.1.13.10 4.2.7.2.686 [id number] 2019-01-15 16:42:55 2019-01-15 18:07:11 Routine Visit Ibeth Morse [facility] 1.2.840.114 350.1.13.10 4.2.7.2.686 [id number] [facility] 2019-01-15 16:42:55 2019-01-15 18:07:11 Routine Visit Ibeth Morse [facility] 1.2.840.114 350.1.13.10 4.2.7.2.686 [id number] 2019-01-15 00:00:00 2019-01-15 00:00:00 Telephone Ibeth Morse [facility] 1.2.840.114 350.1.13.10 4.2.7.2.686 [id number] [facility] 2019-01-15 00:00:00 2019-01-15 00:00:00 Telephone Ibeth Morse [facility] 1.2.840.114 350.1.13.10 4.2.7.2.686 [id number] 2019-01-11 09:06:50 2019-01-11 10:43:15 Initial Visit Ibeth Morse [facility] 1.2.840.114 350.1.13.10 4.2.7.2.686 [id number] [facility] 2019-01-11 09:06:50 2019-01-11 10:43:15 Initial Visit Ibeht Morse [facility] 1.2.840.114 350.1.13.10 4.2.7.2.686 [id number] 2019-01-11 00:00:00 2019-01-11 00:00:00 Orders Only Doctor Unassigned, [place] [facility] 1.2.840.114 350.1.13.10 4.2.7.2.686 [phone] [id number] [facility] Results Test Description Test Time Test Comments Results Resul t Comments Source XR SHOULDER 2+ VW RIGHT 2023-11-16 01:10:08 XR SHOULDER 2+ VW RIGHT HISTORY: ?right shoulder pain COMPARISON: ?none available. Findings:Osseous structures are intact. ?Joint spaces are preserved. [facility] Luana Seybold - ExternalCT HEAD WO [id number] 13:51:26No acute intracranial abnormality. Unremarkable CT examination [...] Results Inft User - 12/16/2020 8:52 AM CDTFormatting of this note might be different fromthe original.CT HEAD WO CONTRASTCT LUMBAR SPINE WO CONTRASTHISTORY: Head trauma, mod-severe fell down and hit back, pain to left lowerback and headache.COMPARISON: CT head without contrast 09/16/2015.TE CHNIQUE: Contiguous axial imaging to the base of [...] The downing-white matter differentiationis preserved.Mucoperiosteal thickening of theethmoid air cells and sphenoid sinusesbilaterally. The calvarium and central skull base are unremarkable.Lumbar Spine:The normal lumbar lordosis is maintained. The vertebral bodies are normalin height and in normal alignment. No facet fracture or subluxation ispresent. IMPRESSIONNo acute intracranial abnormality.Unremarkable CT examination of the lumbar spine.Preliminary Report Dictated by Resident: Mony Wood MD., have reviewed this study and agree with theabove report.[facility] [id number] 13:51:26No acute intracranial abnormality. Unremarkable CT examination [...] reviewed this study and agree with theabove report.[facility] POCT [id number] 12:32:00* Test Item Value Reference Range Interpretation Comme nts POCT PREG (test code = 1605) negative On board controls acceptable with C Line (test code = 3574) present POCT PREG LOT # (test code = 3575) [id number] POCT PREG TEST DATE ( test code = 3576) 06/12/2022 Lab Interpretation (test cod e = 22058-9) Normal [facility] CenterRUBELLA SCREEN [id number] 15:41:00* Test Item Value Reference Range Interpretation Comme [facility] Rubella screen IgG (test code = 9080395419) Positive Negative EVERETT (test code = EVERETT) Positive - Indicat es the patient was exposed to Rubella through infection or vaccination.Negative - Indicates the patient could be susceptible to Rubella infection.Equivocal - A second specimen should be sent. [facility] CenterCB WITH [id number] 09:55:00* Test Item Value Reference Range Interpretation Comme [facility] WBC (test code = 6690-2) See_Comment H [...] 31.6 g/dL 31.6-35.1 RDW-SD (test code = 13988-4) 42.6 fL 39-49.9 RDW-CV (test code = 788-0) 13.3 % 12-15.5 PLT (test code = 777-3) See_Comment [Automated messa ge] The system which generated this result transmitted reference range: 166 - 358 10*3/?L. The reference range was not used to interpret this result as normal/abnormal. MPV (test code = 44368-8) 11.0 fL 9.5-12.9 NRBC/100 WBC (test code = 3335289511) See_Comment [Automated me ssage] The system which generated this result transmitted reference range: 0.0 - 10.0 /100 WBCs. The reference range was not used to interpret this result as normal/abnormal. NRBC x10^3 (test code = 3284769388) <0.01 See_Comment [Automated messa ge] The system which generated this result transmitted reference range: 10*3/?L. The reference range was not used to interpret this result as normal/abnormal. GRAN MAT (NEUT) % (test code = 770-8) 73.4 % IMM GRAN % (test code = 4125017642) 0.60 % LYMPH % (test code = 736-9) 18.7 % MONO % (test code = 5905-5) 6.1 % EOS % (test code = 713-8) 1.0 % BASO % (test code = 706-2) 0.2 % GRAN MAT x10^3(ANC) (test code = 9966651606) 9.99 10*3/uL 1.88-7.09 H IMM GRAN x10^3 (test code = 5492757986) 0.08 10*3/uL 0-0.06 H LYMPH x10^3 (test code = 731-0) 2.54 10*3/uL 1.32-3.29 MONO x10^3 (test code = 742-7) 0.83 10*3/uL 0.33-0.92 EOS x10^3 (test code = 711-2) 0.13 10*3/uL 0.03-0.39 BASO x10^3 (test code = 704-7) 0.03 10*3/uL 0.01-0.07 Lab Interpretation (test code = 39246-1) Abnormal [facility] CORD [id number] 16:38:00* Test Item Value Reference Range Interpretation Comme nts VENOUS BASE EXCESS, CORD (test code = 4546190295) mEq/L VENOUS PH, CORD (test code = 9222461197) 7.25-7.45 VENOUS PC02, CORD (test code = 6619255393) See_Comment [Automated messa ge] The system which generated this result transmitted reference range: 27 - 49 mmHg. The reference range was not used to interpret this result as normal/abnormal. VENOUS PO2, CORD (test code = 9697138905) See_Comment [Automated me ssage] The system which generated this result transmitted reference range: 17 - 41 mmHg. The reference range was not used to interpret this result as normal/abnormal. VENOUS BICARBONATE, CORD (test code = 1342758085) See_Comment [Automated messa ge] The system which generated this result transmitted reference range: 12 - 29 mEq/L. The reference range was not used to interpret this result as normal/abnormal. [facility] CenterARTERIAL CORD [id number] 16:35:00* Test Item Value Reference Range Interpretation Comme nts BASE EXCESS, CORD (test code = 7137198044) mEq/L AC PH, CORD (BEAKER) (test code = 3159034784) 7.18-7.38 L PC02, CORD (test code = 4838485525) See_Comment [Automated messa ge] The system which generated this result transmitted reference range: 32 - 66 mmHg. The reference range was not used to interpret this result as normal/abnormal. PO2, CORD (test code = 4847324885) See_Comment [Automated messa ge] The system which generated this result transmitted reference range: 10 - 30 mmHg. The reference range was not used to interpret this result as normal/abnormal. BICARBONATE, CORD (test code = 5885336034) See_Comment L [Automated me ssage] The system which generated this result transmitted reference range: 17 - 27 mEq/L. The reference range was not used to interpret this result as normal/abnormal. Lab Interpretation (test code = 79744-2) Abnormal [facility] CenterGAL ONLY - SYPHILIS [id number] 14:10:00* Test Item Value Reference Range Interpretation Comme nts Syphilis IgG/IgM (test code = 60041-6) Non-reactive Non-reactive EVERETT (test code = EVERETT) Non-reactive - No serologic evidence of T. pallidum infection. Cannot exclude incubating or early syphilis. Submit a second specimen in 2-4 weeks if syphilis is clinically suspected.Equivocal - Further testing to follow.Reactive - Further testing to follow. Lab Interpretation (test code = 05263-2) Normal [facility] CenterProtein CREAT Ratio Urine [id number] 05:48:00* Test Item Value Reference Range Interpretation Comme nts T. PROT U (test code = 2888-6) 11 mg/dL CREAT U (test code = 6821486526) 116.3 mg/dL Protein/Creatinine Ratio Uri ne (test code = 9079774518) 0.0-2.0 [facility] CenterUrinalysis2019-08-07 05:25:00* Test Item Value Reference Range Interpretation Comme nts APPEARANCE (test code = 8457323041) Clear Clear COLOR (test code = 1537549921) Yellow Yellow PH (test code = 0938164434) 4.8-8.0 SP GRAVITY (test code = 2910030738) 1.003-1.030 GLU U QUAL (test code = 8434864520) Normal Normal BLOOD (test code = 0906815111) Negative Negative KETONES (test code = 9799170684) 5 mg/dL Negative A PROTEIN (test code = 2887-8) Negative Negative UROBILIN (test code = 1524690045) Normal Normal BILIRUBIN (test code = 4266757461) Negative Negative NITRITE (test code = 9176294718) Negative Negative LEUK TONY (test code = 7335490322) Negative Negative RBC/HPF (test code = 4350021703) See_Comment H [Automated [place] ge] The system which generated this result transmitted reference range: 0 - 3 HPF. The reference range was not used to interpret this result as normal/abnormal. WBC/HPF (test code = 5493328099) See_Comment [Automated [place]] The system which generated this result transmitted reference range: 0 - 5 HPF. The reference range was not used to interpret this result as normal/abnormal. BACTERIA (test code = 4302159162) Negative Negative MUCOUS (test code = 2224900477) Slight Negative LPF A SQ EPITH (test code = 6535852631) See_Comment [Automated [place]] The system which generated this result transmitted reference range: <=2 HPF. The reference range was not used to interpret this result as normal/abnormal. HYAL CAST (test code = 7122653749) See_Comment [Automated [place]] The system which generated this result transmitted reference range: <=2 LPF. The reference range was not used to interpret this result as normal/abnormal. Lab Interpretation (test code = 62554-1) Abnormal [facility] CenterUric Acid [id number] 05:00:00* Test Item Value Reference Range Interpretation Comme nts URIC ACID (test code = 1470642637) 4.8 mg/dL 2.9-6 Lab Interpretation (test cod e = 65379-2) Normal [facility] [id number] 05:00:00* Test Item Value Reference Range Interpretation Comme nts CREATININE (test code = 0039428546) 0.51 mg/dL 0.5-1.04 eGFR Calculation (Non-) (test code = 5630000780) mL/min/1.73m2 eGFR Calculation () (test code = 0769148322) mL/min/1.73m2 EVERETT (test code = EVERETT) Association [...] or urine or abnormalities in imaging tests). [facility] (Asparate Amino Transfer)2019-01-17 05:00:00* Test Item Value Reference Range Interpretation Comme nts AST(SGOT) (test code = 6159460309) 20 U/L 13-40 Lab Interpretation (test cod e = 37296-0) Normal [facility] CenterAlanine Amino Transferase (SGPT)2019-01-17 05:00:00* Test Item Value Reference Range Interpretation Comme nts ALT(SGPT) (test code = 0478322542) 16 U/L 9-51 Lab Interpretation (test cod e = 74252-4) Normal [facility] CenterLactate [id number] 05:00:00* Test Item Value Reference Range Interpretation Comme nts LDH (test code = 4261030831) 527 U/L 300-600 Lab Interpretation (test cod e = 90520-4) Normal [facility] CenterCB WITH [id number] 04:46:00* Test Item Value Reference Range Interpretation Comme nts WBC (test code = 6690-2) See_Comment [Automated messa ge] The system which [...] g/dL 31.6-35.1 L RDW-SD (test code = 75260-9) 42.5 fL 39-49.9 RDW-CV (test code = 788-0) 13.2 % 12-15.5 PLT (test code = 777-3) See_Comment [Automated messa ge] The system which generated this result transmitted reference range: 166 - 358 10*3/?L. The reference range was not used to interpret this result as normal/abnormal. MPV (test code = 57254-5) 11.9 fL 9.5-12.9 NRBC/100 WBC (test code = 4260666141) See_Comment [Automated me ssage] The system which generated this result transmitted reference range: 0.0 - 10.0 /100 WBCs. The reference range was not used to interpret this result as normal/abnormal. NRBC x10^3 (test code = 2870620238) <0.01 See_Comment [Automated messa ge] The system which generated this result transmitted reference range: 10*3/?L. The reference range was not used to interpret this result as normal/abnormal. GRAN MAT (NEUT) % (test code = 770-8) 75.6 % IMM GRAN % (test code = 0518036922) 0.70 % LYMPH % (test code = 736-9) 17.1 % MONO % (test code = 5905-5) 6.0 % EOS % (test code = 713-8) 0.3 % BASO % (test code = 706-2) 0.3 % GRAN MAT x10^3(ANC) (test code = 6230557358) 7.92 10*3/uL 1.88-7.09 H IMM GRAN x10^3 (test code = 1943215062) 0.07 10*3/uL 0-0.06 H LYMPH x10^3 (test code = 731-0) 1.79 10*3/uL 1.32-3.29 MONO x10^3 (test code = 742-7) 0.63 10*3/uL 0.33-0.92 EOS x10^3 (test code = 711-2) 0.03 10*3/uL 0.03-0.39 BASO x10^3 (test code = 704-7) 0.03 10*3/uL 0.01-0.07 Lab Interpretation (test code = 07085-6) Abnormal [facility] CenterHepatitis B Surface [id number] 04:37:00 * Test Item Value Reference Range Interpretation Comme nts HBsAg Semi-Quantitative (aimee t code = 5195-3) [facility] CenterType and Screen - ONCE [id number] 03:35:01 * Test Item Value Reference Range Interpretation Comme nts ABO & RH (test code = 20) O POSITIVE Performed at [facility] Laboratory Services - [facility] Blood [address] [address]Zqom Free: [phone] No. [id number] IAT (test code = 1185) Negative Performed at [facility] Laboratory Services - [facility] Blood [place] [id number] Free: [phone] No. [id number] General acute hospital CLC OR [facility] ONLY - WET [id number] 06:32:00* Test Item Value Reference Range Interpretation Comme nts Wet Prep (test code = 3860751879) No Epithelial cells General acute hospital ONLY - FERN [id number] 06:30:00* Test Item Value Reference Range Interpretation Comme nts Fern Test (test code = 0926919354) Negative [facility] [id number] 22:18:00* Test Item Value Reference Range Interpretation [...] POCT U APPEAR (test code = 3267) [facility] URINALYSIS W/O SPECIFIC [id number] 14:21:00* Test Item Value Reference Range Interpretation [...] = 3257) Neg Negative - Negati ve [facility] CenterPOCT [facility]INAL[facility] W/O SPECIFIC [id number] 14:21:00* Test Item Value Reference Range Interpretation [...] = 3257) Neg Negative - Negati ve [facility] CenterPOCT [id number] 14:20:00* Test Item Value Reference Range Interpretation Comme nts POCT PREG (test code = 1605) Positive On board controls acceptable with C Line (test code = 3574) Yes POCT PREG LOT # (test code = 3575) POCT PREG TEST DATE ( test code = 3576) [facility] CenterPOCT [id number] 14:20:00* Test Item Value Reference Range Interpretation Comme nts POCT PREG (test code = 1605) Positive On board controls acceptable with C Line (test code = 3574) Yes POCT PREG LOT # (test code = 3575) POCT PREG TEST DATE ( test code = 3576) [facility] Notes Date/Time Note Provider Source [...] in no apparent distress. 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 Chief Complaint Patient presents with Well Woman Exam Pt states she gets some abdominal pain sometimes feels like cramps, would like to discuss getting on birthcontrol Karina Gillis is here today for her Well Woman Exam. Patient's last menstrual period was 12/20/2022 (exact date). The patient's last pap smear was unknown and her last mammogram was never. Luh Scott CMA I [facility]
[2024-05-14 20:38] LABS: Absolute Basophils 0.1 K/uL (0-0.5); Absolute Eosinophils 0.1 K/uL (0-0.5); Absolute Lymphocytes (CBC) 3.3 K/uL (0.7-4.9); Absolute Monocytes 0.5 K/uL (0.1-1.3); Absolute Neutrophil 4.4 K/uL (1.8-8.0); Basophils % 1.4 % (0-1.3); Eosinophils % 1.4 % (0-4.4); Hemoglobin 13.6 g/dL (12.0-15.0); Lymphocytes % 39.5 % (15.3-44.8); MCH 30.9 pg (27.0-35.0); MCV 90.8 fL (80-100); MPV 8.7 fL (7.6-11.3); Monocytes % 5.6 % (3.3-12.3); Neutrophils % 52.1 % (41.7-73.7); Nucleated Red Blood Cells % 0.1 % (0-0); Platelets 301 thou/uL (152-406); Red Cell Distribution Width 13.1 % (12.1-15.2)
[2024-05-14 20:39] LABS: Specific Gravity > 1.030 (1.005-1.030); Urine Bilirubin NEGATIVE (Negative); Urine Blood Negative (Negative); Urine Clarity Clear (Clear); Urine Color Light-Yellow (Yellow); Urine Glucose NEGATIVE (Negative); Urine Ketones NEGATIVE (Negative); Urine Microscopic Reflex YN NO UMIC; Urine Nitrite NEGATIVE (Negative); Urine Protein NEGATIVE (Negative); Urine Urobilinogen Normal (Normal); Urine pH 6.5 (5.0-7.0)
[2024-05-14 20:41] LABS: Specific Gravity > 1.030 (1.005-1.030)
[2024-05-14 20:58] LABS: Anion Gap 7.7 mEq/L (5.0-15.0); Potassium 3.7 mEq/L (3.5-5.1)
--- NOTE | 2024-05-14 21:50 | ER ---
Nurse's Notes [facility] Name: Eboni Gillis Age: 28 yrs Sex: Female : 1995 Arrival Date: 05/14/2024 Time: 20:01 Bed 11 Private MD: Diagnosis: Abdominal pain in early , threatened miscarriage Presentation: 05/14 20:18 Chief complaint: Patient states: POSITIVE TEST ON TUESDAY AND YESTERDAY cm10 STARTED HAVING SOME ABDOMINAL CRAMPING AND SPOTTING THAT'S BRIGHT RED. LMP: 04/13. Coronavirus screen: Client denies travel out of the [place] in the last 14 days. Ebola Screen: Patient denies travel to an Ebola-affected area in the 21 days before illness onset. No symptoms or risks identified at this time. Initial Sepsis Screen: Does the patient meet any 2 criteria? No. Patient's initial sepsis screen is negative. Does the patient have a suspected source of infection? No. Patient's initial sepsis screen is negative. Risk Assessment: Do you want to hurt yourself or someone else? Patient reports no desire to harm self or others. Onset of symptoms was May 13, 2024. 20:18 Method Of Arrival: Ambulatory cm10 20:18 Acuity: KALINA 3 cm10 Triage Assessment: 20:20 General: Appears in no apparent distress. uncomfortable, Behavior is calm, cooperative. cm10 Neuro: No deficits noted. Level of Consciousness is awake, alert, obeys commands, Oriented to person, place, time, situation, Appropriate for age. Respiratory: No deficits noted. Airway is patent Respiratory effort is even, unlabored, Respiratory pattern is regular, symmetrical. 20:20 : No deficits noted. Reports vaginal bleeding that is bright red. cm10 20:20 Pain: Complains of pain in abdomen Pain does not radiate. Pain currently is 0 out of 10 cm10 on a pain scale. Quality of pain is described as crampy. 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 - Infectious Disease History:: Denies. - Social history:: Smoking status: unknown. Screenin:56 [facility] ED Fall Risk Assessment (Adult) History of falling in the last 3 months, cm10 including since admission No falls in past 3 months (0 pts) Confusion or Disorientation No (0 pts) Intoxicated or Sedated No (0 pts) Impaired Gait No (0 pts) Mobility Assist Device Used No (0 pt) Altered Elimination No (0 pt) Score/Fall Risk Level 0 - 2 = Low Risk Oriented to surroundings, Maintained a safe environment, Educated pt \T\ family on fall prevention, incl call for assistance when getting out of bed, Hourly rounding (assess needs \T\ fall precautionary measures) done. Abuse screen: Denies threats or abuse. Denies injuries from another. Nutritional screening: No deficits noted. Tuberculosis screening: No symptoms or risk factors identified. Vital Signs: 20:18 BP 133 / 93; Pulse 80; Resp 15; Temp 98.4(O); Pulse Ox 100% on R/A; Weight 86.18 kg cm10 (R); Height 5 ft. 0 in. (R); Pain 0/10; 21:59 BP 138 / 80; Pulse 90; Resp 18; Temp 98.4(O); oe 20:18 Body Mass Index 37.11 (86.18 kg, 152.4 cm) cm10 20:18 Pain Scale: Adult cm10 ED Course: 20:06 Patient arrived in ED. jj6 20:07 Arely Vanessa MD is Attending Physician. sp3 20:20 Triage completed. cm10 20:21 Arm band placed on right wrist. Patient placed in waiting room. cm10 20:29 Initial lab(s) drawn, by mt, sent to lab. Urine collected: clean catch specimen. cm10 Inserted saline lock: 20 gauge in left antecubital area, using aseptic technique. Blood collected. Flushed with 10 mL NS. 20:29 Abo/rh Typing Sent. cm10 20:29 Basic Metabolic Panel Sent. cm10 20:29 CBC with Diff Sent. cm10 20:29 Test, Urine Sent. cm10 20:29 Quantitative Hcg Sent. cm10 20:29 Urinalysis w/ reflexes Sent. cm10 20:47 US Transvaginal Ob In Process Unspecified. EDMS 21:57 Patient has correct armband on for positive identification. Provided Education on: cm10 Follow-up instructions.. 21:57 No provider procedures requiring assistance completed. IV discontinued, intact, cm10 bleeding controlled, No redness/swelling at site. Pressure dressing applied. Administered Medications: No medications were administered Medication: 21:56 VIS not applicable for this client. cm10 Outcome: 21:49 Discharge ordered by . sp3 :57 Discharged to home ambulatory, cm10 :57 Condition: good 21:57 Discharge instructions given to patient, Instructed on discharge instructions, follow up and referral plans. Demonstrated understanding of instructions, follow-up care, 22:01 Patient left the ED. cm10 Signatures: Dispatcher [employer] [facility] Lucas Goode Setul, MD MD sp3 Ashlie Vidal Clarissa, RN RN cm10 Corrections: (The following items were deleted from the chart) :56 20:20 Neuro: No deficits noted. Level of Consciousness is awake, alert, obeys commands, cm10 Oriented to person, place, time, situation, Appropriate for age cm10
--- NOTE | 2024-05-14 21:50 | EDPHYS ---
Physician Documentation [facility] [place] Name: Eboni Gillis Age: 28 yrs Sex: Female : 1995 Arrival Date: 05/14/2024 Time: 20:01 Bed 11 Private MD: ED Physician Arely Vanessa HPI: 05/14 21:41 This 28 yrs old Female presents to ER via Ambulatory with complaints of Pelvic sp3 Pain, Vaginal Bleeding, + Preg <12wks, High Blood Pressure. 21:41 28-year-old female with a history of preeclampsia with her first now G2, P1 s with LMP 04/13/2024 now presents with pelvic cramping. Patient has had 2 positive home tests. She denies any vaginal bleeding at this time. She also denies any upper abdominal pain, dysuria, flank pain, syncope, near syncope, or any other signs or symptoms on ROS at this time.. 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 - Infectious Disease History:: Denies. - Social history:: Smoking status: unknown. ROS: 21:43 Constitutional: Negative for fever, chills, and weight loss, Eyes: Negative for injury, sp3 pain, redness, and discharge, ENT: Negative for injury, pain, and discharge, Neck: Negative for injury, pain, and swelling, Cardiovascular: Negative for chest pain, palpitations, and edema, Respiratory: Negative for shortness of breath, cough, wheezing, and pleuritic chest pain, Back: Negative for injury and pain, MS/Extremity: Negative for injury and deformity, Skin: Negative for injury, rash, and discoloration, Neuro: Negative for headache, weakness, numbness, tingling, and seizure, Psych: Negative for depression, anxiety, suicide ideation, homicidal ideation, and hallucinations, Allergy/Immunology: Negative for hives, rash, and allergies, Endocrine: Negative for neck swelling, polydipsia, polyuria, polyphagia, and marked weight changes, Hematologic/Lymphatic: Negative for swollen nodes, abnormal bleeding, and unusual bruising, 21:43 All other systems are negative, Exam: 21:43 Constitutional: This is a well developed, well nourished patient who is awake, alert, sp3 and in no acute distress. Head/Face: Normocephalic, atraumatic. Eyes: Pupils equal round and reactive to light, extra-ocular motions intact. Lids and lashes normal. Conjunctiva and sclera are non-icteric and not injected. Cornea within normal limits. Periorbital areas with no swelling, redness, or edema. Neck: Trachea midline, no thyromegaly or masses palpated, and no cervical lymphadenopathy. Supple, full range of motion without nuchal rigidity, or vertebral point tenderness. No Meningismus. Chest/axilla: Normal chest wall appearance and motion. Nontender with no deformity. No lesions are appreciated. Cardiovascular: Regular rate and rhythm with a normal S1 and S2. No gallops, murmurs, or rubs. Normal PMI, no JVD. No pulse deficits. Respiratory: Lungs have equal breath sounds bilaterally, clear to auscultation and percussion. No rales, rhonchi or wheezes noted. No increased work of breathing, no retractions or nasal flaring. Back: No spinal tenderness. No costovertebral tenderness. Full range of motion. Skin: Warm, dry with normal turgor. Normal color with no rashes, no lesions, and no evidence of cellulitis. MS/ Extremity: Pulses equal, no cyanosis. Neurovascular intact. Full, normal range of motion. Neuro: Awake and alert, GCS 15, oriented to person, place, time, and situation. Cranial nerves II-XII grossly intact. Motor strength 5/5 in all extremities. Sensory grossly intact. Cerebellar exam normal. Normal gait. Psych: Awake, alert, with orientation to person, place and time. Behavior, mood, and affect are within normal limits. Vital Signs: 20:18 BP 133 / 93; Pulse 80; Resp 15; Temp 98.4(O); Pulse Ox 100% on R/A; Weight 86.18 kg cm10 (R); Height 5 ft. 0 in. (R); Pain 0/10; 21:59 BP 138 / 80; Pulse 90; Resp 18; Temp 98.4(O); oe 20:18 Body Mass Index 37.11 (86.18 kg, 152.4 cm) cm10 20:18 Pain Scale: Adult cm10 MDM: 20:07 Medical Screening Exam initiated sp3 21:45 Data reviewed: vital signs, nurses notes, old medical records, lab test result(s), sp3 radiologic studies. ED course: 28-year-old female A0 at 4 weeks by dates with abdominal cramping. Differential diagnosis includes ectopic , threatened miscarriage, early cramping, among others. hCG is 260. Remainder of lab work unremarkable with blood type O+. Ultrasound pending transvaginal and if negative, we will safely discharge patient home and she can follow-up with her OB in 48 hours to recheck hCG and trend her symptoms as well as lab work. Patient knows she may return here if she cannot get into her doctor. She also knows to return for any significant cramping, bleeding or any other concerns she may have.. 21:48 ED course: Patient does have gestational sac intrauterine and no swelling in the sp3 fallopian tubes. This is reassuring and I will communicate this to the patient and patient will be discharged as per plan.. 05/14 20:07 Order name: Abo/rh Typing; Complete Time: 21:03 sp3 05/14 20:07 Order name: Basic Metabolic Panel; Complete Time: 21:03 sp3 05/14 20:07 Order name: CBC with Diff; Complete Time: 21:03 sp3 05/14 20:07 Order name: Test, Urine; Complete Time: 21:03 sp3 05/14 20:07 Order name: Quantitative Hcg; Complete Time: 21:03 sp3 05/14 20:07 Order name: Urinalysis w/ reflexes; Complete Time: 21:03 sp3 05/14 20:07 Order name: US Transvaginal Ob; Complete Time: 22:00 sp3 05/14 20:07 Order name: IV Saline Lock; Complete Time: 20:29 sp3 05/14 20:07 Order name: Labs collected and sent; Complete Time: 20:29 sp3 05/14 20:07 Order name: NPO; Complete Time: 20:29 sp3 Administered Medications: No medications were administered Disposition Summary: 05/14/24 21:49 Discharge Ordered Notes: Location: Home sp3 Condition: Stable sp3 Diagnosis - Abdominal pain in early , threatened miscarriage sp3 Followup: sp3 - With: Private Physician - When: Upon discharge from the Emergency Department - Reason: Continuance of care Discharge Instructions: - Discharge Summary Sheet sp3 - Abdominal Pain During sp3 Forms: - Medication Reconciliation Form sp3 - Antibiotic Education sp3 - Prescription Opioid Use sp3 - Patient Portal Instructions sp3 - Leadership Thank You Letter sp3 Signatures: Dispatcher [employer] EDArely Horner MD MD sp3 Melina Scott RN RN cm10 Corrections: (The following items were deleted from the chart) 20:07 20:07 Transvaginal Ob+[id number].[email or web address] ordered. EDGA RUDDY
--- NOTE | 2024-05-14 21:55 | RAD REPORT ---
EXAMINATION: Transvaginal OB COMPARISON: None. HISTORY: [facility] MAIN VAGINAL BLEEDING Bed: TECHNIQUE: Real-time ultrasound was performed through the pelvis. A transvaginal scan was performed t o better visualize the intrauterine contents and adnexa. FINDINGS: Crescentic fluid near the fundus within the endometrial cavity measuring up to 7 mm in average diamet er. This may relate to nonspecific fluid or a very early gestational sac, which would correspond to gestational age 5 weeks and 3 days. No appreciable pole cardiac pulsations. Both ovaries are visualized and appear unremarkable. There is no free fluid in the cul-de-sac. LMP dates are not stated. IMPRESSION: Questionable very early gestational sac within the fundal endometrium. By size, this would correspond to gestational age 5 weeks and 3 days. No pole or cardiac pulsations are observed. Short-term sonographic follow-up and serial beta hCG levels stranding are recommended to ensure viability.
[2024-05-15 01:44] VITALS: TEMP 98.4; O2SAT 100
[2024-05-15 01:45] VITALS: BP 138/80
== END 2024-05-14 22:01 | disposition home or self-care (01) ==
LOC: ER 20:01
DX: O20.0 Threatened abortion (principal); Z3A.01 Less than 8 weeks gestation of pregnancy
CPT/HCPCS: 36415; 76817; 80048; 81003; 81025; 84702; 85025; 86900; 86901; 99284

== ENCOUNTER 2024-05-26 20:40 | Emergency (ER) | payer BC ==
--- OUTSIDE RECORDS SUMMARY | 2024-05-26 20:44 | XMS REPORT | Continuity of Care Document ---
Author Name Unknown Address [address] [place] [address] [facility] thconnect Address 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 Name Role Phone PCP, PATIENT DOES NOT HAVE A Primary Care Physic bharath Unavailable VLADISLAV MORSE Attending Clinician Unavail able Vladislav Jimenez Attending Clinician + TAO GARCIA Attending Clinician Unavailable MD KIAH Attending Clinician Unavailab le LAB90 Attending Clinician Unavailable JESUS PAUL Attending Clinician Unavailable SHONDA BHAGAT Attending Clinician Unavailable RADHA CORBIN Attending Clinician UnavailDWAINE Melo Attending Clinician Unavailab STELLA Woo Attending Clinician Unavailable ANABELA MASSEY Attending Clinician Unavailab Anabela Alcantar DO Attending Clinician [phone] [id number] Attending Clinician Unavailable LAB47 Attending Clinician Unavailable KAYLEE MILNER Attending Clinician Unavailable SANDRA FLORES Attending Clinician Unavailable LEANDRO MORRELL Attending Clinician Unavailab CHRIS Patel Attending Clinician Unavailable MITALI OSEGUERA Attending Clinician UnavailMARISSA Angulo Attending Clinician Unavailable FLORENTINO BRANTLEY Attending Clinician Unavailable IRENE WANG Attending Clinician Unavailable Irene Wang MD Attending Clinician + UNKNOWN, ATTENDING Attending Clinician Unavailab gerhard Green DO Brian Long Attending Clinician Puneet JEAN, Mikael Kee Attending Clinician + 2 [facility]ending Clinician Unava ilable Lito WHJUANJOP, Vladislav Shepherd Attending Clinician + Lois Bethea MD Attending Clinician [phone] Doctor Unassigned, [place] Attending Clinician U ANABELA Mcclendon Admitting Clinician Unavailab IRENE Whitlock Admitting Clinician Unavailable Mikael Teixeira MD Admitting Clinician + Lois Bethea MD Admitting Clinician [phone] Payers Payer Name Policy Type Policy Number Effective Date Expirati on Date Source [facility] - OUT OF STATE [id number] 2020 00:00:00 [employer] MEDICAID [id number] 2019 00:00:00 [facility] 9 [id number] 2022 00:00:00 ST OFF OF RISK MGMT [id number] 00:00:00 Problems Condition Name Condition Details Condition Category Status Onset Date Resolution Date Last Treatment Date Treating Clinician Comments Source Multiparit y Multiparit y Disease Active 2023-06 00:00: 00 [facility] History of gestationa l hypertensi on History of gestationa l hypertensi on Disease Active 2023-06 00:00: 00 [facility] Supervisio n of high-risk Supervisio n of high-risk Disease Active 2023-06 00:00: 00 [facility] Iron deficiency anemia secondary to inadequate dietary iron intake Iron deficiency anemia secondary to inadequate dietary iron intake Disease Active 08-09 00:00: 00 Luana Seybold - Externa l Seasonal allergic rhinitis due to pollen Seasonal allergic rhinitis due to pollen Disease Active 08-09 00:00: 00 Luana Armida - Externa ryan Other headache syndrome Other headache syndrome Disease Active 08-09 00:00: 00 Luana Chekoold - Externa l Thyromegal y Thyromegal y Disease Active 08-09 00:00: 00 Luana Stillold - Externa l (spontaneo us vaginal delivery) (spontaneo us vaginal delivery) Disease Active 01-18 00:00: 00 [facility] Anemia, Anemia, Disease Active 01-18 00:00: 00 [facility] Gestationa l hypertensi on Gestationa l hypertensi on Disease Active 01-18 00:00: 00 [facility] Gestationa l hypertensi on Gestationa l hypertensi on Disease Active 01-18 00:00: 00 [facility] Morbid obesity with body mass index of 40.0-49.9 Morbid obesity with body mass index of 40.0-49.9 Disease Active 01-16 00:00: 00 [facility] Positive GBS test Positive GBS test Disease Active 01-15 00:00: 00 Overview: Address [facility]rapart [facility] Cervical Papanicola ou smear negative within last 12 months Cervical Papanicola ou smear negative within last 12 months Disease Active 01-15 00:00: 00 Overview: Formattin g of this note might be different from the original. NIL pap 07/03/18 [facility] Susceptibl e varicella Susceptibl e varicella Disease Active 01-12 00:00: 00 Overview: Formattin g of this note might be different from the original. Address pp [facility] Well woman exam Well woman exam Disease Active 07-16 00:00: 00 [facility] Contracept humberto management Contracept humberto management Disease Active 07-16 00:00: 00 [facility] History of anxiety History of anxiety Disease Active 07-16 00:00: 00 [facility] History of depression History of depression Disease Active 2015-0 2-03 00:00: 00 [facility] Single live Single live Disease Resolve d 2018-0 8-08 00:00: 00 2024-05-24 00:00:00 2024-05-24 09:48:09 [facility] Laceration , obstetrica l, second degree Laceration , obstetrica l, second degree Disease Resolve d 2018-0 8-08 00:00: 00 2024-05-24 00:00:00 2024-05-24 09:40:42 [facility] (spontaneo us vaginal delivery) (spontaneo us vaginal delivery) Disease Resolve d 0 8-08 00:00: 00 2024-05-24 00:00:00 2024-05-24 09:40:18 [facility] Anemia, Anemia, Disease Resolve d 0 8-08 00:00: 00 2024-05-24 00:00:00 2024-05-24 09:40:51 [facility] Gestationa l hypertensi on Gestationa l hypertensi on Disease Resolve d 0 8-08 00:00: 00 2024-05-24 00:00:00 2024-05-24 09:40:25 [facility] Morbid obesity with body mass index of 40.0-49.9 Morbid obesity with body mass index of 40.0-49.9 Disease Resolve d 0 8-06 00:00: 00 2024-05-24 00:00:00 2024-05-24 09:40:23 [facility] 39 weeks gestation of 39 weeks gestation of Disease Resolve d 2018-0 8-06 00:00: 00 2019-03-06 00:00:00 2019-03-06 13:28:38 [facility] Positive GBS test Positive GBS test Disease Resolve d 2018-0 8-05 00:00: 00 2019-03-06 00:00:00 2019-03-06 13:28:41 [facility] Rubella non-immune status, antepartum Rubella non-immune status, antepartum Disease Resolve d 2019-0 8-02 00:00: 00 2019-03-06 00:00:00 2019-03-06 13:31:53 Overview: Address pp [facility] Supervisio n of high-risk with insufficie nt care Supervisio n of high-risk with insufficie nt care Disease Resolve d 01-11 00:00: 00 2019-03-06 00:00:00 2019-03-06 13:28:44 Overview: See scanned records [facility] Obesity in Obesity in Disease Resolve d 01-11 00:00: 00 2019-03-06 00:00:00 2019-03-06 13:28:40 [facility] GBS (group B streptococ cus) UTI complicati ng GBS (group B streptococ cus) UTI complicati ng Disease Resolve d 01-16 00:00: 00 2019-01-16 00:00:00 2019-01-16 14:31:19 [facility] Nexplanon in place Nexplanon in place Disease Resolve d 2015-06 00:00: 00 2019-01-11 00:00:00 2019-01-11 10:06:19 [facility] Irregular menstrual cycle Irregular menstrual cycle Disease Resolve d 2015-06 00:00: 00 2019-01-11 00:00:00 2019-01-11 10:06:13 [facility] Right ankle pain Right ankle pain Disease Resolve d 5-17 00:00: 2019-01-11 00:00:00 2019-01-11 10:06:40 [facility] Depo-Prove ra contracept humberto status Depo-Prove ra contracept humberto status Disease Resolve d 203 00:00: 00 2019-01-11 00:00:00 2019-01-11 10:06:16 [facility] Overweight Overweight Disease Resolve d 203 00:00: 00 2019-01-11 00:00:00 2019-01-11 10:06:43 [facility] Contracept humberto management Contracept humberto management Disease Resolve d 2 00:00: 00 2019-01-11 00:00:00 2019-01-11 10:06:14 [facility] Allergies, Adverse Reactions, Alerts Allergy Name Allergy Type Status Severity Reaction(s) Onset Date Inactive Date Treating Clinician Comments Source Amoxicil steven Propensi ty to adverse reaction s Active 2 00:00: 00 Luana Huffman - Externa l Penicill ins Propensi ty to adverse reaction s Active Unknown - See comments 11-28 00:00: 00 "made my throat tingle" [facility] PENICILL INS Drug Class Active Unknown-Cmnt 11-28 00:00: 00 [facility] Penicill ins Propensi ty to adverse reaction s Active Unknown - See comments 11-28 00:00: 00 "made my throat tingle" [facility] Penicill ins Propensi ty to adverse reaction s Active 11-28 00:00: 00 Other reaction( s): Unknown - See comments" made my throat tingle" Luana Huffman - Vernaa ryan Social History Social Habit Start Date Stop Date Quantity Comments Source ASSERTION 2024-04-28 00:00:00 [facility] Gender identity 2020-10-15 16:16:19 Identifies as female gender (finding) Luana Huffman - External History SDOH Alcohol Binge Luana Huffman - External History SDOH Alcohol Frequency Luana almonte - External History SDOH Alcohol Std Drinks Luana berg - External Exposure to SARS-CoV-2 (event) Not sure [facility] Tobacco use and exposure 2024-05-24 00:00:00 2024-05-24 00:00:00 Smokeless tobacco non-user [facility] Alcoholic beverage intake 2024-05-24 00:00:00 2024-05-24 00:00:00 0 /d [facility] History of Social function 2024-05-24 00:00:00 2024-05-24 00:00:00 [facility] Alcohol intake 2023-01-10 00:00:00 2023-01-10 00:00:00 Current drinker of alcohol (finding) Luana Cordoba Alcohol Comment 2022-08-09 00:00:00 2022-08-09 00:00:00 socially Luana Cordoba Education - What is the highest level of school you have completed or the highest degree you have received? 2022-08-09 00:00:00 2022-08-09 00:00:00 Associate degree: academic program Luana Cordoba Sex assigned at 1995 00:00:00 1995 00:00:00 [facility] Smoking Status Start Date Stop Date Source Never smoked tobacco [facility] Medications Ordered Medication Name Filled Medication Name Start Date Stop Date Current Medication? Ordering Clinician Indication Dosage Frequency Signature (SIG) Comments Components Source PNV Comb #2-Iron-Ome ga 3-FA (COMPLETE DHA) 29 mg iron- 1 mg-200 mg combo pack 2023-06 00:00: 00 Yes [id number] 1{packe t} Take 1 Packet by mouth in the morning. [facility] ibuprofen (IBU) tablet 600 mg 11-15 00:15: 00 11-15 00:37 :00 No 600mg 600 mg, Oral, ONCE, 1 dose, On Tue11/15/23 at 1915, EDOUARD [facility] Promethazin e-DM 6.25-15 MG/5ML oral Syrup - 00:00: 00 09-28 00:00 :00 No [id number] 5mL Q.25D Take 5 mL by mouth 4 times daily as needed for cough. Luana davis FLUTICASONE PROPIONATE, NASAL, 50 MCG/ACT nasal Suspension 3-11 00:00: 00 09-28 00:00 :00 No [id number] 50ug Use 1 spray (50 mcg total) in each nostril daily. Luana davis Pseudoeph-B romphen-DM 30-2-10 MG/5ML oral Syrup 1-16 00:00: 00 Yes [id number] 10mL Q.25D Take 10 mL by mouth 4 times daily as needed. Luana davis Azithromyci n 250 MG oral Tablet 1-16 00:00: 00 07-04 05:59 :00 No [id number] Take 2 tablets by mouth on day 1 then 1 tablet by mouth daily for 4 days thereafter .. Luana davis Medroxyprog esterone (DEPO-PROVE RA) [150 mg/mL] - Once Every 3 Months 8-14 05:00: 00 09-28 18:39 :54 No [id number] 150mg Luana davis Magnesium 500 MG oral [...] 00:00: 00 01-10 00:00 :00 No 4mg [id number] 3D Take 1 tablet (4 mg total) by mouth every 8 hours as needed for nausea Luana davis naproxen 500 mg tablet 12-03 00:00: 00 12-14 04:59 :00 No [id number] 500mg Take 1 tablet by mouth in the morning and 1 tablet in the evening. Take with meals. Do all this for 10 days. [facility] acetaminoph en (TYLENOL) tablet 1,000 mg 03-10 14:15: 00 03-10 13:06 :00 No 1000mg 1,000 mg, Oral, ONCE, 1 dose, On Tue03/10/21 at 0915, EDOUARD [facility] ondansetron 4 mg disintegrat ing tablet 03-10 00:00: 00 05-24 00:00 :00 No [id number] 4mg Take 1 tablet by mouth every 4 (four) hours as needed for Nausea and Vomiting (N/V). [facility] HYDROcodone -acetaminop hen (NORCO) 7.5-325 mg per tablet 03-10 00:00: 00 03-18 04:59 :00 No [id number] 1{tbl} Take 1 tablet by mouth every 8 (eight) hours as needed for Pain for up to 7 days. Indication s: acute pain [facility] ondansetron (ZOFRAN (PF)) injection 4 mg 12-16 13:45: 00 12-16 12:35 :00 No 4mg 4 mg, Slow IV Push, ONCE, 1 dose, Tue12/16/20 at 0845, EDOUARD [facility] FENTanyl PF (SUBLIMAZE (PF)) injection 125 mcg 12-16 13:45: 00 12-16 12:35 :00 No 125ug 125 mcg, Slow IV Push, ONCE, 1 dose, Tue12/16/20 at 0845, STAT [facility] ibuprofen 600 mg tablet 12-16 00:00: 00 05-24 00:00 :00 No [id number] 600mg Take 1 tablet by mouth every 8 (eight) hours as needed for Pain (scale 4-6). [facility] ondansetron 4 mg disintegrat ing tablet 12-16 00:00: 00 05-24 00:00 :00 No [id number] 4mg Take 1 tablet by mouth every 4 (four) hours as needed for Nausea and Vomiting (N/V). [facility] HYDROcodone -acetaminop hen (NORCO) 7.5-325 mg per tablet 12-16 00:00: 00 12-24 04:59 :00 No [id number] 1{tbl} Take 1 tablet by mouth every 8 (eight) hours as needed for Pain for up to 7 days. Indication s: acute pain [facility] INVESTIGATI ONAL DRUG - hydrochloro thiazide 50 mg or placebo capsule 01-18 20:45: 00 02-01 13:59 :00 No 50mg 50 mg, Oral, DAILY, 14 doses, First dose on Tue01/18/19 at 1545, Last dose on Tue01/31/19 at 0900, Routine
Principal investigat or: MIKAEL TEIXEIRA [facility] ascorbic acid (vitamin C) (VITAMIN C) tablet 500 mg 01-18 13:00: 00 Yes 500mg 500 mg, Oral, BID, First dose on Tue01/18/19 at 0800, Until Discontinu ed, Routine [facility] ferrous sulfate tablet 325 mg 01-18 13:00: 00 Yes 325mg 325 mg, Oral, BID, First dose on Tue01/18/19 at 0800, Until Discontinu ed, Routine [facility] vit calc,iron,f olic ( VITAMIN ORAL) 01-18 12:59: 00 01-18 00:00 :00 No Take by mouth. [facility] varicella virus vaccine live (VARIVAX (PF)) injection 0.5 mL 01-18 12:56: 06 01-19 13:58 :00 No .5mL 0.5 mL, Subcutaneo us, ONCE-PRIOR TO DISCHARGE, 1 dose, Starting Tue01/18/19 at 0756, Until Discontinu ed, Routine, Give vaccine prior to discharge [facility] docusate calcium 240 mg capsule 01-18 00:00: 00 Yes [id number] 104 240mg Take 1 capsule by mouth once daily as needed for Constipati on. [facility] ferrous sulfate 325 mg (65 mg iron) tablet 01-18 00:00: 00 Yes [id number] 325mg Take 1 tablet by mouth daily. [facility] ibuprofen 600 mg tablet 01-18 00:00: 00 Yes [id number] 600mg Take 1 tablet by mouth every 6 (six) hours as needed for Pain (scale 1-3) or Pain (scale 4-6) (Pain). Take with food or milk. [facility] Iron Fum & P-FA-Vit B & C No.9 (INTEGRA PLUS) 125 mg iron- 1 mg Cap 01-18 00:00: 00 Yes [id number] 1{capsu le} Take 1 capsule by mouth daily. [facility] acetaminoph en (TYLENOL) tablet 650 mg 01-17 21:42: 29 Yes 650mg 650 mg, Oral, Q6HPRN, Starting Tue01/17/19 at 1642, Until Discontinu ed, Routine, Pain (scale 1-3) [facility] ibuprofen (IBU) tablet 600 mg 01-17 21:42: 29 Yes 600mg 600 mg, Oral, Q6HPRN, Starting Tue01/17/19 at 1642, Until Discontinu ed, Routine, Pain (scale 4-6) [facility] diphenhydrA MINE (BENADRYL) tablet 25 mg 01-17 21:42: 29 Yes 25mg 25 mg, Oral, Q6HPRN, Starting Tue01/17/19 at 1642, Until Discontinu ed, Routine, Sleep, Itching [facility] ondansetron (ZOFRAN (PF)) injection 4 mg 01-17 21:42: 29 Yes 4mg 4 mg, Slow IV Push, Q8HPRN, Starting Tue01/17/19 at 1642, Until Discontinu ed, Routine, Nausea and Vomiting (N/V) [facility] simethicone (GAS RELIEF) chewable tablet 160 mg 01-17 21:42: 29 Yes 160mg 160 mg, Oral, PC+HSPRN, Starting Tue01/17/19 at 1642, Until Discontinu ed, Routine, Gas [facility] docusate calcium (SURFAK) capsule 240 mg 01-17 21:42: 29 Yes 240mg 240 mg, Oral, QDAILYPRN, Starting Tue01/17/19 at 1642, Until Discontinu ed, Routine, Constipati on [facility] magnesium hydroxide (MILK OF MAGNESIA) 400 mg/5 mL suspension 30 mL 01-17 21:42: 29 Yes 30mL 30 mL, Oral, QDAILYPRN, Starting Tue01/17/19 at 1642, Until Discontinu ed, Routine, Constipati on [facility] benzocaine- menthol (DERMOPLAST ) 20-0.5 % topical spray 01-17 21:42: 29 Yes Topical, PRN, Starting Tue01/17/19 at 1642, Until Discontinu ed, Routine, Perineum discomfort [facility] LR 1000 mL + oxytocin 20 units IV Solution 01-17 17:15: 00 01-17 17:45 :00 No at 999 mL/hr, IV Infusion, ONCE, 1 dose, Tue01/17/19 at 1215, Routine [facility] acetaminoph en (TYLENOL) tablet 650 mg 01-17 16:03: 41 01-17 21:42 :35 No 650mg 650 mg, Oral, Q6HPRN, Starting Tue01/17/19 at 1103, Until Tue01/17/19 at 1642, Routine, Pain (scale 4-6) [facility] vancomycin (VANCOCIN) 1,500 mg in [...]
S pecific indication : GBS Prophylaxi s [facility] vancomycin (VANCOCIN) 500 mg in NaCl 0.9% (NS) 100 mL piggyback 01-17 05:37: 00 01-17 08:25 :00 No 500mg 500 mg, IV Piggyback, ONCE, 1 dose, Tue01/17/19 at 0045, 100 mL
Reas on for Anti-Infec tive: Documented Infection< br>Documen davin Infection Site: Pelvic
Duration of Therapy: Other (see Comments) [facility] LR 1000 mL + oxytocin 20 units IV Solution 01-17 05:27: 34 01-17 21:42 :35 No 2mU/min 2 sofi-unit s/min (6 mL/hr), at 6 mL/hr, IV Infusion, TITRATE, Starting Tue01/17/19 at 0027, Until Tue01/17/19 at 1642, EDOUARD, Oxytocin Induction / Augmentati on of Labor. [facility] vancomycin 1 g in NS 200 mL RTU IV Piggyback 1,000 mg 01-17 02:45: 00 01-17 05:33 :08 No 1000mg 1,000 mg, IV Piggyback, Q12H ABX, First dose on Tue01/16/19 at 214, Until Discontinu ed
Reas on for Anti-Infec tive: Empiric Non-Surgic al Prophylaxi s
Durat ion of therapy: 72 hours
S pecific indication : GBS Prophylaxi s [facility] D5W-LR IV infusion 1,000 mL 01-17 02:45: 00 01-17 21:42 :35 No 1000mL at 125 mL/hr, IV Infusion, CONTINUOUS , Starting Tue01/16/19 at 2145, Until Tue01/17/19 at 1642, Routine [facility] sodium citrate-cit aakash acid (BICITRA) 500-334 mg/5 mL solution 30 mL 01-17 02:42: 10 01-17 04:11 :00 No 30mL 30 mL, Oral, PRE-PROCED URE ONCE, 1 dose, Starting Tue01/16/19 at 214, Until Discontinu ed, Routine, Surgery/Pr ocedure [facility] lactated ringers IV infusion 500 mL 01-17 02:42: 10 01-17 21:42 :35 No 500mL at 999 mL/hr, 500 mL, IV Infusion, PRN - SEE INSTRUCTIO NS, Starting Tue01/16/19 at 2142, Until Tue01/17/19 at 1642, Routine [facility] proMETHazin e (PHENERGAN) injection 25 mg 01-17 00:45: 00 01-16 23:40 :00 No 25mg 25 mg, Intramuscu lar, ONCE, 1 dose, Tue01/16/19 at 1945, Routine [facility] meperidine (DEMEROL) injection 50 mg 01-17 00:45: 00 01-16 23:40 :00 No 50mg 50 mg, Intramuscu lar, ONCE, 1 dose, Tue01/16/19 at 1945, Routine [facility] vit calc,iron,f olic ( VITAMIN ORAL) 01-16 19:38: 06 Yes Take by mouth. [facility] vit calc,iron,f olic ( VITAMIN ORAL) 01-16 08:44: 35 Yes Take by mouth. [facility] vit calc,iron,f olic ( VITAMIN ORAL) 01-11 14:45: 41 Yes Take by mouth. [facility] norgestimat e-ethinyl estradiol (ORTHO TRI-CYCLEN- 28) 0.18/0.215/ 0.25 mg-35 mcg (28) tablet 2015-06 00:00: 00 01-18 00:00 :00 No [id number] 1{tbl} Take 1 tablet by mouth daily. [facility] No known medications No Un jose armando [facility] Immunizations Ordered Immunization Name Filled Immunization Name Date Status Comments Source Varicella Vaccine 2019-03-06 00:00:00 Completed Luana Huffman - External Varicella Vaccine 2019-03-06 00:00:00 Completed Luana Huffman - External Varicella Vaccine 2019-03-06 00:00:00 Gypsy Huffman [facility] Varicella (varivax)(chicken pox) 2019-03-06 00:00:00 Completed [facility] Varicella (varivax)(chicken pox) 2019-03-06 00:00:00 Completed [facility] Varicella (varivax)(chicken pox) 2019-03-06 00:00:00 Completed [facility] Varicella (varivax)(chicken pox) 2019-03-06 00:00:00 Completed [facility] Varicella (varivax)(chicken pox) 2019-03-06 00:00:00 Completed [facility] Varicella Vaccine 2019-01-19 00:00:00 Completed Luana Rolonybold - External Varicella Vaccine 2019-01-19 00:00:00 Completed Luana Seybold - External Varicella Vaccine 2019-01-19 00:00:00 Completed Luana Stillold - External Varicella (varivax)(chicken pox) 2019-01-19 00:00:00 Completed [facility] Varicella (varivax)(chicken pox) 2019-01-19 00:00:00 Completed [facility] Varicella (varivax)(chicken pox) 2019-01-19 00:00:00 Completed [facility] Varicella (varivax)(chicken pox) 2019-01-19 00:00:00 Completed [facility] Varicella (varivax)(chicken pox) 2019-01-19 00:00:00 Completed [facility] Varicella (varivax)(chicken pox) 2019-01-19 00:00:00 Completed [facility] Tdap- (Boostrix, Adacel) 2011-06-13 00:00:00 Completed Luana Huffman - External Tdap- (Boostrix, Adacel) 2011-06-13 00:00:00 Completed Luana Huffman - External Tdap- (Boostrix, Adacel) 2011-06-13 00:00:00 Completed Luana Rolonybold - External Tdap 2011-06-13 00:00:00 Completed [facility] Tdap 2011-06-13 00:00:00 Completed [facility] Tdap 2011-06-13 00:00:00 Completed [facility] Tdap 2011-06-13 00:00:00 Completed [facility] TDAP 2011-06-13 00:00:00 Completed [facility] TDAP 2011-06-13 00:00:00 Completed [facility] TDAP 2011-06-13 00:00:00 Completed [facility] TDAP 2011-06-13 00:00:00 Completed [facility] Tdap 2011-06-13 00:00:00 Completed [facility] TDAP 2011-06-13 00:00:00 Completed [facility] Tdap 2011-06-13 00:00:00 Completed [facility] Tdap 2011-06-13 00:00:00 Completed [facility] Tdap 2011-06-13 00:00:00 Completed [facility] Varicella Vaccine 2010-07-16 00:00:00 Completed Luana Seybold - External HEPATITIS A- PEDI/ADOL 2010-07-16 00:00:00 Completed Luana Seybold - External Varicella Vaccine 2010-07-16 00:00:00 Completed Luana Seybold - External HEPATITIS A- PEDI/ADOL 2010-07-16 00:00:00 Completed Luana Seybold - External Varicella Vaccine 2010-07-16 00:00:00 Completed Luana Seybold - External HEPATITIS A- PEDI/ADOL 2010-07-16 00:00:00 Completed Luana Seybold - External Tdap- (Boostrix, Adacel) 2009-11-25 00:00:00 Completed Luana Seybold - External HEPATITIS A- PEDI/ADOL 2009-11-25 00:00:00 Completed Luana Rolonybold - External Meningococcal Vaccine Polysaccharide 2009-11-25 00:00:00 [...] Meningococcal Vaccine Polysaccharide 2009-11-25 00:00:00 Completed Luana Rolonybold - External HPV 4 (Human Papillomavirus) 2006-11-08 [...] 2006-09-01 00:00:00 Completed Luana Seybold - External Varicella [...] External Hib, unspecified formulation 1998-01-08 00:00:00 Completed Launa Seybold - External DTaP Unspecified 1998-01-08 00:00:00 Completed Luana Seybold - External Hepatitis B, Adolescent Or Pediatric 1998-01-08 00:00:00 Completed Luana Seybold - External Hib, unspecified formulation 1998-01-08 00:00:00 Completed Luana Seybold - External OPV- Oral Polio Vaccine 1997 00:00:00 Completed Luana Seybold - External DTaP Unspecified 1997 00:00:00 Completed Luaan Seybold - External Hib, unspecified formulation 1997 00:00:00 Completed Luana Seybold - External OPV- Oral Polio Vaccine 1997 00:00:00 Completed Luana Seybold - External DTaP Unspecified 1997 00:00:00 Completed Luana Seybold - External Hib, unspecified formulation 1997 00:00:00 Completed Luana Rolonybold - External OPV- Oral Polio Vaccine 1997 [...] External DTaP Unspecified 1997 00:00:00 Completed Luana Rolonybold - External Hepatitis B, Adolescent Or Pediatric 1997 00:00:00 Completed Luana Seybold - External Hib, unspecified formulation 1997 00:00:00 Completed Luana Seybold - External IPV- Inactivated Polio Vaccine 1997 00:00:00 Completed Luana Seybold - External Hepatitis B, Adolescent Or Pediatric 1997 00:00:00 Completed Luana Rolonybold - External Hepatitis B, Adolescent Or Pediatric 1997 00:00:00 Completed Luana Rolonybold - External Hepatitis B, Adolescent Or Pediatric 1997 00:00:00 Completed Luana Rolonybold - External DTaP Unspecified Unknown Completed Jose Huffman - External HEPATITIS A- PEDI/ADOL Unknown Completed Luana Seybold - External Hepatitis B, Adolescent Or Pediatric Unknown Completed Luana Seybold - External Hib, unspecified formulation Unknown Completed Luana Seybold - External HIB- Haemophilus Influenzae Type B Unknown Completed Luana Foy bold - External HPV 4 (Human Papillomavirus) Unknown Completed Luanavioletta Stillo ld - External Meningococcal Vaccine Polysaccharide Unknown Completed Luana Rolonol d - External MMR- Measles, Mumps, Rubella [...] Haemophilus Influenzae Type B Unknown Completed Luana Foy bold - External HPV 4 (Human Papillomavirus) [...] Seybold - External Varicella Vaccine Unknown Completed lsey Seybold - External DTaP Unspecified Unknown Completed Jose sey Seybold - External HEPATITIS A- PEDI/ADOL Unknown Completed Luana Seybold - External Hepatitis B, Adolescent Or Pediatric Unknown Completed Luana Seybold - External Hib, unspecified formulation Unknown Completed Luana Seybold - External HIB- Haemophilus Influenzae Type B Unknown Completed Luana Foy bold - External HPV 4 (Human Papillomavirus) Unknown Completed Luana Rolonybo ld - External Meningococcal Vaccine Polysaccharide Unknown Completed Luana Seybol d - External MMR- Measles, Mumps, Rubella Unknown Completed Luana Seybold - External IPV- Inactivated Polio Vaccine Unknown Completed Luana Rolonybold - External OPV- Oral Polio Vaccine Unknown Completed Luana Rolonybold - External Tdap- (Boostrix, Adacel) Unknown Completed Luana Rolonybold - External Varicella Vaccine Unknown Completed Hayder ochoa Seybold - External Varicella Vaccine Unknown Completed Hayder ochoa Seybold - External TDAP Unknown Completed [facility] Varicella (varivax)(chicken pox) Unknown Completed [facility] Vital Signs Vital Name Observation Time Observation Value Comments S ource Systolic blood pressure 2024-05-24 15:02:00 121 mm[Hg] [facility] Diastolic blood pressure 2024-05-24 15:02:00 78 mm[Hg] [facility] Heart rate 2024-05-24 15:02:00 80 /min [facility] Body temperature 2024-05-24 15:02:00 36.39 Liat [facility] Respiratory rate 2024-05-24 15:02:00 16 /min [facility] Body height 2024-05-24 15:02:00 152.4 cm [facility] Body weight 2024-05-24 15:02:00 90.357 kg [facility] BMI 2024-05-24 15:02:00 38.90 kg/m2 [facility] Systolic blood pressure 2023-11-16 01:33:20 131 mm[Hg] [facility] Diastolic blood pressure 2023-11-16 01:33:20 82 mm[Hg] [facility] Heart rate 2023-11-16 01:33:20 81 /min [facility] Body temperature 2023-11-16 01:33:20 36.72 Liat [facility] Respiratory rate 2023-11-16 01:33:20 16 /min [facility] Oxygen saturation in Arterial blood by Pulse oximetry 2023-11-16 01:33:20 100 /min [facility] Body height 2023-11-15 23:56:00 152.4 cm [facility] Body weight 2023-11-15 23:56:00 91.627 kg [facility] BMI 2023-11-15 23:56:00 39.45 kg/m2 [facility] Body weight 2023-09-29 18:34:00 93.441 kg Kelly ey Seybold - External BMI 2023-09-29 18:34:00 38.92 kg/m2 Kelly ey Seybold - External Systolic blood pressure 2023-09-29 18:34:00 110 mm[Hg] [...] 154.9 cm Kelly ey Seybold - External Systolic blood pressure 2023-01-10 19:17:00 [...] Systolic blood pressure 2022-12-04 00:17:00 120 mm[Hg] [facility] Diastolic blood pressure 2022-12-04 00:17:00 89 mm[Hg] [facility] Heart rate 2022-12-04 00:17:00 76 /min [facility] 2022-12-04 00:17:00 36.89 Liat [facility] Respiratory rate 2022-12-04 00:17:00 18 /min [facility] Body height 2022-12-04 00:17:00 154.9 cm [facility] Body weight 2022-12-04 00:17:00 84.823 kg [facility] BMI 2022-12-04 00:17:00 35.33 kg/m2 [facility] Oxygen saturation in Arterial blood by Pulse oximetry 2022-12-04 00:17:00 99 /min [facility] Systolic blood pressure 2022-08-09 19:34:00 132 [...] External BMI 2022-08-09 19:34:00 37.30 kg/m2 Kelly lozoya Seybold - External Oxygen saturation in Arterial blood by Pulse oximetry 2022-08-09 19:34:00 99 /min Luana Trujillo ld - External Systolic blood pressure 2021-03-10 12:34:00 133 mm[Hg] [facility] Diastolic blood pressure 2021-03-10 12:34:00 93 mm[Hg] [facility] Heart rate 2021-03-10 12:34:00 80 /min [facility] Body temperature 2021-03-10 12:34:00 36.83 Liat [facility] Respiratory rate 2021-03-10 12:34:00 16 /min [facility] Body weight 2021-03-10 12:34:00 81.647 kg [facility] BMI 2021-03-10 12:34:00 35.15 kg/m2 [facility] Oxygen saturation in Arterial blood by Pulse oximetry 2021-03-10 12:34:00 99 /min [facility] Systolic blood pressure 2020-12-16 14:16:00 134 mm[Hg] [facility] Diastolic blood pressure 2020-12-16 14:16:00 86 mm[Hg] [facility] Heart rate 2020-12-16 14:16:00 78 /min [facility] Respiratory rate 2020-12-16 14:16:00 16 /min [facility] Oxygen saturation in Arterial blood by Pulse oximetry 2020-12-16 14:16:00 99 /min [facility] Body temperature 2020-12-16 13:00:00 36.94 Liat [facility] Body height 2020-12-16 11:44:00 152.4 cm [facility] Body weight 2020-12-16 11:44:00 81.647 kg [facility] BMI 2020-12-16 11:44:00 35.15 kg/m2 [facility] Systolic blood pressure 2019-01-19 13:00:00 139 mm[Hg] [facility] Diastolic blood pressure 2019-01-19 13:00:00 83 mm[Hg] [facility] Heart rate 2019-01-19 13:00:00 73 /min [facility] Body temperature 2019-01-19 13:00:00 36.89 Liat [facility] Respiratory rate 2019-01-19 13:00:00 20 /min [facility] Oxygen saturation in Arterial blood by Pulse oximetry 2019-01-19 13:00:00 99 /min [facility] Body height 2019-01-16 23:19:00 152.4 cm [facility] Body weight 2019-01-16 23:19:00 95.255 kg [facility] BMI 2019-01-16 23:19:00 41.01 kg/m2 [facility] Systolic blood pressure 2019-01-19 13:00:00 139 mm[Hg] [facility] Diastolic blood pressure 2019-01-19 13:00:00 83 mm[Hg] [facility] Heart rate 2019-01-19 13:00:00 73 /min [facility] Body temperature 2019-01-19 13:00:00 36.89 Liat [facility] Respiratory rate 2019-01-19 13:00:00 20 /min [facility] Oxygen saturation in Arterial blood by Pulse oximetry 2019-01-19 13:00:00 99 /min [facility] Body height 2019-01-16 23:19:00 152.4 cm [facility] Body weight 2019-01-16 23:19:00 95.255 kg [facility] BMI 2019-01-16 23:19:00 41.01 kg/m2 [facility] Systolic blood pressure 2019-01-16 19:26:00 132 mm[Hg] [facility] Diastolic blood pressure 2019-01-16 19:26:00 84 mm[Hg] [facility] Heart rate 2019-01-16 19:26:00 94 /min [facility] Body temperature 2019-01-16 19:26:00 36.39 Liat [facility] Respiratory rate 2019-01-16 19:26:00 16 /min [facility] Body height 2019-01-16 19:26:00 152.4 cm [facility] Body weight 2019-01-16 19:26:00 95.397 kg [facility] BMI 2019-01-16 19:26:00 41.07 kg/m2 [facility] Systolic blood pressure 2019-01-16 19:26:00 132 mm[Hg] [facility] Diastolic blood pressure 2019-01-16 19:26:00 84 mm[Hg] [facility] Heart rate 2019-01-16 19:26:00 94 /min [facility] Body temperature 2019-01-16 19:26:00 36.39 Liat [facility] Respiratory rate 2019-01-16 19:26:00 16 /min [facility] Body height 2019-01-16 19:26:00 152.4 cm [facility] Body weight 2019-01-16 19:26:00 95.397 kg [facility] BMI 2019-01-16 19:26:00 41.07 kg/m2 [facility] Heart rate 2019-01-16 07:06:00 89 /min [facility] Oxygen saturation in Arterial blood by Pulse oximetry 2019-01-16 07:06:00 100 /min [facility] Systolic blood pressure 2019-01-16 06:30:00 115 mm[Hg] [facility] Diastolic blood pressure 2019-01-16 06:30:00 67 mm[Hg] [facility] Body temperature 2019-01-16 05:25:00 36.94 Liat [facility] Respiratory rate 2019-01-16 05:25:00 17 /min [facility] Body height 2019-01-16 05:25:00 152.4 cm [facility] Body weight 2019-01-16 05:25:00 96.163 kg [facility] BMI 2019-01-16 05:25:00 41.40 kg/m2 [facility] Heart rate 2019-01-16 07:06:00 89 /min [facility] Oxygen saturation in Arterial blood by Pulse oximetry 2019-01-16 07:06:00 100 /min [facility] Systolic blood pressure 2019-01-16 06:30:00 115 mm[Hg] [facility] Diastolic blood pressure 2019-01-16 06:30:00 67 mm[Hg] [facility] Body temperature 2019-01-16 05:25:00 36.94 Liat [facility] Respiratory rate 2019-01-16 05:25:00 17 /min [facility] Body height 2019-01-16 05:25:00 152.4 cm [facility] Body weight 2019-01-16 05:25:00 96.163 kg [facility] BMI 2019-01-16 05:25:00 41.40 kg/m2 [facility] Systolic blood pressure 2019-01-15 22:44:00 120 mm[Hg] [facility] Diastolic blood pressure 2019-01-15 22:44:00 78 mm[Hg] [facility] Heart rate 2019-01-15 22:15:00 117 /min [facility] Body temperature 2019-01-15 22:15:00 36.72 Liat [facility] Respiratory rate 2019-01-15 22:15:00 16 /min [facility] Body height 2019-01-15 22:15:00 152.4 cm [facility] Body weight 2019-01-15 22:15:00 96.333 kg [facility] BMI 2019-01-15 22:15:00 41.48 kg/m2 [facility] Systolic blood pressure 2019-01-15 22:44:00 120 mm[Hg] [facility] Diastolic blood pressure 2019-01-15 22:44:00 78 mm[Hg] [facility] Heart rate 2019-01-15 22:15:00 117 /min [facility] Body temperature 2019-01-15 22:15:00 36.72 Liat [facility] Respiratory rate 2019-01-15 22:15:00 16 /min [facility] Body height 2019-01-15 22:15:00 152.4 cm [facility] Body weight 2019-01-15 22:15:00 96.333 kg [facility] BMI 2019-01-15 22:15:00 41.48 kg/m2 [facility] Systolic blood pressure 2019-01-11 14:23:00 114 mm[Hg] [facility] Diastolic blood pressure 2019-01-11 14:23:00 82 mm[Hg] [facility] Heart rate 2019-01-11 14:18:00 99 /min [facility] Body temperature 2019-01-11 14:18:00 36.28 Liat [facility] Respiratory rate 2019-01-11 14:18:00 16 /min [facility] Body height 2019-01-11 14:18:00 152.4 cm [facility] Body weight 2019-01-11 14:18:00 94.405 kg [facility] BMI 2019-01-11 14:18:00 40.65 kg/m2 [facility] Systolic blood pressure 2019-01-11 14:23:00 114 mm[Hg] [facility] Diastolic blood pressure 2019-01-11 14:23:00 82 mm[Hg] [facility] Heart rate 2019-01-11 14:18:00 99 /min [facility] Body temperature 2019-01-11 14:18:00 36.28 Liat [facility] Respiratory rate 2019-01-11 14:18:00 16 /min [facility] Body height 2019-01-11 14:18:00 152.4 cm [facility] Body weight 2019-01-11 14:18:00 94.405 kg [facility] BMI 2019-01-11 14:18:00 40.65 kg/m2 [facility] Procedures Procedure Date / Time Performed Performing Clinician Source POCT TEST 2024-05-24 15:02:00 Martin Morse [facility] POCT URINALYSIS W/O SPECIFIC GRAVITY 2024-05-24 15:02:00 Vladislav Morse [facility] XR SHOULDER 2+ VW RIGHT 2023-11-16 00:52:02 Anabela Massey [facility] URINE TEST-BACK OFFICE TEST 2023-01-10 19:30:00 Tao Garcia - External ASSIGNMENT OF BENEFITS 2022-12-04 03:02:04 Docto r Unassigned, [place] [facility] XR HAND 3+ VW RIGHT 2022-12-04 01:51:18 Olga Wang [facility] NOTICE OF PRIVACY PRACTICES 2022-12-04 00:25:07 Doctor Unassigned, [place] [facility] CONSENT/REFUSAL FOR DIAGNOSIS AND TREATMENT 2022-12-04 00:24:50 Doctor Unassigned, [place] [facility] CT CERVICAL SPINE WO CONTRAST 2021-03-10 12:59:05 Irene Wang [facility] CT HEAD WO CONTRAST 2021-03-10 12:59:05 Olga Wang [facility] CT HEAD WO CONTRAST 2020-12-16 13:11:21 Olga Wang [facility] CT LUMBAR SPINE WO CONTRAST 2020-12-16 13:11:21 Irene Wang [facility] POCT TEST 2020-12-16 12:32:00 Olga Wang [facility] CBC WITH DIFFERENTIAL 2019-01-18 09:24:00 Mica Butler [facility] VENOUS CORD GAS 2019-01-17 16:20:00 Ania Rayo [facility] SGOT (ASPARTATE AMINO TRANSFER) 2019-01-17 04:11:00 [facility]AT[facility] 2019-01-17 04:11:00 Ania Rayo [facility] ALANINE AMINO TRANSFERASE(SGPT 2019-01-17 04:11:00 Ania Rayo [facility] LACTATE DEHYDROGENASE 2019-01-17 04:11:00 Alicia Rayo sa [facility] URIC ACID 2019-01-17 04:11:00 Ania Rayo [facility] CBC WITH DIFFERENTIAL 2019-01-17 04:11:00 Alicia Rayo sa [facility] URINALYSIS 2019-01-17 04:11:00 Ania Rayo [facility] PROTEIN CREAT RATIO URINE RANDOM 2019-01-17 04:11:00 Girma Ania [facility] RUBELLA SCREEN IGG 2019-01-17 02:57:00 Cara[facility] ANTIGEN 2019-01-17 02:57:00 Girma Ania [facility] GALV ONLY - SYPHILIS IGG/IGM 2019-01-17 02:57[facility] 2019-01-17 02:44:00 Ania Rayo [facility] ADC ONLY - FERN TEST 2019-01-16 06:07:00 Lois Bethea [facility] ASSIGNMENT OF BENEFITS 2019-01-16 04:49:39 Docto r Unassigned, [place] [facility] NOTICE OF PRIVACY PRACTICES 2019-01-16 04:48:13 Doctor Unassigned, [place] [facility] POCT URINALYSIS 2019-01-15 22:18:00 Vladislav Morse [facility] POCT URINALYSIS W/O SPECIFIC GRAVITY 2019-01-11 14:21:00 Vladislav Morse [facility] POCT TEST 2019-01-11 14:20:00 Martin Morse [facility] NOTICE OF PRIVACY PRACTICES 2019-01-11 13:58:01 Doctor Unassigned, [place] [facility] Encounters Start Date/Time End Date/Time Encounter Type Admission Type Attending Clinicians Care Facility Care Department Encounter ID Source 2021-04-14 01:49:53 Emergency [facility] [id number] [facility] 2021-04-13 06:09:12 Emergency [facility] [id number] [facility] 2024-05-28 08:15:00 2024-05-28 08:15:00 Outpatient R VLADISLAV MORSE [facility] [id number] [facility] 2024-05-24 09:00:00 2024-05-24 10:29:18 Outpatient R VLADISLAV MORSE [facility] [id number] [facility] 2024-05-24 09:00:00 2024-05-24 10:29:18 Initial Visit Vladislav Morse [facility] [id number] [facility] 2024-05-21 00:00:00 2024-05-21 00:00:00 Outpatient TAO GARCIA [id number] [facility] 2024-05-18 00:00:00 2024-05-18 00:00:00 Outpatient MD LUANA HYDE [id number] [facility] 2024-05-16 11:25:00 2024-05-16 11:25:00 Outpatient LAB90 LUANA MEDINA [id number] [facility] 2024-05-15 00:00:00 2024-05-15 00:00:00 Outpatient TAO GARCIA [id number] [facility] 2024-05-14 00:00:00 2024-05-14 00:00:00 Outpatient JESUS PAUL [id number] [facility] 2024-04-06 14:15:00 2024-04-06 14:15:00 Outpatient SHONDA BHAGAT [id number] [facility] 2024-03-05 13:00:00 2024-03-05 13:00:00 Outpatient RADHA CORBIN [id number] [facility] 2024-02-29 16:00:00 2024-02-29 16:00:00 Outpatient [facility] WHIT[facility] [id number] [facility] 2024-02-02 10:15:00 2024-02-02 10:15:00 Outpatient LUANA MEDINA [id number] [facility] ybradha 2024-01-09 12:30:00 2024-01-09 12:30:00 Outpatient LUANA MEDINA [id number] [facility] 2024-01-06 12:30:00 2024-01-06 12:30:00 Outpatient LUANA MEDINA [id number] [facility] morena 2023-11-17 10:00:00 2023-11-17 10:00:00 Outpatient STELLA SUERO LUANA MEDINA [id number] [facility] morena 2023-11-15 18:57:00 2023-11-15 20:40:00 Emergency X SHILPASAMUELRA [facility] ERT [id number] [facility] 2023-11-15 18:57:00 2023-11-15 20:40:00 Emergency Anabela Massey Mathieu [facility] [id number] [facility] 2023-11-09 15:45:00 2023-11-09 15:45:00 Outpatient LUANA MEDINA [id number] [facility] 2023-09-29 14:45:00 2023-09-29 14:45:00 Outpatient TRED47 LUANA MEDINA [id number] [facility] 2023-09-29 14:15:00 2023-09-29 14:15:00 Outpatient LAB47 LUANA MEDINA [id number] [facility] 2023-09-29 13:45:00 2023-09-29 13:45:00 Outpatient KAYLEE MILNER [id number] [facility] 2023-08-22 11:45:00 2023-08-22 11:45:00 Outpatient SANDRA FLORES [id number] [facility] radha 2023-08-22 00:00:00 2023-08-22 00:00:00 Outpatient SANDRA FLORES [id number] [facility] 2023-07-15 16:00:00 2023-07-15 16:00:00 Outpatient LEANDRO MORRELL [id number] [facility] Rolonradha 2023-07-05 14:00:00 2023-07-05 14:00:00 Outpatient CHRIS STAFFORD [facility] [id number] [facility]23-06-28 14:00:00 2023-06-28 14:00:00 Outpatient SANDRA FLORES LUANA MEDINA [id number] [facility] 2023-06-07 15:30:00 2023-06-07 15:30:00 Outpatient OUMAR, MITALI BARTLETTVIOLETTA MEDINA [id number] [facility] 2023-06-03 16:00:00 2023-06-03 16:00:00 Outpatient OUMAR, MITALI MEDINA LUANA [id number] [facility] 2023-06-02 15:45:00 2023-06-02 15:45:00 Outpatient OUMAR, MITALI LUANA MEDINA [id number] [facility] 2023-06-02 00:00:00 2023-06-02 00:00:00 Outpatient MARISSA MEJIA [facility]UA[facility] [id number] [facility] 2023-05-20 16:00:00 2023-05-20 16:00:00 Outpatient LEANDRO MORRELL LUANA MEDINA [id number] [facility] 2023-05-16 16:00:00 2023-05-16 16:00:00 Outpatient OUMAR, MITALI [facility]UANA MEDINA [id number] [facility] 2023-05-16 13:30:00 2023-05-16 13:30:00 Outpatient OUMAR, MITALI [facility]UA[facility] [id number] [facility] 2023-03-18 16:15:00 2023-03-18 16:15:00 Outpatient OUMAR, MITALI [facility] [id number] [facility] 2023-03-18 13:50:00 2023-03-18 13:50:00 Outpatient LAB90 LUANA MEDINA [id number] [facility] 2023-03-18 13:15:00 2023-03-18 13:15:00 Outpatient OUMAR, JASMINE [facility] [id number] [facility] 2023-03-04 14:10:00 2023-03-04 14:10:00 Outpatient LAB90 LUANA MEDINA [id number] [facility] 2023-02-22 15:30:00 2023-02-22 15:30:00 Outpatient LEANDRO MORRELL LUANA MEDINA [id number] [facility] 2023-02-01 00:00:00 2023-02-01 00:00:00 Outpatient GARCIA, TAO LUANA MEDINA [id number] [facility] radha 2023-01-24 14:00:00 2023-01-24 14:00:00 Outpatient FERCHOFLORENTINO LUANA MEDINA [id number] [facility] 2023-01-10 14:15:00 2023-01-10 14:15:00 Outpatient GARCIA, TAO LUANA MEDINA [id number] [facility] 2022-12-07 14:00:00 2022-12-07 14:00:00 Outpatient LEANDRO MORRELL LUANA MEDINA [id number] [facility] 2022-12-03 19:20:00 2022-12-03 22:20:00 Emergency X IRENE WANG [facility] ERT [id number] [facility] 2022-12-03 19:20:00 2022-12-03 22:20:00 Emergency Irene Wang [facility] [id number] [facility] 2022-10-04 00:00:00 2022-10-04 00:00:00 Outpatient MARISSA MEJIA [id number] [facility] 2022-09-22 15:30:00 2022-09-22 15:30:00 Outpatient GARCIA, TAO MEDINA [id number] [facility] 2022-08-17 00:00:00 2022-08-17 00:00:00 Outpatient PREMARISSA GOLDEN [id number] [facility] 2022-08-16 11:10:00 2022-08-16 11:10:00 Outpatient LAB90 LUANA MEDINA [id number] [facility] 2022-08-16 00:00:00 2022-08-16 00:00:00 Outpatient PREZAS, MARISSA LUANA LUANA [id number] [facility] 2022-08-09 13:30:00 2022-08-09 13:30:00 Outpatient MARISSA MEJIA LUANA [id number] [facility]ana Rolonradha 2022-08-05 11:00:00 2022-08-05 11:00:00 Outpatient R UNKNOWN, ATTENDING [facility] [id number] [facility] 2021-03-10 07:33:00 2021-03-10 08:50:00 [facility] 1.2.840.114 350.1.13.10 4.2.7.2.686 [id number] [facility] 2020-12-16 06:35:00 2020-12-16 09:34:00 Emergency Felipe Adena [facility] 1.2.840.114 350.1.13.10 4.2.7.2.686 [id number] [facility] 2020-09-02 00:00:00 2020-09-02 00:00:00 Patient Outreach Brian Green [facility] 1.2.840.114 350.1.13.10 4.2.7.2.686 [id number] [facility] 2019-01-16 18:12:00 2019-01-19 14:30:00 Hospital Encounter [facility] 1.2.840.114 350.1.13.10 4.2.7.2.686 [id number] 2019-01-16 18:12:00 2019-01-19 14:30:00 Hospital Encounter [facility] 1.2.840.114 350.1.13.10 4.2.7.2.686 [id number] [facility] 2019-01-16 14:06:12 2019-01-16 14:35:18 Nurse Visit Visit, MauriceRmchp Nurse [facility] 1.2.840.114 350.1.13.10 4.2.7.2.686 [id number] 2019-01-16 14:06:12 2019-01-16 14:35:18 Nurse Visit Visit, Maurice Nurse Vladislav Morse [facility] 1.2.840.114 350.1.13.10 4.2.7.2.686 [id number] [facility] 2019-01-15 23:46:00 2019-01-16 02:55:00 Hospital Encounter Lois Bethea [facility] 1.2.840.114 350.1.13.10 4.2.7.2.686 [id number] 2019-01-15 23:46:00 2019-01-16 02:55:00 Hospital Encounter Lois Bethea [facility] 1.2.840.114 350.1.13.10 4.2.7.2.686 [id number] [facility] 2019-01-16 00:00:00 2019-01-16 00:00:00 Telephone Vladislav Morse [facility] 1.2.840.114 350.1.13.10 4.2.7.2.686 [id number] [facility] 2019-01-16 00:00:00 2019-01-16 00:00:00 Telephone Vladislav Morse [facility] 1.2.840.114 350.1.13.10 4.2.7.2.686 [id number] 2019-01-15 16:42:55 2019-01-15 18:07:11 Routine Visit Vladislav Morse [facility] 1.2.840.114 350.1.13.10 4.2.7.2.686 [id number] [facility] 2019-01-15 16:42:55 2019-01-15 18:07:11 Routine Visit Vladislav Morse [facility] 1.2.840.114 350.1.13.10 4.2.7.2.686 [id number] 2019-01-15 00:00:00 2019-01-15 00:00:00 Telephone Vladislav Morse [facility] 1.2.840.114 350.1.13.10 4.2.7.2.686 [id number] [facility] 2019-01-15 00:00:00 2019-01-15 00:00:00 Telephone Vladislav Morse [facility] 1.2.840.114 350.1.13.10 4.2.7.2.686 [id number] 2019-01-11 09:06:50 2019-01-11 10:43:15 Initial Visit Vladislav Morse [facility] 1.2.840.114 350.1.13.10 4.2.7.2.686 [id number] [facility] 2019-01-11 09:06:50 2019-01-11 10:43:15 Initial Visit Vladislav Morse [facility] 1.2.840.114 350.1.13.10 4.2.7.2.686 [id number] 2019-01-11 00:00:00 2019-01-11 00:00:00 Orders Only Doctor Unassigned, [place] [facility] 1.2.840.114 350.1.13.10 4.2.7.2.686 [id number] [facility] Results Test Description Test Time Test Comments Results Result Co mments Source [facility] [id number] 15:02:00* Test Item Value Reference Range Interpretation Comme nts POCT PREG (test code = 1605) Positive On board controls acceptable with C Line (test code = 3574) Yes POCT PREG LOT # (test code = 3575) POCT PREG TEST DATE ( test code = 3576) [facility]vineXR SHOULDER 2+ VW [id number] 01:10:08XR SHOULDER 2+ VW RIGHT HISTORY: ?right shoulder pain COMPARISON: ?none available. Findings:Osseousstructures are intact. ?Joint spaces are preserved.[facility]vine[facility]INE TEST-BACK OFFICE [id number] 19:33:00* Test Item Value Reference Range Interpretation Comme nts TEST RESULT (test code = 455837) negative Neg. - Pos. Internal Positive Control (t est code = 3223) Positive Luana Seybold - ExternalCT HEAD WO [id number] 13:51:26No acute intracranial abnormality. Unremarkable CT examination [...] alignment. No facet fracture or subluxation ispresent. [facility], Radiant Results Inft User - 12/16/2020 8:52 [...] reviewed this study and agree with theabove report.[facility]vineCT LUMBAR SPINE WO [id number] 13:51:26No acute intracranial abnormality. Unremarkable CT examination [...] alignment. No facet fracture or subluxation ispresent. [facility], Radiant Results Inft User - [...] reviewed this study and agree with theabove report.[facility] POCT [id number] 12:32:00* Test Item Value Reference Range Interpretation Comme nts POCT PREG (test code = 1605) negative On board controls acceptable with C Line (test code = 3574) present POCT PREG LOT # (test code = 3575) [id number] POCT PREG TEST DATE ( test code = 3576) 06/12/2022 Lab Interpretation (test cod e = 32047-4) Normal [facility] GrapevineRUBELLA SCREEN [id number] 15:41:00* Test Item Value Reference Range Interpretation Comme nts Rubella screen IgG (test code = 9744018184) Positive Negative EVERETT (test code = EVERETT) Positive - Indicat es the patient was exposed to Rubella through infection or vaccination.Negative - Indicates the patient could be susceptible to Rubella infection.Equivocal - A second specimen should be sent. [facility]vineCBC WITH [id number] 09:55:00* Test Item Value Reference Range Interpretation Comme nts WBC (test code = 6690-2) See_Comment H [Automated Desuraa ge] The system which generated this result transmitted reference range: 4.30 - 11.10 10*3/?L. The reference range was not used to interpret this result as normal/abnormal. RBC (test code = 789-8) See_Comment L [Automated Desuraa ge] The system which generated this result [...] 31.6 g/dL 31.6-35.1 RDW-SD (test code = 34232-9) 42.6 fL 39-49.9 RDW-CV (test code = 788-0) 13.3 % 12-15.5 PLT (test code = 777-3) See_Comment [Automated messa ge] The system which generated this result transmitted reference range: 166 - 358 10*3/?L. The reference range was not used to interpret this result as normal/abnormal. MPV (test code = 02158-2) 11.0 fL 9.5-12.9 NRBC/100 WBC (test code = 7965635463) See_Comment [Automated me ssage] The system which generated this result transmitted reference range: 0.0 - 10.0 /100 WBCs. The reference range was not used to interpret this result as normal/abnormal. NRBC x10^3 (test code = 8637858393) <0.01 See_Comment [Automated messa ge] The system which generated this result transmitted reference range: 10*3/?L. The reference range was not used to interpret this result as normal/abnormal. GRAN MAT (NEUT) % (test code = 770-8) 73.4 % IMM GRAN % (test code = 3369522739) 0.60 % LYMPH % (test code = 736-9) 18.7 % MONO % (test code = 5905-5) 6.1 % EOS % (test code = 713-8) 1.0 % BASO % (test code = 706-2) 0.2 % GRAN MAT x10^3(ANC) (test code = 8574872981) 9.99 10*3/uL 1.88-7.09 H IMM GRAN x10^3 (test code = 0044576855) 0.08 10*3/uL 0-0.06 H LYMPH x10^3 (test code = 731-0) 2.54 10*3/uL 1.32-3.29 MONO x10^3 (test code = 742-7) 0.83 10*3/uL 0.33-0.92 EOS x10^3 (test code = 711-2) 0.13 10*3/uL 0.03-0.39 BASO x10^3 (test code = 704-7) 0.03 10*3/uL 0.01-0.07 Lab Interpretation (test code = 41230-2) Abnormal [facility]vineVENOUS CORD [id number] 16:38:00* Test Item Value Reference Range Interpretation Comme nts VENOUS BASE EXCESS, CORD (test code = 0217855018) mEq/L VENOUS PH, CORD (test code = 4772230373) 7.25-7.45 VENOUS PC02, CORD (test code = 8536953093) See_Comment [Automated messa ge] The system which generated this result transmitted reference range: 27 - 49 mmHg. The reference range was not used to interpret this result as normal/abnormal. VENOUS PO2, CORD (test code = 2592106314) See_Comment [Automated me ssage] The system which generated this result transmitted reference range: 17 - 41 mmHg. The reference range was not used to interpret this result as normal/abnormal. VENOUS BICARBONATE, CORD (test code = 6836702184) See_Comment [Automated messa ge] The system which generated this result transmitted reference range: 12 - 29 mEq/L. The reference range was not used to interpret this result as normal/abnormal. [facility]vineARTER[facility] CORD [id number] 16:35:00* Test Item Value Reference Range Interpretation Comme nts BASE EXCESS, CORD (test code = 3251436140) mEq/L AC PH, CORD (BEAKER) (test code = 7604844836) 7.18-7.38 L PC02, CORD (test code = 2497219790) See_Comment [Automated messa ge] The system which generated this result transmitted reference range: 32 - 66 mmHg. The reference range was not used to interpret this result as normal/abnormal. PO2, CORD (test code = 2341476842) See_Comment [Automated messa ge] The system which generated this result transmitted reference range: 10 - 30 mmHg. The reference range was not used to interpret this result as normal/abnormal. BICARBONATE, CORD (test code = 3327695056) See_Comment L [Automated me ssage] The system which generated this result transmitted reference range: 17 - 27 mEq/L. The reference range was not used to interpret this result as normal/abnormal. Lab Interpretation (test code = 54258-4) Abnormal [facility] ONLY - SYPHILIS [id number] 14:10:00* Test Item Value Reference Range Interpretation Comme nts Syphilis IgG/IgM (test code = 23870-8) Non-reactive Non-reactive EVERETT (test code = EVERETT) Non-reactive - No serologic evidence of T. pallidum infection. Cannot exclude incubating or early syphilis. Submit a second specimen in 2-4 weeks if syphilis is clinically suspected.Equivocal - Further testing to follow.Reactive - Further testing to follow. Lab Interpretation (test code = 46671-1) Normal [facility]vineProtein CREAT Ratio Urine [id number] 05:48:00* Test Item Value Reference Range Interpretation Comme nts T. PROT U (test code = 2888-6) 11 mg/dL CREAT U (test code = 6050599217) 116.3 mg/dL Protein/Creatinine Ratio Uri ne (test code = 2691214122) 0.0-2.0 [facility] GrapevineUrinalysis2019-08-07 05:25:00* Test Item Value Reference Range Interpretation Comme nts APPEARANCE (test code = 6849969079) Clear Clear COLOR (test code = 6075618737) Yellow Yellow PH (test code = 5931683543) 4.8-8.0 SP GRAVITY (test code = 2069209821) 1.003-1.030 GLU U QUAL (test code = 8316890794) Normal Normal BLOOD (test code = 1190499155) Negative Negative KETONES (test code = 7086441385) 5 mg/dL Negative A PROTEIN (test code = 2887-8) Negative Negative UROBILIN (test code = 9497228345) Normal Normal BILIRUBIN (test code = 0203634739) Negative Negative NITRITE (test code = 4645030172) Negative Negative LEUK TONY (test code = 7197113064) Negative Negative RBC/HPF (test code = 0009634015) See_Comment H [Automated Desuraa ge] The system which generated this result transmitted reference range: 0 - 3 HPF. The reference range was not used to interpret this result as normal/abnormal. WBC/HPF (test code = 2171151704) See_Comment [Automated Desuraa ge] The system which generated this result transmitted reference range: 0 - 5 HPF. The reference range was not used to interpret this result as normal/abnormal. BACTERIA (test code = 9769256273) Negative Negative MUCOUS (test code = 3566526696) Slight Negative LPF A SQ EPITH (test code = 5202347005) See_Comment [Automated Girly Stuff] The system which generated this result transmitted reference range: <=2 HPF. The reference range was not used to interpret this result as normal/abnormal. HYAL CAST (test code = 2441353461) See_Comment [Automated Girly Stuff] The system which generated this result transmitted reference range: <=2 LPF. The reference range was not used to interpret this result as normal/abnormal. Lab Interpretation (test code = 45347-0) Abnormal [facility] GrapevineUric Acid [id number] 05:00:00* Test Item Value Reference Range Interpretation Comme [facility] URIC ACID (test code = 5476816944) 4.8 mg/dL 2.9-6 Lab Interpretation (test cod e = 60834-6) Normal [facility] [id number] 05:00:00* Test Item Value Reference Range Interpretation Comme [facility] CREATININE (test code = 6455925331) 0.51 mg/dL 0.5-1.04 eGFR Calculation (Non-) (test code = 8578428919) mL/min/1.73m2 eGFR Calculation () (test code = 5421294453) mL/min/1.73m2 EVERETT (test code = EVERETT) Association [...] or urine or abnormalities in imaging tests). [facility]vineSGOT (Asparate Amino Transfer)2019-01-17 05:00:00* Test Item Value Reference Range Interpretation Comme nts AST(SGOT) (test code = 2768725608) 20 U/L 13-40 Lab Interpretation (test cod e = 89513-6) Normal [facility] GrapevineAlanine Amino Transferase (SGPT)2019-01-17 05:00:00* Test Item Value Reference Range Interpretation Comme nts ALT(SGPT) (test code = 8882879508) 16 U/L 9-51 Lab Interpretation (test cod e = 77402-6) Normal [facility] GrapevineLactate [id number] 05:00:00* Test Item Value Reference Range Interpretation Comme nts LDH (test code = 3725856544) 527 U/L 300-600 Lab Interpretation (test cod e = 70533-8) Normal [facility]vineCB WITH [id number] 04:46:00* Test Item Value Reference Range Interpretation Comme nts WBC (test code = 6690-2) See_Comment [Automated Desuraa ge] The system which generated this result transmitted reference range: 4.30 - 11.10 10*3/?L. The reference range was not used to interpret this result as normal/abnormal. RBC (test code = 789-8) See_Comment L [Automated Desuraa ge] The system which generated this result [...] g/dL 31.6-35.1 L RDW-SD (test code = 36698-2) 42.5 fL 39-49.9 RDW-CV (test code = 788-0) 13.2 % 12-15.5 PLT (test code = 777-3) See_Comment [Automated messa ge] The system which generated this result transmitted reference range: 166 - 358 10*3/?L. The reference range was not used to interpret this result as normal/abnormal. MPV (test code = 29940-2) 11.9 fL 9.5-12.9 NRBC/100 WBC (test code = 2522367085) See_Comment [Automated Bloomz ssage] The system which generated this result transmitted reference range: 0.0 - 10.0 /100 WBCs. The reference range was not used to interpret this result as normal/abnormal. NRBC x10^3 (test code = 3801411097) <0.01 See_Comment [Automated messa ge] The system which generated this result transmitted reference range: 10*3/?L. The reference range was not used to interpret this result as normal/abnormal. GRAN MAT (NEUT) % (test code = 770-8) 75.6 % IMM GRAN % (test code = 6109650613) 0.70 % LYMPH % (test code = 736-9) 17.1 % MONO % (test code = 5905-5) 6.0 % EOS % (test code = 713-8) 0.3 % BASO % (test code = 706-2) 0.3 % GRAN MAT x10^3(ANC) (test code = 5142578204) 7.92 10*3/uL 1.88-7.09 H IMM GRAN x10^3 (test code = 8706430157) 0.07 10*3/uL 0-0.06 H LYMPH x10^3 (test code = 731-0) 1.79 10*3/uL 1.32-3.29 MONO x10^3 (test code = 742-7) 0.63 10*3/uL 0.33-0.92 EOS x10^3 (test code = 711-2) 0.03 10*3/uL 0.03-0.39 BASO x10^3 (test code = 704-7) 0.03 10*3/uL 0.01-0.07 Lab Interpretation (test code = 06621-8) Abnormal [facility] GrapevineHepatitis B Surface [id number] 04:37:00 * Test Item Value Reference Range Interpretation Comme nts HBsAg Semi-Quantitative (aimee t code = 5195-3) [facility]vineType and Screen - ONCE [id number] 03:35:01 * Test Item Value Reference Range Interpretation Comme nts ABO & RH (test code = 20) O POSITIVE Performed at [facility] Laboratory [facility] Blood [address] Free: [phone] No. [id number] IAT (test code = 1185) Negative Performed at [facility] Laboratory [facility] Blood [place] [address]Toll Free: [phone] No. [id number] [facility] OR [facility] ONLY - WET [id number] 06:32:00* Test Item Value Reference Range Interpretation Comme nts Wet Prep (test code = 9342128204) No Epithelial cells [facility] ONLY - FERN [id number] 06:30:00* Test Item Value Reference Range Interpretation Comme nts Fern Test (test code = 5455480917) Negative [facility]vinePOCT URINALYSIS W SPECIFIC [id number] 22:18:00* Test Item Value Reference Range Interpretation [...] POCT U APPEAR (test code = 3267) [facility] URINALYSIS W/O SPECIFIC [id number] 14:21:00* Test Item Value Reference Range Interpretation [...] = 3257) Neg Negative - Negati ve [facility] URINALYSIS W/O SPECIFIC [id number] 14:21:00* Test Item Value Reference Range Interpretation [...] = 3257) Neg Negative - Negati ve [facility] [id number] 14:20:00* Test Item Value Reference Range Interpretation Comme nts POCT PREG (test code = 1605) Positive On board controls acceptable with C Line (test code = 3574) Yes POCT PREG LOT # (test code = 3575) POCT PREG TEST DATE ( test code = 3576) [facility] [id number] 14:20:00* Test Item Value Reference Range Interpretation Comme nts POCT PREG (test code = 1605) Positive On board controls acceptable with C Line (test code = 3574) Yes POCT PREG LOT # (test code = 3575) POCT PREG TEST DATE ( test code = 3576) [facility]
--- NOTE | 2024-05-26 21:51 | RAD REPORT ---
EXAMINATION: Transvaginal OB COMPARISON: None. HISTORY: ABD CRAMPING, TECHNIQUE: Real-time ultrasound was performed through the pelvis. A transvaginal scan was performed t o better visualize the intrauterine contents and adnexa. FINDINGS: The endometrium appears thickened to 15 mm. There is no IUP seen. There is a rounded saclike structur e with internal additional soft tissue in the left adnexa adjacent to the left ovary. The right ovary appears normal with normal blood flow. The left ovary is normal in size and demonstra aimee normal blood flow. Moderate free fluid in the cul-de-sac. IMPRESSION: Findings are suspicious for left-sided ectopic . Recommend correlation with quantitative bet a hCG level. Moderate free fluid in the pelvis.
[2024-05-26 22:21] LABS: Absolute Basophils 0.1 K/uL (0-0.5); Absolute Eosinophils 0.2 K/uL (0-0.5); Absolute Lymphocytes (CBC) 3.5 K/uL (0.7-4.9); Absolute Monocytes 0.4 K/uL (0.1-1.3); Absolute Neutrophil 3.3 K/uL (1.8-8.0); Basophils % 1.1 % (0-1.3); Eosinophils % 2.7 % (0-4.4); Hematocrit 35.8 % (36.0-45.0); Lymphocytes % 47.2 % (15.3-44.8); MCH 30.6 pg (27.0-35.0); MCHC 33.4 g/dL (32.0-36.0); MCV 91.5 fL (80-100); MPV 9.1 fL (7.6-11.3); Monocytes % 5.1 % (3.3-12.3); Neutrophils % 43.9 % (41.7-73.7); Platelets 279 thou/uL (152-406); RBC Red Blood Cell Count 3.91 M/uL (3.86-4.86); Red Cell Distribution Width 13.5 % (12.1-15.2)
[2024-05-26] MEDS ORDERED: NA CHLORIDE 0.9% 1,000 ML ONE (22:34)
[2024-05-26] MEDS ORDERED: ACETAMINOPHEN 325 MG TABLET ONE (22:48)
[2024-05-26 23:09] LABS: Anion Gap 7.5 mEq/L (5.0-15.0); Potassium 3.5 mEq/L (3.5-5.1)
--- NOTE | 2024-05-26 23:51 | ER ---
Nurse's Notes [facility] Nav Name: Eboni Gillis Age: 28 yrs Sex: Female : 1995 Arrival Date: 05/26/2024 Time: 20:40 Bed 13 Private MD: Diagnosis: Other ectopic without intrauterine -LEFT ADENXA, MODERATE IN THE CUL DE SAC, QUANT 4376;Abdominal tenderness Presentation: 05/26 21:09 Chief complaint: Patient states: I have been bleeding and having cramping since It is bright red and there are small quarter sized clots. Coronavirus screen: At this time, the client does not indicate any symptoms associated with coronavirus-19. Ebola Screen: No symptoms or risks identified at this time. Initial Sepsis Screen: Does the patient meet any 2 criteria? HR > 90 bpm. Yes Does the patient have a suspected source of infection? No. Patient's initial sepsis screen is negative. Risk Assessment: Do you want to hurt yourself or someone else? Patient reports no desire to harm self or others. Onset of symptoms was May 26, 2024. Transition of care: patient was not received from another setting of care. 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 - Infectious Disease History:: Denies. - Social history:: Smoking status: Patient denies any tobacco usage or history of. Screenin:10 [facility] ED Fall Risk Assessment (Adult) History of falling in the last 3 months, dd2 including since admission No falls in past 3 months (0 pts) Confusion or Disorientation No (0 pts) Intoxicated or Sedated No (0 pts) Impaired Gait No (0 pts) Mobility Assist Device Used No (0 pt) Altered Elimination No (0 pt) Score/Fall Risk Level 0 - 2 = Low Risk Oriented to surroundings, Maintained a safe environment, Educated pt \T\ family on fall prevention, incl call for assistance when getting out of bed, Assessed \T\ reinforced patient's understanding of fall precautions, Hourly rounding (assess needs \T\ fall precautionary measures) done. Abuse screen: Denies threats or abuse. Nutritional screening: No deficits noted. Tuberculosis screening: No symptoms or risk factors identified. Assessment: 22:10 Obstetrical Assessment: Patient reports abdominal cramping, back pain. General: Appears dd2 uncomfortable, Behavior is cooperative, appropriate for age, crying. Pain: Complains of pain in lumbar area, left low back, right low back and suprapubic area Pain does not radiate. Pain currently is 10 out of 10 on a pain scale. Quality of pain is described as crampy. Neuro: Level of Consciousness is awake, alert, obeys commands, Oriented to person, place, time, situation, Appropriate for age. Cardiovascular: No deficits noted. Patient's skin is warm and dry. Respiratory: Airway is patent Respiratory effort is even, unlabored, Respiratory pattern is regular, symmetrical. GI: Abdomen is non-distended, Abd is soft and non tender X 4 quads. : Reports cramping, lower back since 05/25/2024 SUPRAPUBIC vaginal bleeding that is bright red, heavy flow Patient is sexually active. EENT: No deficits noted. No signs and/or symptoms were reported regarding the EENT system. Derm: No deficits noted. No signs and/or symptoms reported regarding the dermatologic system. Musculoskeletal: No deficits noted. No signs and/or symptoms reported regarding the musculoskeletal system. Circulation, motion, and sensation intact. Range of motion: intact in all extremities. Vital Signs: 21:09 BP 138 / 104; Pulse 116; Resp 20; Temp 98.1(O); Pulse Ox 93% on R/A; Weight 86.18 kg jb4 (R); Height 5 ft. 0 in. (R); Pain 10/10; 22:30 BP 139 / 99; Pulse 92; Resp 17; Pulse Ox 99% on R/A; Pain 9/10; dd2 23:00 BP 117 / 77; Pulse 85; Resp 18; Pulse Ox 100% on R/A; dd2 05/27 00:05 BP 120 / 64; Pulse 81; Resp 16; Pulse Ox 100% on R/A; dd2 05/26 21:09 Body Mass Index 37.11 (86.18 kg, 152.4 cm) jb4 05/26 21:09 Pain Scale: Adult jb4 22:30 Pain Scale: Adult dd2 [place] Coma Score: 05/26 22:10 Eye Response: spontaneous(4). Motor Response: obeys commands(6). Verbal Response: dd2 oriented(5). Total: 15. ED Course: 20:41 Patient arrived in ED. ra3 20:44 Bob Rosales MD is Attending Physician. dom 21:11 Triage completed. jb4 21:11 Arm band placed on right wrist. jb4 21:18 NATALYA SARMIENTO, CARLOS is Primary Nurse. dd2 21:49 US Transvaginal Ob In Process Unspecified. EDMS 22:10 Patient has correct armband on for positive identification. Bed in low position. Call dd2 light in reach. Side rails up X 1. Client placed on continuous cardiac and pulse oximetry monitoring. NIBP monitoring applied. Door closed. Noise minimized. Pillow given. Cool cloth applied. Verbal reassurance given. 22:10 Patient maintains SpO2 saturation greater than 95% on room air. dd2 22:52 No provider procedures requiring assistance completed. Initial lab(s) drawn, by ED dd2 staff, sent to lab. Inserted saline lock: 18 gauge in right antecubital area, using aseptic technique. Blood collected. Flushed with 10 mL NS. 23:49 Trasnfer accepted \T\2349. Nurse to nurse done \T\0030 on 05/27/24. EMS to transport. 23:58 Transfer initiated \T\ 2349. 05/27 00:37 Provided Education on: TRANSFER INSTRUCTIONS. Report given to CARLOS GRADY L\T\D dd2 TRIAGE. 00:37 Patient transferred, IV remains in place. dd2 Administered Medications: 05/26 22:43 Drug: NS 0.9% IV 1000 ml IV at 1000 ml once; to be given as a bolus over 60 minutes dd2 Route: IV; Rate: 1000 ml; Site: right antecubital; 22:58 Follow up: Response: No adverse reaction dd2 23:40 Follow up: IV Status: Completed infusion; IV Intake: 1000ml dd2 22:51 Drug: Acetaminophen PO 650 mg PO once Route: PO; dd2 23:21 Follow up: Response: No adverse reaction dd2 Medication: 22:10 VIS not applicable for this client. dd2 Intake: 23:40 IV: 1000ml; Total: 1000ml. dd2 Outcome: 23:50 ER care complete, transfer ordered by MD. fernandes 05/27 01:30 Transferred by ground EMS to other acute care facility: [facility] . Transfer form dd2 completed. Condition: stable Instructed on the need for transfer, Demonstrated understanding of instructions, 01:31 Patient left the ED. dd2 Signatures: Dispatcher [employer] EDMS Bob Rosales MD MD cha Bryson, James, RN RN jb4 Vicky Linder ra3 NATALYA SARMIENTO RN RN dd2 Ciera Sheikh
--- NOTE | 2024-05-26 23:51 | EDPHYS ---
Physician Documentation [facility] Nav Name: Eboni Gillis Age: 28 yrs Sex: Female : 1995 Arrival Date: 05/26/2024 Time: 20:40 Bed 13 Private MD: ED Physician Bob Rosales HPI: 05/26 22:10 This 28 yrs old Female presents to ER via Ambulatory with complaints of dom Vaginal Bleeding, + Preg <12wks - and cramping. 22:10 The patient presents to the emergency department with vaginal bleeding, that is light, dom that is moderate. The estimated gestational age is 6 weeks. course: care: at a clinic. Previous pregnancies: in previous pregnancies patient has had Associated signs and symptoms: Pertinent positives: vaginal bleeding. The patient has not experienced similar symptoms in the past. 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 - Infectious Disease History:: Denies. - Social history:: Smoking status: Patient denies any tobacco usage or history of. ROS: 22:12 Constitutional: Negative for fever, chills, and weight loss, Eyes: Negative for injury, dom pain, redness, and discharge, ENT: Negative for injury, pain, and discharge, Neck: Negative for injury, pain, and swelling, Cardiovascular: Negative for chest pain, palpitations, and edema, Respiratory: Negative for shortness of breath, cough, wheezing, and pleuritic chest pain, Back: Negative for injury and pain, MS/Extremity: Negative for injury and deformity, Skin: Negative for injury, rash, and discoloration, Neuro: Negative for headache, weakness, numbness, tingling, and seizure, Psych: Negative for depression, anxiety, suicide ideation, homicidal ideation, and hallucinations, Allergy/Immunology: Negative for hives, rash, and allergies, Endocrine: Negative for neck swelling, polydipsia, polyuria, polyphagia, and marked weight changes, Hematologic/Lymphatic: Negative for swollen nodes, abnormal bleeding, and unusual bruising, 22:12 Abdomen/GI: Positive for abdominal cramps, Exam: 22:12 Constitutional: This is a well developed, well nourished patient who is awake, alert, dom and in no acute distress. Head/Face: Normocephalic, atraumatic. Eyes: Pupils equal round and reactive to light, extra-ocular motions intact. Lids and lashes normal. Conjunctiva and sclera are non-icteric and not injected. Cornea within normal limits. Periorbital areas with no swelling, redness, or edema. ENT: Nares patent. No nasal discharge, no septal abnormalities noted. Tympanic membranes are normal and external auditory canals are clear. Oropharynx with no redness, swelling, or masses, exudates, or evidence of obstruction, uvula midline. Mucous membranes moist. Neck: Trachea midline, no thyromegaly or masses palpated, and no cervical lymphadenopathy. Supple, full range of motion without nuchal rigidity, or vertebral point tenderness. No Meningismus. Chest/axilla: Normal chest wall appearance and motion. Nontender with no deformity. No lesions are appreciated. Cardiovascular: Regular rate and rhythm with a normal S1 and S2. No gallops, murmurs, or rubs. Normal PMI, no JVD. No pulse deficits. Respiratory: Lungs have equal breath sounds bilaterally, clear to auscultation and percussion. No rales, rhonchi or wheezes noted. No increased work of breathing, no retractions or nasal flaring. Abdomen/GI: Soft, non-tender, with normal bowel sounds. No distension or tympany. No guarding or rebound. No evidence of tenderness throughout. Back: No spinal tenderness. No costovertebral tenderness. Full range of motion. Skin: Warm, dry with normal turgor. Normal color with no rashes, no lesions, and no evidence of cellulitis. MS/ Extremity: Pulses equal, no cyanosis. Neurovascular intact. Full, normal range of motion., bilateral aka Neuro: Awake and alert, GCS 15, oriented to person, place, time, and situation. Cranial nerves II-XII grossly intact. Motor strength 5/5 in all extremities. Sensory grossly intact. Cerebellar exam normal. Normal gait. Psych: Awake, alert, with orientation to person, place and time. Behavior, mood, and affect are within normal limits. Vital Signs: 21:09 BP 138 / 104; Pulse 116; Resp 20; Temp 98.1(O); Pulse Ox 93% on R/A; Weight 86.18 kg jb4 (R); Height 5 ft. 0 in. (R); Pain 10/10; 22:30 BP 139 / 99; Pulse 92; Resp 17; Pulse Ox 99% on R/A; Pain 9/10; dd2 23:00 BP 117 / 77; Pulse 85; Resp 18; Pulse Ox 100% on R/A; dd2 05/27 00:05 BP 120 / 64; Pulse 81; Resp 16; Pulse Ox 100% on R/A; dd2 05/26 21:09 Body Mass Index 37.11 (86.18 kg, 152.4 cm) jb4 05/26 21:09 Pain Scale: Adult jb4 22:30 Pain Scale: Adult dd2 [place] Coma Score: 05/26 22:10 Eye Response: spontaneous(4). Motor Response: obeys commands(6). Verbal Response: dd2 oriented(5). Total: 15. MDM: 20:44 Medical Screening Exam initiated [facility] 05/27 00:28 Differential diagnosis: ectopic . Data reviewed: vital signs, nurses notes, [facility] lab test result(s), radiologic studies, ultrasound. Consideration of Admission/Observation Escalation of care including admission/observation considered. I considered the following discharge prescriptions or medication management in the emergency department Medications were administered in the Emergency Department. See MAR. Independent interpretation of the following test(s) in the Emergency Department Radiology Department Ultrasound: My interpretation is ECTOPIC. Test considered but Not performed: MRI: NO MRI PELVIS. Historians other than the Patient: Spouse/Significant Other: WELL INFORMED. Care significantly affected by the following chronic conditions: Hypertension. Counseling: I had a detailed discussion with the patient and/or guardian regarding the historical points, exam findings, and any diagnostic results supporting the discharge/admit diagnosis, lab results, radiology results, the need to transfer to another facility, for higher level of care, [facility] does not immediately have the required specialist. 05/26 20:45 Order name: Abo/rh Typing; Complete Time: 23:44 [facility] 05/26 20:45 Order name: Basic Metabolic Panel; Complete Time: 23:44 [facility] 05/26 20:45 Order name: CBC with Diff; Complete Time: 23:44 [facility] 05/26 20:45 Order name: Test, Urine [facility] 05/26 20:45 Order name: Quantitative Hcg; Complete Time: 23:44 [facility] 05/26 20:45 Order name: Urinalysis w/ reflexes [facility] 05/26 20:45 Order name: US Transvaginal Ob; Complete Time: 23:44 [facility] 05/26 20:45 Order name: IV Saline Lock; Complete Time: 22:43 [facility] 05/26 20:45 Order name: Labs collected and sent; Complete Time: 22:43 [facility] 05/26 20:45 Order name: NPO; Complete Time: 22:43 dom Administered Medications: 05/26 22:43 Drug: NS 0.9% IV 1000 ml IV at 1000 ml once; to be given as a bolus over 60 minutes dd2 Route: IV; Rate: 1000 ml; Site: right antecubital; 22:58 Follow up: Response: No adverse reaction dd2 23:40 Follow up: IV Status: Completed infusion; IV Intake: 1000ml dd2 22:51 Drug: Acetaminophen PO 650 mg PO once Route: PO; dd2 23:21 Follow up: Response: No adverse reaction dd2 Disposition Summary: 05/26/24 23:50 Transfer Ordered Notes: Transfer Location: [facility] dom Reason: Higher level of care dom Condition: Fair dom Problem: new dom Symptoms: have improved dom Accepting Physician: TO [facility](05/27/24 01:31) dd2 Diagnosis - Other ectopic without intrauterine - LEFT ADENXA, MODERATE IN dom THE CUL DE SAC, QUANT 4376 - Abdominal tenderness dom Discharge Instructions: - Discharge Summary Sheet dom - Care dom - Threatened Miscarriage dom - Vaginal Bleeding During , First Trimester dom - Threatened Miscarriage, [id number] dom - Vaginal Bleeding During , First Trimester, [id number] dom Forms: - Medication Reconciliation Form dom - SBAR form dom Signatures: Dispatcher [employer] Bob Richey MD MD cha Bryson, James RN RN jb4 NATALYA SARMIENTO RN RN dd2 Corrections: (The following items were deleted from the chart) 05/27 01:31 05/26 23:50 TO [facility] dom dd2
[2024-05-27 00:12] LABS: Specific Gravity 1.017 (1.005-1.030)
[2024-05-27 00:15] LABS: Calcium Oxalate Crystals- Ur Few /HPF (None Seen); Specific Gravity 1.017 (1.005-1.030); Sqamous Epithelial <5 /HPF (None Seen); Urine Bacteria None Seen /HPF (<20); Urine Bilirubin NEGATIVE (Negative); Urine Blood 3+ (OVER) (Negative); Urine Clarity Turbid (Clear); Urine Color Light-Yellow (Yellow); Urine Crystals Unidentified Few /HPF (None Seen); Urine Culture Reflex Order NOT NEEDED; Urine Glucose NEGATIVE (Negative); Urine Ketones NEGATIVE (Negative); Urine Microscopic Reflex YN ORDER UMIC; Urine Nitrite NEGATIVE (Negative); Urine Protein NEGATIVE (Negative); Urine Urobilinogen Normal (Normal); Urine WBC None Seen /HPF (<5); Urine pH 5.5 (5.0-7.0)
[2024-05-27 01:45] VITALS: TEMP 98.1
[2024-05-27 01:57] VITALS: O2SAT 100
[2024-05-27 02:03] VITALS: BP 120/64
== END 2024-05-27 01:31 | disposition short-term general hospital (02) ==
LOC: ER 20:40
DX: O00.80 Other ectopic pregnancy without intrauterine pregnancy (principal)
CPT/HCPCS: 85025; 81001; 80048; 36415; 86900; 81025; 86901; 84702; 76817; 96360; 99285; J7030